=== PATIENT | female | born 1955 | race Caucasian/White ===

== ENCOUNTER 2020-02-22 12:05 | Emergency (ER) | payer MEDICAID, SELFPAY ==
[2020-02-22 12:36] VITALS: BP 144/98; PULSE 95; RESP 20; TEMP 36.7; O2SAT 94; BMI 24.9
--- NOTE | 2020-02-22 13:15 | HMH.EDUTC ---
[facility] [place] Impression: Exposure to COVID-19 virus Disposition: Home, Self-Care Condition on Discharge: Good Instructions: Preventing the Spread of Coronavirus Discharge Instructions Additional Instructions: Drink plenty of fluids. Take tylenol for pain or fever. Follow up with your regular doctor. GO TO THE ER FOR ANY WORSENING SYMPTOMS Referrals: tJ Faye [Primary Care Provider] - Time of Disposition: 13:16 Medical Decision Making - Medical Records Medical records reviewed: No: I reviewed the patient's medical records. - Javier Inquiry Pt receiving controlled substance: No Vital Signs: 02/22/20 12:36 02/22/20 14:02 Temperature 98.1 F 98.1 F Temperature Source Oral Oral Pulse Rate 95 H Pulse Rate [Radial] 95 H Respiratory Rate 20 20 Blood Pressure 144/98 H Blood Pressure [Right Arm] 144/98 H Blood Pressure Mean [Right Arm] 113 Blood Pressure Source Automatic Cuff Blood Pressure Source [Right Arm] Automatic Cuff Blood Pressure Position Sitting Blood Pressure Position [Right Arm] Sitting 02 Sat by Pulse Oximetry 94 L Oxygen Delivery Method Room Air Room Air Orders (Tests/Meds): ORDERS Category Date Time Status Covid-19 Nasal PCR Sendout Gilberto Routine Lab 02/22/20 13:02 [place] [facility] [place] - General Stated complaint: Covid exposure Time Seen by Provider: 02/22/20 13:15 - History of Present Illness Provider Complaint: She states that she was exposed to covid by a family member. She denies any symptoms. - Related Data Allergies Allergy/AdvReac Type Severity Reaction Status Date / Time Codeine Allergy Intermediate I-HIVES Uncoded 03/29/17 14:24 Aspirin Allergy Unknown NA-NAUSEA/V Uncoded 03/29/17 14:[address] [facility] History - Hepatitis A Screen Attestation statement:: This patient has been screened for Hepatitis A risk factors. I have reviewed the patient's past medical history: Yes ROS Obtained: Yes All systems reviewed & no additional complaints - Constitutional Constitutional: Reports system reviewed and no additional complaints, except as docu - Eyes Eyes: Reports system reviewed and no additional complaints, except as docu - ENT Ears, Nose, Mouth, and Throat: Reports system reviewed and no additional complaints, except as docu - Cardiovascular Cardiovascular: Reports system reviewed and no additional complaints, except as docu - Respiratory Respiratory: Yes system reviewed and no additional complaints, except as docu - Gastrointestinal Gastrointestingal: Reports: system reviewed and no additional complaints, except as docu Physical Exam - General General appearance: alert, in no apparent distress - Head Head exam: atraumatic, normocephalic, normal inspection - Eye Eye exam: Present: normal appearance, PERRL, EOMI - ENT ENT exam: Present: normal exam, normal oropharynx, mucous membranes moist, TM's normal bilaterally, normal external ear exam - Neck Neck exam: Present: normal inspection, full ROM, trachea midline. Absent: meningismus, lymphadenopathy - Chest Chest inspection: Present: normal inspection, symmetric chest wall rise. Absent: tenderness - Respiratory Respiratory exam: Present: normal lung sounds bilaterally. Absent: respiratory distress - Cardiovascular Cardiovascular exam: Present: regular rate, normal rhythm. Absent: JVD - Abdominal Exam Abdominal exam: Present: soft, normal bowel sounds. Absent: distention, tenderness, guarding - Extremities Exam Extremities exam: Present: normal inspection, full ROM, normal capillary refill. Absent: calf tenderness - Back Exam Back exam: Present: normal inspection. Absent: tenderness - Neurological Exam Neurological exam: Present: alert, oriented X3 - Psychiatric Psychiatric exam: Present: normal affect, normal mood - Skin Skin exam: Present: warm, dry, intact, normal color - Lymphatic Lymphatic Findings: no adenopathy
[2020-02-22 14:02] VITALS: BP 144/98; PULSE 95; RESP 20; TEMP 36.7; O2SAT 94
== END 2020-02-22 14:03 | disposition home or self-care (01) ==
PROVIDERS: Emergency Provider Nurse Practitioner Family; PCP Family Medicine
DX: Z20.828 Contact with and (suspected) exposure to other viral communicable diseases (principal)
CPT/HCPCS: 99201; U0003

== ENCOUNTER 2023-10-06 11:11 | Outpatient (CLI) | payer MEDICARE, MEDICAID, SELFPAY ==
[2023-10-06 11:18] VITALS: BMI 24.7
--- NOTE | 2023-10-06 11:22 | PC.NURSE ---
1122-tkhurram biggs collected labs via venipuncture stick in left ac with butterfly needle. pt ok to d/c home to call with results.
[2023-10-06 11:37] LABS: Basophils # 0.1 K/mm3 (0-0.2); Eosinophils # 0.2 K/mm3 (0.0-0.4); Eosinophils % 1.8 % (0.1-12.0); Hemoglobin 14.9 g/dL (12.2-16.2); Lymphocytes # 2.1 K/mm3 (0.7-4.5); Lymphocytes % 26.3 % (10-50); Mean Corpuscular HGB Conc 32.3 g/dL (31.8-35.4); Mean Corpuscular Volume 89.7 fl (81-99); Mean Platelet Volume 7.3 fl (7.4-10.4); Monocytes # 0.5 K/mm3 (0.1-1.0); Monocytes % 6.2 % (1.7-9.3); Neutrophils # 5.2 K/mm3 (1.8-7.8); Neutrophils % 64.5 % (37.0-80.0); Platelet Count 399 K/mm3 (142-424); Red Blood Count 5.12 M/mm3 (4.20-5.40); Red Cell Distribution Width 14.1 % (11.5-17.5); White Blood Count 8.1 K/mm3 (4.8-10.8)
[2023-10-06 11:41] LABS: Chloride 101 mmol/L (98-107); Sodium 139 mmol/L (136-145)
[2023-10-06 11:42] LABS: Potassium 4.6 mmoL/L (3.5-5.1)
[2023-10-06 11:44] LABS: Alanine Aminotransferase 18 U/L (12-78); Alkaline Phosphatase 124 U/L (38-126); Aspartate Amino Transferase 24 U/L (14-36); Bilirubin,Total 0.5 mg/dl (0.2-1.3); Blood Urea Nitrogen 9 mg/dl (7-17); Creatinine Clearance Estimated 56 mL/min (50-200); Estimated Glomerular Filt Rate 72 ml/min (>60); GFR (African American) 87 ML/MIN (>60)
[2023-10-06 11:45] LABS: Albumin Level 4.1 g/dl (3.5-5.0); Anion Gap 10.6 mEq/L (5-15); Calcium 9.4 mg/dl (8.4-10.2); Carbon Dioxide 32 mmol/L (22.0-30.0); Glucose 115 mg/dl (74-100); Total Protein,Serum 8.1 g/dl (6.3-8.2)
[2023-10-06 12:12] LABS: Lactate Dehydrogenase 230 U/L (313-618); Uric Acid 4.2 mg/dl (2.5-6.2)
== END 2023-10-06 11:23 | disposition home or self-care (01) ==
LOC: LAB 11:14 → INF 11:15
PROVIDERS: PCP Nurse Practitioner Family; Visit Provider Internal Medicine Medical Oncology
DX: R59.1 Generalized enlarged lymph nodes (principal)
CPT/HCPCS: 36415; 80053; 83615; 84550; 85025

== ENCOUNTER 2023-10-21 08:11 | Outpatient (CLI) | payer MEDICARE, MEDICAID, SELFPAY ==
--- NOTE | 2023-10-21 08:57 | US_ITS ---
FINAL REPORT CLINICAL HISTORY: LYMPHADENOPATHY -- rt neck -- 5 passes -- esther FINN FINDINGS: ULTRASOUND-GUIDED RIGHT NECK MASS BIOPSY. HISTORY: Multiple right neck masses. ATTENDING PHYSICIAN: Dr. Ramírez. PHYSICIAN PAPERHANGER: Ju Branch PA-C. PROCEDURE: After informed consent was obtained and a timeout procedure was performed, the patient was prepped and draped in usual sterile fashion over the right neck. Utilizing sterile technique with a 25-gauge needle, access to the lesion was obtained. 5 passes were made. The patient tolerated the procedure well and left the department in good condition. Ultrasound guidance was utilized for this procedure. IMPRESSION: Status post ultrasound-guided biopsy of a 3 cm right neck mass without immediate complication. Reviewed, Interpreted and Dictated by Valente Wolf III, MD Transcribed by Ju Branch PA-C Authenticated and [facility]
--- NOTE | 2023-10-21 09:30 | US_ITS ---
FINAL REPORT CLINICAL HISTORY: LYMPHADENOPTHY COMPARISON: None FINDINGS: ULTRASOUND SOFT TISSUES NECK: Ultrasound examination of the soft tissues of the neck was performed secondary to several palpable masses in the right side of the neck. There are several hypoechoic ovoid masses noted in the soft tissues of the neck, measuring up to 3 cm in size. These are worrisome for adenopathy. The salivary glands appear unremarkable without evidence of focal mass. IMPRESSION: Several hypoechoic ovoid masses in the soft tissues of the neck, up to 3 cm in size, worrisome for adenopathy. Recommend either PET/CT or biopsy for further evaluation. Reviewed, Interpreted and Dictated by Valente Wolf III, MD Transcribed by Loli Montgomery Authenticated and [facility]
== END 2023-10-21 23:59 | disposition home or self-care (01) ==
LOC: RAD 08:12
PROVIDERS: PCP Nurse Practitioner Family; Visit Provider Internal Medicine Medical Oncology
DX: R22.1 Localized swelling, mass and lump, neck (principal); R59.0 Localized enlarged lymph nodes; C96.9 Malignant neoplasm of lymphoid, hematopoietic and related tissue, unspecified; F17.210 Nicotine dependence, cigarettes, uncomplicated; Z79.899 Other long term (current) drug therapy
CPT/HCPCS: 10005; 76536; 76942; 88173; 88184; 88185; 88305; 88342; 88360

== ENCOUNTER 2024-01-05 14:04 | Outpatient (CLI) | payer MEDICARE, MEDICAID, SELFPAY ==
[2024-01-05 14:06] VITALS: BMI 25.0
[2024-01-05 14:16] LABS: Basophils # 0.1 K/mm3 (0-0.2); Basophils % 1.4 % (0.1-2.0); Eosinophils # 0.1 K/mm3 (0.0-0.4); Eosinophils % 1.5 % (0.1-12.0); Hematocrit 47.2 % (37.0-47.0); Hemoglobin 14.9 g/dL (12.2-16.2); Lymphocytes # 2.4 K/mm3 (0.7-4.5); Lymphocytes % 30.4 % (10-50); Mean Corpuscular HGB Conc 31.5 g/dL (31.8-35.4); Mean Corpuscular Hemoglobin 29.4 pg (27.0-31.2); Mean Corpuscular Volume 93.3 fl (81-99); Mean Platelet Volume 8.7 fl (7.4-10.4); Monocytes # 0.5 K/mm3 (0.1-1.0); Monocytes % 6.4 % (1.7-9.3); Neutrophils # 4.8 K/mm3 (1.8-7.8); Neutrophils % 60.3 % (37.0-80.0); Platelet Count 270 K/mm3 (142-424); Red Blood Count 5.06 M/mm3 (4.20-5.40); Red Cell Distribution Width 15.7 % (11.5-17.5); White Blood Count 7.9 K/mm3 (4.8-10.8)
[2024-01-05 14:26] LABS: Alanine Aminotransferase 19 U/L (12-78); Albumin Level 4.3 g/dl (3.5-5.0); Albumin/Globulin Ratio 1.2 (1.1-1.8); Alkaline Phosphatase 91 U/L (38-126); Anion Gap 5.9 mEq/L (5-15); Aspartate Amino Transferase 30 U/L (14-36); Bilirubin,Total 0.5 mg/dl (0.2-1.3); Blood Urea Nitrogen 12 mg/dl (7-17); Calcium 9.4 mg/dl (8.4-10.2); Carbon Dioxide 28 mmol/L (22.0-30.0); Chloride 109 mmol/L (98-107); Creatinine Clearance Estimated 57 mL/min (50-200); Estimated Glomerular Filt Rate 72 ml/min (>60); GFR (African American) 87 ML/MIN (>60); Globulin 3.6 g/dL (1.3-3.2); Glucose 96 mg/dl (74-100); Potassium 3.9 mmoL/L (3.5-5.1); Sodium 139 mmol/L (136-145); Total Protein,Serum 7.9 g/dl (6.3-8.2)
== END 2024-01-05 14:11 | disposition home or self-care (01) ==
LOC: INF 14:05
PROVIDERS: Internal Medicine Medical Oncology; PCP Nurse Practitioner Family; Visit Provider Nurse Practitioner Family
DX: C34.90 Malignant neoplasm of unspecified part of unspecified bronchus or lung (principal)
CPT/HCPCS: 36415; 80053; 85025

== ENCOUNTER 2024-01-18 08:55 | Outpatient (CLI) | payer MEDICARE, MEDICAID, SELFPAY ==
[2024-01-18] VITALS (11 sets, daily range): BP systolic 119–150; BP diastolic 69–89; PULSE 77–91; RESP 18; TEMP 36.7; O2SAT 93–95
[2024-01-18] MEDS: LORATADINE 10MG TABLET 10 MG PO (09:29)
[2024-01-18] MEDS: FAMOTIDINE 20MG TABLET 20 MG PO (09:29)
[2024-01-18] MEDS: DEXAMETHASONE 4MG TABLET 12 MG PO (09:30)
[2024-01-18] MEDS: ONDANSETRON 4MG ODT 16 MG SL (09:30)
[2024-01-18] MEDS: DEXTROSE 5% IV (10:04)
[2024-01-18] MEDS: WATER IV (10:04)
[2024-01-18] MEDS: PACLITAXEL IV (10:04)
[2024-01-18] MEDS: CARBOPLATIN IV (13:22)
[2024-01-18] MEDS: SODIUM CHLORIDE 0.9% IV (13:22)
[2024-01-18] MEDS: PEMBROLIZUMAB 200 MG in 0.9 % SODIUM CHLORIDE 50 ML 116 MG IV (14:00)
[2024-01-18] MEDS: SODIUM CHLORIDE 0.9% 50ML BAG 50 ML IV (17:28)
[2024-01-18] MEDS: SODIUM CHLORIDE 0.9% 10ML FLUSH SYRINGE 10 ML IV (17:28)
--- NOTE | 2024-01-24 15:20 | DIET.NUTRFU ---
RD consulted due to 1st chemo visit, she reports no change in appetite has been eating well. She did experience some nausea now resolved. She was complaining of leg pain, spoke to provider about adding in some Aleeve. Provided my contact information for any future concerns
== END 2024-01-18 14:50 | disposition home or self-care (01) ==
PROVIDERS: PCP Nurse Practitioner Family; Visit Provider Internal Medicine Medical Oncology
DX: C34.90 Malignant neoplasm of unspecified part of unspecified bronchus or lung (principal)
CPT/HCPCS: 96413; 96415; 96417; J7060; J8540; J9045; J9267; J9271; Q0162

== ENCOUNTER 2024-02-08 09:58 | Outpatient (CLI) | payer MEDICARE, MEDICAID, SELFPAY ==
[2024-02-08] VITALS (10 sets, daily range): BP systolic 117–160; BP diastolic 85–97; PULSE 79–88; RESP 18–19; TEMP 36.6; O2SAT 97–98; BMI 25.4
[2024-02-08 10:25] LABS: Basophils # 0.1 K/mm3 (0-0.2); Basophils % 1.4 % (0.1-2.0); Eosinophils # 0.1 K/mm3 (0.0-0.4); Eosinophils % 1.4 % (0.1-12.0); Hematocrit 41.2 % (37.0-47.0); Hemoglobin 13.8 g/dL (12.2-16.2); Lymphocytes # 2.1 K/mm3 (0.7-4.5); Lymphocytes % 37.2 % (10-50); Mean Corpuscular HGB Conc 33.6 g/dL (31.8-35.4); Mean Corpuscular Hemoglobin 29.9 pg (27.0-31.2); Mean Corpuscular Volume 89.1 fl (81-99); Mean Platelet Volume 7.7 fl (7.4-10.4); Monocytes # 0.4 K/mm3 (0.1-1.0); Monocytes % 6.5 % (1.7-9.3); Neutrophils % 53.4 % (37.0-80.0); Platelet Count 222 K/mm3 (142-424); Red Blood Count 4.63 M/mm3 (4.20-5.40); Red Cell Distribution Width 16.4 % (11.5-17.5); White Blood Count 5.5 K/mm3 (4.8-10.8)
[2024-02-08 10:37] LABS: Albumin Level 4.1 g/dl (3.5-5.0); Chloride 108 mmol/L (98-107); Potassium 4.3 mmoL/L (3.5-5.1); Sodium 141 mmol/L (136-145)
[2024-02-08 10:40] LABS: Alanine Aminotransferase 23 U/L (12-78); Albumin/Globulin Ratio 1.2 (1.1-1.8); Alkaline Phosphatase 96 U/L (38-126); Anion Gap 11.3 mEq/L (5-15); Aspartate Amino Transferase 29 U/L (14-36); Bilirubin,Total 0.5 mg/dl (0.2-1.3); Blood Urea Nitrogen 11 mg/dl (7-17); Calcium 8.8 mg/dl (8.4-10.2); Carbon Dioxide 26 mmol/L (22.0-30.0); Creatinine Clearance Estimated 57 mL/min (50-200); Estimated Glomerular Filt Rate 83 ml/min (>60); GFR (African American) 101 ML/MIN (>60); Globulin 3.4 g/dL (1.3-3.2); Glucose 87 mg/dl (74-100); Total Protein,Serum 7.5 g/dl (6.3-8.2)
[2024-02-08] MEDS: DEXAMETHASONE 4MG TABLET 12 MG (10:54)
[2024-02-08] MEDS: 0.9 % SODIUM CHLORIDE 100 ML IV (10:54)
[2024-02-08] MEDS: FAMOTIDINE 20MG TABLET 20 MG (10:55)
[2024-02-08] MEDS: ONDANSETRON 4MG ODT 16 MG (10:55)
[2024-02-08] MEDS: LORATADINE 10MG TABLET 10 MG PO (10:55)
[2024-02-08 10:57] LABS: T4 (Thyroxine) 8.7 ug/dl (5.53-11.0)
[2024-02-08 11:11] LABS: Thyroid Stimulating Hormone 3.17 uIU/mL (0.465-4.68)
[2024-02-08] MEDS: DEXTROSE 5% IV (11:29)
[2024-02-08] MEDS: PACLITAXEL IV (11:29)
[2024-02-08] MEDS: WATER IV (11:29)
[2024-02-08] MEDS: CARBOPLATIN IV (14:33)
[2024-02-08] MEDS: SODIUM CHLORIDE 0.9% IV (14:33)
[2024-02-08] MEDS: PEMBROLIZUMAB 200 MG in 0.9 % SODIUM CHLORIDE 50 ML 116 MG IV (15:11)
[2024-02-09 13:38] LABS: Adrenocorticotropic Hormone 6.6 pg/mL (7.2-63.3)
== END 2024-02-08 15:54 | disposition home or self-care (01) ==
LOC: INF 09:59
PROVIDERS: PCP Nurse Practitioner Family; Visit Provider Internal Medicine Medical Oncology
DX: R59.1 Generalized enlarged lymph nodes (principal); Z79.899 Other long term (current) drug therapy
CPT/HCPCS: 80053; 82024; 82533; 84436; 84443; 85025; 96413; 96415; 96417; J7060; J8540; J9045; J9267; J9271; Q0162

== ENCOUNTER 2024-02-27 12:29 | Emergency (ER) | payer MEDICARE, MEDICAID, SELFPAY ==
[2024-02-27 13:50] VITALS: BP 131/89; PULSE 91; RESP 18; TEMP 36.6; O2SAT 98; BMI 26.4
--- NOTE | 2024-02-27 14:03 | ED_ITS ---
Discharge Plan Disposition Patient Disposition: Eloped Prescriptions Prescriptions: No Action Spiriva Respimat 1.25 mcg/actuation mist 2 puff inhalation DAILY gabapentin 400 mg capsule 400 mg PO TID Patient Comments: TAKE ONE (1) CAPSULE THREE (3) TIMES A DAY BY ORAL ROUTE FOR 30 DAYS. Linzess 145 mcg capsule 145 mcg PO DAILY Patient Comments: TAKE ONE (1) CAPSULE EVERY DAY BY ORAL ROUTE. cyclobenzaprine 5 mg tablet 5 mg PO TID Patient Comments: TAKE ONE (1) TABLET THREE (3) TIMES A DAY BY ORAL ROUTE FOR 30 DAYS. fluticasone propionate 50 mcg/actuation spray,suspension 50 mcg intranasal DAILY Patient Comments: SPRAY ONE (1) SPRAY EVERY DAY BY INTRANASAL ROUTE. montelukast 10 mg tablet 10 mg PO DAILY Patient Comments: TAKE ONE (1) TABLET EVERY DAY BY ORAL ROUTE. pantoprazole 40 mg tablet,delayed release (DR/EC) 40 mg PO DAILY Patient Comments: TAKE ONE (1) TABLET EVERY DAY BY ORAL ROUTE. sertraline 100 mg tablet 100 mg PO DAILY Patient Comments: TAKE TWO (2) TABLETS EVERY DAY BY ORAL ROUTE. atorvastatin 40 mg tablet 40 mg PO DAILY Patient Comments: TAKE ONE (1) TABLET EVERY DAY BY ORAL ROUTE. furosemide 40 mg tablet 40 mg PO DAILY PRN (Reason: Fluid) Patient Comments: TAKE ONE (1) TABLET EVERY DAY BY ORAL ROUTE NEEDED. buspirone 15 mg tablet 15 mg PO TID Patient Comments: TAKE ONE (1) TABLET THREE (3) TIMES A DAY BY ORAL ROUTE FOR 30 DAYS. cholecalciferol (vitamin D3) 1,250 mcg (50,000 unit) capsule 1,250 mcg PO WEEKLY Patient Comments: TAKE ONE (1) CAPSULE EVERY WEEK BY ORAL ROUTE. ipratropium bromide 0.02 % solution 500 mcg inhalation NEEDED PRN (Reason: soa) Patient Comments: INHALE TWO AND A HALF (2 & 1/2) ML EVERY SIX (6) HOURS BY INHALATION ROUTE Referrals Follow up/Referrals: Otilio Barcenas APRN [Primary Care Provider] - See instructions Clinical Impressions Clinical Impression: Patient left without being seen Print Language Print Language: Azeri Discharge ED Provider[place] Samara Ambrocio [facility] [place] General Stated complaint: neck and L shoulder Pain Mode of Arrival: Ambulatory Source of Information: Patient Time Seen by Provider: 02/27/24 14:03 Description of Symptoms (Recalled from Triage Doc. by RN): NECK AND SHOULDER MUSCLE PAIN HEENT Symptoms (Recalled from RN notes): No Resp Symptoms (Recalled from RN notes): No Skin Symptoms (Recalled from RN notes): No MS Symptoms (Recalled from RN notes): Yes Functional Status (Recalled from RN notes): HURTS TO MOVE SHOULDER UP AND DOWN History of Present Illness Provider Complaint: Patient states that she has been having muscle spasm like pain in her left shoulder blade area for about a week States that she is prescribed muscle relaxers and has been taking them but havent helped much States pain is worse with certain movements Denies chest pain Denies pain into jaw area States at times it feels tight in shoulder area when she turns her head States not sure if she may have pulled something reaching for her coffee cup last week because that is when the pain started States that she is able to move her shoulder back and forth but hurts to raise it up and down denies known injury Related Data Home Medications ?Medication ?Instructions ?Recorded ?Confirmed atorvastatin 40 mg tablet 40 mg PO DAILY 10/06/23 02/27/24 buspirone 15 mg tablet 15 mg PO TID 10/06/23 02/27/24 cholecalciferol (vitamin D3) 1,250 1,250 mcg PO WEEKLY 10/06/23 02/27/24 mcg (50,000 unit) capsule cyclobenzaprine 5 mg tablet 5 mg PO TID 10/06/23 02/27/24 fluticasone propionate 50 50 mcg intranasal DAILY allergies 10/06/23 02/27/24 mcg/actuation nasal spray,suspension furosemide 40 mg tablet 40 mg PO DAILY PRN Fluid 10/06/23 02/27/24 gabapentin 400 mg capsule 400 mg PO TID 10/06/23 02/27/24 linaclotide 145 mcg capsule 145 mcg PO DAILY 10/06/23 02/27/24 (Linzess) montelukast 10 mg tablet 10 mg PO DAILY 10/06/23 02/27/24 pantoprazole 40 mg tablet,delayed 40 mg PO DAILY 10/06/23 02/27/24 release sertraline 100 mg tablet 100 mg PO DAILY 10/06/23 02/27/24 tiotropium bromide 1.25 2 puff inhalation DAILY 10/06/23 02/27/24 mcg/actuation mist for inhalation (Spiriva Respimat) ipratropium bromide 0.02 % 500 mcg inhalation NEEDED PRN 12/06/23 02/27/24 solution for inhalation soa Allergies Allergy/AdvReac Type Severity Reaction Status Date / Time codeine Allergy Intermediate Hives Verified 02/08/24 11:03 aspirin Allergy Mild Nausea Verified 02/08/24 11:03 Worker's Comp Is this a Worker's Comp case?: No [facility] Disclaimer: The information contained in this section may have been updated after the patient was seen, as this information can be updated by other users. Medical History Chronic pain Edema Heartburn Depression Anxiety High cholesterol Chronic constipation Surgical History History of removal of skin mole H/O unilateral oophorectomy H/O breast biopsy H/O tubal ligation Family History Mother Cancer Heart attack Father Cancer Heart attack Brother Diabetes Heart attack Family/Other Diabetes Heart attack Sister Heart attack Social History Smoking Status: Current every day smoker tobacco type: cigarettes packs per day: 1 alcohol intake: never substance use type: marijuana counseling given: Yes counseling provided: provider counseling current occupational status: other Travel in the last 8 weeks: None ROS Obtained: Yes All systems reviewed & no additional complaints except as documented and Yes Systems reviewed as appropriate & no additional complaints except as documented Constitutional Constitutional: Reports system reviewed and no additional complaints, except as documented and Reports as per HPI ENT Ears, Nose, Mouth, and Throat: Reports system reviewed and no additional complaints, except as documented and Reports as per HPI Cardiovascular Cardiovascular: Reports system reviewed and no additional complaints, except as documented, Reports as per HPI, Denies chest pain, Denies edema and Denies radiating jaw, neck or arm pain Respiratory Respiratory: Reports system reviewed and no additional complaints, except as documented and Reports as per HPI Gastrointestinal Gastrointestingal: Reports system reviewed and no additional complaints, except as documented and as per HPI Musculoskeletal Musculoskeletal: Reports system reviewed and no additional complaints, except as documented, Reports as per HPI, Reports myalgias and Reports other Comments: reports muscle spasm like pain in left shoulder/shoulder blade area that is worse when she tries to raise shoulder up and down Integumentary/Breasts Skin/Breast: Reports system reviewed and no additional complaints, except as documented and Reports as per HPI Physical Exam General General appearance: alert and in no apparent distress Eye Eye exam: Present normal appearance, PERRL and EOMI Respiratory Respiratory exam: Present normal lung sounds bilaterally; Absent respiratory distress or wheezes Cardiovascular Cardiovascular exam: Present regular rate, normal rhythm and normal heart sounds Back Exam Back exam: Present tenderness and muscle spasm Back 1 view image: 2 1. reports muscle pain worse with movement, feels tight and throbs at times x 1 week Denies radiation of pain Neurological Exam Neurological exam: Present alert, oriented X3 and normal gait Medical Decision Making Medical Records Screening: Per USPSTF and CDC recommendations, given the prevalence of disease in our region, it is our hospital?s policy to screen for HIV and viral Hepatitis for all patients aged 18 and over and those with ongoing risk factors. Javier Inquiry Pt receiving controlled substance: No Javier was queried for this patient: No Vital Signs: 02/27/24 13:50 Temperature 97.8 F Temperature Source Oral Pulse Rate [Left Radial] 91 H Respiratory Rate 18 Blood Pressure [Left Arm] 131/89 Blood Pressure Mean [Left Arm] 103 02 Sat by Pulse Oximetry 98 ECG Data Tracing #1: I reviewed this ECG and interpreted as documented below: ECG initial impression date: 02/27/24 ECG initial impression time: 14:39 ECG normal with no acute: arrhythmias, ischemia, conduction abnormalities, chamber hypertrophy Normal Sinus Rhythm: Yes Arrhythmias present: PVC's (occasional supraventricular premature complexes) Pacemaker function: normal pacer function ECG compared to prior tracings: there are no prior tracings available for comparison Medical Decision Narrative: EKG done due to complaint of pain in her left shoulder area Denies radiation of pain and pain is worse with movement Awaiting xray results While waiting on xray results patient left room and walked out of clinic without notifying staff, awaiting to see if she returns
--- NOTE | 2024-02-27 14:15 | XR_ITS ---
PROCEDURE INFORMATION: Exam: XR Left Shoulder Exam date and time: 02/27/2024 2:40 PM Age: 69 years old Clinical indication: Pain; Shoulder; Left; Additional info: Pain with movement TECHNIQUE: Imaging protocol: Radiologic exam of the left shoulder. Views: 2 or more views. Total images: 3 COMPARISON: No relevant prior studies available. FINDINGS: Bones/joints: No evidence of acute fracture or dislocation. Mild degenerative changes of the acromioclavicular joint. Soft tissues: Soft tissues are within normal limits. IMPRESSION: No evidence of acute fracture or dislocation.
--- NOTE | 2024-02-27 14:35 | ECG_ITS ---
APPROVED REPORT Exam: Resting ECG HR:81 bpm ECG Measurements Heart Rate 81 AXES SD 130 P 51 QRSd 86 QRS 56 QT 366 T 60 QTc 403 Conclusion SINUS RHYTHM WITH OCCASIONAL SUPRAVENTRICULAR PREMATURE COMPLEXES MODERATE ST DEPRESSION [0.05+ mV ST DEPRESSION] ABNORMAL ECG UNCONFIRMED REPORT Electronically signed by : CUAUHTEMOC BERRIOS, 02/28/2024 06:47:41
--- NOTE | 2024-02-27 15:27 | PC.NURSE ---
PATIENT LEFT WITHOUT ROOM WITHOUT NOTIFYING STAFF, RN CALLED AND PATIENT ELOPED D/T BEING HERE TOO LONG .
[2024-02-27 15:29] VITALS: BP 0/0; PULSE 0; RESP 0; TEMP -17.7; TEMP 0
== END 2024-02-27 15:29 | disposition left against medical advice (07) ==
PROVIDERS: Emergency Provider Nurse Practitioner; PCP Nurse Practitioner Family
DX: Z53.21 Procedure and treatment not carried out due to patient leaving prior to being seen by health care provider (principal)
CPT/HCPCS: 73030; 93005

== ENCOUNTER 2024-02-29 08:45 | Outpatient (CLI) | payer MEDICARE, MEDICAID, SELFPAY ==
[2024-02-29] VITALS (11 sets, daily range): BP systolic 123–139; BP diastolic 74–90; PULSE 73–86; RESP 18–19; TEMP 36.7; O2SAT 95–99; BMI 25.4
[2024-02-29 09:19] LABS: Alanine Aminotransferase 22 U/L (12-78); Albumin Level 4.2 g/dl (3.5-5.0); Albumin/Globulin Ratio 1.3 (1.1-1.8); Alkaline Phosphatase 94 U/L (38-126); Anion Gap 15.6 mEq/L (5-15); Aspartate Amino Transferase 22 U/L (14-36); Bilirubin,Total 0.5 mg/dl (0.2-1.3); Blood Urea Nitrogen 12 mg/dl (7-17); Calcium 9.4 mg/dl (8.4-10.2); Carbon Dioxide 23 mmol/L (22.0-30.0); Chloride 110 mmol/L (98-107); Creatinine Clearance Estimated 57 mL/min (50-200); Estimated Glomerular Filt Rate 83 ml/min (>60); GFR (African American) 101 ML/MIN (>60); Globulin 3.3 g/dL (1.3-3.2); Glucose 80 mg/dl (74-100); Potassium 3.6 mmoL/L (3.5-5.1); Sodium 145 mmol/L (136-145); Total Protein,Serum 7.5 g/dl (6.3-8.2)
[2024-02-29 09:24] LABS: Basophils % 0.2 % (0.1-2.0); Eosinophils % 0.1 % (0.1-12.0); Hematocrit 37.1 % (37.0-47.0); Hemoglobin 12.7 g/dL (12.2-16.2); Lymphocytes # 1.2 K/mm3 (0.7-4.5); Lymphocytes % 17.3 % (10-50); Mean Corpuscular HGB Conc 34.4 g/dL (31.8-35.4); Monocytes # 0.5 K/mm3 (0.1-1.0); Monocytes % 7.4 % (1.7-9.3); Neutrophils # 5.1 K/mm3 (1.8-7.8); Neutrophils % 74.9 % (37.0-80.0); Platelet Count 237 K/mm3 (142-424); Red Blood Count 4.12 M/mm3 (4.20-5.40); Red Cell Distribution Width 17.9 % (11.5-17.5); White Blood Count 6.8 K/mm3 (4.8-10.8)
[2024-02-29] MEDS: LORATADINE 10MG TABLET 10 MG PO (09:38)
[2024-02-29] MEDS: DEXAMETHASONE 4MG TABLET 12 MG (09:38)
[2024-02-29] MEDS: FAMOTIDINE 20MG TABLET 20 MG (09:39)
[2024-02-29] MEDS: ONDANSETRON 4MG ODT 16 MG (09:39)
[2024-02-29] MEDS: WATER IV (10:09)
[2024-02-29] MEDS: PACLITAXEL IV (10:09)
[2024-02-29] MEDS: DEXTROSE 5% IV (10:09)
[2024-02-29] MEDS: 0.9 % SODIUM CHLORIDE 100 ML IV (10:09)
[2024-02-29] MEDS: SODIUM CHLORIDE 0.9% IV (13:15)
[2024-02-29] MEDS: CARBOPLATIN IV (13:15)
[2024-02-29] MEDS: PEMBROLIZUMAB 200 MG in 0.9 % SODIUM CHLORIDE 50 ML 116 MG IV (13:55)
== END 2024-02-29 14:38 | disposition home or self-care (01) ==
LOC: INF 08:46
PROVIDERS: PCP Nurse Practitioner Family; Visit Provider Internal Medicine Medical Oncology
DX: R59.1 Generalized enlarged lymph nodes (principal)
CPT/HCPCS: 80053; 85025; 96413; 96415; 96417; J7060; J8540; J9045; J9267; J9271; Q0162

== ENCOUNTER 2024-03-05 08:16 | Day surgery (SDC) | payer MEDICARE, MEDICAID, SELFPAY ==
[2024-02-29 16:03] VITALS: BMI 26.4
[2024-03-05 08:53] VITALS: BP 127/83; PULSE 89; RESP 16; TEMP 36.2; O2SAT 95
[2024-03-05] MEDS: LACTATED RINGERS 1000ML 1,000 ML 25 ML IV (09:01)
[2024-03-05 09:24] VITALS: O2SAT 98
--- NOTE | 2024-03-05 09:30 | EXP.HP ---
History of Present Illness *Admission Date: 03/05/24 *Reason for visit:: Abnormal PET scan *History of present illness: Mrs. Montoya is a 69-year-old female who is here for diagnostic colonoscopy. The patient did have a PET scan on 12/03/2023 at [facility] and there were multiple hypermetabolic right cervical and mediastinal lymph nodes. There was also a hypermetabolic focus within the cecum anterior to the lateral margin of the ileocecal valve which was concerning for primary colon cancer. The examination is deemed medically necessary for diagnostic colonoscopy. The patient has been seen, interviewed and examined prior to the procedure by both myself and the anesthesia provider. [facility] Disclaimer: The information contained in this section may have been updated after the patient was seen, as this information can be updated by other users. Medical History (Updated 03/05/24 @ 09:32 by Gene Lord II, MD) COPD (chronic obstructive pulmonary disease) Sleep apnea Chronic pain Edema Heartburn Depression Anxiety High cholesterol Chronic constipation Surgical History History of removal of skin mole H/O unilateral oophorectomy H/O breast biopsy H/O tubal ligation Family History Mother Cancer Heart attack Father Cancer Heart attack Brother Diabetes Heart attack Family/Other Diabetes Heart attack Sister Heart attack Social History (Updated 03/05/24 @ 08:54 by Karina Scruggs RN) Smoking Status: Current every day smoker tobacco type: cigarettes packs per day: 1 alcohol intake: never substance use type: marijuana counseling given: Yes counseling provided: provider counseling current occupational status: retired Travel in the last 8 weeks: None caffeine: No Other Medical History Have you received the Pneumonia Vaccine: Yes Review of Systems Review of Systems Review of systems (narrative): Negative *Cardiovascular Comments: Negative *Gastrointestinal Comments: Negative *Genitourinary Comments: Negative *Musculoskeletal Comments: Negative *Neurologic Comments: Negative Meds Home Medications and Allergies Home Medications ?Medication ?Instructions ?Recorded ?Confirmed ?Type atorvastatin 40 mg tablet 40 mg PO DAILY 10/06/23 03/05/24 History buspirone 15 mg tablet 15 mg PO TID 10/06/23 03/05/24 History cholecalciferol (vitamin D3) 1,250 1,250 mcg PO WEEKLY 10/06/23 03/05/24 History mcg (50,000 unit) capsule cyclobenzaprine 5 mg tablet 5 mg PO TID 10/06/23 03/05/24 History fluticasone propionate 50 50 mcg intranasal DAILY allergies 10/06/23 03/05/24 History mcg/actuation nasal spray,suspension furosemide 40 mg tablet 40 mg PO DAILY PRN Fluid 10/06/23 03/05/24 History linaclotide 145 mcg capsule 145 mcg PO DAILY 10/06/23 03/05/24 History (Linzess) montelukast 10 mg tablet 10 mg PO DAILY 10/06/23 03/05/24 History pantoprazole 40 mg tablet,delayed 40 mg PO DAILY 10/06/23 03/05/24 History release sertraline 100 mg tablet 100 mg PO DAILY 10/06/23 03/05/24 History tiotropium bromide 1.25 2 puff inhalation DAILY 10/06/23 03/05/24 History mcg/actuation mist for inhalation (Spiriva Respimat) ipratropium bromide 0.02 % 500 mcg inhalation NEEDED PRN 12/06/23 03/05/24 History solution for inhalation soa gabapentin 600 mg tablet 600 mg PO TID 02/29/24 03/05/24 History peg 3350-electrolytes 236 240 ml PO Q10M colonscopy #4,000 mL 02/29/24 03/05/24 Rx gram-22.74 gram-6.74 gram-5.86 gram solution (Golytely) New Prescriptions to Start Prescriptions: Allergies Allergy/AdvReac Type Severity Reaction Status Date / Time codeine Allergy Intermediate Hives Verified 03/05/24 08:46 aspirin Allergy Mild Nausea Verified 03/05/24 08:46 Exam Data for Last 24 hours Vital signs and Labs for Last 24 Hours: Temp Pulse Resp BP Pulse Ox O2 Del Method O2 Flow Rate 97.1 F L 89 16 127/83 95 Nasal Cannula 5 03/05/24 08:53 03/05/24 08:53 03/05/24 08:53 03/05/24 08:53 03/05/24 08:53 03/05/24 09:24 03/05/24 09:24 *Routine HEENT Exam Head: Present normocephalic Eye: Present EOMI and PERRL ENT: Present mucous membranes moist *Routine Neck Exam Neck: Present supple *Routine Respiratory Exam Respiratory: Present CTA bilaterally *Routine Cardiovascular Exam Cardiovascular: Present RRR *Routine Abdominal Exam Abdominal: Present soft and normoactive bowel sounds; Absent tenderness *Routine Rectal Exam Rectal:: deferred *Routine Genitalia Exam Genitalia:: deferred *Routine Extremities Exam Extremities: Absent cyanosis, clubbing or edema *Routine Skin Exam Skin: Present warm; Absent rash *Routine Neurological Exam Neurological: Present alert and oriented X3 Assessment and Plan *Assessment and plan (1) Abnormal CT scan, colon: Status: Acute Category: Medical Code(s): R93.3 - Abnormal findings on diagnostic imaging of other parts of digestive tract (2) Cecum mass: Status: Acute Category: Medical Code(s): K63.89 - Other specified diseases of intestine Plan A/P: 1. Abnormal CAT scan/PET scan with cecal mass is the preprocedural diagnosis. The patient will be anesthetized/sedated using MAC sedation. The patient has been seen and examined. Cardiac and lung assessment prior to the examination is stable. Proceed with planned colonoscopy
--- NOTE | 2024-03-05 09:49 | HMH.PROCNOTE ---
[facility] Procedure Note Date: 03/05/24 Time: 09:49 Procedure Note:: Colonoscopy Procedure Report: Colonoscopy with cold snare polypectomy Endoscopist: Gene Lord II, MD Referring physician: Josh Pacheco MD/ISMAEL Guido Date of Procedure: March 05, 2024 Equipment: Olympus 190 variable stiffness pediatric colonoscope Sedation: MAC sedation Indication: Mrs. Montoya is a 69-year-old female who is here for diagnostic colonoscopy. 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 The patient did have a PET scan at [facility] and this did show a hypermetabolic focus within the cecum anterior to the lateral margin of the ileocecal valve which was concerning for primary colon cancer or malignant polyp. The patient reports no abdominal pain, rectal bleeding, change in her bowel habits or family history of colon cancer. Her last colonoscopy was in 2013 and she had polyps removed. Procedure: Prior to the procedure, a history and physical exam was performed, and patient's medications and allergies were reviewed. The risks, benefits and alternatives of the sedation and procedure were discussed with the patient. All questions were answered and informed consent was obtained. The patient was brought to the procedure room. Patient identification and proposed procedure were verified by the physician and the nurse. The patient was placed in a left lateral decubitus position and the scope was passed under direct vision. Throughout the procedure, the patient's blood pressure, pulse, and oxygen saturations were monitored continuously. The colonoscopy was accomplished without difficulty. The patient tolerated the procedure well. Findings: On digital rectal examination there was normal rectal tone. There were no external hemorrhoids. The colonoscope was introduced through the anal canal to the rectum and advanced to the cecum. The ileocecal valve and appendiceal orifice were identified. The scope was advanced a short distance into the ileum which appeared grossly normal. The scope was then withdrawn into the colon. The cecum, ileocecal valve and contralateral region of colon were inspected very carefully and there was no evidence of any polyps, masses or other mucosal abnormalities. The remaining ascending and transverse colon and mucosa were grossly normal. There was a single 5 mm polyp in the transverse colon removed via cold snare polypectomy. There were scattered diverticuli throughout the descending and sigmoid colon (LEFT colon). The rectum itself was normal. Upon retroflexion within the rectum there were 1-2 internal hemorrhoids. The preparation was good throughout with [place] Preparation Score of 8 out of 9. The cecal time was 12 minutes. Impression: 1. Transverse colon polyp (5 mm) 2. Left-sided diverticulosis 3. Grade 1-2 internal hemorrhoids Plan: The inspected area of cecum was normal with no mucosal abnormalities identified. There is no evidence of any primary colon cancer. I will discuss the findings with the patient and family.
[2024-03-05 09:50] VITALS: BP 125/75; PULSE 85; RESP 16; O2SAT 99
[2024-03-05 10:00] VITALS: BP 137/83; PULSE 80; RESP 18; O2SAT 99
[2024-03-05 10:10] VITALS: BP 148/83; PULSE 81; RESP 18; O2SAT 99
[2024-03-05 10:20] VITALS: BP 151/84; PULSE 78; RESP 18; O2SAT 99
--- NOTE | 2024-03-05 14:48 | P.PNANES_ITS ---
[facility] Disclaimer: The information contained in this section may have been updated after the patient was seen, as this information can be updated by other users. Medical History (Updated 03/05/24 @ 09:32 by Gene Lord II, MD) COPD (chronic obstructive pulmonary disease) Sleep apnea Chronic pain Edema Heartburn Depression Anxiety High cholesterol Chronic constipation Surgical History History of removal of skin mole H/O unilateral oophorectomy H/O breast biopsy H/O tubal ligation Family History Mother Cancer Heart attack Father Cancer Heart attack Brother Diabetes Heart attack Family/Other Diabetes Heart attack Sister Heart attack Social History (Updated 03/05/24 @ 08:54 by Karina Scruggs RN) Smoking Status: Current every day smoker tobacco type: cigarettes packs per day: 1 alcohol intake: never substance use type: marijuana counseling given: Yes counseling provided: provider counseling current occupational status: retired Travel in the last 8 weeks: None caffeine: No [facility] Anesthesia Checklist Patient Identification Patient Identification: Arm Band Structural Data Admitted From: Home Planned Operative Procedure/s: Colonoscopy Consent for Planned Operative Procedure(s) Verified: Yes Verified Documents: Surgical Consent and History and Physical NPO Status Verified Time NPO: 00:00 Additional verifications Anesthesia Reactions: No Airway Assessment Mallampati Score:: Class II C-Spine Mobility Assessed: Yes TMJ Mobility Assessed: Yes Dentition: Good Dentition Neurological Assessment Level of Consciousness: Awake, Alert and Appropriate Anesthesia Plan Anesthesia Risk discussed: Yes Anesthesia Plan: Verified ASA Class: III Anesthesia Type: MAC
== END 2024-03-05 10:50 | disposition home or self-care (01) ==
PROVIDERS: PCP Nurse Practitioner Family; Visit Provider Internal Medicine Gastroenterology
PROC: (CPT 45385; principal; 2024-03-05 10:00)
DX: R93.3 Abnormal findings on diagnostic imaging of other parts of digestive tract (principal); K63.89 Other specified diseases of intestine; K63.5 Polyp of colon; K57.30 Diverticulosis of large intestine without perforation or abscess without bleeding; K64.8 Other hemorrhoids
CPT/HCPCS: 45385; 88305; J7120

== ENCOUNTER 2024-03-21 09:15 | Outpatient (CLI) | payer MEDICARE, MEDICAID, SELFPAY ==
[2024-03-21] VITALS (11 sets, daily range): BP systolic 111–145; BP diastolic 71–92; PULSE 76–92; RESP 18–20; TEMP 36.6; O2SAT 94–96; BMI 25.0
[2024-03-21 09:47] LABS: Basophils # 0.1 K/mm3 (0-0.2); Basophils % 1.2 % (0.1-2.0); Eosinophils % 0.5 % (0.1-12.0); Hematocrit 39.8 % (37.0-47.0); Hemoglobin 13.4 g/dL (12.2-16.2); Lymphocytes % 42.1 % (10-50); Mean Corpuscular HGB Conc 33.8 g/dL (31.8-35.4); Mean Corpuscular Hemoglobin 32.1 pg (27.0-31.2); Mean Platelet Volume 7.7 fl (7.4-10.4); Monocytes # 0.6 K/mm3 (0.1-1.0); Monocytes % 7.9 % (1.7-9.3); Neutrophils # 3.4 K/mm3 (1.8-7.8); Neutrophils % 48.2 % (37.0-80.0); Platelet Count 182 K/mm3 (142-424); Red Blood Count 4.19 M/mm3 (4.20-5.40); Red Cell Distribution Width 19.7 % (11.5-17.5); White Blood Count 7.1 K/mm3 (4.8-10.8)
[2024-03-21 09:50] LABS: Albumin Level 4.5 g/dl (3.5-5.0); Chloride 109 mmol/L (98-107); Potassium 3.8 mmoL/L (3.5-5.1); Sodium 138 mmol/L (136-145)
[2024-03-21 09:53] LABS: Alanine Aminotransferase 26 U/L (12-78); Albumin/Globulin Ratio 1.4 (1.1-1.8); Alkaline Phosphatase 106 U/L (38-126); Anion Gap 7.8 mEq/L (5-15); Aspartate Amino Transferase 29 U/L (14-36); Bilirubin,Total 0.5 mg/dl (0.2-1.3); Blood Urea Nitrogen 13 mg/dl (7-17); Calcium 9.2 mg/dl (8.4-10.2); Carbon Dioxide 25 mmol/L (22.0-30.0); Creatinine Clearance Estimated 56 mL/min (50-200); Estimated Glomerular Filt Rate 83 ml/min (>60); GFR (African American) 101 ML/MIN (>60); Globulin 3.2 g/dL (1.3-3.2); Glucose 88 mg/dl (74-100); Total Protein,Serum 7.7 g/dl (6.3-8.2)
[2024-03-21 10:24] LABS: Thyroid Stimulating Hormone 4.72 uIU/mL (0.465-4.68)
[2024-03-21] MEDS: DEXAMETHASONE 4MG TABLET 12 MG PO (10:40)
[2024-03-21] MEDS: ONDANSETRON 4MG ODT 16 MG SL (10:40)
[2024-03-21] MEDS: LORATADINE 10MG TABLET 10 MG PO (10:40)
[2024-03-21] MEDS: FAMOTIDINE 20MG TABLET 20 MG PO (10:40)
[2024-03-21] MEDS: SODIUM CHLORIDE 0.9% 100ML BAG 100 ML IV (11:14)
[2024-03-21] MEDS: SODIUM CHLORIDE 0.9% 10ML FLUSH SYRINGE 10 ML IV (11:15)
[2024-03-21] MEDS: DEXTROSE 5% IV (11:16)
[2024-03-21] MEDS: WATER IV (11:16)
[2024-03-21] MEDS: PACLITAXEL IV (11:16)
[2024-03-21] MEDS: SODIUM CHLORIDE 0.9% IV (14:28)
[2024-03-21] MEDS: CARBOPLATIN IV (14:28)
[2024-03-21] MEDS: PEMBROLIZUMAB 200 MG in 0.9 % SODIUM CHLORIDE 50 ML 116 MG IV (15:07)
[2024-03-22 14:11] LABS: Adrenocorticotropic Hormone 9.7 pg/mL (7.2-63.3)
== END 2024-03-21 15:50 | disposition home or self-care (01) ==
LOC: INF 09:15
PROVIDERS: PCP Nurse Practitioner Family; Visit Provider Internal Medicine Medical Oncology
DX: R59.1 Generalized enlarged lymph nodes (principal); Z79.899 Other long term (current) drug therapy
CPT/HCPCS: 80053; 82024; 82533; 84443; 85025; 96413; 96415; 96417; J7060; J8540; J9045; J9267; J9271; Q0162

== ENCOUNTER 2024-04-10 08:22 | Outpatient (CLI) | payer MEDICARE, MEDICAID, SELFPAY ==
--- NOTE | 2024-04-10 08:23 | CT_ITS ---
FINAL REPORT TECHNIQUE: Thin section axial images were obtained through the abdomen after intravenous contrast. Reconstruction images were obtained from the axial data. Exam was performed using dose reduction techniques. CLINICAL HISTORY: lymphadenopathy COMPARISON: None FINDINGS: There is a 12 mm hypervascular lesion in the inferior right lobe of the liver. The liver is otherwise homogeneous. The gallbladder is present. The spleen and pancreas are unremarkable. Bilateral adrenal nodules are present, which do not have CT characteristics consistent with adenomas. The right adrenal nodule measures 23 mm in size. The left adrenal gland contained 2 separate nodules. The nodule in the medial limb of the adrenal gland measures 4 cm in size, while the lateral limb mass measures 2.5 cm in size. There is no hydronephrosis or solid renal mass. Abdominal GI tract is without acute abnormality. There is no abdominal lymphadenopathy or ascites. The pelvic solid organs are unremarkable. A large amount of retained stool is present in the colon. There is diverticulosis without evidence of acute diverticulitis. The pelvic portions of the GI tract, including the appendix, are otherwise without acute abnormality. There is no pelvic lymphadenopathy or ascites. No acute osseous abnormalities identified. IMPRESSION: Bilateral adrenal nodules are present, which do not represent adenomas. Consider adrenal mass protocol CT or MRI for further evaluation 12 mm hypervascular lesion in the inferior right lobe of the liver, which may represent a hemangioma although metastases are not excluded. Consider liver mass protocol CT or MRI for further evaluation. Reviewed, Interpreted and Dictated by Genny Heredia MD Transcribed by Loli Montgomery Authenticated and [facility]
--- NOTE | 2024-04-10 08:23 | CT_ITS ---
FINAL REPORT TECHNIQUE: Thin section axial CT images with coronal and sagittal reformats were performed after the administration of IV contrast. This study was performed with techniques to keep radiation doses as low as reasonably achievable (ALARA). Individualized dose reduction techniques using automated exposure control or adjustment of mA and/or kV according to the patient''s size were employed. CLINICAL HISTORY: lymphadenopathy COMPARISON: None FINDINGS: There are several mildly prominent bilateral submandibular region nodes, along with bilateral posterior triangle nodes. The nasopharynx, oropharynx, epiglottis, and larynx are unremarkable in appearance. Salivary glands are normal. There is peripheral calcification noted in a left thyroid nodule. There is anterolisthesis of C4 on C5, likely degenerative. Multilevel degenerative disc disease is noted. IMPRESSION: Several mildly prominent bilateral submandibular region nodes as well as bilateral posterior triangle nodes are noted. Peripherally calcified left thyroid nodule noted. Reviewed, Interpreted and Dictated by Genny Heredia MD Transcribed by Loli Montgomery Authenticated and [facility]
--- NOTE | 2024-04-10 08:23 | CT_ITS ---
FINAL REPORT TECHNIQUE: Thin section axial images were obtained from the thoracic inlet through the upper abdomen after intravenous contrast injection. Reconstruction images were obtained from the axial data. Exam was performed using dose reduction technique. CLINICAL HISTORY: lymphadenopathy COMPARISON: None FINDINGS: There is no hilar or axillary lymphadenopathy. There is a right paratracheal 24 mm in size lymph node. There is no pleural or pericardial effusion. Changes of emphysema are present in the lung mario bilaterally. There are 2 nodules, 5 mm or smaller in size, seen in the right upper lobe, best visualized in axial image #19. The lungs are otherwise clear. There is a left breast nodule measuring 18 mm in size. Limited evaluation of the upper abdomen is without acute abnormality. No acute osseous abnormality. IMPRESSION: There is a pathologic appearing right paratracheal 24 mm lymph node present. Malignancy is not excluded. Left breast nodule, 18 mm in size, recommend mammography. Several right upper lobe nodules, recommend follow-up after risk stratification per Fleischner criteria. Reviewed, Interpreted and Dictated by Genny Heredia MD Transcribed by Loli Montgomery Authenticated and [facility]
[2024-04-10] MEDS: SODIUM CHLORIDE 0.9% 10ML SYR (RAD ONLY) 10 ML IV (08:57)
[2024-04-10] MEDS: IOPAMIDOL-370 (76%);100ML BOTTLE 150 ML IV (08:57)
== END 2024-04-10 23:59 | disposition home or self-care (01) ==
LOC: RAD 08:23
PROVIDERS: PCP Nurse Practitioner Family; Visit Provider Internal Medicine Medical Oncology
DX: R59.1 Generalized enlarged lymph nodes (principal)
CPT/HCPCS: 70491; 71260; 74177; Q9967

== ENCOUNTER 2024-04-13 09:03 | Outpatient (CLI) | payer MEDICARE, MEDICAID, SELFPAY ==
[2024-04-13] VITALS (12 sets, daily range): BP systolic 103–149; BP diastolic 57–81; PULSE 74–85; RESP 18–19; O2SAT 97; BMI 25.4
[2024-04-13 09:32] LABS: Eosinophils % 0.2 % (0.1-12.0); Hemoglobin 11.5 g/dL (12.2-16.2); Lymphocytes # 1.8 K/mm3 (0.7-4.5); Mean Corpuscular HGB Conc 32.9 g/dL (31.8-35.4); Mean Corpuscular Hemoglobin 33.4 pg (27.0-31.2); Mean Corpuscular Volume 101.7 fl (81-99); Mean Platelet Volume 10.8 fl (7.4-10.4); Monocytes # 0.4 K/mm3 (0.1-1.0); Monocytes % 9.8 % (1.7-9.3); Neutrophils # 1.9 K/mm3 (1.8-7.8); Neutrophils % 44.8 % (37.0-80.0); Platelet Count 170 K/mm3 (142-424); Red Blood Count 3.44 M/mm3 (4.20-5.40); Red Cell Distribution Width 19.8 % (11.5-17.5); White Blood Count 4.2 K/mm3 (4.8-10.8)
[2024-04-13 09:55] LABS: Albumin Level 4.2 g/dl (3.5-5.0); Chloride 108 mmol/L (98-107); Potassium 4.5 mmoL/L (3.5-5.1); Sodium 139 mmol/L (136-145)
[2024-04-13 09:58] LABS: Alanine Aminotransferase 21 U/L (12-78); Albumin/Globulin Ratio 1.4 (1.1-1.8); Alkaline Phosphatase 77 U/L (38-126); Anion Gap 11.5 mEq/L (5-15); Aspartate Amino Transferase 40 U/L (14-36); Bilirubin,Total 0.6 mg/dl (0.2-1.3); Blood Urea Nitrogen 8 mg/dl (7-17); Calcium 9.1 mg/dl (8.4-10.2); Carbon Dioxide 24 mmol/L (22.0-30.0); Creatinine Clearance Estimated 57 mL/min (50-200); Estimated Glomerular Filt Rate 83 ml/min (>60); GFR (African American) 101 ML/MIN (>60); Globulin 3.1 g/dL (1.3-3.2); Glucose 91 mg/dl (74-100); Total Protein,Serum 7.3 g/dl (6.3-8.2)
[2024-04-13] MEDS: LORATADINE 10MG TABLET 10 MG PO (10:05)
[2024-04-13] MEDS: FAMOTIDINE 20MG TABLET 20 MG PO (10:05)
[2024-04-13] MEDS: DEXAMETHASONE 4MG TABLET 12 MG PO (10:05)
[2024-04-13] MEDS: ONDANSETRON 4MG ODT 16 MG SL (10:05)
[2024-04-13] MEDS: PACLITAXEL IV (10:41)
[2024-04-13] MEDS: WATER IV (10:41)
[2024-04-13] MEDS: DEXTROSE 5% IV (10:41)
[2024-04-13] MEDS: SODIUM CHLORIDE 0.9% IV (13:47)
[2024-04-13] MEDS: CARBOPLATIN IV (13:47)
[2024-04-13] MEDS: PEMBROLIZUMAB 200 MG in 0.9 % SODIUM CHLORIDE 50 ML 116 MG IV (14:30)
== END 2024-04-13 15:15 | disposition home or self-care (01) ==
LOC: INF 09:04
PROVIDERS: PCP Nurse Practitioner Family; Visit Provider Internal Medicine Medical Oncology
DX: R59.1 Generalized enlarged lymph nodes (principal)
CPT/HCPCS: 80053; 85025; 96413; 96415; 96417; J7060; J8540; J9045; J9267; J9271; Q0162

== ENCOUNTER 2024-05-03 09:11 | Outpatient (CLI) | payer MEDICARE, MEDICAID, SELFPAY ==
[2024-05-03 09:20] VITALS: BMI 25.2
[2024-05-03 09:45] LABS: Basophils % 0.5 % (0.1-2.0); Hematocrit 32.3 % (37.0-47.0); Lymphocytes # 1.7 K/mm3 (0.7-4.5); Lymphocytes % 44.7 % (10-50); Mean Corpuscular HGB Conc 34.1 g/dL (31.8-35.4); Mean Corpuscular Hemoglobin 35.3 pg (27.0-31.2); Mean Corpuscular Volume 103.5 fl (81-99); Mean Platelet Volume 11.3 fl (7.4-10.4); Monocytes # 0.4 K/mm3 (0.1-1.0); Monocytes % 11.7 % (1.7-9.3); Neutrophils # 1.6 K/mm3 (1.8-7.8); Neutrophils % 42.8 % (37.0-80.0); Platelet Count 69 K/mm3 (142-424); Red Blood Count 3.12 M/mm3 (4.20-5.40); Red Cell Distribution Width 17.8 % (11.5-17.5); White Blood Count 3.8 K/mm3 (4.8-10.8)
[2024-05-03 09:55] LABS: Alanine Aminotransferase 26 U/L (12-78); Albumin Level 4.4 g/dl (3.5-5.0); Albumin/Globulin Ratio 1.4 (1.1-1.8); Alkaline Phosphatase 76 U/L (38-126); Anion Gap 13.7 mEq/L (5-15); Aspartate Amino Transferase 49 U/L (14-36); Bilirubin,Total 0.7 mg/dl (0.2-1.3); Blood Urea Nitrogen 11 mg/dl (7-17); Calcium 9.1 mg/dl (8.4-10.2); Carbon Dioxide 24 mmol/L (22.0-30.0); Chloride 107 mmol/L (98-107); Creatinine Clearance Estimated 57 mL/min (50-200); Estimated Glomerular Filt Rate 99 ml/min (>60); GFR (African American) 120 ML/MIN (>60); Globulin 3.2 g/dL (1.3-3.2); Glucose 92 mg/dl (74-100); Potassium 4.7 mmoL/L (3.5-5.1); Sodium 140 mmol/L (136-145); Total Protein,Serum 7.6 g/dl (6.3-8.2)
== END 2024-05-03 10:20 | disposition home or self-care (01) ==
LOC: INF 09:12
PROVIDERS: PCP Nurse Practitioner Family; Visit Provider Internal Medicine Medical Oncology
DX: R59.1 Generalized enlarged lymph nodes (principal)
CPT/HCPCS: 36415; 80053; 85025

== ENCOUNTER 2024-05-10 09:32 | Outpatient (CLI) | payer MEDICARE, MEDICAID, SELFPAY ==
[2024-05-10] VITALS (9 sets, daily range): BP systolic 116–130; BP diastolic 68–90; PULSE 79–85; RESP 18; TEMP 37.2; O2SAT 95
[2024-05-10 10:08] LABS: Basophils % 0.7 % (0.1-2.0); Eosinophils % 0.2 % (0.1-12.0); Hematocrit 33.8 % (37.0-47.0); Hemoglobin 11.2 g/dL (12.2-16.2); Lymphocytes # 2.1 K/mm3 (0.7-4.5); Lymphocytes % 46.6 % (10-50); Mean Corpuscular HGB Conc 33.1 g/dL (31.8-35.4); Mean Corpuscular Hemoglobin 35.1 pg (27.0-31.2); Monocytes # 0.6 K/mm3 (0.1-1.0); Monocytes % 12.6 % (1.7-9.3); Neutrophils # 1.8 K/mm3 (1.8-7.8); Neutrophils % 39.9 % (37.0-80.0); Platelet Count 173 K/mm3 (142-424); Red Blood Count 3.19 M/mm3 (4.20-5.40); Red Cell Distribution Width 17.8 % (11.5-17.5); White Blood Count 4.5 K/mm3 (4.8-10.8)
[2024-05-10] MEDS: FAMOTIDINE 20MG TABLET 20 MG PO (11:36)
[2024-05-10] MEDS: LORATADINE 10MG TABLET 10 MG PO (11:36)
[2024-05-10] MEDS: ONDANSETRON 4MG ODT 16 MG SL (11:36)
[2024-05-10] MEDS: DEXAMETHASONE 4MG TABLET 12 MG PO (11:36)
[2024-05-10] MEDS: SODIUM CHLORIDE 0.9% 100ML BAG 100 ML IV (11:52)
[2024-05-10] MEDS: PACLITAXEL IV (11:59)
[2024-05-10] MEDS: DEXTROSE 5% IV (11:59)
[2024-05-10] MEDS: WATER IV (11:59)
[2024-05-10] MEDS: SODIUM CHLORIDE 0.9% IV (14:52)
[2024-05-10] MEDS: CARBOPLATIN IV (14:52)
[2024-05-10] MEDS: PEMBROLIZUMAB 200 MG in 0.9 % SODIUM CHLORIDE 50 ML 100 MG IV (15:33)
== END 2024-05-10 16:19 | disposition home or self-care (01) ==
LOC: INF 09:33
PROVIDERS: PCP Nurse Practitioner Family; Visit Provider Internal Medicine Medical Oncology
DX: R59.1 Generalized enlarged lymph nodes (principal)
CPT/HCPCS: 85025; 96413; 96415; 96417; J7060; J8540; J9045; J9267; J9271; Q0162

== ENCOUNTER 2024-06-06 10:22 | Outpatient (CLI) | payer MEDICARE, MEDICAID, SELFPAY ==
[2024-06-06 10:26] VITALS: BMI 25.0
[2024-06-06 10:55] LABS: Basophils % 0.4 % (0.1-2.0); Hematocrit 33.1 % (37.0-47.0); Lymphocytes # 1.6 K/mm3 (0.7-4.5); Lymphocytes % 28.3 % (10-50); Mean Corpuscular HGB Conc 33.2 g/dL (31.8-35.4); Mean Corpuscular Hemoglobin 36.3 pg (27.0-31.2); Mean Corpuscular Volume 109.2 fl (81-99); Mean Platelet Volume 10.2 fl (7.4-10.4); Monocytes # 0.5 K/mm3 (0.1-1.0); Monocytes % 9.3 % (1.7-9.3); Neutrophils # 3.4 K/mm3 (1.8-7.8); Neutrophils % 61.8 % (37.0-80.0); Platelet Count 98 K/mm3 (142-424); Red Blood Count 3.03 M/mm3 (4.20-5.40); Red Cell Distribution Width 15.6 % (11.5-17.5); White Blood Count 5.5 K/mm3 (4.8-10.8)
[2024-06-06 11:08] LABS: Alanine Aminotransferase 20 U/L (12-78); Albumin Level 4.5 g/dl (3.5-5.0); Albumin/Globulin Ratio 1.6 (1.1-1.8); Alkaline Phosphatase 95 U/L (38-126); Anion Gap 7.9 mEq/L (5-15); Aspartate Amino Transferase 25 U/L (14-36); Bilirubin,Total 0.4 mg/dl (0.2-1.3); Blood Urea Nitrogen 10 mg/dl (7-17); Calcium 9.3 mg/dl (8.4-10.2); Carbon Dioxide 26 mmol/L (22.0-30.0); Chloride 109 mmol/L (98-107); Creatinine Clearance Estimated 56 mL/min (50-200); Estimated Glomerular Filt Rate 83 ml/min (>60); GFR (African American) 101 ML/MIN (>60); Globulin 2.8 g/dL (1.3-3.2); Glucose 95 mg/dl (74-100); Potassium 3.9 mmoL/L (3.5-5.1); Sodium 139 mmol/L (136-145); Total Protein,Serum 7.3 g/dl (6.3-8.2)
[2024-06-06 11:39] LABS: Thyroid Stimulating Hormone 1.55 uIU/mL (0.465-4.68)
[2024-06-06] MEDS: SODIUM CHLORIDE 0.9% 50ML BAG 50 ML IV (12:36)
[2024-06-06] MEDS: PEMBROLIZUMAB 200 MG in 0.9 % SODIUM CHLORIDE 50 ML 116 MG IV (12:36)
[2024-06-06 12:40] VITALS: BP 119/78; PULSE 84; RESP 17; O2SAT 96
[2024-06-06 12:55] VITALS: BP 134/71; PULSE 74; RESP 17
[2024-06-06 13:10] VITALS: BP 163/55; PULSE 91; RESP 17
[2024-06-07 13:10] LABS: Adrenocorticotropic Hormone 8.4 pg/mL (7.2-63.3)
== END 2024-06-06 13:35 | disposition home or self-care (01) ==
LOC: INF 10:23
PROVIDERS: PCP Nurse Practitioner Family; Visit Provider Internal Medicine Medical Oncology
DX: C77.0 Secondary and unspecified malignant neoplasm of lymph nodes of head, face and neck (principal); R59.1 Generalized enlarged lymph nodes
CPT/HCPCS: 80053; 82024; 82533; 84443; 85025; 96413; J9271

== ENCOUNTER 2024-06-27 10:09 | Outpatient (CLI) | payer MEDICARE, MEDICAID, SELFPAY ==
[2024-06-27 10:27] VITALS: BMI 22.1
[2024-06-27 10:51] LABS: Albumin Level 4.8 g/dl (3.5-5.0); Chloride 102 mmol/L (98-107); Potassium 3.2 mmoL/L (3.5-5.1); Sodium 137 mmol/L (136-145)
[2024-06-27 10:54] LABS: Alanine Aminotransferase 23 U/L (12-78); Albumin/Globulin Ratio 1.4 (1.1-1.8); Alkaline Phosphatase 116 U/L (38-126); Anion Gap 11.2 mEq/L (5-15); Aspartate Amino Transferase 35 U/L (14-36); Bilirubin,Total 0.6 mg/dl (0.2-1.3); Blood Urea Nitrogen 8 mg/dl (7-17); Calcium 9.4 mg/dl (8.4-10.2); Carbon Dioxide 27 mmol/L (22.0-30.0); Creatinine Clearance Estimated 50 mL/min (50-200); Estimated Glomerular Filt Rate 83 ml/min (>60); GFR (African American) 101 ML/MIN (>60); Globulin 3.4 g/dL (1.3-3.2); Glucose 97 mg/dl (74-100); Total Protein,Serum 8.2 g/dl (6.3-8.2)
[2024-06-27 12:32] LABS: Hematocrit 40.9 % (37.0-47.0); Hemoglobin 13.8 g/dL (12.2-16.2); Mean Corpuscular HGB Conc 33.7 g/dL (31.8-35.4); Mean Corpuscular Hemoglobin 35.8 pg (27.0-31.2); Red Blood Count 3.86 M/mm3 (4.20-5.40); Red Cell Distribution Width 13.3 % (11.5-17.5); White Blood Count 6.3 K/mm3 (4.8-10.8)
[2024-06-27 12:33] LABS: Basophils # 0.1 K/mm3 (0-0.2); Basophils % 0.8 % (0.1-2.0); Eosinophils # 0.2 K/mm3 (0.0-0.4); Eosinophils % 2.4 % (0.1-12.0); Mean Platelet Volume 10.3 fl (7.4-10.4); Monocytes # 0.6 K/mm3 (0.1-1.0); Monocytes % 9.6 % (1.7-9.3); Neutrophils # 3.5 K/mm3 (1.8-7.8); Neutrophils % 55.9 % (37.0-80.0); Platelet Count 244 K/mm3 (142-424)
[2024-06-27] MEDS: PEMBROLIZUMAB 200 MG in 0.9 % SODIUM CHLORIDE 50 ML 116 MG IV (13:10)
[2024-06-27 13:15] VITALS: BP 127/86; PULSE 72; RESP 18; TEMP 36.7; O2SAT 99
[2024-06-27] MEDS: SODIUM CHLORIDE 0.9% 50ML BAG 50 ML IV (13:49)
[2024-06-27] MEDS: SODIUM CHLORIDE 0.9% 10ML FLUSH SYRINGE 10 ML IV (13:49)
[2024-06-27 13:54] VITALS: BP 121/75; PULSE 74; RESP 18
== END 2024-06-27 13:57 | disposition home or self-care (01) ==
LOC: INF 10:11
PROVIDERS: PCP Nurse Practitioner Family; Visit Provider Internal Medicine Medical Oncology
DX: C77.0 Secondary and unspecified malignant neoplasm of lymph nodes of head, face and neck (principal)
CPT/HCPCS: 80053; 85025; 96413; J9271

== ENCOUNTER 2024-07-09 09:42 | Outpatient (CLI) | payer MEDICARE, MEDICAID, SELFPAY ==
--- NOTE | 2024-07-09 10:00 | CT_ITS ---
FINAL REPORT TECHNIQUE: After the administration of intravenous contrast, axial images through the chest were performed by computed tomography.This study was performed with techniques to keep radiation doses as low as reasonably achievable, (ALARA). Individualized dose reduction techniques using automated exposure control or adjustment of mA and/or kV according to the patient''s size were employed. CLINICAL HISTORY: lymphadenopathy COMPARISON: 04/10/2024 FINDINGS: There is no axillary adenopathy. The heart size is normal. There is no pericardial or pleural effusion. There is a very faint, 3 mm nodule in the right upper lobe on image 25 of series 4. A 2 mm right upper lobe nodule on image 29 is also seen. Left lung is clear. Right paratracheal adenopathy measures up to 21 mm, unchanged. There are no other areas of intrathoracic adenopathy. Left breast mass measuring 18 mm is unchanged. IMPRESSION: Stable, nonspecific tiny right upper lobe nodules. Stable, moderate right paratracheal adenopathy. Stable right breast mass. Reviewed, Interpreted and Dictated by Brendon Britt MD Transcribed by Carolina Green Authenticated and . [facility]
--- NOTE | 2024-07-09 10:00 | CT_ITS ---
FINAL REPORT CLINICAL HISTORY: lymphadenopathy, SQUAMOUS CELL CANCER COMPARISON: 04/10/2024 FINDINGS: CT NECK ANGIO, WITHOUT AND WITH CONTRAST TECHNIQUE: Thin section axial CT with contrast with multiplanar 3D MIP reconstruction. This study was performed with techniques to keep radiation doses as low as reasonably achievable, (ALARA). Individualized dose reduction techniques using automated exposure control or adjustment of mA and/or kV according to the patient''s size were employed. NASCET criteria and technique was utilized during interpretation. FINDINGS: Aortic arch: Arch shows no significant narrowing. Great vessel origins are widely patent. Right carotid: No significant stenosis is seen of the cervical common or internal carotid artery. Left carotid: No significant stenosis is seen of the cervical common or internal carotid artery. Vertebrals: Vertebral arteries are codominant. No significant stenosis is present. There are no enlarged lymph nodes in the neck. There is a partially calcified left thyroid nodule again noted. IMPRESSION: No significant stenosis of the cervical carotid arteries Follow-up imaging for lymph nodes should be performed as a standard CT neck with contrast rather than a CTA. Reviewed, Interpreted and Dictated by Brendon Britt MD Transcribed by Carolina Green Authenticated and . [facility]
--- NOTE | 2024-07-09 10:00 | CT_ITS ---
FINAL REPORT TECHNIQUE: IV contrast enhanced exam This study was performed with techniques to keep radiation doses as low as reasonably achievable, (ALARA). Individualized dose reduction techniques using automated exposure control or adjustment of mA and/or kV according to the patient''s size were employed. CLINICAL HISTORY: lymphadenopathy COMPARISON: 04/10/2024 FINDINGS: Abdomen: There are bilateral adrenal nodules. Right adrenal lesion measures up to 16 mm and is unchanged. Left adrenal gland as a whole measures 32 x 12 mm, unchanged. There is an enhancing lesion in the posterior right liver measuring 11 mm, previously measured 12 mm. No new enhancing liver lesion is identified. There is a tiny cyst in the inferior right hepatic lobe. Remaining solid organs and gallbladder are unremarkable. There is no adenopathy. No bowel obstruction or fluid collection is seen. Pelvis: The appendix is normal. Uterus and ovaries are normal for patient's age. There is no free fluid. There is grade 1 spondylolisthesis of L5 on S1. IMPRESSION: Stable adrenal lesion, indeterminate for adenoma or metastasis. Stable enhancing liver lesion which could represent atypical hemangioma or less likely, metastasis. Reviewed, Interpreted and Dictated by Brendon Britt MD Transcribed by Carolina Green Authenticated and . [facility]
[2024-07-09] MEDS: 0.9 % SODIUM CHLORIDE 50 ML VIAL IV (10:11)
[2024-07-09] MEDS: IOPAMIDOL-370 (76%);100ML BOTTLE 80 ML IV (10:12)
[2024-07-09] MEDS: BARIUM SULFATE(READI-CAT2);450ML BOTTLE 450 ML PO (10:12)
[2024-07-09] MEDS: IOPAMIDOL-370 (76%);100ML BOTTLE 75 ML IV (10:12)
[2024-07-09] MEDS: SODIUM CHLORIDE 0.9% 10ML SYR (RAD ONLY) 10 ML IV (10:12)
== END 2024-07-09 23:59 | disposition home or self-care (01) ==
LOC: RAD 09:43
PROVIDERS: PCP Nurse Practitioner Family; Visit Provider Internal Medicine Medical Oncology
DX: R59.1 Generalized enlarged lymph nodes (principal)
CPT/HCPCS: 70498; 71260; 74177; Q9967

== ENCOUNTER 2024-07-18 09:51 | Outpatient (CLI) | payer MEDICARE, MEDICAID, SELFPAY ==
[2024-07-18 09:55] VITALS: BMI 25.0
[2024-07-18 10:12] LABS: Basophils # 0.1 K/mm3 (0-0.2); Basophils % 0.9 % (0.1-2.0); Eosinophils # 0.1 K/mm3 (0.0-0.4); Eosinophils % 2.4 % (0.1-12.0); Hematocrit 41.9 % (37.0-47.0); Hemoglobin 13.9 g/dL (12.2-16.2); Lymphocytes # 1.9 K/mm3 (0.7-4.5); Lymphocytes % 32.9 % (10-50); Mean Corpuscular HGB Conc 33.2 g/dL (31.8-35.4); Mean Corpuscular Volume 105.5 fl (81-99); Mean Platelet Volume 10.6 fl (7.4-10.4); Monocytes # 0.6 K/mm3 (0.1-1.0); Monocytes % 10.1 % (1.7-9.3); Neutrophils # 3.1 K/mm3 (1.8-7.8); Neutrophils % 53.5 % (37.0-80.0); Platelet Count 211 K/mm3 (142-424); Red Blood Count 3.97 M/mm3 (4.20-5.40); Red Cell Distribution Width 13.2 % (11.5-17.5); White Blood Count 5.8 K/mm3 (4.8-10.8)
[2024-07-18 10:49] LABS: Albumin Level 4.2 g/dl (3.5-5.0); Chloride 106 mmol/L (98-107); Potassium 4.2 mmoL/L (3.5-5.1); Sodium 140 mmol/L (136-145)
[2024-07-18 10:52] LABS: Alanine Aminotransferase 15 U/L (12-78); Albumin/Globulin Ratio 1.3 (1.1-1.8); Alkaline Phosphatase 100 U/L (38-126); Anion Gap 9.2 mEq/L (5-15); Aspartate Amino Transferase 27 U/L (14-36); Bilirubin,Total 0.4 mg/dl (0.2-1.3); Blood Urea Nitrogen 10 mg/dl (7-17); Calcium 9.6 mg/dl (8.4-10.2); Carbon Dioxide 29 mmol/L (22.0-30.0); Creatinine Clearance Estimated 56 mL/min (50-200); Estimated Glomerular Filt Rate 83 ml/min (>60); GFR (African American) 101 ML/MIN (>60); Globulin 3.3 g/dL (1.3-3.2); Glucose 99 mg/dl (74-100); Total Protein,Serum 7.5 g/dl (6.3-8.2)
[2024-07-18 11:23] LABS: Thyroid Stimulating Hormone 1.75 uIU/mL (0.465-4.68)
[2024-07-18] MEDS: PEMBROLIZUMAB 200 MG in 0.9 % SODIUM CHLORIDE 50 ML 100 MG IV (11:31)
[2024-07-18] MEDS: SODIUM CHLORIDE 0.9% 50ML BAG 50 ML IV (11:31)
[2024-07-18 11:36] VITALS: BP 117/75; PULSE 71; RESP 18; TEMP 36.7; O2SAT 96
[2024-07-18 12:18] VITALS: BP 136/65; PULSE 72; RESP 18; O2SAT 96
[2024-07-19 13:11] LABS: Adrenocorticotropic Hormone 2.8 pg/mL (7.2-63.3)
--- OUTSIDE RECORDS SUMMARY | 2024-07-19 22:00 | XMS_ITS | Data Portability ---
Author Organization [place] - [facility] Address [address] [place] [address] Care Team Providers Care Driver Messenger Name Role Phone MEIR CARCAMO Primary Care Provider [phone] Assessment No assessment recorded. Plan of Treatment Reminders Order Date Submit Date Provider Last Modified By Organization Details Last Modified Time Details Appointments None recorded. Lab drug screen, urine 2022 023 [email or web address] Not available 3 07:30:17 CMP, serum or plasma 2022 023 [facility] Lab Registration, [address] [facility] [place], [address], 3 15:29:31 vitamin D, 25-hydroxy, total, serum 2022 023 [email or web address] Lab Registration, [address] [place], [address], 3 06:53:35 drug screen, urine 2022 023 [email or web address] Not available 3 10:10:40 lipid panel, serum [email or web address] Lab Registration, [address] [place] [place], [address], 3 06:53:35 vitamin B12, serum [email or web address] Lab Registration, [address] [place] [place], [address], 3 06:53:35 mma (methylmalo arben acid), serum [address] Lab Registration, [address] [place] [place], [address], 3 06:53:35 CBC w/ auto diff 2022 023 [facility] Lab Registration, [address] [place], [address], 3 14:29:38 drug screen, urine [address] Lab Registration, [address] [place] [place], [address], 2 09:55:02 Referral None recorded. Procedures None recorded. Surgeries None recorded. Imaging US, thyroid [address] - Centralized Scheduling, [address] [place] [place], [address], 3 10:10:11 DEXA, axial skeleton + vertebral fracture assessment [address] - Centralized Scheduling, [address] [facility] [place], [address], 3 10:09:27 CT, chest, w/ contrast [address] - Centralized Scheduling, [address] [place] [place], [address], 3 07:41:11 LDCT, chest, for lung cancer screening [address] - Centralized Scheduling, [address] [facility] [place], [address], 2 09:55:10 Medication Orders cyclobenzap rine 5 mg tablet 2022 023 [facility] [address] [place], [address], 3 11:25:05 gabapentin 400 mg capsule 2022 023 [facility], [address] [place], [address], 3 11:25:55 Prolia 60 mg/mL subcutaneou s syringe 2022 023 [facility], [address] [place], [address], 3 11:27:21 albuterol sulfate 2.5 mg/3 mL (0.083 %) solution for nebulizatio n 2022 023 [facility], [address] [place], [address], 3 11:22:37 Combivent Respimat 20 mcg-100 mcg/actuati on solution for inhalation 2022 023 [facility], [address] [place], [address], 3 11:24:40 buspirone 15 mg tablet 2022 023 [facility], [address] [place], [address], 3 11:25:38 sertraline 100 mg tablet 2022 023 [facility], [address] [place], [address], 3 11:24:02 prednisone 20 mg tablet 2022 023 [place] [facility], [address] [place], [address], 3 11:33:24 doxycycline hyclate 100 mg capsule 2022 023 [facility], [address] [place], [address], 3 11:32:58 Linzess 145 mcg capsule 2022 023 [facility], [address] [place], [address], 3 09:59:11 alendronate 70 mg tablet 2022 023 [facility], [address] [place], [address], 3 10:12:40 ergocalcife rol (vitamin D2) 1,250 mcg (50,000 unit) capsule 2022 023 [facility], [address] [place], [address], 3 10:11:14 albuterol sulfate 2.5 mg/3 mL (0.083 %) solution for nebulizatio n 2022 023 [facility], [address] [place], [address], 3 10:01:44 Bevespi Aerosphere 9 mcg-4.8 mcg HFA aerosol inhaler 2022 023 [email or web address] [facility], [address] [place], [address], 3 11:04:36 ipratropium bromide 0.02 % solution for inhalation 2022 023 [facility], [address] [place], [address], 3 11:13:43 montelukast 10 mg tablet 2022 023 [place] [facility], [address] [place], [address], 3 10:12:57 cyclobenzap rine 5 mg tablet 2022 023 [facility], [address] [place], [address], 3 10:00:35 gabapentin 400 mg capsule 2022 023 [place] [facility], [address] [place], [address], 3 09:59:08 atorvastati n 40 mg tablet 2022 023 [place] [facility], [address] [place], [address], 3 10:12:10 fluticasone propionate 50 mcg/actuati on nasal spray,suspe nsion 2022 023 [place] [facility], [address] [place], [address], 3 10:03:20 furosemide 40 mg tablet 2022 023 [facility], [address] [place], [address], 3 10:10:52 pantoprazol e 40 mg tablet,amanda yed release 2022 023 [facility], [address] [place], [address], 3 10:54:31 cyanocobala min (vit B-12) 2,500 mcg sublingual tablet 2022 023 [email or web address] [facility] [address] [place], [address], 3 10:49:07 Linzess 145 mcg capsule 2021 022 [facility], [address] [place], [address], 2 16:35:31 ketorolac 30 mg/mL (1 mL) injection solution 2021 022 [facility], [address] [place], [address], 3 09:32:46 cyclobenzap rine 5 mg tablet 2021 022 [facility], [address] [place], [address], 2 11:05:13 gabapentin 400 mg capsule 2021 022 [facility], [address] [place], [address], 2 11:04:48 ergocalcife rol (vitamin D2) 1,250 mcg (50,000 unit) capsule 2021 022 [facility], [address] [place], [address], 3 13:09:30 alendronate 70 mg tablet 2021 022 [facility], [address] [place], [address], 2 11:15:20 Bevespi Aerosphere 9 mcg-4.8 mcg HFA aerosol inhaler 102021 [facility], [address] [place], [address], 2 11:03:02 ipratropium bromide 0.02 % solution for inhalation [facility] [address] [place], [address], 2 11:23:40 albuterol sulfate 2.5 mg/3 mL (0.083 %) solution for nebulizatio n 2021 [facility], [address] [place], [address], 2 11:10:27 montelukast 10 mg tablet 2021 [facility], [address] [place], [address], 11:14:38 atorvastati n 40 mg tablet 2021 [facility], [address] [place], [address], 2 11:21:53 vitamin E (dl, acetate) 450 mg (1,000 unit) capsule 2021 [facility] [address] [place], [address], 3 09:33:00 fluticasone propionate 50 mcg/actuati on nasal spray,suspe nsion 2021 [facility], [address] [place], [address], 11:21:37 furosemide 40 mg tablet 2021 [facility], [address] [place], [address], 2 11:05:22 cyanocobala min (vit B-12) 1,000 mcg/mL injection solution 2021 [email or web address] [facility] [address] [place], [address], 3 09:32:28 cyanocobala min (vit B-12) 2,500 mcg sublingual tablet 2021 [place], [address] [place], [address], 2 16:10:38 Patient TargetsNo targets recorded. Patient InstructionsNo instructions recorded. Reason for Referral None Reported. Results Created Date Observation Date Name Description Value Unit Range Abnormal Flag Note LastModifiedBy Organization Detail LastModifiedTime 04/23/1904/23/2022 CBC WITH AUTO DIFF WBC 6.6 10 4.5-11 .5 Not Available [facility] (Lab) [address] [place], [address], 04/23/2022 14:29:38 04/23/19 23 04/23/2022 CBC WITH AUTO DIFF RBC 5.10 10 4.00-5 .40 Not Available [facility] (Lab) [address] [place] [place], [address], 04/23/2022 14:29:38 04/23/19 23 04/23/2022 CBC WITH AUTO DIFF hemoglobin 15.2 g/dL 12.0-1 5.0 high Not Available [facility] (Lab) [address] [place] [place], [address], 04/23/2022 14:29:38 04/23/19 23 04/23/2022 CBC WITH AUTO DIFF hematocrit 45.6 % 35.0-4 9.0 Not Available [facility] (Lab) [address] [place] [place], [address], 04/23/2022 14:29:38 04/23/19 23 04/23/2022 CBC WITH AUTO DIFF MCV 89.4 fL 80-100 Not Available [facility] (Lab) [address] [place] [place], [address], 04/23/2022 14:29:38 04/23/19 23 04/23/2022 CBC WITH AUTO DIFF MCH 29.8 pg 26-32 Not Available [facility] (Lab) [address] [place], [address], 04/23/2022 14:29:38 04/23/19 23 04/23/2022 CBC WITH AUTO DIFF MCHC 33.3 g/dL 32-36 Not Available [facility] (Lab) [address] [place], [address], 04/23/2022 14:29:38 04/23/19 23 04/23/2022 CBC WITH AUTO DIFF RDW 13.5 % 11.5-1 4.5 Not Available [facility] (Lab) [address] [place] [place], [address], 04/23/2022 14:29:38 04/23/19 23 04/23/2022 CBC WITH AUTO DIFF platelet count 306 10 150-45 0 Not Available [facility] (Lab) [address] [place] [place], [address], 04/23/2022 14:29:38 04/23/19 23 04/23/2022 CBC WITH AUTO DIFF mean platelet volume 11.5 fL 6.8-10 .2 high Not Available [facility] (Lab) [address] [place] [place], [address], 04/23/2022 14:29:38 04/23/19 23 04/23/2022 CBC WITH AUTO DIFF manual differential NOT INDICA PAUL Not Available [facility] (Lab) [address] [place] [place], [address], 04/23/2022 14:29:38 04/23/19 23 04/23/2022 CBC WITH AUTO DIFF ne% 53.0 % 50-70 Not Available [facility] (Lab) [address] [place], [address], 04/23/2022 14:29:38 04/23/19 23 04/23/2022 CBC WITH AUTO DIFF lymphs 32.8 % 18-42 Not Available [facility] (Lab) [address] [place], [address], 04/23/2022 14:29:38 04/23/19 23 04/23/2022 CBC WITH AUTO DIFF MO% 11.5 % 2-11 high Not Available [facility] (Lab) [address] [place], [address], 04/23/2022 14:29:38 04/23/19 23 04/23/2022 CBC WITH AUTO DIFF eo% 1.8 % 1-3 Not Available [facility] (Lab) [address] [place], [address], 04/23/2022 14:29:38 04/23/19 23 04/23/2022 CBC WITH AUTO DIFF ba% 0.9 % 0.0-2. 0 Not Available [facility] (Lab) [address] [place] [place], [address], 04/23/2022 14:29:38 04/23/19 23 04/23/2022 CBC WITH AUTO DIFF neutrophils (absolute) 3.5 K/uL 2.0-6. 9 Not Available [facility] (Lab) [address] [place] [place], [address], 04/23/2022 14:29:38 04/23/19 23 04/23/2022 CBC WITH AUTO DIFF lymphocytes (absolute) 2.2 K/uL 0.6-3. 4 Not Available [facility] (Lab) [address] [facility] [place], [address], 04/23/2022 14:29:38 04/23/19 23 04/23/2022 CBC WITH AUTO DIFF monocytes (absolute) 0.8 K/uL 0.0-0. 9 Not Available [facility] (Lab) [address] [place] [place], [address], 04/23/2022 14:29:38 04/23/19 23 04/23/2022 CBC WITH AUTO DIFF eosinophils (absolute) 0.1 K/uL 0.0-0. 7 Not Available [facility] (Lab) [address] [place] [address] [place], [address], 04/23/2022 14:29:38 04/23/19 23 04/23/2022 CBC WITH AUTO DIFF basophils (absolute) 0.1 K/uL 0.0-0. 2 Not Available [facility] (Lab) [address] [place] [address] [place], [address], 04/23/2022 14:29:38 04/23/19 23 04/23/2022 COMPR EHENS LUZ METAB OLIC PANEL sodium 147 mmol/ L 136-14 5 high Not Available [facility] (Lab) [address] [place] [address] [place], [address], 04/23/2022 15:29:31 04/23/19 23 04/23/2022 COMPR EHENS LUZ METAB OLIC PANEL potassium 4.0 mmol/ L 3.5-5. 1 Not Available [facility] (Lab) [address] [place] [address] [place], [address], 04/23/2022 15:29:31 04/23/19 23 04/23/2022 COMPR EHENS LUZ METAB OLIC PANEL chloride 104 mmol/ L 98.0-1 07.0 Not Available [facility] (Lab) [address] [place] [address] [place], [address], 04/23/2022 15:29:31 04/23/19 23 04/23/2022 COMPR EHENS LUZ METAB OLIC PANEL total CO2 30 mmol/ L 21-32 Not Available [facility] (Lab) [address] [facility] [place], [address], 04/23/2022 15:29:31 04/23/19 23 04/23/2022 COMPR EHENS LUZ METAB OLIC PANEL anion gap 17.0 mmol/ L 5.0-15 .0 high Not Available [facility] (Lab) [address] [place] [place], [address], 04/23/2022 15:29:31 04/23/19 23 04/23/2022 COMPR EHENS LUZ METAB OLIC PANEL glucose 112 mg/dL 70-120 Not Available [facility] (Lab) [address] [facility] [place], [address], 04/23/2022 15:29:31 04/23/19 23 04/23/2022 COMPR EHENS LUZ METAB OLIC PANEL BUN 12 mg/dL 7-18 Not Available [facility] (Lab) [address] [facility] [place], [address], 04/23/2022 15:29:31 04/23/19 23 04/23/2022 COMPR EHENS LUZ METAB OLIC PANEL creatinine 0.9 mg/dL 0.6-1. 0 Not Available [facility] (Lab) [address] [place] [place], [address], 04/23/2022 15:29:31 04/23/19 23 04/23/2022 COMPR EHENS LUZ METAB OLIC PANEL BUN/creatini ne ratio 13.3 ratio 9-21 Not Available [facility] (Lab) [address] [facility] [place], [address], 04/23/2022 15:29:31 04/23/19 23 04/23/2022 COMPR EHENS LUZ METAB OLIC PANEL estimated glom filtration rate >60 mL/mi n 60.0- Not Available [facility] (Lab) [address] [place] [place], [address], 04/23/2022 15:29:31 04/23/19 23 04/23/2022 COMPR EHENS LUZ METAB OLIC PANEL calcium 9.4 mg/dL 8.6-9. 8 Not Available [facility] (Lab) [address] [place], [address], 04/23/2022 15:29:31 04/23/19 23 04/23/2022 COMPR EHENS LUZ METAB OLIC PANEL bilirubin, total 0.4 mg/dL 0.2-1. 0 USE OF THIS ASSAY IS NOT RECOM GIRISH D FOR PATIE NTS UNDER GOING TREAT MENT WITH ELTRO MBOPA G DUE TO THE POTEN TIAL FOR FALSE LY ELEVA PAUL RESUL TS. Not Available [facility] (Lab) [address] [place], [address], 04/23/2022 15:29:31 04/23/19 23 04/23/2022 COMPR EHENS LUZ METAB OLIC PANEL AST (SGOT) 16 IU/L 15-37 Not Available [facility] (Lab) [address] [facility] [place], [address], 04/23/2022 15:29:31 04/23/19 23 04/23/2022 COMPR EHENS LUZ METAB OLIC PANEL ALT (SGPT) 15 IU/L 12-78 Not Available [facility] (Lab) [address] [facility] [place], [address], 04/23/2022 15:29:31 04/23/19 23 04/23/2022 COMPR EHENS LUZ METAB OLIC PANEL alk phos 108 IU/L 54-369 Not Available [facility] (Lab) [address] [place] [place], [address], 04/23/2022 15:29:31 04/23/19 23 04/23/2022 COMPR EHENS LUZ METAB OLIC PANEL total protein 8.0 g/dL 6.4-8. 2 Not Available [facility] (Lab) [address] [place] [address] [place], [address], 04/23/2022 15:29:31 04/23/19 23 04/23/2022 COMPR EHENS LUZ METAB OLIC PANEL albumin 4.3 g/dL 3.4-5. 0 Not Available [facility] (Lab) [address] [place] [address] [place], [address], 04/23/2022 15:29:31 04/23/19 23 04/23/2022 COMPR EHENS LUZ METAB OLIC PANEL globulin 3.7 g/dL 1.3-3. 5 high Not Available [facility] (Lab) [address] [place] [address] [place], [address], 04/23/2022 15:29:31 04/23/19 23 04/23/2022 COMPR EHENS LUZ METAB OLIC PANEL alb/glob ratio 1.2 ratio 1.0-3. 9 Not Available [facility] (Lab) [address] [place] [address] [place], [address], 04/23/2022 15:29:31 04/23/19 23 04/23/2022 COMPR EHENS LUZ METAB OLIC PANEL osmolality, calculated 293 mOsm/ kg 272-29 5 Not Available [facility] (Lab) [address] [place] [address] [place], [address], 04/23/2022 15:29:31 04/23/19 23 04/23/2022 VITAM IN B12 vitamin B12 1225 pg/mL 193-98 6 high Not Available [facility] (Lab) [address] [place] [address] [place], [address], 04/23/2022 15:29:33 04/23/19 23 04/23/2022 LIPID PANEL triglyceride s 122 mg/dL 1-150 Not Available [facility] (Lab) [address] [place] [address] [place], [address], 04/23/2022 15:41:51 04/23/19 23 04/23/2022 LIPID PANEL cholesterol 192 mg/dL 0-200 Not Available [facility] (Lab) [address] [place], [address], 04/23/2022 15:41:51 04/23/19 23 04/23/2022 LIPID PANEL HDL chol 61 mg/dL 35-60 high Not Available [facility] (Lab) [address] [place] [place], [address], 04/23/2022 15:41:51 04/23/19 23 04/23/2022 LIPID PANEL chol/HDL ratio 3 -4.44 Not Available [facility] (Lab) [address] [facility] [place], [address], 04/23/2022 15:41:51 04/23/19 23 04/23/2022 LIPID PANEL LDL (calculated) 107 mg/dL -130 Not Available [facility] (Lab) [address] [place], [address], 04/23/2022 15:41:51 04/23/19 23 04/24/2022 VITAM IN D, 25-HY DROXY vitamin D, 25-hydroxy 47.4 NG/mL 30.0-1 00.0 Vitam in D defic iency has been defin ed by the Insti tute of Medic ine and an Endoc rine Socie ty pract ice guide line as a level of serum 25-OH vitam in D less than 20 ng/mL (1,2) . The Endoc rine Socie ty went on to furth er defin e vitam in D insuf ficie ncy as a level betwe en 21 and 29 ng/mL (2). 1. IOM (Inst itute of Medic ine). 2010. Dieta ry refer ence romina es for calci um and D. Argenis maciel [place]: The Natio nal [facility] Press . 2. Alyse sibley MF, Lizett ey [place], Aniceto off-F errar i PATEL, et al. Evalu ation , treat ment, and preve ntion of vitam in D defic iency : an Endoc rine Socie ty clini cr pract ice guide line. JCEM. 2010; 96(7) :1911 -30. Perfo rmed at: - [facility] [address] [facility], [place], [place] [address] Lab Direc tor: Willian grubbs PhD, Phone : [phone] Not Available [facility] (Lab) [address] [facility] , [place], [address], 04/24/2022 07:12:15 04/23/19 23 04/29/2022 METHY LMALO ARBEN ACID methylmaloni c acid 169 nmol/ L 0-378 Test( s) 15379 7-Met hylma lonic Acid, Serum was devel oped and its perfo rmanc e erik cteri stics deter mined by [facility]. It has not been clear ed or appro mina by the Food and Drug Admin istra tion. Perfo rmed at: [facility] Zeb maciel [address] [facility] [place] [address] Lab Direc tor: Kay manuel MD, Phone : [phone] Not Available [facility] (Lab) [address] [place] [address] , [place], [address], 04/29/2022 17:10:59 01/29/20 22 01/28/2022 LDCT, chest , for lung cance r scree [facility] [address] [place] [address] Phone: Fax: Name: NORI DAVENPORT Exam Date: 2021 : 1954 Age 66 years Gender : F Access ion: [id number] Physic sophie: MEIR [facility]RAWAL [facility]pat ient Exam: CT LOW DOSE LUNG SCREEN CLINIC AL INFORM ATION: Asympt omatic patien t patien t with a histor y of tobacc o use and a writte n order from a clinic sophie obtain ed during a lung cancer screen ing counse shea and care carmina on-mike ing visit. 30-pac k-year histor y tobacc o use.. Curren t smoker TECHNI QUE: Low-do se protoc ol CT ( LDCT ) images of the chest are obtain ed withou t intrav enous contra st, from the lung apices throug h the lung bases, for lung cancer screen ing. Automa paul exposu re contro l was employ ed for dose reduct ion. Patien t Height : 54 inches Patien t Weight : 154 pounds CTDI Vol.: 2.12 mGy DLP: 70.43 mGy*cm COMPAR GARDENIA: 1 LDCT; 4 CT chest FINDIN GS: Low neck unrema rkable . Stable nodula r opacit ies in the bilate ral breast s compat ible with benign proces ses. Interv al enlarg ement of precar inal lymph node measur ing 1.4 x 2.1 cm and a pretra cheal lymph node measur ing 1.1 cm. Heart size within normal limits . No perica rdial effusi on. Lung imagin g degrad ed by motion . Mild to modera te emphys georgina as before . Mild chroni c atelec tasis in the medial segmen t right middle lobe and the lingul a. Calcif ied granul omata are again noted. There are stable 4 mm or smalle r noncal cified nodule s and small irregu lar pleura l-base d opacit ies in the right lung field as before . No new left lung field nodule s. There are a few stable 4 mm or smalle r noncal cified nodule s in the left lung field. No new left lung field nodule s. No infilt rate or effusi on Genera lized fullne ss of the adrena l gland sugges ting hyperp lasia as before . Otherw ise, no gross pathol ogy of the upper abdome n. IMPRES AGAPITO: Study detail limite d by non-co ntrast low dose techni que. 1. Mild to modera te emphys georgina with stable 4 mm or smalle r noncal cified pulmon ananya nodula rity in the bilate ral lungs as before . 2. Interv al enlarg ement pretra cheal and precar inal lymph nodes which are nonspe cific. May be reacti ve but neopla stic and/or lympho prolif erativ e diseas e not exclud ed. *Recom mend follow -up follow -up LDCT in 3 months to reasse ss the adenop athy. LRAD4A - SUSPIC IOUS LR3MO - 3 MONTH LDCT OR PET/CT NOTE: Recomm endati ons for follow up/man agemen t of incide ntal pulmon ananya nodule s will be based on the [facility] hner Societ y criter ia. Any incide ntally noted liver lesion s equal to or less than 5 mm, cystic lesion s in the kidney s less than 1 cm, and/or adrena l lesion s equal to or less than 1 cm, genera lly are consid ered highly likely to be benign and no additi onal Legall y authen ticate d by Juan russell MD 2021-04 16:46: 37 evalua tion is recomm ended, unless specif ically mentio nick in the impres agapito. Dictat ed By: JUAN HUMMEL Transc ribed By: Juan Hummel Transc ribed On: 2021 4:46 PM Electr onical ly signed by: JUAN HUMMEL 2021 Thank you for referr NORI Hernandez to [facility]. Legall y authen ticate d by Juan russell MD 2021-04 16:46: 37 CC'ed Logic: Orderi ng Provid er: CHARITY WORLEY CC Provid er: CHARITY WORLEY Attend ing Provid er: CHARITY WORLEY Referr ing Provid er: CHARITY WORLEY Admitt ing Provid er: CHARITY cassidy [facility] (Imaging) [address] [place], [address], 02/01/2022 10:34:31 06/11/19 23 06/10/2022 US, thyro id [facility] [address] [place] [address] Phone: Fax: Name: NORI DAVENPORT Exam Date: 06/11/19 : 1954 Age 67 years Gender : F Access ion: [id number] Physic sophie: MEIR AGRAWAL Facili ty: [facility] HSV: Outpat ient Exam: US THYROI D THYROI D ULTRAS OUND, 06/11/19 23: CLINIC AL HISTOR Y: 1.4 cm periph erally calcif ied left thyroi d nodule noted on prior chest CTs COMPAR GARDNEIA: CT chest, 2021, 021, and 014. METHOD OLOGY: Up to 4 nodule s with the highes t scores are report ed using the thyroi d imagin g report ing and data system (Ti-RA DS). This system promot es a common lexico n for thyroi d nodule descri ption, focusi ng on releva nt imagin g charac terist ics to lower risk strati ficati on of indivi dual nodule s and makes recomm endati ons for biopsy or sonogr aphic follow -up based on the estima paul risk profil e. Deviat ion for manage ment recomm endati ons may be approp riate based on indivi dual patien t variab les. For compre hensiv e detail s refer to https: //www. acr.or g/clin ical-r esourc es/rep orting -and-d kelle-sy stems/ ti-rad s. FINDIN GS: Isthmu s measur es: 0.3 cm Right lobe measur es: 3.4 1.5 x 1.2 cm Left lobe measur es: 3.4 x 1.7 x 1.5 cm Thyroi d parenc hyma is genera lly: Homoge neous and normal in echoge nicity Nodule #1: Locati on: Medial aspect of the mid to inferi or pole of the right thyroi d lobe Size: 1 x 0.8 x 0.8 cm Compos ition: Solid or almost comple tely solid. 2 points . Echoge nicity : Isoech oic. One point Shape: Not taller than wide. 0 points Margin : Smooth . 0 points . Echoge arben foci: None. 0 points . Total points : 3 points .Ti-RA DS catego ry 3. FNA of 2.5 cm or greate r in longes t dimens ion. Follow in 1, 3, and 5 years if 1.5-2. 4 cm in longes t dimens ion Nodule #2: Locati on: Superi or pole of the left thyroi d lobe Size: 1.5 x 1.1 x 1.1 cm, not signif icantl y change d from 2013 Compos ition: Solid. 2 points . Echoge nicity : Hypoec hoic and isoech oic. 2 points Shape: Not taller than wide. 0 points Margin : Smooth . 0 points . Echoge arben foci: Rim calcif icatio n. 2 points . Total points : 6 points . Ti-RAD S catego ry 4. FNA if 1.5 cm or greate r in longes t dimens ion. Follow in 1, 2, 3, and 5 years if 1 cm or greate r in longes t dimens ion IMPRES AGAPITO: 1. 1 cm TiRADS 3 nodule in the mid to inferi or pole of the right thyroi d lobe. No follow -up is necess ananya 2. 1.5 cm TiRADS 4 nodule in the superi or pole of the left thyroi d lobe. As this is not signif icantl y change d from 2013, no follow -up is necess ananya Legall y authen ticate d by Sofiya delgado MD 06-10 14:43: 23 Dictat ed By: SOFIYA BARTH Transc ribed By: SOFIYA BARTH Transc ribed On: 06/11/19 2:43 PM Electr onical ly signed by: SOFIYA BARTH 06/11/19 Thank you for referr NORI Hernandez to [facility]. Legall y authen ticate d by Sofiya delgado MD 06-10 14:43: 23 CC'ed Logic: Orderi ng Provid er: CHARITY WORLEY CC Provid er: CHARITY WORLEY Attend ing Provid er: CHARITY WORLEY Referr ing Provid er: CHARITY WORLEY Admitt ing Provid er: CHARITY WORLEY nlindy [facility] (Imaging) [address] [facility] [place], [address], 06/14/2022 14:15:07 06/15/19 23 06/10/2022 DEXA, axial skele ton + verte bral fract ure asses sment No observ ation record ed. [email or web address] [facility] - Centralized Scheduling [address] [place] [place], [address], 06/14/2022 09:06:17 Result Notes None recorded. Problems Name Problem SNOMED Code Status Onset Date Resolution Date Notes Provider Name and Address Organization Details Recorded Time Chronic obstructiv e pulmonary disease 08354704 Active 2021 Meir Carcamo [place] [address] [employer] [facility],[place] [address] [place] [address], [address], [place] 2 10:48:33 Osteoporos is 44253817 Active 2021 [place] [address] [employer] [facility],[place] [facility], [place], [address], [place] & [place] 2 10:49:00 Lumbar radiculopa thy 296262879 Active 2021 Meir Carcamo [place] [address] [employer] [facility],[place] [address] [place] [address], [address], [place] & [place] 2 10:49:28 Hyperlipid emia 22391468 Active 2021 [place] [address] [employer] [facility],[place] [address] [place], [address], [place] 2 10:54:24 Venous stasis 48588240 Active 2021 intermitte nt Meir Carcamo , [address], [place], [address], [place] & [place] 2 10:54:58 Seasonal allergic rhinitis 351851473 Active [address], [place], [address], [place] & [place] 2 10:55:15 Cobalamin deficiency 348590338 Active 2021 Meir Carcamo [address], [place], [address], [place] 2 10:55:33 Abnormal findings on diagnostic imaging of lung 649090860 Active 2021 Meir Carcamo [address], [place], [address], [place] 2 16:49:45 Chronic constipati on 340530426 Active 2021 Meir Carcamo [address], [place], [address], [place] 2 16:49:46 Gastroesop hageal reflux disease without esophagiti s 032402509 Active 2022 Meir Carcamo [address], [place], [address], [place] 13:40:14 Problem Notes None recorded. Procedures Surgical History Date Name Laterality Status Provider Name and Address Organization Details Recorded Time Tubal Ligation completed Christallili Leonardt [place] 01/21/2022 10:28:19 Ovarian Cystectomy completed Christal Leet [place] 01/21/2022 10:28:36 Breast Biopsy completed Christal Leet [place] 01/21/2022 10:28:59 Imaging Results Imaging Date Name Status LastModified by Organiz ation Details LastModified Time 01/28/2022 LDCT, chest, for lung cancer screening completed [facility] (Imaging) [address] [facility] [place], [address], 02/01/2022 10:34:31 06/10/2022 US, thyroid completed [facility] (Imaging) [address] [place] [address] [place], [address], 06/14/2022 14:15:07 06/10/2022 DEXA, axial skeleton + vertebral fracture assessment completed [email or web address] [facility] - Centralized Scheduling [address] [place] [address] [place], [address], 06/14/2022 09:06:17 Procedure Notes None recorded. Medical Equipment None Reported. Allergies Allergen ID Allergen Name Allergen Category Reaction Reaction Severity Criticality Documentation Date Start Date Code Code System Note Provider Name and Address Organization Details Recorded Time 69833 aspirin medicatio n nausea mild Not available 01/21/2022 1191 RxNorm HERMANN Harkins [facility] & [place] 2 10:23:17 [address]43 codeine medicatio n hives mild Not available 01/21/2022 2670 RxNorm Christal Leigh april [facility] & [place] 2 10:23:33 Medications Name Sig Start Date Stop Date Status Note LastModified by Organization Details LastModified Time furosemide 40 mg tablet TAKE ONE (1) TABLET EVERY DAY BY ORAL ROUTE NEEDED. active Not Available Not Available No t Available atorvastati n 40 mg tablet TAKE ONE (1) TABLET EVERY DAY BY ORAL ROUTE. active Not Available Not Available No t Available doxycycline hyclate 100 mg capsule TAKE 1 CAPSULE BY MOUTH TWICE DAILY active Not Available Not Available No t Available cyanocobala min (vit B-12) 2,[address] 1 tablet every day by sublingua l route. 07/19 completed Not Available Not Available Not Available albuterol sulfate 2.5 mg/3 mL (0.083 %) solution for nebulizatio n INHALE THE CONTENTS OF 1 NEB PER NEBULIZER EVERY 4 HOURS active Not Available Not Available No t Available prednisone 20 mg tablet TAKE 2 TABLETS BY MOUTH DAILY DIRECTED. active Not Available Not Available No t Available alendronate 70 mg tablet TAKE 1 TABLET BY MOUTH ONCE WEEKLY. TAKE ON AN EMPTY STOMACH WITH 8-12 OUNCES OF WATER-NO FOOD FOR 30 MINUTES. REMAIN UPRIGHT FOR 30 MINUTES. 2022 active Not Available Not Available Not Avai lable gabapentin 400 mg capsule TAKE 1 CAPSULE BY MOUTH 3 TIMES DAILY active Not Available Not Available No t Available sertraline 100 mg tablet TAKE TWO (2) TABLETS EVERY DAY BY ORAL ROUTE. active Not Available Not Available No t Available ketorolac 30 mg/mL (1 mL) injection solution Inject 1 mL every day by intramusc ular route. 04/23 completed Not Available Not Available Not Available pantoprazol e 40 mg tablet,amanda yed release TAKE ONE (1) TABLET EVERY DAY BY ORAL ROUTE. active Not Available Not Available No t Available cyanocobala min (vit B-12) 1,000 mcg/mL injection solution Inject 1 mL every month by subcutane ous route. 04/23 completed Not Available Not Available Not Available gabapentin 300 mg capsule TAKE 1 CAPSULE BY MOUTH THREE TIMES DAILY 01/21 completed Not Available Not Available Not Available montelukast 10 mg tablet TAKE ONE (1) TABLET EVERY DAY BY ORAL ROUTE. active Not Available Not Available No t Available ergocalcife rol (vitamin D2) 1,250 mcg (50,000 unit) capsule TAKE 1 CAPSULE BY MOUTH ONCE WEEKLY 2022 active Not Available Not Available Not Avai lable fluticasone propionate 50 mcg/actuati on nasal spray,suspe nsion INSTILL 1 SPRAY IN EACH NOSTRIL ONCE DAILY. active Not Available Not Available No t Available metformin ER 500 mg tablet,exte nded release 24 hr TAKE 1 TABLET BY MOUTH DAILY WITH EVENING MEAL. 01/21 completed Not Available Not Available Not Available ipratropium bromide 0.02 % solution for inhalation INHALE THE CONTENTS OF 1 NEB PER NEBULIZER EVERY 6 HOURS NEEDED. active Not Available Not Available No t Available buspirone 15 mg tablet TAKE ONE (1) TABLET THREE (3) TIMES A DAY BY ORAL ROUTE FOR 30 DAYS. active Not Available Not Available No t Available hydroxyzine pamoate 25 mg capsule TAKE 1 CAPSULE BY MOUTH THREE TIMES A DAY, NEEDED 07/22 completed Not Available Not Available Not Available cyclobenzap rine 5 mg tablet TAKE ONE (1) TABLET THREE (3) TIMES A DAY BY ORAL ROUTE FOR 30 DAYS. active Not Available Not Available No t Available Prolia 60 mg/mL subcutaneou s syringe Inject 1 mL by subcutane ous route. 2022 active Not Available Not Available Not Avai lable vitamin E (dl, acetate) 450 mg (1,000 unit) capsule TAKE 1 CAPSULE BY MOUTH ONCE DAILY. 04/23 completed Not Available Not Available Not Available Combivent Respimat 20 mcg-100 mcg/actuati on solution for inhalation INHALE ONE (1) PUFF FOUR (4) TIMES A DAY BY INHALATIO N ROUTE. active Not Available Not Available No t Available Linzess 145 mcg capsule TAKE ONE (1) CAPSULE EVERY DAY BY ORAL ROUTE. active Not Available Not Available No t Available Bevespi Aerosphere 9 mcg-4.8 mcg HFA aerosol inhaler INHALE 2 PUFFS TWICE DAILY 2022 active Not Available Not Available Not Avai lable Vitals Date Recorded Body height Body temperature Oxygen saturation Oxygen saturation in Arterial blood by Pulse oximetry Heart rate Systolic blood pressure Diastolic blood pressure Provider Name and Address Organization Details Last Updated DateTime 3 162.56 cm 97.5 [degF] 93 % 93 % 95 /min 132 mm[Hg] 78 mm[Hg] Sirisha Ford [facility] & [place] 3 09:30:39 Date Recorded Body height Provider Name an d Address Organization Details Last Updated DateTime 07/22/2022 162.56 cm [facility] & [place] 07/22/2022 10:48:53 Date Recorded Body temperature Oxygen saturation Oxygen saturation in Arterial blood by Pulse oximetry Heart rate Systolic blood pressure Diastolic blood pressure Provider Name and Address Organization Details Last Updated DateTime 3 97.3 [degF] 91 % 91 % 83 /min 126 mm[Hg] 84 mm[Hg] Sirisha Ford [facility] & [place] 3 10:51:02 Date Recorded Body height Body temperature Oxygen saturation Oxygen saturation in Arterial blood by Pulse oximetry Heart rate Systolic blood pressure Diastolic blood pressure Provider Name and Address Organization Details Last Updated DateTime 2 162.56 cm 97.5 [degF] 95 % 95 % 86 /min 120 mm[Hg] 70 mm[Hg] Christal Leigh [facility] & [place] 2 10:21:18 Date Recorded Body mass index (BMI) Body weight Provider Name and Address Organization Details Last Updated DateTime 01/21/2022 26.4 kg/m2 70274.22 g Rita Pena [facility] & [place] 01/21/2022 11:19:48 Date Recorded Body height Body mass index (BMI) Body weight Body temperature Oxygen saturation Oxygen saturation in Arterial blood by Pulse oximetry Heart rate Respiratory rate Systolic blood pressure Diastolic blood pressure Provider Name and Address Organization Details Last Updated DateTime 2 162.56 cm 26.4 kg/m2 15842.2 2 g 96.1 [degF] 93 % 93 % 87 /min 16 /min 110 mm[Hg] 70 mm[Hg] Norah Douglas [facility] & [place] 2 10:42:26 Social History Question Answer Notes LastModified by Organizat ion Details LastModified Time Tobacco Smoking Status Current Every Day Smoker [facility] & [place] 01/21/2022 10:27:50 What Is Your Level Of Alcohol Consumption? None Information not available 01/21/2022 What Is Your Level Of Caffeine Consumption? Occasional Information not available 07/22/2022 How Much Tobacco Do You Smoke? 1 PPD Information not available 01/21/2022 Do You Use Any Illicit Or Recreational Drugs? No Information not available 01/21/2022 Sex: Unknown Functional Status None recorded. Mental Status None recorded. Family History Relationship Description Onset Age of this Age Resolved Age Notes LastModified by Organization Details LastModified Time Father Parkinson's disease [email or web address] Not available 2022 10:43:55 Father Heart disease Not available 2021 10:27:02 Mother Heart disease Not available 2021 10:27:02 Mother Essential hypertension [email or web address] Not available 10:43:55 Mother Dementia Not available 07/22/2022 10:43:55 Medical History Condition Response Arthritis Y Ear or Hearing Problems Y Back Problems Y COPD Y Acne Y Osteoporosis/Osteopenia Y High Cholesterol Y Spine Problems Y Gynecological HistoryNo gynecological history recorded. Obstetrics History GPAL:G 0 P 0 0 0 0 Immunizations Vaccine Type Date Status Note Provider Nam e and Address Organization Details Recorded Time Pneumococcal conjugate PCV 13 0 completed [facility] Available [facility]22 10:44:08 Td(adult) unspecified formulation 3 completed July Douglas null, [place] [facility] & [place] 02/04/2022 10:38:12 Influenza, split virus, quadrivalent, preservative 5 completed July Douglas null, [place] - [place] [facility] & [place] 02/04/2022 10:38:12 Influenza, MDCK, quadrivalent, PF 7 completed July [place] [facility] & [place] 02/04/2022 10:38:12 Influenza, split virus, quadrivalent, PF 1 completed July [place] [facility] & [place] 02/04/2022 10:38:12 Influenza, split virus, trivalent, PF 4 completed July Douglas null, [place] [facility] & [place] 02/04/2022 10:38:12 Influenza, split virus, trivalent, preservative 3 completed July Douglas null, [place] [facility] & [place] 02/04/2022 10:38:12 Influenza, split virus, quadrivalent, PF 8 completed July [place] null[place] [facility] & [place] 02/04/2022 10:38:12 Influenza, split virus, quadrivalent, PF 2 completed July Douglas null, [place] - [place] [facility] & [place] 02/04/2022 10:38:33 Past Encounters Encounter ID Performer Location Encounter Start Date Encounter Closed Date Diagnosis/Indication Diagnosis SNOMED-CT Code Diagnosis ICD10 Code Diagnosis Note [id number] Meir Carcamo DO [facility] [address] [place] [address] 01/21/2022 10:06:00 01/21/2022 11:16:59 Chronic obstructive pulmonary disease 59735325 J44.9 mildly exacerbate d symptoms but no acute symptoms pneumonia or major exacerbati on requiring further treatment today. Recommende d restarting patient's triple therapy and this is sent in as below. Also continuing her Singulair and nebulizer therapy. She does have a history of an abnormal low-dose lung CT screening and we are going to update this ordered today as below for re-evaluat ion Osteoporosis 10648315 M8 1.0 reassured patient that there is always a risk of fracture anytime someone has a fall and that osteoporos is well it does increase that risk does not make it a guarantee. Subsequent ly she does not have any neurologic al or acute bony abnormalit ies on exam today and I did reassure her up. Recommende d continuing ergo calciferol and alendronat e. Reviewed patient's labs which were updated within the past year and were normal at that time Lumbar radiculopathy 128 689087 M54.16 mildly exacerbate d, neurologic ally intact and no orthopedic concerns as discussed above.KASP ER reviewed and appropriat e. PDMP is not yet available. No new neurologic al or orthopedic concerns at this time. Medication s are refilled today as below. Plan to f/u in 1 month for re-evaluat ion. Hyperlipidemia 72343012 E78.5 Stable, refilled today Venous stasis 29485510 I 87.8 stable, intermitte nt, refilled p.r.n. furosemide today Seasonal a llergic rhinitis 204566675 J30.2 Cobalamin deficiency 190 716640 E53.8 B12 and methylmalo arben acid were normal at the last check in October, IM replacemen t today and we will update these in the next 3-4 months Therapeuti c drug monitoring assay 23410134 Z51.81 Abnormal f indings on diagnostic imaging of lung 842905058 R91.8 Administra tion of influenza vaccine 86753643 Z23 [id number] Meir Carcamo DO [facility] [address] [place] [address] 02/04/2022 10:27:10 02/04/2022 11:15:18 Tobacco dependence syndrome 07163118 F17.200 patient aware that her respirator y symptoms and lung changes are likely secondary to her continued tobacco use but does not feel that she is ready to quit at this time Abnormal f indings on diagnostic imaging of lung 962341603 R91.8 mildly increased lung lymph node sizes on her recent low-dose chest CT. Reviewed these with patient as well as the recommenda tion for 3 month follow-up and she has an appointmen t at about that time. otherwise her other lung nodules are stable which is reassuring Muscle pain 45163066 M79 .10 1 time treatment with IM NSAIDs today, patient does not have a severe allergy to ibuprofen/ aspirin but gets an upset stomach when she takes this regularly so I do not think that she will have difficulty with this IM injection. We did discuss that she may be having an early viral prodrome which has not yet cause significan t respirator y symptoms or other URI findings and encouraged her to follow-up if her symptoms persist or worsen despite treatment and supportive care Chronic constipation 236 097396 K59.09 patient has previously been managed on Linzess and has had recurrent symptoms without this medication . She has previously failed conservati ve therapy including MiraLax and Benefiber. This is refilled today as below and we will follow up at the time of her next visit in about 2 months [id number] Meir Carcamo DO [place] [address] [facility] [place] [address] 04/23/2022 09:17:02 04/23/2022 10:09:17 Chronic obstructive pulmonary disease 23092232 J44.9 stable, recommende d continuing patient's current regimen at this time and triple therapy as well as nebulizers and Singulair refilled today as below Osteoporosis 98401473 M8 1.0 recommende d updating patient's DEXA scan as she has now been on bisphospho nates as well as vitamin-D replacemen t. We are also going to update her calcium level and her vitamin-D levels today with her other blood work Hyperlipidemia 26474750 E78.5 Stable, refilled today Cobalamin deficiency 190 347033 E53.8 B12 deficiency , patient is currently managing on daily oral replacemen t and we are updating her labs today to ensure that this is adequate Lumbar radiculopathy 128 201934 M54.16 Stable on current regimen; DAVE reviewed and appropriat e. PDMP is not yet available. No new neurologic al or orthopedic concerns at this time. Medication s are refilled today as below. Plan to f/u in 3 month for re-evaluat ion. Seasonal a llergic rhinitis 244196830 J30.2 stable, refilled today Venous stasis 20047191 I 87.8 stable, intermitte nt, refilled p.r.n. furosemide today Chronic constipation 236 407721 K59.09 plan to continue Linzess and MiraLax for management , refilled today Gastroesop hageal reflux disease without esophagitis 848678866 K21.9 stable, refilled today Abnormal f indings on diagnostic imaging of lung 229709150 R91.8 mildly increased lung lymph node sizes on her recent low-dose chest CT. Recommenda tion for 3 month follow-up and this is ordered today Imaging of thyroid gland abnormal 403433979 R93.89 patient did have incidental findings of a thyroid nodule which was recommende d to be further evaluated by ultrasound and this is ordered today as wellrecomm ended that patient gradually get her imaging performed over the next few months and that we follow-up in about 3 months together to review everything at that time, if there are concerning abnormalit ies which required earlier evaluation contact patient by phone for an earlier follow-up Therapeuti c drug monitoring assay 39614824 Z51.81 updating patient's UDS today [id number] Meir Carcamo DO [address] [address] 07/22/2022 10:41:56 07/22/2022 11:31:26 Chronic obstructive pulmonary disease 49151175 J44.9 currenty exacerbate d as abovewe reviewed chronic bronchitis component of COPD as a possibilit y of her dxcurrentl y on combivent and as needed albuterol nebs and these are refilled today as belowalso managing on tripple therapy with breztri which pt does not need refill on today Osteoporosis 64850278 M8 1.0 reviewed pt's updated dexa with persistent ly low T score of -2.8recomm ended transition ing her to prolia; pt is reticent to manage on injections but we discussed that this is only 2x annually and pt will pick it up from the pharmacy and then come to office to receive the injection and she is agreeable to this management Hyperlipidemia 99243264 E78.5 reviewed labs from Apr 2022 which were well controlled Lumbar radiculopathy 128 930062 M54.16 Stable on current regimen; DAVE reviewed and appropriat e. PDMP is not yet available. No new neurologic al or orthopedic concerns at this time. Medication s are refilled today as below. Plan to f/u in 3 month for re-evaluat ion.we discussed her lower leg symptoms as not being consistent with any particular dermatome as she has no other symptoms I do not suspect a herniated disc causing her symptoms; we did review the small nerve asnn with the fibular head which may be contributi ng to her symptoms but primarily I encouraged continued activity as well as stretches and massage which pt has been doing well withwe reviewed her labs from Apr and she did not have either sig renal disease or electrolyt e changes and is not on medication s which should contribute to theserecom mended continued monitoring at this time Generalize d anxiety disorder 62578249 F41.1 stable; refilled today Therapeuti c drug monitoring assay 47169229 Z51.81 UDS from 04-23-22 is reviewed and appropriat e; updating patient's UDS today Acute bronchitis 8579844 2 J20.9 given pt's symptoms of increased shortness of breath and change in sputm color recommende d treatment with steroid burst and doxycyclin e and these are sent in today as below Health Concerns Section Related Observation LastModified by Organization Detai ls LastModified Time None Recorded Concern Status LastModified by Organization Details LastModified Time None Recorded Advance Directives Directive None Recorded Payers Encounter Date Sequence Insurance Name Policy Number Policy Sharma Covered Member ID Sharma Member ID Guarantor Name 01/21/2022 1 [place]AC[place] H[place] [id number] Nori J Lindsay [id number] Nori J Lindsay 01/21/2022 2 [place] [facility] CHOICES - FFS/TRADITIONA L Nori J Lindsay [id number] Nori J Lindsay 02/04/2022 1 [place] [id number] Nori J Lindsay [id number] Nori J Hall 02/04/2022 2 [place] [facility] HEALTH CHOICES - FFS/TRADITIONA L Nori J Lindsay [id number] Nori J Hall 04/23/2022 1 [place] HM[place] [id number] Nori J Lindsay [id number] Nori J Hall 04/23/2022 2 [place] [facility] [place] - FFS/TRADITIONA L Nori J Hall [id number] Nori J Lindsay 07/22/2022 1 [place] [id number] Nori J Hall [id number] Nori J Lindsay 07/22/2022 2 MEDICAID-[facility] HEALTH CHOICES - FFS/TRADITIONA L Nori J Hall [id number] Nori J Hall Notes Date Note Type Note Provider Name and Address Organization Details Recorded Time 2 text/html 66 yo with pmhx of COPD presents for f/u.Lumbar radiculopathy- pt had 2 recent falls; 3-4 last steps. was sore for a few days afterwards but gradually improved. Then tripped going down a steep hill, both feet went out from under her. This fall also aggravated her back pain but this time has been more persistent.Has been using a heating pad which has been improving- reports her pain radiating down the right leg is worse- wakes her from sleep early in the AM- gabapentin is still helping her symptoms- no new LE heaviness/ weaknessCOPD- pharmacy hasn't refilled bevespi; not sure if she was out of refills or insurance ran out Meir Carcamo, [address], [place], [address], [facility] & [place] 01/21/2022 16:04:33 2 text/html 66 yo with pmhx of COPD presents for f/u on LDLCT screening.Reports she's vomited 3-4 times in the past few days. Started randomlywent to midway before onsetdoes report significant malaise and body aches globallyotherwise no acute symptoms such as fevers/ chillscough and SOB at baseline; no sputum productiondoes report generally soreness; otherwise is keep po intake down constipation: Patient reports that she has tried and failed both MiraLax and Benefiber without improvement. She normally has a bowel movement every 4 days. She does report increased nausea recently as above. she has previously been managed on Linzess in the past and would like to restart this medication today if possible Meir Carcamo, [address], [place], [id number], [facility] 02/04/2022 16:50:14 3 text/html 67 yo with pmhx of COPD, osteoporosis, b12 deficiency presents for f/u.Having some trouble getting refills through her pharmacy. Otherwise her breathing does well on her current regimen. No recent exacerbated symptoms such as worse than baseline shortness of breath, wheezing or sputum production.lung changes; no unexpected weight lossno recent falls or fractures; tolerating alendronate w/o side effectsLumbar radiculopathy:stable on gabapentinno drowsiness or sedation with medication usemedication is helping her symptoms Meir Carcamo, [address], [place], [address], [facility] & [place] 04/23/2022 16:38:51 3 text/html 67 yo with pmhx of COPD, osteoporosis, b12 deficiency presents for f/u. COPDReports thick sputum production, brown color whenever she uses her nebulizers.Does have some increased shortness of breath which she reports is basically all the time at this point.Has cut back on smoking but hasn't quit yet.No fevers/ chills Osteoporosisno recent falls or fracturestolerating alendronate w/o side effects-had her dexa updated in the past few months Lumbar radiculopathy:primarily affect the right posterior hip and legstable on gabapentinno drowsiness or sedation with medication usemedication is helping her symptoms reports anterior calf burning bilaterally which has been bothering her significantly for the past few daysoverall reports this is new; no new injury or changes in activity prior to onset of symptomsstates she has to get up at nights and walk around to try and help it but this only helps minimallyfeels kind of like a valerio horse but so far only has improvement with massage Meir Carcamo, DO [address] [facility],[address], [place], [address], [place] [facility] [place] 07/23/2022 16:41:38 OBGyn Episode No OBEpisode recorded.
== END 2024-07-18 12:18 | disposition home or self-care (01) ==
LOC: INF 09:52
PROVIDERS: PCP Nurse Practitioner Family; Visit Provider Internal Medicine Medical Oncology
DX: C77.0 Secondary and unspecified malignant neoplasm of lymph nodes of head, face and neck (principal)
CPT/HCPCS: 80053; 82024; 82533; 84443; 85025; 96413; J9271

== ENCOUNTER 2024-07-24 08:16 | Outpatient (CLI) | payer MEDICARE, MEDICAID, SELFPAY ==
--- OUTSIDE RECORDS SUMMARY | 2024-07-24 08:18 | XMS_ITS | Data Portability ---
Author Organization [place] [facility] Address [address] [place] [address] Care Team Providers Care Spa Receptionist Name Role Phone MEIR CARCAMO Primary Care Provider Assessment No assessment recorded. Plan of Treatment Reminders Order Date Submit Date Provider Last Modified By Organization Details Last Modified Time Details Appointments None recorded. Lab drug screen, urine 2022 023 [email or web address] Not available 3 07:30:17 CMP, serum or plasma 2022 023 [facility] Lab Registration, [address] [place], [address], 3 15:29:31 vitamin D, 25-hydroxy, total, serum 2022 023 [email or web address] Lab Registration, [address] [place], [address], 3 06:53:35 drug screen, urine 2022 023 [email or web address] Not available 3 10:10:40 lipid panel, serum [email or web address] Lab Registration, [address] [place], [address], 3 06:53:35 vitamin B12, serum [email or web address] Lab Registration, [address] [place], [address], 3 06:53:35 mma (methylmalo arben acid), serum [address] Lab Registration, [address] [place], [address], 3 06:53:35 CBC w/ auto diff 2022 023 [facility] Lab Registration, [address] [place], [address], 3 14:29:38 drug screen, urine [address] Lab Registration, [address] [place], [address], 2 09:55:02 Referral None recorded. Procedures None recorded. Surgeries None recorded. Imaging US, thyroid [address] - Centralized Scheduling, [address] [place], [address], 3 10:10:11 DEXA, axial skeleton + vertebral fracture assessment [address] - Centralized Scheduling, [address] [place], [address], 3 10:09:27 CT, chest, w/ contrast [address] - Centralized Scheduling, [address] [place], [address], 3 07:41:11 LDCT, chest, for lung cancer screening [address] - Centralized Scheduling, [address] [place], [address], 2 09:55:10 Medication Orders cyclobenzap rine 5 mg tablet 2022 023 [facility], [address] [place], [address], 3 11:25:05 gabapentin 400 mg capsule 2022 023 [facility], [address] [place], [address], 3 11:25:55 Prolia 60 mg/mL subcutaneou s syringe 2022 023 [facility], [address] [place], [address], 3 11:27:21 albuterol sulfate 2.5 mg/3 mL (0.083 %) solution for nebulizatio n 2022 023 [facility], [address] [place], [address], 3 11:22:37 Combivent Respimat 20 mcg-100 mcg/actuati on solution for inhalation 2022 023 [facility], [address] [place], [address], 3 11:24:40 buspirone 15 mg tablet 2022 023 [facility], [address] [place], [address], 3 11:25:38 sertraline 100 mg tablet 2022 023 [facility], [address] [place], [address], 3 11:24:02 prednisone 20 mg tablet 2022 023 [facility], [address] [place], [address], 3 11:33:24 doxycycline hyclate 100 mg capsule 2022 023 [facility], [address] [place], [address], 3 11:32:58 Linzess 145 mcg capsule 2022 023 [facility], [address] [place], [address], 3 09:59:11 alendronate 70 mg tablet 2022 023 [facility], [address] [place], [address], 3 10:12:40 ergocalcife rol (vitamin D2) 1,250 mcg (50,000 unit) capsule 2022 023 [facility], [address] [place], [address], 3 10:11:14 albuterol sulfate 2.5 mg/3 mL (0.083 %) solution for nebulizatio n 2022 023 [facility], [address] [place], [address], 3 10:01:44 Bevespi Aerosphere 9 mcg-4.8 mcg HFA aerosol inhaler 2022 023 [email or web address], [address] [place], [address], 3 11:04:36 ipratropium bromide 0.02 % solution for inhalation 2022 023 [facility], [address] [place], [address], 3 11:13:43 montelukast 10 mg tablet 2022 023 [facility], [address] [place], [address], 3 10:12:57 cyclobenzap rine 5 mg tablet 2022 023 [facility], [address] [place], [address], 3 10:00:35 gabapentin 400 mg capsule 2022 023 [facility], [address] [place], [address], 3 09:59:08 atorvastati n 40 mg tablet 2022 023 [facility], [address] [place], [address], 3 10:12:10 fluticasone propionate 50 mcg/actuati on nasal spray,suspe nsion 2022 023 [facility], [address] [place], [address], 3 10:03:20 furosemide 40 mg tablet 2022 023 [facility], [address] [place], [address], 3 10:10:52 pantoprazol e 40 mg tablet,amanda yed release 2022 023 [facility], [address] [place], [address], 3 10:54:31 cyanocobala min (vit B-12) 2,500 mcg sublingual tablet 2022 023 [email or web address] [facility] [address] [place], [address], 3 10:49:07 Linzess 145 mcg capsule 2021 022 [facility], [address] [place], [address], 2 16:35:31 ketorolac 30 mg/mL (1 mL) injection solution 2021 022 [facility], [address] [place], [address], 3 09:32:46 cyclobenzap rine 5 mg tablet 2021 022 [facility], [address] [place], [address], 2 11:05:13 gabapentin 400 mg capsule 2021 022 [facility], [address] [place], [address], 2 11:04:48 ergocalcife rol (vitamin D2) 1,250 mcg (50,000 unit) capsule 2021 022 [facility], [address] [place], [address], 3 13:09:30 alendronate 70 mg tablet 2021 022 [facility], [address] [place], [address], 2 11:15:20 Bevespi Aerosphere 9 mcg-4.8 mcg HFA aerosol inhaler 102021 [facility], [address] [place], [address], 2 11:03:02 ipratropium bromide 0.02 % solution for inhalation [facility] [address] [place], [address], 2 11:23:40 albuterol sulfate 2.5 mg/3 mL (0.083 %) solution for nebulizatio n 2021 [facility], [address] [place], [address], 2 11:10:27 montelukast 10 mg tablet 2021 [facility], [address] [place], [address], 11:14:38 atorvastati n 40 mg tablet 2021 [facility], [address] [place], [address], 2 11:21:53 vitamin E (dl, acetate) 450 mg (1,000 unit) capsule [facility] [address] [place], [address], 3 09:33:00 fluticasone propionate 50 mcg/actuati on nasal spray,suspe nsion 2021 [facility], [address] [place], [address], 11:21:37 furosemide 40 mg tablet 2021 [facility], [address] [place], [address], 2 11:05:22 cyanocobala min (vit B-12) 1,000 mcg/mL injection solution 2021 [email or web address] [facility], [address] [place], [address], 3 09:32:28 cyanocobala min (vit B-12) 2,500 mcg sublingual tablet 2021 [facility], [address] [place], [address], 2 16:10:38 Patient TargetsNo targets recorded. Patient InstructionsNo instructions recorded. Reason for Referral None Reported. Results Created Date Observation Date Name Description Value Unit Range Abnormal Flag Note LastModifiedBy Organization Detail LastModifiedTime 04/23/1904/23/2022 CBC WITH AUTO DIFF WBC 6.6 10 4.5-11 .5 Not Available [facility] (Lab) [address] [place], [address], 04/23/2022 14:29:38 04/23/19 23 04/23/2022 CBC WITH AUTO DIFF RBC 5.10 10 4.00-5 .40 Not Available [facility] (Lab) [address] [place], [address], 04/23/2022 14:29:38 04/23/19 23 04/23/2022 CBC WITH AUTO DIFF hemoglobin 15.2 g/dL 12.0-1 5.0 high Not Available [facility] (Lab) [address] [place], [address], 04/23/2022 14:29:38 04/23/19 23 04/23/2022 CBC WITH AUTO DIFF hematocrit 45.6 % 35.0-4 9.0 Not Available [facility] (Lab) [address] [place], [address], 04/23/2022 14:29:38 04/23/19 23 04/23/2022 CBC WITH AUTO DIFF MCV 89.4 fL 80-100 Not Available [facility] (Lab) [address] [place], [address], 04/23/2022 14:29:38 04/23/19 23 04/23/2022 CBC WITH AUTO DIFF MCH 29.8 pg 26-32 Not Available [facility] (Lab) [address] [place], [address], 04/23/2022 14:29:38 04/23/19 23 04/23/2022 CBC WITH AUTO DIFF MCHC 33.3 g/dL 32-36 Not Available [facility] (Lab) [address] [place], [address], 04/23/2022 14:29:38 04/23/19 23 04/23/2022 CBC WITH AUTO DIFF RDW 13.5 % 11.5-1 4.5 Not Available [facility] (Lab) [address] [place], [address], 04/23/2022 14:29:38 04/23/19 23 04/23/2022 CBC WITH AUTO DIFF platelet count 306 10 150-45 0 Not Available [facility] (Lab) [address] [place], [address], 04/23/2022 14:29:38 04/23/19 23 04/23/2022 CBC WITH AUTO DIFF mean platelet volume 11.5 fL 6.8-10 .2 high Not Available [facility] (Lab) [address] [place], [address], 04/23/2022 14:29:38 04/23/19 23 04/23/2022 CBC WITH AUTO DIFF manual differential NOT INDICA PAUL Not Available [facility] (Lab) [address] [place], [address], 04/23/2022 14:29:38 04/23/19 23 04/23/2022 CBC WITH AUTO DIFF ne% 53.0 % 50-70 Not Available [facility] (Lab) [address] [place], [address], 04/23/2022 14:29:38 04/23/19 23 04/23/2022 CBC WITH AUTO DIFF lymphs 32.8 % 18-42 Not Available [facility] (Lab) [address] [place], [address], 04/23/2022 14:29:38 04/23/19 23 04/23/2022 CBC WITH AUTO DIFF MO% 11.5 % 2-11 high Not Available [facility] (Lab) [address] [place], [address], 04/23/2022 14:29:38 04/23/19 23 04/23/2022 CBC WITH AUTO DIFF eo% 1.8 % 1-3 Not Available [facility] (Lab) [address] [place], [address], 04/23/2022 14:29:38 04/23/19 23 04/23/2022 CBC WITH AUTO DIFF ba% 0.9 % 0.0-2. 0 Not Available [facility] (Lab) [address] [place], [address], 04/23/2022 14:29:38 04/23/19 23 04/23/2022 CBC WITH AUTO DIFF neutrophils (absolute) 3.5 K/uL 2.0-6. 9 Not Available [facility] (Lab) [address] [place], [address], 04/23/2022 14:29:38 04/23/19 23 04/23/2022 CBC WITH AUTO DIFF lymphocytes (absolute) 2.2 K/uL 0.6-3. 4 Not Available [facility] (Lab) [address] [place], [address], 04/23/2022 14:29:38 04/23/19 23 04/23/2022 CBC WITH AUTO DIFF monocytes (absolute) 0.8 K/uL 0.0-0. 9 Not Available [facility] (Lab) [address] [place], [address], 04/23/2022 14:29:38 04/23/19 23 04/23/2022 CBC WITH AUTO DIFF eosinophils (absolute) 0.1 K/uL 0.0-0. 7 Not Available [facility] (Lab) [address] [place] [address] [place], [address], 04/23/2022 14:29:38 04/23/19 23 04/23/2022 CBC WITH AUTO DIFF basophils (absolute) 0.1 K/uL 0.0-0. 2 Not Available [facility] (Lab) [address] [place] [address] [place], [address], 04/23/2022 14:29:38 04/23/19 23 04/23/2022 COMPR EHENS LUZ METAB OLIC PANEL sodium 147 mmol/ L 136-14 5 high Not Available [facility] (Lab) [address] [place] [address] [place], [address], 04/23/2022 15:29:31 04/23/19 23 04/23/2022 COMPR EHENS LUZ METAB OLIC PANEL potassium 4.0 mmol/ L 3.5-5. 1 Not Available [facility] (Lab) [address] [place] [address] [place], [address], 04/23/2022 15:29:31 04/23/19 23 04/23/2022 COMPR EHENS LUZ METAB OLIC PANEL chloride 104 mmol/ L 98.0-1 07.0 Not Available [facility] (Lab) [address] [place] [address] [place], [address], 04/23/2022 15:29:31 04/23/19 23 04/23/2022 COMPR EHENS LUZ METAB OLIC PANEL total CO2 30 mmol/ L 21-32 Not Available [facility] (Lab) [address] [place], [address], 04/23/2022 15:29:31 04/23/19 23 04/23/2022 COMPR EHENS LUZ METAB OLIC PANEL anion gap 17.0 mmol/ L 5.0-15 .0 high Not Available [facility] (Lab) [address] [place], [address], 04/23/2022 15:29:31 04/23/19 23 04/23/2022 COMPR EHENS LUZ METAB OLIC PANEL glucose 112 mg/dL 70-120 Not Available [facility] (Lab) [address] [place], [address], 04/23/2022 15:29:31 04/23/19 23 04/23/2022 COMPR EHENS LUZ METAB OLIC PANEL BUN 12 mg/dL 7-18 Not Available [facility] (Lab) [address] [place], [address], 04/23/2022 15:29:31 04/23/19 23 04/23/2022 COMPR EHENS LUZ METAB OLIC PANEL creatinine 0.9 mg/dL 0.6-1. 0 Not Available [facility] (Lab) [address] [place], [address], 04/23/2022 15:29:31 04/23/19 23 04/23/2022 COMPR EHENS LUZ METAB OLIC PANEL BUN/creatini ne ratio 13.3 ratio 9-21 Not Available [facility] (Lab) [address] [place], [address], 04/23/2022 15:29:31 04/23/19 23 04/23/2022 COMPR EHENS LUZ METAB OLIC PANEL estimated glom filtration rate >60 mL/mi n 60.0- Not Available [facility] (Lab) [address] [place], [address], 04/23/2022 15:29:31 04/23/19 23 04/23/2022 COMPR EHENS LUZ METAB OLIC PANEL calcium 9.4 mg/dL 8.6-9. 8 Not Available [facility] (Lab) [address] [place], [address], 04/23/2022 15:29:31 04/23/19 23 04/23/2022 COMPR EHENS LUZ METAB OLIC PANEL bilirubin, total 0.4 mg/dL 0.2-1. 0 USE OF THIS ASSAY IS NOT RECOM GIRISH D FOR PATIE NTS UNDER GOING TREAT MENT WITH ELTRO MBOPA G DUE TO THE POTEN TIAL FOR FALSE LY ELEVA PAUL RESUL TS. Not Available [facility] (Lab) [address] [place], [address], 04/23/2022 15:29:31 04/23/19 23 04/23/2022 COMPR EHENS LUZ METAB OLIC PANEL AST (SGOT) 16 IU/L 15-37 Not Available [facility] (Lab) [address] [place], [address], 04/23/2022 15:29:31 04/23/19 23 04/23/2022 COMPR EHENS LUZ METAB OLIC PANEL ALT (SGPT) 15 IU/L 12-78 Not Available [facility] (Lab) [address] [place], [address], 04/23/2022 15:29:31 04/23/19 23 04/23/2022 COMPR EHENS LUZ METAB OLIC PANEL alk phos 108 IU/L 54-369 Not Available [facility] (Lab) [address] [place], [address], 04/23/2022 15:29:31 04/23/19 23 04/23/2022 COMPR EHENS LUZ METAB OLIC PANEL total protein 8.0 g/dL 6.4-8. 2 Not Available [facility] (Lab) [address] [place] [address] [place], [address], 04/23/2022 15:29:31 04/23/19 23 04/23/2022 COMPR EHENS LUZ METAB OLIC PANEL albumin 4.3 g/dL 3.4-5. 0 Not Available [facility] (Lab) [address] [place] [address] [place], [address], 04/23/2022 15:29:31 04/23/19 23 04/23/2022 COMPR EHENS LUZ METAB OLIC PANEL globulin 3.7 g/dL 1.3-3. 5 high Not Available [facility] (Lab) [address] [place] [address] [place], [address], 04/23/2022 15:29:31 04/23/19 23 04/23/2022 COMPR EHENS LUZ METAB OLIC PANEL alb/glob ratio 1.2 ratio 1.0-3. 9 Not Available [facility] (Lab) [address] [place] [address] [place], [address], 04/23/2022 15:29:31 04/23/19 23 04/23/2022 COMPR EHENS LUZ METAB OLIC PANEL osmolality, calculated 293 mOsm/ kg 272-29 5 Not Available [facility] (Lab) [address] [place] [address] [place], [address], 04/23/2022 15:29:31 04/23/19 23 04/23/2022 VITAM IN B12 vitamin B12 1225 pg/mL 193-98 6 high Not Available [facility] (Lab) [address] [place] [address] [place], [address], 04/23/2022 15:29:33 04/23/19 23 04/23/2022 LIPID PANEL triglyceride s 122 mg/dL 1-150 Not Available [facility] (Lab) [address] [place] [address] [place], [address], 04/23/2022 15:41:51 04/23/19 23 04/23/2022 LIPID PANEL cholesterol 192 mg/dL 0-200 Not Available [facility] (Lab) [address] [place], [address], 04/23/2022 15:41:51 04/23/19 23 04/23/2022 LIPID PANEL HDL chol 61 mg/dL 35-60 high Not Available [facility] (Lab) [address] [place], [address], 04/23/2022 15:41:51 04/23/19 23 04/23/2022 LIPID PANEL chol/HDL ratio 3 -4.44 Not Available [facility] (Lab) [address] [place], [address], 04/23/2022 15:41:51 04/23/19 23 04/23/2022 LIPID PANEL LDL (calculated) 107 mg/dL -130 Not Available [facility] (Lab) [address] [place], [address], 04/23/2022 15:41:51 04/23/19 23 04/24/2022 VITAM IN [...] Argenis maciel [place]: [employer] . 2. Alyse sibley MF, Lizett ey [place], Aniceto off-F errar i PATEL, et al. Evalu ation , treat ment, and preve ntion of vitam in D defic iency : an Endoc rine Socie ty clini cr pract ice guide line. JCEM. 2010; 96(7) :1911 -30. Perfo rmed at: - [facility] [address] [facility], [place], [place] [id number] Lab Direc tor: Willian grubbs PhD, Phone : [phone] Not Available [facility] (Lab) [address] , [place], [address], 04/24/2022 07:12:15 04/23/19 23 04/29/2022 METHY LMALO ARBEN ACID methylmaloni c acid 169 nmol/ L 0-378 Test( s) 77066 7-Met hylma lonic Acid, Serum was devel oped and its perfo rmanc e erik cteri stics deter mined by [facility]p. It has not been clear ed or appro mina by the Food and Drug Admin istra tion. Perfo rmed at: [facility] Zeb maciel [address] [facility] [place] [address] Lab Direc tor: Kay manuel MD, Phone : [phone] Not Available [facility] (Lab) [address] [place] [address] , [place], [address], 04/29/2022 17:10:59 01/29/20 22 01/28/2022 LDCT, chest , for lung cance r scree manpreet [facility] al [address] [place] [place] [address] Phone: Fax: Name: NORI DAVENPORT Exam Date: 2021 : 1954 Age 66 years Gender : F Access ion: [id number] Physic sophie: MEIR [facility]AL [facility]pat ient Exam: CT [...] nodule s will be based on the [facility] hner Societ y criter ia. Any incide [...] Thank you for referr NORI Hernandez to [facility]. Legall y authen ticate d by Juan russell MD 2021-04 16:46: 37 CC'ed Logic: Orderi ng Provid er: CHARITY WORLEY CC Provid er: CHARITY WORLEY Attend ing Provid er: CHARITY WORLEY Referr ing Provid er: CHARITY WORLEY Admitt ing Provid er: CHARITY cassidy [facility] (Imaging) [address] [place], [address], 02/01/2022 10:34:31 06/11/19 23 06/10/2022 US, thyro id [facility] [address] [place] [place] [address] Phone: Fax: Name: NORI DAVENPORT Exam Date: 06/11/19 : 1954 Age 67 years Gender : F Access ion: [id number] Physic sophie: MEIR AGRAWAL Facili ty: [facility] HSV: Outpat ient Exam: US THYROI D THYROI D ULTRAS OUND, 06/11/19 23: CLINIC AL HISTOR Y: 1.4 cm periph erally calcif ied left thyroi d nodule noted on prior chest CTs COMPAR GARDENIA: CT chest, 2021, 021, and 014. METHOD [...] Thank you for referr NORI Hernandez to [facility]. Legall y authen ticate d by Sofiya delgado MD 06-10 14:43: 23 CC'ed Logic: Orderi ng Provid er: CHARITY WORLEY CC Provid er: CHARITY WORLEY Attend ing Provid er: CHARITY WORLEY Referr ing Provid er: CHARITY WORLEY Admitt ing Provid er: CHARITY WORLEY nlindy [facility] (Imaging) [address], [address], 06/14/2022 14:15:07 06/15/19 23 06/10/2022 DEXA, axial skele ton + verte bral fract ure asses sment No observ ation record ed. [email or web address] [facility] - Centralized Scheduling [address] [place], [address], 06/14/2022 09:06:17 Result Notes None recorded. Problems Name Problem SNOMED Code Status Onset Date Resolution Date Notes Provider Name and Address Organization Details Recorded Time Chronic obstructiv e pulmonary disease 12664503 Active 2021 Meir Carcamo [place] [address] [facility],[place] te [address] [place] [address], [address], [place] - [place] - [place] 2 10:48:33 Osteoporos is 69522590 Active 2021 [place] [address] [facility],[place]issa te [facility], [place], [address], [place] 2 10:49:00 Lumbar radiculopa thy 285733664 Active 2021 Meir Carcamo [place] [address] [facility],[place]issa te [address] [place] [address], [phone], [place] 2 10:49:28 Hyperlipid emia 80245218 Active 2021 [place] [address] [employer],[address] [place], [address], [place] 2 10:54:24 Venous stasis 67050197 Active 2021 intermitte nt Meir Carcamo , [address], [place], [address], [place] 2 10:54:58 Seasonal allergic rhinitis 861071826 Active 2021 Meir Carcamo [address], [place], [address], [place] 2 10:55:15 Cobalamin deficiency 409310628 Active 2021 Meir Carcamo [address], [place], [address], [place] 2 10:55:33 Abnormal findings on diagnostic imaging of lung 215586676 Active 2021 Meir Carcamo [address], [place], [address], [place] 2 16:49:45 Chronic constipati on 178135542 Active 2021 Meir Carcamo [address], [place], [address], [place] 2 16:49:46 Gastroesop hageal reflux disease without esophagiti s 961943071 Active 2022 Meir Carcamo [address], [place], [address], [place] 3 13:40:14 Problem Notes None recorded. Procedures Surgical History Date Name Laterality Status Provider Name and Address Organization Details Recorded Time Tubal Ligation completed Christallili Leonardt [place] - [place] 01/21/2022 10:28:19 Ovarian Cystectomy completed Christal Leet [place] 01/21/2022 10:28:36 Breast Biopsy completed Christal Leet [place] 01/21/2022 10:28:59 Imaging Results Imaging Date Name Status LastModified by Organiz ation Details LastModified Time 01/28/2022 LDCT, chest, for lung cancer screening completed [facility] (Imaging) [address] [place], [address], 02/01/2022 10:34:31 06/10/2022 US, thyroid completed [facility] (Imaging) [address] [place] [address] [place], [address], 06/14/2022 14:15:07 06/10/2022 DEXA, axial skeleton + vertebral fracture assessment completed [email or web address] [facility] - Centralized Scheduling [address] [place] [address] [place], [address], 06/14/2022 09:06:17 Procedure Notes None recorded. Medical Equipment None Reported. Allergies Allergen ID Allergen Name Allergen Category Reaction Reaction Severity Criticality Documentation Date Start Date Code Code System Note Provider Name and Address Organization Details Recorded Time 26946 aspirin medicatio n nausea mild Not available 01/21/2022 1191 RxNorm HERMANN Harkins [facility] & [place] 2 10:23:17 27903 codeine medicatio n hives mild Not available 01/21/2022 2670 RxNorm Christal Leigh april [facility] & [place] 2 10:23:33 Medications Name Sig Start Date [...] /min 132 mm[Hg] 78 mm[Hg] Sirisha Ford [facility] & [place] 3 09:30:39 Date Recorded Body height Provider Name an d Address Organization Details Last Updated DateTime 07/22/2022 162.56 cm [facility] & [place] 07/22/2022 10:48:53 Date Recorded Body temperature Oxygen saturation Oxygen saturation in Arterial blood by Pulse oximetry Heart rate Systolic blood pressure Diastolic blood pressure Provider Name and Address Organization Details Last Updated DateTime 3 97.3 [degF] 91 % 91 % 83 /min 126 mm[Hg] 84 mm[Hg] Sirisha Ford [facility] & [place] 3 10:51:02 Date Recorded Body height Body temperature Oxygen saturation Oxygen saturation in Arterial blood by Pulse oximetry Heart rate Systolic blood pressure Diastolic blood pressure Provider Name and Address Organization Details Last Updated DateTime 2 162.56 cm 97.5 [degF] 95 % 95 % 86 /min 120 mm[Hg] 70 mm[Hg] Christal Leigh [facility] & [place] 2 10:21:18 Date Recorded Body mass index (BMI) Body weight Provider Name and Address Organization Details Last Updated DateTime 01/21/2022 26.4 kg/m2 72759.22 g Rita Pena [facility] & [place] 01/21/2022 11:19:48 Date Recorded Body height Body mass index (BMI) Body weight Body temperature Oxygen saturation Oxygen saturation in Arterial blood by Pulse oximetry Heart rate Respiratory rate Systolic blood pressure Diastolic blood pressure Provider Name and Address Organization Details Last Updated DateTime 2 162.56 cm 26.4 kg/m2 10872.2 2 g 96.1 [degF] 93 % 93 % 87 /min 16 /min 110 mm[Hg] 70 mm[Hg] Norah Douglas [facility] & [place] 2 10:42:26 Social History Question Answer Notes LastModified by Organizat ion Details LastModified Time Tobacco Smoking Status Current Every Day Smoker [facility] [place] 01/21/2022 10:27:50 What Is Your Level Of [...] available 07/22/2022 10:43:55 Medical History Condition Response Osteoporosis/Osteopenia Y Arthritis Y Ear or Hearing Problems Y High Cholesterol Y Spine Problems Y Back Problems Y COPD Y Acne Y Gynecological HistoryNo gynecological history recorded. Obstetrics History GPAL:G 0 P 0 0 0 0 Immunizations Vaccine Type Date Status Note Provider Nam e and Address Organization Details Recorded Time Pneumococcal conjugate PCV 13 0 completed Not Available [facility] 07/22/2022 10:44:08 Td(adult) unspecified formulation 3 completed July Douglas null, [place] - [place] [facility] & [place] 02/04/2022 10:38:12 Influenza, split virus, quadrivalent, preservative 5 completed July Douglas null, [place] - [facility] & [place] 02/04/2022 10:38:12 Influenza, MDCK, quadrivalent, PF 7 completed July Douglas null, [place] - [facility] & [place] 02/04/2022 10:38:12 Influenza, split virus, quadrivalent, PF 1 completed July Douglas null, [place] - [facility] & [place] 02/04/2022 10:38:12 Influenza, split virus, trivalent, PF 4 completed July Douglas null, [place] - [facility] & [place] 02/04/2022 10:38:12 Influenza, split virus, trivalent, preservative 3 completed July Douglas null, [place] - [facility] & [place] 02/04/2022 10:38:12 Influenza, split virus, quadrivalent, PF 8 completed July Douglas null, [place] - [facility] & [place] 02/04/2022 10:38:12 Influenza, split virus, quadrivalent, PF 2 completed July Douglas null, [place] - [facility] & [place] 02/04/2022 10:38:33 Past Encounters Encounter ID Performer Location Encounter Start Date Encounter Closed Date Diagnosis/Indication Diagnosis SNOMED-CT Code Diagnosis ICD10 Code Diagnosis Note [id number] Meir Carcamo DO [facility] [address] [place] [address] 01/21/2022 10:06:00 01/21/2022 11:16:59 Chronic obstructive pulmonary disease 84420354 J44.9 mildly exacerbate d symptoms but no [...] today as below for re-evaluat ion Osteoporosis 84663484 M8 1.0 reassured patient that there is [...] normal at that time Lumbar radiculopathy 128 529804 M54.16 mildly exacerbate d, neurologic ally intact and no orthopedic concerns as discussed above.[facility] reviewed and appropriat e. PDMP is not yet available. No new neurologic al or orthopedic concerns at this time. Medication s are refilled today as below. Plan to f/u in 1 month for re-evaluat ion. Hyperlipidemia 31106484 E78.5 Stable, refilled today Venous stasis 24510474 I 87.8 stable, intermitte nt, refilled p.r.n. furosemide today Seasonal a llergic rhinitis 020514490 J30.2 Cobalamin deficiency 190 823162 E53.8 B12 and methylmalo arben acid were normal at the last check in October, IM replacemen t today and we will update these in the next 3-4 months Therapeuti c drug monitoring assay 37129098 Z51.81 Abnormal f indings on diagnostic imaging of lung 892335528 R91.8 Administra tion of influenza vaccine 04736249 Z23 [id number] Meir Carcamo DO [facility] [address] [place] [address] 02/04/2022 10:27:10 02/04/2022 11:15:18 Tobacco dependence syndrome 33568799 F17.200 patient aware that her respirator y symptoms and lung changes are likely secondary to her continued tobacco use but does not feel that she is ready to quit at this time Abnormal f indings on diagnostic imaging of lung 348413107 R91.8 mildly increased lung lymph node sizes on her recent low-dose chest CT. Reviewed these with patient as well as the recommenda tion for 3 month follow-up and she has an appointmen t at about that time. otherwise her other lung nodules are stable which is reassuring Muscle pain 11121204 M79 .10 1 time treatment with IM [...] treatment and supportive care Chronic constipation 236 168953 K59.09 patient has previously been managed on Linzess and has had recurrent symptoms without this medication . She has previously failed conservati ve therapy including MiraLax and Benefiber. This is refilled today as below and we will follow up at the time of her next visit in about 2 months [id number] Meir Carcamo DO [place] [address] [facility] [place] [address] 04/23/2022 09:17:02 04/23/2022 10:09:17 Chronic obstructive pulmonary disease 07493444 J44.9 stable, recommende d continuing patient's current regimen at this time and triple therapy as well as nebulizers and Singulair refilled today as below Osteoporosis 33529042 M8 1.0 recommende d updating patient's DEXA scan as she has now been on bisphospho nates as well as vitamin-D replacemen t. We are also going to update her calcium level and her vitamin-D levels today with her other blood work Hyperlipidemia 71575907 E78.5 Stable, refilled today Cobalamin deficiency 190 943335 E53.8 B12 deficiency , patient is currently managing on daily oral replacemen t and we are updating her labs today to ensure that this is adequate Lumbar radiculopathy 128 266946 M54.16 Stable on current regimen; DAVE reviewed and appropriat e. PDMP is not yet available. No new neurologic al or orthopedic concerns at this time. Medication s are refilled today as below. Plan to f/u in 3 month for re-evaluat ion. Seasonal a llergic rhinitis 649815659 J30.2 stable, refilled today Venous stasis 23930854 I 87.8 stable, intermitte nt, refilled p.r.n. furosemide today Chronic constipation 236 152696 K59.09 plan to continue Linzess and MiraLax for management , refilled today Gastroesop hageal reflux disease without esophagitis 085570045 K21.9 stable, refilled today Abnormal f indings on diagnostic imaging of lung 720484466 R91.8 mildly increased lung lymph node sizes on her recent low-dose chest CT. Recommenda tion for 3 month follow-up and this is ordered today Imaging of thyroid gland abnormal 643287281 R93.89 patient did have incidental findings of [...] earlier follow-up Therapeuti c drug monitoring assay 01697134 Z51.81 updating patient's UDS today [id number] Meir Carcamo DO [address] [address] 07/22/2022 10:41:56 07/22/2022 11:31:26 Chronic obstructive pulmonary disease 10082628 J44.9 currenty exacerbate d as abovewe reviewed chronic bronchitis component of COPD as a possibilit y of her dxcurrentl y on combivent and as needed albuterol nebs and these are refilled today as belowalso managing on tripple therapy with breztri which pt does not need refill on today Osteoporosis 13929699 M8 1.0 reviewed pt's updated dexa with persistent ly low T score of -2.8recomm ended transition ing her to prolia; pt is reticent to manage on injections but we discussed that this is only 2x annually and pt will pick it up from the pharmacy and then come to office to receive the injection and she is agreeable to this management Hyperlipidemia 17718591 E78.5 reviewed labs from Apr 2022 which were well controlled Lumbar radiculopathy 128 497306 M54.16 Stable on current regimen; DAVE reviewed [...] at this time Generalize d anxiety disorder 56794749 F41.1 stable; refilled today Therapeuti c drug monitoring assay 57081684 Z51.81 UDS from 04-23-22 is reviewed and appropriat e; updating patient's UDS today Acute bronchitis 7779837 2 J20.9 given pt's symptoms of increased [...] (MEDICARE REPLACEMENT HMO) [id number] Nori J Lindsay [id number] Nori J Lindsay 01/21/2022 2 [place] [facility] HEALTH CHOICES - FFS/TRADITIONA L Nori J Lindsay [id number] Nori J Lindsay 02/04/2022 1 [place]MED[place]AC[place] H[place] [id number] Nori J Lindsay [id number] Nori J Ring[place] 02/04/2022 2 [place] [facility] HE[facility] CHOICES - FFS/TRADITIONA L Nori J Lindsay [id number] Nori J Ringgold 04/23/2022 1 [place] HM[place] [id number] Nori J Lindsay [id number] Nori J Ringgold 04/23/2022 2 [place] [facility] HE[facility] CHOICES - FFS/TRADITIONA L Nori J Ringgold [id number] Nori J Lindsay 07/22/2022 1 [place] H[place] [id number] Nori J Ringgold [id number] Nori J Lindsay 07/22/2022 2 MEDICAID-[facility] HEALTH CHOICES - FFS/TRADITIONA L Nori J Ringgold [id number] Nori J Ringgold Notes Date Note Type Note Provider Name [...] or insurance ran out Meir Carcamo, [address], [place], [address], [facility] & [place] 01/21/2022 16:04:33 2 text/html 66 yo with pmhx of COPD presents for f/u on LDLCT screening.Reports she's vomited 3-4 times in the past few days. [place] before onset[place] report significant malaise and body [...] medication today if possible Meir Carcamo, [address], [place], [address], [facility] 02/04/2022 16:50:14 3 text/html 67 yo [...] is helping her symptoms Meir Carcamo, [address], [place], [address], [facility] - [place] [facility] & [place] 04/23/2022 16:38:51 3 text/html 67 yo with [...] improvement with massage Meir Carcamo, DO [address] [facility],[address], [place], [address], [place] - [place]NT - [place] & [place] 07/23/2022 16:41:38 OBGyn Episode No OBEpisode recorded.
[2024-07-25 14:27] LABS: Adrenocorticotropic Hormone 7.6 pg/mL (7.2-63.3)
== END 2024-07-24 23:59 | disposition home or self-care (01) ==
LOC: LAB 08:17
PROVIDERS: PCP Nurse Practitioner Family; Visit Provider Internal Medicine Medical Oncology
DX: R59.1 Generalized enlarged lymph nodes (principal)
CPT/HCPCS: 36415; 82024; 82533

== ENCOUNTER 2024-08-08 09:56 | Outpatient (CLI) | payer MEDICARE, MEDICAID, SELFPAY ==
[2024-08-08 09:59] VITALS: BMI 24.3
--- OUTSIDE RECORDS SUMMARY | 2024-08-08 10:00 | XMS_ITS | Data Portability ---
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 Plan of Treatment Reminders Order Date Submit Date Provider Last Modified By Organization Details Last Modified Time Details Appointments None recorded. Lab drug screen, urine 2022 023 [email or web address] Not available 3 07:30:17 CMP, serum or plasma 2022 023 [facility] Lab Registration, [address] [facility], [address], 3 15:29:31 vitamin D, 25-hydroxy, total, serum 2022 023 [email or web address] Lab Registration, [address] [place], [address], 3 06:53:35 drug screen, urine 2022 023 [email or web address] Not available 3 10:10:40 lipid panel, serum [email or web address] Lab Registration, [address] [place], [address], 3 06:53:35 vitamin B12, serum [email or web address] Lab Registration, [address] [place], [address], 3 06:53:35 mma (methylmalo arben acid), serum [address] Lab Registration, [address] [place], [address], 3 06:53:35 CBC w/ auto diff 2022 023 [facility] Lab Registration, [address] [place], [address], 3 14:29:38 drug screen, urine [address] Lab Registration, [address] [place], [address], 2 09:55:02 Referral None recorded. Procedures None recorded. Surgeries None recorded. Imaging US, thyroid [address] - Centralized Scheduling, [address] [place], [address], 3 10:10:11 DEXA, axial skeleton + vertebral fracture assessment [address] - Centralized Scheduling, [address] [place], [address], 3 10:09:27 CT, chest, w/ contrast [address] - Centralized Scheduling, [address] [place], [address], 3 07:41:11 LDCT, chest, for lung cancer screening [address] - Centralized Scheduling, [address] [place], [address], 2 09:55:10 Medication Orders cyclobenzap rine 5 mg tablet 2022 023 [facility] [address] [place], [address], 3 11:25:05 gabapentin 400 mg capsule 2022 023 [facility], [address] [place], [address], 3 11:25:55 Prolia 60 mg/mL subcutaneou s syringe 2022 023 [facility], [address] [place], [address], 3 11:27:21 albuterol sulfate 2.5 mg/3 mL (0.083 %) solution for nebulizatio n 2022 023 [facility], [address] [place], [address], 3 11:22:37 Combivent Respimat 20 mcg-100 mcg/actuati on solution for inhalation 2022 023 [facility], [address] [place], [address], 3 11:24:40 buspirone 15 mg tablet 2022 023 [facility], [address] [place], [address], 3 11:25:38 sertraline 100 mg tablet 2022 023 [facility], [address] [place], [address], 3 11:24:02 prednisone 20 mg tablet 2022 023 [facility], [address] [place], [address], 3 11:33:24 doxycycline hyclate 100 mg capsule 2022 023 [facility], [address] [place], [address], 3 11:32:58 Linzess 145 mcg capsule 2022 023 [facility], [address] [place], [address], 3 09:59:11 alendronate 70 mg tablet 2022 023 [facility], [address] [place], [address], 3 10:12:40 ergocalcife rol (vitamin D2) 1,250 mcg (50,000 unit) capsule 2022 023 [facility], [address] [place], [address], 3 10:11:14 albuterol sulfate 2.5 mg/3 mL (0.083 %) solution for nebulizatio n 2022 023 [facility], [address] [place], [address], 3 10:01:44 Bevespi Aerosphere 9 mcg-4.8 mcg HFA aerosol inhaler 2022 023 [email or web address] [facility], [address] [place], [address], 3 11:04:36 ipratropium bromide 0.02 % solution for inhalation 2022 023 [facility], [address] [place], [address], 3 11:13:43 montelukast 10 mg tablet 2022 023 [facility], [address] [place], [address], 3 10:12:57 cyclobenzap rine 5 mg tablet 2022 023 [facility], [address] [place], [address], 3 10:00:35 gabapentin 400 mg capsule 2022 023 [facility], [address] [place], [address], 3 09:59:08 atorvastati n 40 mg tablet 2022 023 [facility], [address] [place], [address], 3 10:12:10 fluticasone propionate 50 mcg/actuati on nasal spray,suspe nsion 2022 023 [facility], [address] [place], [address], 3 10:03:20 furosemide 40 mg tablet 2022 023 [facility], [address] [place], [address], 3 10:10:52 pantoprazol e 40 mg tablet,amanda yed release 2022 023 [facility], [address] [place], [address], 3 10:54:31 cyanocobala min (vit B-12) 2,500 mcg sublingual tablet 2022 023 [email or web address] [address] [place], [address], 3 10:49:07 Linzess 145 mcg capsule 2021 022 [facility], [address] [place], [address], 2 16:35:31 ketorolac 30 mg/mL (1 mL) injection solution 2021 022 [facility] [address] [place], [address], 3 09:32:46 cyclobenzap rine 5 mg tablet 2021 022 [facility], [address] [place], [address], 2 11:05:13 gabapentin 400 mg capsule 2021 022 [facility], [address] [place], [address], 2 11:04:48 ergocalcife rol (vitamin D2) 1,250 mcg (50,000 unit) capsule 2021 022 [facility], [address] [place], [address], 3 13:09:30 alendronate 70 mg tablet 2021 022 [facility], [address] [place], [address], 2 11:15:20 Bevespi Aerosphere 9 mcg-4.8 mcg HFA aerosol inhaler 102021 [facility], [address] [place], [address], 2 11:03:02 ipratropium bromide 0.02 % solution for inhalation [facility] [address] [place], [address], 2 11:23:40 albuterol sulfate 2.5 mg/3 mL (0.083 %) solution for nebulizatio n 2021 [facility], [address] [place], [address], 2 11:10:27 montelukast 10 mg tablet 2021 [facility], [address] [place], [address], 11:14:38 atorvastati n 40 mg tablet 2021 [facility], [address] [place], [address], 2 11:21:53 vitamin E (dl, acetate) 450 mg (1,000 unit) capsule 2021 [facility] [address] [place], [address], 3 09:33:00 fluticasone propionate 50 mcg/actuati on nasal spray,suspe nsion 2021 [facility], [address] [place], [address], 11:21:37 furosemide 40 mg tablet 2021 [facility], [address] [place], [address], 2 11:05:22 cyanocobala min (vit B-12) 1,000 mcg/mL injection solution 2021 [email or web address] [facility], [address] [place], [address], 3 09:32:28 cyanocobala min (vit B-12) 2,500 mcg sublingual tablet 2021 [facility], [address] [place], [address], 2 16:10:38 Patient TargetsNo targets recorded. Patient InstructionsNo instructions recorded. Reason for Referral None Reported. Results Created Date Observation Date Name Description Value Unit Range Abnormal Flag Note LastModifiedBy Organization Detail LastModifiedTime 04/23/1904/23/2022 CBC WITH AUTO DIFF WBC 6.6 10 4.5-11 .5 Not Available [facility] (Lab) [address] [place], [address], 04/23/2022 14:29:38 04/23/19 23 04/23/2022 CBC WITH AUTO DIFF RBC 5.10 10 4.00-5 .40 Not Available [facility] (Lab) [address] [place], [address], 04/23/2022 14:29:38 04/23/19 23 04/23/2022 CBC WITH AUTO DIFF hemoglobin 15.2 g/dL 12.0-1 5.0 high Not Available [facility] (Lab) [address] [place], [address], 04/23/2022 14:29:38 04/23/19 23 04/23/2022 CBC WITH AUTO DIFF hematocrit 45.6 % 35.0-4 9.0 Not Available [facility] (Lab) [address] [place], [address], 04/23/2022 14:29:38 04/23/19 23 04/23/2022 CBC WITH AUTO DIFF MCV 89.4 fL 80-100 Not Available [facility] (Lab) [address] [place], [address], 04/23/2022 14:29:38 04/23/19 23 04/23/2022 CBC WITH AUTO DIFF MCH 29.8 pg 26-32 Not Available [facility] (Lab) [address] [place], [address], 04/23/2022 14:29:38 04/23/19 23 04/23/2022 CBC WITH AUTO DIFF MCHC 33.3 g/dL 32-36 Not Available [facility] (Lab) [address] [place], [address], 04/23/2022 14:29:38 04/23/19 23 04/23/2022 CBC WITH AUTO DIFF RDW 13.5 % 11.5-1 4.5 Not Available [facility] (Lab) [address] [place], [address], 04/23/2022 14:29:38 04/23/19 23 04/23/2022 CBC WITH AUTO DIFF platelet count 306 10 150-45 0 Not Available [facility] (Lab) [address] [place], [address], 04/23/2022 14:29:38 04/23/19 23 04/23/2022 CBC WITH AUTO DIFF mean platelet volume 11.5 fL 6.8-10 .2 high Not Available [facility] (Lab) [address] [place], [address], 04/23/2022 14:29:38 04/23/19 23 04/23/2022 CBC WITH AUTO DIFF manual differential NOT INDICA PAUL Not Available [facility] (Lab) [address] [place], [address], 04/23/2022 14:29:38 04/23/19 23 04/23/2022 CBC WITH AUTO DIFF ne% 53.0 % 50-70 Not Available [facility] (Lab) [address] [place], [address], 04/23/2022 14:29:38 04/23/19 23 04/23/2022 CBC WITH AUTO DIFF lymphs 32.8 % 18-42 Not Available [facility] (Lab) [address] [place], [address], 04/23/2022 14:29:38 04/23/19 23 04/23/2022 CBC WITH AUTO DIFF MO% 11.5 % 2-11 high Not Available [facility] (Lab) [address] [place], [address], 04/23/2022 14:29:38 04/23/19 23 04/23/2022 CBC WITH AUTO DIFF eo% 1.8 % 1-3 Not Available [facility] (Lab) [address] [place], [address], 04/23/2022 14:29:38 04/23/19 23 04/23/2022 CBC WITH AUTO DIFF ba% 0.9 % 0.0-2. 0 Not Available [facility] (Lab) [address] [place], [address], 04/23/2022 14:29:38 04/23/19 23 04/23/2022 CBC WITH AUTO DIFF neutrophils (absolute) 3.5 K/uL 2.0-6. 9 Not Available [facility] (Lab) [address] [place], [address], 04/23/2022 14:29:38 04/23/19 23 04/23/2022 CBC WITH AUTO DIFF lymphocytes (absolute) 2.2 K/uL 0.6-3. 4 Not Available [facility] (Lab) [address] [place], [address], 04/23/2022 14:29:38 04/23/19 23 04/23/2022 CBC WITH AUTO DIFF monocytes (absolute) 0.8 K/uL 0.0-0. 9 Not Available [facility] (Lab) [address] [place], [address], 04/23/2022 14:29:38 04/23/19 23 04/23/2022 CBC WITH AUTO DIFF eosinophils (absolute) 0.1 K/uL 0.0-0. 7 Not Available [facility] (Lab) [address] [place] [address] [place], [address], 04/23/2022 14:29:38 04/23/19 23 04/23/2022 CBC WITH AUTO DIFF basophils (absolute) 0.1 K/uL 0.0-0. 2 Not Available [facility] (Lab) [address] [place] [address] [place], [address], 04/23/2022 14:29:38 04/23/19 23 04/23/2022 COMPR EHENS LUZ METAB OLIC PANEL sodium 147 mmol/ L 136-14 5 high Not Available [facility] (Lab) [address] [place] [address] [place], [address], 04/23/2022 15:29:31 04/23/19 23 04/23/2022 COMPR EHENS LUZ METAB OLIC PANEL potassium 4.0 mmol/ L 3.5-5. 1 Not Available [facility] (Lab) [address] [place] [address] [place], [address], 04/23/2022 15:29:31 04/23/19 23 04/23/2022 COMPR EHENS LUZ METAB OLIC PANEL chloride 104 mmol/ L 98.0-1 07.0 Not Available [facility] (Lab) [address] [place] [address] [place], [address], 04/23/2022 15:29:31 04/23/19 23 04/23/2022 COMPR EHENS LUZ METAB OLIC PANEL total CO2 30 mmol/ L 21-32 Not Available [facility] (Lab) [address] [place], [address], 04/23/2022 15:29:31 04/23/19 23 04/23/2022 COMPR EHENS LUZ METAB OLIC PANEL anion gap 17.0 mmol/ L 5.0-15 .0 high Not Available [facility] (Lab) [address] [place], [address], 04/23/2022 15:29:31 04/23/19 23 04/23/2022 COMPR EHENS LUZ METAB OLIC PANEL glucose 112 mg/dL 70-120 Not Available [facility] (Lab) [address] [place], [address], 04/23/2022 15:29:31 04/23/19 23 04/23/2022 COMPR EHENS LUZ METAB OLIC PANEL BUN 12 mg/dL 7-18 Not Available [facility] (Lab) [address] [place], [address], 04/23/2022 15:29:31 04/23/19 23 04/23/2022 COMPR EHENS LUZ METAB OLIC PANEL creatinine 0.9 mg/dL 0.6-1. 0 Not Available [facility] (Lab) [address] [place], [address], 04/23/2022 15:29:31 04/23/19 23 04/23/2022 COMPR EHENS LUZ METAB OLIC PANEL BUN/creatini ne ratio 13.3 ratio 9-21 Not Available [facility] (Lab) [address] [place], [address], 04/23/2022 15:29:31 04/23/19 23 04/23/2022 COMPR EHENS LUZ METAB OLIC PANEL estimated glom filtration rate >60 mL/mi n 60.0- Not Available [facility] (Lab) [address] [place], [address], 04/23/2022 15:29:31 04/23/19 23 04/23/2022 COMPR EHENS LUZ METAB OLIC PANEL calcium 9.4 mg/dL 8.6-9. 8 Not Available [facility] (Lab) [address] [place], [address], 04/23/2022 15:29:31 04/23/19 23 04/23/2022 COMPR EHENS LUZ METAB OLIC PANEL bilirubin, total 0.4 mg/dL 0.2-1. 0 USE OF THIS ASSAY IS NOT RECOM GIRISH D FOR PATIE NTS UNDER GOING TREAT MENT WITH ELTRO MBOPA G DUE TO THE POTEN TIAL FOR FALSE LY ELEVA PAUL RESUL TS. Not Available [facility] (Lab) [address] [place], [address], 04/23/2022 15:29:31 04/23/19 23 04/23/2022 COMPR EHENS LUZ METAB OLIC PANEL AST (SGOT) 16 IU/L 15-37 Not Available [facility] (Lab) [address] [place], [address], 04/23/2022 15:29:31 04/23/19 23 04/23/2022 COMPR EHENS LUZ METAB OLIC PANEL ALT (SGPT) 15 IU/L 12-78 Not Available [facility] (Lab) [address] [place], [address], 04/23/2022 15:29:31 04/23/19 23 04/23/2022 COMPR EHENS LUZ METAB OLIC PANEL alk phos 108 IU/L 54-369 Not Available [facility] (Lab) [address] [place], [address], 04/23/2022 15:29:31 04/23/19 23 04/23/2022 COMPR EHENS LUZ METAB OLIC PANEL total protein 8.0 g/dL 6.4-8. 2 Not Available [facility] (Lab) [address] [place] [address] [place], [address], 04/23/2022 15:29:31 04/23/19 23 04/23/2022 COMPR EHENS LUZ METAB OLIC PANEL albumin 4.3 g/dL 3.4-5. 0 Not Available [facility] (Lab) [address] [place] [address] [place], [address], 04/23/2022 15:29:31 04/23/19 23 04/23/2022 COMPR EHENS LUZ METAB OLIC PANEL globulin 3.7 g/dL 1.3-3. 5 high Not Available [facility] (Lab) [address] [place] [address] [place], [address], 04/23/2022 15:29:31 04/23/19 23 04/23/2022 COMPR EHENS LUZ METAB OLIC PANEL alb/glob ratio 1.2 ratio 1.0-3. 9 Not Available [facility] (Lab) [address] [place] [address] [place], [address], 04/23/2022 15:29:31 04/23/19 23 04/23/2022 COMPR EHENS LUZ METAB OLIC PANEL osmolality, calculated 293 mOsm/ kg 272-29 5 Not Available [facility] (Lab) [address] [place] [address] [place], [address], 04/23/2022 15:29:31 04/23/19 23 04/23/2022 VITAM IN B12 vitamin B12 1225 pg/mL 193-98 6 high Not Available [facility] (Lab) [address] [place] [address] [place], [address], 04/23/2022 15:29:33 04/23/19 23 04/23/2022 LIPID PANEL triglyceride s 122 mg/dL 1-150 Not Available [facility] (Lab) [address] [place] [address] [place], [address], 04/23/2022 15:41:51 04/23/19 23 04/23/2022 LIPID PANEL cholesterol 192 mg/dL 0-200 Not Available [facility] (Lab) [address] [place], [address], 04/23/2022 15:41:51 04/23/19 23 04/23/2022 LIPID PANEL HDL chol 61 mg/dL 35-60 high Not Available [facility] (Lab) [address] [place], [address], 04/23/2022 15:41:51 04/23/19 23 04/23/2022 LIPID PANEL chol/HDL ratio 3 -4.44 Not Available [facility] (Lab) [address] [place], [address], 04/23/2022 15:41:51 04/23/19 23 04/23/2022 LIPID PANEL LDL (calculated) 107 mg/dL -130 Not Available [facility] (Lab) [address] [place], [address], 04/23/2022 15:41:51 04/23/19 23 04/24/2022 VITAM IN [...] Argenis maciel [place]: [facility] . 2. Alyse sibley MF, Lizett ey [place], Aniceto off-F errar i PATEL, et al. Evalu ation , treat ment, and preve ntion of vitam in D defic iency : an Endoc rine Socie ty clini cr pract ice guide line. JCEM. 2010; 96(7) :1911 -30. Perfo rmed at: - [facility] [address] [facility], [place], [place] [address] Lab Direc tor: Willian grubbs PhD, Phone : [phone] Not Available [facility] (Lab) [address] , [place], [address], 04/24/2022 07:12:15 04/23/19 23 04/29/2022 METHY LMALO ARBEN ACID methylmaloni c acid 169 nmol/ L 0-378 Test( s) 25709 7-Met hylma lonic Acid, Serum was devel oped and its perfo rmanc e erik cteri stics deter mined by [facility]. It has not been clear ed or appro mina by the Food and Drug Admin istra tion. Perfo rmed at: [facility] Zeb maciel [address] [facility] [place] [address] Lab Direc tor: Kay manuel MD, Phone : [phone] Not Available [facility] (Lab) [address] [place] [address] , [place], [address], 04/29/2022 17:10:59 01/29/20 22 01/28/2022 LDCT, chest , for lung cance r scree manpreet [facility] [address] [place] [address] Phone: Fax: Name: NORI DAVENPORT Exam Date: 2021 : 1954 Age 66 years Gender : F Access ion: [id number] Physic sophie: MEIR AGRAWAL [facility] HSV: Outpat ient Exam: CT LOW [...] nodule s will be based on the [facility] hner Societ y criter ia. Any incide [...] Thank you for referr NORI Hernandez to [facility]. Legall y authen ticate d by Juan russell MD 2021-04 16:46: 37 CC'ed Logic: Orderi ng Provid er: CHARITY WORLEY CC Provid er: CHARITY WORLEY Attend ing Provid er: CHARITY WORLEY Referr ing Provid er: CHARITY WORLEY Admitt ing Provid er: CHARITY cassidy [facility] (Imaging) [address] [place], [address], 02/01/2022 10:34:31 06/11/19 23 06/10/2022 US, thyro id [facility] [address] [place] [address] Phone: Fax: Name: NORI DAVENPORT Exam Date: 06/11/19 : 1954 Age 67 years Gender : F Access ion: [id number] Physic sophie: MEIR AGRAWAL Facili ty: [facility] HSV: Outpat ient Exam: US [...] Thank you for referr NORI Hernandez to [facility]. Legall y authen ticate d by Sofiya delgado MD 06-10 14:43: 23 CC'ed Logic: Orderi ng Provid er: CHARITY WORLEY CC Provid er: CHARITY WORLEY Attend ing Provid er: CHARITY WORLEY Referr ing Provid er: CHARITY WORLEY Admitt ing Provid er: CHARITY WORLEY nlindy [facility] (Imaging) [address] [facility] [place], [address], 06/14/2022 14:15:07 06/15/19 23 06/10/2022 DEXA, axial skele ton + verte bral fract ure asses sment No observ ation record ed. [facility] - Centralized Scheduling [address] [place], [address], 06/14/2022 09:06:17 Result Notes None recorded. Problems Name Problem SNOMED Code Status Onset Date Resolution Date Notes Provider Name and Address Organization Details Recorded Time Chronic obstructiv e pulmonary disease 81942416 Active 2021 Meir Carcamo [place] [address] [facility],[place] [address] [place] [address], [address], [place] - [facility] - [place] & [place] 2 10:48:33 Osteoporos is 54085746 Active 2021 [place] [address] [facility],[place] [facility], [place], [address], [place] [facility] [place] & [place] 2 10:49:00 Lumbar radiculopa thy 160040521 Active 2021 Meir Carcamo [place] [address] [facility],[place] te [address] [place] [address], [address], [place] [facility] [place] & [place] 2 10:49:28 Hyperlipid emia 52894410 Active 2021 [place] [address] [facility],[address] [place], [address], [place] [facility] & [place] 2 10:54:24 Venous stasis 85799700 Active 2021 intermitte nt Meir Carcamo , [address], [place], [address], [place] [facility] & [place] 2 10:54:58 Seasonal allergic rhinitis 413456084 Active 2021 Meir Carcamo [address], [place], [address], [place] & [place] 2 10:55:15 Cobalamin deficiency 682738298 Active 2021 Meir Carcamo [address], [place], [address], [place] & [place] 2 10:55:33 Abnormal findings on diagnostic imaging of lung 375983283 Active 2021 Meir Carcamo [address], [place], [address], [place] & [place] 2 16:49:45 Chronic constipati on 109960628 Active 2021 Meir Carcamo [address], [place], [address], [place] & [place] 2 16:49:46 Gastroesop hageal reflux disease without esophagiti s 164217130 Active 2022 Meir Carcamo [address], [place], [address], [place] & [place] 3 13:40:14 Problem Notes None recorded. Procedures Surgical History Date Name Laterality Status Provider Name and Address Organization Details Recorded Time Tubal Ligation completed Christallili Leonardt [place] - [place] & [place] 01/21/2022 10:28:19 Ovarian Cystectomy completed Christal Leet [place] & [place] 01/21/2022 10:28:36 Breast Biopsy completed Christal Leet [place] & [place] 01/21/2022 10:28:59 Imaging Results Imaging Date Name Status LastModified by Organiz ation Details LastModified Time 01/28/2022 LDCT, chest, for lung cancer screening completed [facility] (Imaging) [address] [place], [address], 02/01/2022 10:34:31 06/10/2022 US, thyroid completed [facility] (Imaging) [address] [place] [address] [place], [address], 06/14/2022 14:15:07 06/10/2022 DEXA, axial skeleton + vertebral fracture assessment completed [id number] [facility] - Centralized Scheduling [address] [place] [address] [place], [address], 06/14/2022 09:06:17 Procedure Notes None recorded. Medical Equipment None Reported. Allergies Allergen ID Allergen Name Allergen Category Reaction Reaction Severity Criticality Documentation Date Start Date Code Code System Note Provider Name and Address Organization Details Recorded Time 76311 aspirin medicatio n nausea mild Not available 01/21/2022 1191 RxNorm HERMANN Harkins [facility] & [place] 2 10:23:17 08729 codeine medicatio n hives mild Not available 01/21/2022 2670 RxNorm Christal Leigh april [facility] & [place] 2 10:23:33 Medications Name Sig Start Date [...] /min 132 mm[Hg] 78 mm[Hg] Sirisha Ford [facility] & [place] 3 09:30:39 Date Recorded Body height Provider Name an d Address Organization Details Last Updated DateTime 07/22/2022 162.56 cm [facility] & [place] 07/22/2022 10:48:53 Date Recorded Body temperature Oxygen saturation Oxygen saturation in Arterial blood by Pulse oximetry Heart rate Systolic blood pressure Diastolic blood pressure Provider Name and Address Organization Details Last Updated DateTime 3 97.3 [degF] 91 % 91 % 83 /min 126 mm[Hg] 84 mm[Hg] Sirisha Ford [facility] & [place] 3 10:51:02 Date Recorded Body height Body temperature Oxygen saturation Oxygen saturation in Arterial blood by Pulse oximetry Heart rate Systolic blood pressure Diastolic blood pressure Provider Name and Address Organization Details Last Updated DateTime 2 162.56 cm 97.5 [degF] 95 % 95 % 86 /min 120 mm[Hg] 70 mm[Hg] Christal Leigh [facility] [place] 2 10:21:18 Date Recorded Body mass index (BMI) Body weight Provider Name and Address Organization Details Last Updated DateTime 01/21/2022 26.4 kg/m2 88564.22 g Rita Pena [facility] [place] 01/21/2022 11:19:48 Date Recorded Body height Body mass index (BMI) Body weight Body temperature Oxygen saturation Oxygen saturation in Arterial blood by Pulse oximetry Heart rate Respiratory rate Systolic blood pressure Diastolic blood pressure Provider Name and Address Organization Details Last Updated DateTime 2 162.56 cm 26.4 kg/m2 29989.2 2 g 96.1 [degF] 93 % 93 % 87 /min 16 /min 110 mm[Hg] 70 mm[Hg] Norah Douglas [facility] [place] 2 10:42:26 Social History Question Answer Notes LastModified by Organizat ion Details LastModified Time Tobacco Smoking Status Current Every Day Smoker [facility] [place] 01/21/2022 10:27:50 What Is Your Level Of [...] conjugate PCV 13 0 completed Not [facility] 07/22/2022 10:44:08 Td(adult) unspecified formulation 3 completed July Douglas null, [place] - [place] [facility] & [place] 02/04/2022 10:38:12 Influenza, split virus, quadrivalent, preservative 5 completed July Douglas null, [place] - [facility] [place] 02/04/2022 10:38:12 Influenza, MDCK, quadrivalent, PF 7 completed July Douglas null, [place] - [facility] [place] 02/04/2022 10:38:12 Influenza, split virus, quadrivalent, PF 1 completed July Douglas null, [place] - [facility] [place] 02/04/2022 10:38:12 Influenza, split virus, trivalent, PF 4 completed July Douglas null, [place] - [facility] [place] 02/04/2022 10:38:12 Influenza, split virus, trivalent, preservative 3 completed July Douglas null, [place] - [facility] [place] 02/04/2022 10:38:12 Influenza, split virus, quadrivalent, PF 8 completed July Douglas null, [place] - [facility] [place] 02/04/2022 10:38:12 Influenza, split virus, quadrivalent, PF 2 completed July Douglas null, [place] - [facility] [place] 02/04/2022 10:38:33 Past Encounters Encounter ID Performer Location Encounter Start Date Encounter Closed Date Diagnosis/Indication Diagnosis SNOMED-CT Code Diagnosis ICD10 Code Diagnosis Note [id number] Meir Carcamo DO [facility] [address] [place] [address] 01/21/2022 10:06:00 01/21/2022 11:16:59 Chronic obstructive pulmonary disease 10680032 J44.9 mildly exacerbate d symptoms but no [...] today as below for re-evaluat ion Osteoporosis 98044467 M8 1.0 reassured patient that there is [...] normal at that time Lumbar radiculopathy 128 121556 M54.16 mildly exacerbate d, neurologic ally intact and no orthopedic concerns as discussed above.[facility] reviewed and appropriat e. PDMP is not yet available. No new neurologic al or orthopedic concerns at this time. Medication s are refilled today as below. Plan to f/u in 1 month for re-evaluat ion. Hyperlipidemia 10870306 E78.5 Stable, refilled today Venous stasis 24937967 I 87.8 stable, intermitte nt, refilled p.r.n. furosemide today Seasonal a llergic rhinitis 357696417 J30.2 Cobalamin deficiency 190 588996 E53.8 B12 and methylmalo arben acid were normal at the last check in October, IM replacemen t today and we will update these in the next 3-4 months Therapeuti c drug monitoring assay 47239900 Z51.81 Abnormal f indings on diagnostic imaging of lung 267812897 R91.8 Administra tion of influenza vaccine 25780791 Z23 [id number] Meir Carcamo DO [facility] [address] [place] [address] 02/04/2022 10:27:10 02/04/2022 11:15:18 Tobacco dependence syndrome 79750877 F17.200 patient aware that her respirator y symptoms and lung changes are likely secondary to her continued tobacco use but does not feel that she is ready to quit at this time Abnormal f indings on diagnostic imaging of lung 808047216 R91.8 mildly increased lung lymph node sizes on her recent low-dose chest CT. Reviewed these with patient as well as the recommenda tion for 3 month follow-up and she has an appointmen t at about that time. otherwise her other lung nodules are stable which is reassuring Muscle pain 27136589 M79 .10 1 time treatment with IM [...] treatment and supportive care Chronic constipation 236 294048 K59.09 patient has previously been managed on Linzess and has had recurrent symptoms without this medication . She has previously failed conservati ve therapy including MiraLax and Benefiber. This is refilled today as below and we will follow up at the time of her next visit in about 2 months [id number] Meir Carcamo DO [place] [address] [address] [place] [address] 04/23/2022 09:17:02 04/23/2022 10:09:17 Chronic obstructive pulmonary disease 03013016 J44.9 stable, recommende d continuing patient's current regimen at this time and triple therapy as well as nebulizers and Singulair refilled today as below Osteoporosis 56493790 M8 1.0 recommende d updating patient's DEXA scan as she has now been on bisphospho nates as well as vitamin-D replacemen t. We are also going to update her calcium level and her vitamin-D levels today with her other blood work Hyperlipidemia 46165508 E78.5 Stable, refilled today Cobalamin deficiency 190 999664 E53.8 B12 deficiency , patient is currently managing on daily oral replacemen t and we are updating her labs today to ensure that this is adequate Lumbar radiculopathy 128 211628 M54.16 Stable on current regimen; DAVE reviewed and appropriat e. PDMP is not yet available. No new neurologic al or orthopedic concerns at this time. Medication s are refilled today as below. Plan to f/u in 3 month for re-evaluat ion. Seasonal a llergic rhinitis 624495897 J30.2 stable, refilled today Venous stasis 77140966 I 87.8 stable, intermitte nt, refilled p.r.n. furosemide today Chronic constipation 236 537506 K59.09 plan to continue Linzess and MiraLax for management , refilled today Gastroesop hageal reflux disease without esophagitis 170276465 K21.9 stable, refilled today Abnormal f indings on diagnostic imaging of lung 585522045 R91.8 mildly increased lung lymph node sizes on her recent low-dose chest CT. Recommenda tion for 3 month follow-up and this is ordered today Imaging of thyroid gland abnormal 609497897 R93.89 patient did have incidental findings of [...] earlier follow-up Therapeuti c drug monitoring assay 24814162 Z51.81 updating patient's UDS today [id number] Meir Carcamo DO [address] [address] 07/22/2022 10:41:56 07/22/2022 11:31:26 Chronic obstructive pulmonary disease 83251112 J44.9 currenty exacerbate d as abovewe reviewed chronic bronchitis component of COPD as a possibilit y of her dxcurrentl y on combivent and as needed albuterol nebs and these are refilled today as belowalso managing on tripple therapy with breztri which pt does not need refill on today Osteoporosis 63696002 M8 1.0 reviewed pt's updated dexa with persistent ly low T score of -2.8recomm ended transition ing her to prolia; pt is reticent to manage on injections but we discussed that this is only 2x annually and pt will pick it up from the pharmacy and then come to office to receive the injection and she is agreeable to this management Hyperlipidemia 77286644 E78.5 reviewed labs from Apr 2022 which were well controlled Lumbar radiculopathy 128 751703 M54.16 Stable on current regimen; DAVE reviewed [...] at this time Generalize d anxiety disorder 96362210 F41.1 stable; refilled today Therapeuti c drug monitoring assay 96757935 Z51.81 UDS from 04-23-22 is reviewed and appropriat e; updating patient's UDS today Acute bronchitis 8031827 2 J20.9 given pt's symptoms of increased [...] (MEDICARE REPLACEMENT HMO) [id number] Nori J Lindsay [id number] Nori J Lindsay 01/21/2022 2 [place] [facility] HEALTH CHOICES - FFS/TRADITIONA L Nori J Lindsay [id number] Nori J Lindsay 02/04/2022 1 [place]MED[place]AC[place] H[place] [id number] Nori J Lindsay [id number] Nori J [place] 02/04/2022 2 [place] [facility] HEALTH CHOICES - FFS/TRADITIONA L Nori J Lindsay [id number] Nori J [place] 04/23/2022 1 [place] HM[place] [id number] Nori J Lindsay [id number] Nori J [place] 04/23/2022 2 [place] [facility] HEALTH CHOICES - FFS/TRADITIONA L Nori J [place] [id number] Nori J Lindsay 07/22/2022 1 [place] [id number] Nori J [place] [id number] Nori J [place] 07/22/2022 2 MEDICAID-[facility] HEALTH CHOICES - FFS/TRADITIONA L Nori J [place] [id number] Nori J [place] Notes Date Note Type Note Provider Name [...] or insurance ran out Meir Carcamo, [address], [place], [address], [facility] [place] 01/21/2022 16:04:33 2 text/html 66 yo with pmhx of COPD presents for f/u on LDLCT screening.Reports she's vomited 3-4 times in the past few days. Started randomlywent to frierson before onsetdoes report significant malaise and body [...] medication today if possible Meir Carcamo, [address], [place], [address], [facility] 02/04/2022 16:50:14 3 text/html 67 [...] is helping her symptoms Meir Carcamo, [address], [place], [address], [facility] - [place] [facility] & [place] 04/23/2022 16:38:51 3 text/html 67 yo with [...] improvement with massage Meir Carcamo, DO [address] [facility],[address], [place], [address], [place] - [facility] - [place] & [place] 07/23/2022 16:41:38 OBGyn Episode No OBEpisode recorded.
[2024-08-08 10:25] LABS: Basophils % 0.8 % (0.1-2.0); Eosinophils # 0.1 Kmm3 (0.0-0.4); Hematocrit 44.1 % (37.0-47.0); Hemoglobin 14.6 g/dL (12.2-16.2); Lymphocytes # 1.8 K/mm3 (0.7-4.5); Lymphocytes % 33.6 % (10-50); Mean Corpuscular HGB Conc 33.1 g/dL (31.8-35.4); Mean Corpuscular Hemoglobin 33.7 pg (27.0-31.2); Mean Corpuscular Volume 101.8 fl (81-99); Mean Platelet Volume 9.6 fl (7.4-10.4); Monocytes # 0.6 K/mm3 (0.1-1.0); Monocytes % 10.6 % (1.7-9.3); Neutrophils # 2.8 K/mm3 (1.8-7.8); Nucleated Red Blood Cells # 0 10^3/uL; Nucleated Red Blood Cells % 0 %; Platelet Count 206 K/mm3 (142-424); Red Blood Count 4.33 M/mm3 (4.20-5.40); Red Cell Distribution Width 12.6 % (11.5-17.5); White Blood Count 5.2 K/mm3 (4.8-10.8)
[2024-08-08 10:30] LABS: Albumin Level 4.5 g/dl (3.5-5.0); Chloride 105 mmol/L (98-107); Sodium 138 mmol/L (136-145)
[2024-08-08 10:31] LABS: Potassium 3.7 mmoL/L (3.5-5.1)
[2024-08-08 10:33] LABS: Alanine Aminotransferase 16 U/L (12-78); Albumin/Globulin Ratio 1.5 (1.1-1.8); Alkaline Phosphatase 108 U/L (38-126); Anion Gap 9.7 mEq/L (5-15); Aspartate Amino Transferase 22 U/L (14-36); Bilirubin,Total 0.4 mg/dl (0.2-1.3); Blood Urea Nitrogen 7 mg/dl (7-17); Carbon Dioxide 27 mmol/L (22.0-30.0); Creatinine Clearance Estimated 55 mL/min (50-200); Estimated Glomerular Filt Rate 71 ml/min (>60); GFR (African American) 86 ML/MIN (>60); Globulin 3.1 g/dL (1.3-3.2); Total Protein,Serum 7.6 g/dl (6.3-8.2)
[2024-08-08 10:34] LABS: Calcium 9.9 mg/dl (8.4-10.2); Glucose 110 mg/dl (74-100)
[2024-08-08 11:05] LABS: Thyroid Stimulating Hormone 1.67 uIU/mL (0.465-4.68)
[2024-08-08 11:34] VITALS: BP 124/84; PULSE 89; RESP 18; TEMP 36.4; O2SAT 95
[2024-08-08] MEDS: PEMBROLIZUMAB 400 MG in 0.9 % SODIUM CHLORIDE 50 ML 132 MG IV (11:34)
[2024-08-08] MEDS: SODIUM CHLORIDE 0.9% 50ML BAG 50 ML IV (11:35)
[2024-08-08] MEDS: SODIUM CHLORIDE 0.9% 10ML FLUSH SYRINGE 10 ML IV (11:35)
[2024-08-08 12:04] VITALS: BP 121/82; PULSE 81; RESP 18; O2SAT 96
[2024-08-08 12:20] VITALS: BP 107/86; PULSE 79; RESP 18; O2SAT 96
[2024-08-09 13:11] LABS: Adrenocorticotropic Hormone 6.3 pg/mL (7.2-63.3)
== END 2024-08-08 12:20 | disposition home or self-care (01) ==
LOC: INF 09:58
PROVIDERS: PCP Nurse Practitioner Family; Visit Provider Internal Medicine Medical Oncology
DX: Z51.11 Encounter for antineoplastic chemotherapy (principal); C34.90 Malignant neoplasm of unspecified part of unspecified bronchus or lung; R59.1 Generalized enlarged lymph nodes
CPT/HCPCS: 80053; 82024; 82533; 84443; 85025; 96413; J9271

== ENCOUNTER 2024-09-19 10:14 | Outpatient (CLI) | payer MEDICARE, MEDICAID, SELFPAY ==
[2024-09-19 10:16] VITALS: BMI 23.5
--- OUTSIDE RECORDS SUMMARY | 2024-09-19 10:17 | XMS_ITS | Continuity of Care Document ---
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 Plan of Treatment Reminders Order Date Submit Date Provider Last Modified By Organization Details Last Modified Time Details Appointments None recorded. Lab CMP, serum or plasma 2024 025 [facility], [address], [place] [address], [place], [address], 5 04:06:36 CBC w/ auto diff 2024 025 [facility], [address], [place] [address], [place], [address], 5 04:06:35 urinalysis, dipstick 2024 025 [facility], [address] [place] [address], [address], 5 14:12:44 culture, urine 2024 025 [facility], [address], [address], [place], [address], 5 04:06:37 amylase + lipase, serum 2024 025 [facility], [address], [place] [address], [place], [address], 04:06:36 Referral None recorded. Procedures None recorded. Surgeries None recorded. Imaging None recorded. Medication Orders amoxicillin 500 mg tablet 2024 025 [facility], [address] [place] [address], [place], [address], 05:01:05 Patient TargetsNo targets recorded. Patient InstructionsNo instructions recorded. Reason for Referral None Reported. Results Created Date Observation Date Name Description Value Unit Range Abnormal Flag Note LastModifiedBy Organization Detail LastModifiedTime 08/31/1908/30/2024 urina lysis , dipst ick Leukocytes Negati ve Not Available [address], [address], 08/30/2024 11:05:09 08/31/19 25 08/30/2024 urina lysis , dipst ick Nitrite negati ve Not Available [address], [address], 08/30/2024 11:05:09 08/31/19 25 08/30/2024 urina lysis , dipst ick Urobilinogen .2 Not Available Jonas [address], [address], 08/30/2024 11:05:09 08/31/19 25 08/30/2024 urina lysis , dipst ick Protein Negati ve Not Available [address], [address], 08/30/2024 11:05:09 08/31/19 25 08/30/2024 urina lysis , dipst ick pH 6.0 Not Available [address], [address], 08/30/2024 11:05:09 08/31/19 25 08/30/2024 urina lysis , dipst ick Blood Negati ve Not Available [address], [address], 08/30/2024 11:05:09 08/31/19 25 08/30/2024 urina lysis , dipst ick Specific Sipsey 1.005 Not Available [address], [address], 08/30/2024 11:05:09 08/31/19 25 08/30/2024 urina lysis , dipst ick Ketone Negati ve Not Available [address], [address], 08/30/2024 11:05:09 08/31/19 25 08/30/2024 urina lysis , dipst ick Bilirubin Negati ve Not Available [address], [address], 08/30/2024 11:05:09 08/31/19 25 08/30/2024 urina lysis , dipst ick Glucose Negati ve Not Available [address], [address], 08/30/2024 11:05:09 08/31/19 25 08/30/2024 urina lysis , dipst ick Appearance Clear Not Available [address], [address], 08/30/2024 11:05:09 08/31/19 25 08/30/2024 urina lysis , dipst ick Color Yellow Not Available [address], [address], 08/30/2024 11:05:09 Result Notes None recorded. Problems Name Problem SNOMED Code Status Onset Date Resolution Date Notes Provider Name and Address Organization Details Recorded Time Chronic obstructiv e pulmonary disease 08781016 Active Hina Winston null, [place] - [facility] 3 10:33:33 Gastroesop hageal reflux disease 370358794 Active Hina Winston null, [place] - [facility] 3 10:33:45 Chronic depression 513821555 Active Hina Winston null, [place] - [facility] 3 10:43:05 Neuropathy 607360798 Active 2022 Marinaraheemhugo Lópezomi, OPERATIONS SECTION MANAGER [address], [place], [address] , [place] - [facility] 3 11:06:01 Constipati on 77676378 Active 2022 Marinaraheemhugo Lópezomi, OPERATIONS SECTION MANAGER [address], [place], [address] , [place] - [facility] 3 11:06:42 Hyperlipid emia 54248749 Active 2022 Marinaroney omi, OPERATIONS SECTION MANAGER [address], [place], [address] , [place] - [facility] 3 11:00:02 Dependence on supplement al oxygen 765646684677 Active 2022 Marinaraheemhugo Lópezomi, OPERATIONS SECTION MANAGER [address], [place], [place], [address] [place] [address] , [place] - [facility] 3 11:04:33 Anxiety 71716665 Active 2023 Nhi Jim null, [place] - [facility] 4 09:56:06 Metastatic squamous cell carcinoma 199101189 Active 2023 lymph nodes in neck Nhi Abhays null, [place] - [facility] 4 09:55:49 Problem Notes None recorded. Procedures Surgical History Date Name Laterality Status Provider Name and Address Organization Details Recorded Time 03/02 Advance Care Planning completed Nhi Stears [place] - [facility] 4 10:20:58 03/02 Functional Status Assessed completed Brend a Stears [place] - [facility] 4 10:20:58 12/16 Advance Care Planning completed Nhi Stears [place] - [facility] 3 09:12:13 12/16 Functional Status Assessed completed Brend a Stears [place] - [facility] 3 09:12:13 07/01 Date of Last Mammogram completed Nhi Fernandez [facility] 3 14:57:29 02/28 Date of Last Pap Smear completed Hina Winston [facility] 3 10:40:28 05/15 esophagogastroduodenoscopy completed Venkata Winston [facility] 3 10:40:00 03/28 oophorectomy completed Hina Winston [facility] 3 10:39:39 02/01 colonoscopy completed Hina Winston [facility] 3 10:39:10 Breast Biopsy completed Hina Winston [facility] 3 10:41:16 biopsy of mass in the neck completed Nhi Fernandez [facility] 4 10:05:31 Imaging Results None recorded. Procedure Notes None recorded. Medical Equipment None Reported. Allergies Allergen ID Allergen Name Allergen Category Reaction Reaction Severity Criticality Documentation Date Start Date Code Code System Note Provider Name and Address Organization Details Recorded Time 426002 codeine medicatio n rash Not available [facility] 10/26/2022 2670 RxNorm Hina chen, [facility] 3 10:29:17 171285 aspirin medicatio n nausea Not available [facility] 10/26/2022 1191 RxNorm Hina chen, [facility] 3 10:29:32 57805 aspirin medicatio n Not available Not available Not available 01/16/20162014 1191 RxNorm React ion: nausa , vomit ing, diarr hea; Umang Mae null, [facility] 3 13:25:02 16082 Robaxin medicatio n Not available Not available Not available 01/16/20162014 46033 5 RxNorm React ion: nause a, vomit ing, diarr hea; Umang Mae null, [facility] 3 13:25:02 23106 codeine sulfate medicatio n hives Not available Not available 01/16/20162014 37621 RxNorm React ion: rash/ hives ; Umang Mae null, [place] - [facility] 13:25:02 Medications Name Sig Start Date Stop Date Status Note LastModified by Organization Details LastModified Time amoxicill in 500 mg capsule TAKE 1 CAPSULE BY MOUTH TWICE DAILY FOR 10 DAYS active Not Available Not Available No t Available furosemid e 40 mg tablet TAKE ONE (1) TABLET EVERY DAY BY ORAL ROUTE NEEDED. active Not Available Not Available No t Available atorvasta tin 40 mg tablet TAKE ONE (1) TABLET BY MOUTH EVERY DAY active Not Available Not Available No t Available potassium chloride ER 10 mEq capsule,e xtended release take 1 capsule (10 meq) by oral route once daily 12/16 completed potassrodolfou m chloride 10 mEq oral capsule, extended release; Recorded Status: Recorded on: 03/03/20 15 11:49AM; User: andrusa Not Available Not Available Not Available gabapenti n 600 mg tablet TAKE ONE (1) TABLET BY MOUTH THREE (3) TIMES DAILY active Not Available Not Available No t Available doxycycli ne hyclate 100 mg capsule TAKE 1 CAPSULE BY MOUTH TWICE DAILY 12/16 completed Not Available Not Available Not Available ipratropi um 0.5 mg-albute rol 3 mg (2.5 mg base)/3 mL nebulizat ion soln inhale 3 millilit ers by nebuliza tion route 4 times per day 12/16 completed ipratrop ium-albu terol 0.5 mg-3 mg(2.5 mg base)/3 mL inhalati on solution for nebuliza tion;Rec orded Status: Recorded on: 03/03/20 15 11:49AM; User: andrusa Not Available Not Available Not Available albuterol sulfate 2.5 mg/3 mL (0.083 %) solution for nebulizat ion Inhale 3 mL 3 times a day by nebuliza tion route. 2023 active Not Available Not Available Not Avai lable azithromy angel 250 mg tablet TAKE 2 TABLETS TODAY, THEN TAKE 1 TABLET EVERY DAY FOR 4 DAYS 11/14 completed Not Available Not Available Not Available Effexor XR 37.5 mg capsule,e xtended release take 1 capsule (37.5 mg) by oral route once daily with food 12/16 completed Effexor XR 37.5 mg oral capsule, extended release 24hr;Rec orded Status: Recorded on: 03/03/20 15 11:49AM; User: andrusa Not Available Not Available Not Available Aplisol 5 tub. unit/0.1 mL intraderm al injection solution Inject 0.1 mL by intrader mal route. 02/15 completed Not Available Not Available Not Available prednison e 20 mg tablet TAKE ONE (1) TABLET TWICE A DAY BY ORAL ROUTE FOR FIVE (5) DAYS. 02/24 completed Not Available Not Available Not Available alendrona te 70 mg tablet TAKE 1 TABLET BY MOUTH ONCE WEEKLY. TAKE ON AN EMPTY STOMACH WITH 8-12 OUNCES OF WATER-NO FOOD FOR 30 MINUTES. REMAIN UPRIGHT FOR 30 MINUTES. 12/16 completed Not Available Not Available Not Available gabapenti n 400 mg capsule TAKE ONE (1) CAPSULE THREE (3) TIMES A DAY BY ORAL ROUTE FOR 30 DAYS. 03/02 completed Not Available Not Available Not Available sertralin e 100 mg tablet TAKE TWO (2) TABLETS BY MOUTH EVERY DAY active Not Available Not Available No t Available Ultram 50 mg tablet take 1 to 2 tabs by oral route every 6 hours as needed for severe pain not to exceed 8 tablets per 24hrs 12/16 completed Ultram 50 mg oral tablet;R ecorded Status: Recorded on: 04/09/20 15 1:20PM;U ser: [email or web address] ;Indicat ion: Pain - (60.0149 00) Not Available Not Available Not Available prochlorp erazine maleate 10 mg tablet TAKE 1 TABLET (10MG) BY MOUTH EVERY SIX (6) HOURS NEEDED FOR FOR NAUSEA AND VOMITING active Not Available Not Available No t Available Plavix 75 mg tablet take 1 tablet (75 mg) by oral route once daily 03/21 completed Plavix 75 mg oral tablet;R ecorded Status: Recorded on: 03/04/20 15 4:30PM;D iscontin ued Status: Disconti nued on: 03/21/20 15 11:00AM; User: andrusa Not Available Not Available Not Available amoxicill in 500 mg tablet Take 1 tablet twice a day by oral route for 10 days. 09/16 completed Not Available Not Available Not Available ondansetr on 8 mg disintegr ating tablet PLACE ONE (1) TABLET ON TOP OF TONUGE, WHERE IT WILL DISSOLVE , TWICE DAILY FOR 2 DAYS AFTER CHEMO active Not Available Not Available No t Available ceftriaxo ne 1 gram solution for injection Take 1 g by injectio n route. 11/14 completed Not Available Not Available Not Available pantopraz ole 40 mg tablet,de layed release TAKE 1 TABLET BY MOUTH EVERY DAY active Not Available Not Available No t Available simvastat in 20 mg tablet take 1 tablet (20 mg) by oral route once daily in the evening 12/16 completed simvasta tin 20 mg oral tablet;R ecorded Status: Recorded on: 03/03/20 15 11:49AM; User: andrusa Not Available Not Available Not Available dexametha sone 4 mg tablet TAKE ONE (1) TABLET (4 MG) ORALLY DAILY 08/30 completed Not Available Not Available Not Available gabapenti n 300 mg capsule two capsule qd 12/16 completed gabapent in 300 mg oral capsule; Recorded Status: Recorded on: 03/03/20 15 11:49AM; User: andrusa Not Available Not Available Not Available Bentyl 10 mg capsule take 1 capsule (10 mg) by oral route 3 times per day for 30 days 09/19 completed Bentyl 10 mg oral capsule; Prescrib e Status: Prescrib ed on: 08/21/19 16 12:02PM; User: librado Nguyen on: 09/20/19 16;Indic ation: Irritabl e Bowel Syndrome - (5641 );Mell Castillo fied: 08/21/19 12:02PM Not Available Not Available Not Available monteluka st 10 mg tablet TAKE 1 TABLET BY MOUTH EVERY DAY active Not Available Not Available No t Available ergocalci ferol (vitamin D2) 1,250 mcg (50,000 unit) capsule take 1 capsule (50,000 unit) by oral route once weekly 12/16 completed ergocalc iferol (vitamin D2) 50,000 unit oral capsule; Recorded Status: Recorded on: 03/03/20 11:49AM; User: andrusa Not Available Not Available Not Available methylpre dnisolone 4 mg tablets in a dose pack TAKE DIRECTED FOR 6 DAYS 06/08 completed Not Available Not Available Not Available fluticaso ne propionat e 50 mcg/actua tion nasal spray,h[employer] pension SPRAY ONE (1) SPRAY EVERY DAY BY INTRANAS AL ROUTE. active Not Available Not Available No t Available ipratropi um bromide 0.02 % solution for inhalatio n Inhale 2.5 mL every 6 hours by inhalati on route for 30 days. 2024 active Not Available Not Available Not Avai lable Ventolin HFA 90 mcg/actua tion aerosol inhaler INHALE TWO (2) PUFFS EVERY FOUR (4) HOURS BY INHALATI ON ROUTE DIRECTED active Not Available Not Available No t Available buspirone 15 mg tablet TAKE ONE (1) TABLET BY MOUTH THREE (3) TIMES DAILY active Not Available Not Available No t Available hydroxyzi ne pamoate 25 mg capsule TAKE 1 CAPSULE BY MOUTH THREE TIMES A DAY, NEEDED 10/26 completed Not Available Not Available Not Available cyclobenz aprine 5 mg tablet TAKE ONE (1) TABLET BY MOUTH THREE (3) TIMES DAILY active Not Available Not Available No t Available Spiriva with HandiHale r 18 mcg and inhalatio n capsules INHALE ONE (1) CAPSULE EVERY DAY BY INHALATI ON ROUTE FOR 30 DAYS. 02/15 completed Not Available Not Available Not Available Cymbalta 60 mg capsule,d elayed release take 1 capsule (60 mg) by oral route once daily 12/16 completed Cymbalta 60 mg oral capsule, delayed release( DR/EC);R ecorded Status: Recorded on: 03/03/20 15 11:49AM; User: andrusa Not Available Not Available Not Available EpiPen 0.3 mg/0.3 mL injection , auto-inje ctor inject 0.3 millilit er (0.3 mg) by intramus cular route once as needed for anaphyla xis 2014 active EpiPen 0.3 mg/0.3 mL injectio n auto-inj be;Re corded Status: Recorded on: 03/03/20 15 11:49AM; User: andrusa Not Available Not Available Not Available Vitamin D3 205mcg (10,000 IU) 5 tablets per day 11/14 completed Not Available Not Available Not Available budesonid e-formote rol HFA 160 mcg-4.5 mcg/actua tion aerosol inhaler INHALE TWO (2) PUFFS TWICE A DAY BY INHALATI ON ROUTE FOR 30 DAYS. 02/15 completed Not Available Not Available Not Available cholecalc iferol (vitamin D3) 1,250 mcg (50,000 unit) capsule TAKE 1 CAPSULE BY MOUTH ONCE WEEKLY. active Not Available Not Available No t Available GaviLyte- G 236 gram-22.7 4 gram-6.74 gram-5.86 gram oral solution active Not Available Not Available Not Available Dulera 200 mcg-5 mcg/actua tion HFA aerosol inhaler 1 puff daily 02/24 completed Dulera 200-5 mcg/actu ation inhalati on HFA aerosol inhaler; Recorded Status: Recorded on: 03/03/20 15 11:49AM; User: andrusa Not Available Not Available Not Available vitamin E (dl, acetate) 450 mg (1,000 unit) capsule Take 1 capsule every day by oral route. 2022 active Not Available Not Available Not Avai lable Combivent Respimat 20 mcg-100 mcg/actua tion solution for inhalatio n INHALE ONE (1) PUFF FOUR (4) TIMES A DAY BY INHALATI ON ROUTE. 11/14 completed Not Available Not Available Not Available Linzess 145 mcg capsule TAKE ONE (1) CAPSULE BY MOUTH EVERY DAY active Not Available Not Available No t Available oxygen 3l at bedtime active Not Available Not Available No t Available Trelegy Ellipta 100 mcg-62.5 mcg-25 mcg powder for inhalatio n INHALE ONE (1) PUFF EVERY DAY BY INHALATI ON ROUTE FOR 30 DAYS. 08/30 completed Not Available Not Available Not Available Trelegy Ellipta 200 mcg-62.5 mcg-25 mcg powder for inhalatio n INHALE ONE (1) PUFF EVERY DAY FOR 30 DAYS active Not Available Not Available No t Available Vitals Date Recorded Body height Body mass index (BMI) Body weight Heart rate Oxygen saturation Oxygen saturation in Arterial blood by Pulse oximetry Respiratory rate Systolic blood pressure Diastolic blood pressure Provider Name and Address Organization Details Last Updated DateTime 5 162.56 cm 23.2 kg/m2 60721.9 7 g 98 /min 95 % 95 % 22 /min 126 mm[Hg] 78 mm[Hg] Hina Winston [place] - [facility] 5 10:49:11 Social History Question Answer Notes LastModified by Organizat ion Details LastModified Time Tobacco Smoking Status Current Every Day Smoker Hina Winston null, [place] - [facility] 10/26/2022 10:37:56 Do You Have An Advance Directive? No Information not available 10/26/2022 Are You Blind Or Do You Have Difficulty Seeing? No Wears Glasses, Few Years Since Last Eye Visit Distance And Near Information not available 03/02/2024 What Is Your Level Of Caffeine Consumption? Moderate Information not available 10/26/2022 In The 14 Days Before Symptom Onset, Have You Had Close Contact With A Laboratory-confi rmed COVID-19 While That Case Was Ill? No Information not available 10/26/2022 In The 14 Days Before Symptom Onset, Have You Had Close Contact With A Person Who Is Under Investigation For COVID-19 While That Person Was Ill? No Information not available 10/26/2022 Have You Been To An Area Known To Be High Risk For COVID-19? No Information not available 10/26/2022 Are You Deaf Or Do You Have Serious Difficulty Hearing? No Information not available 10/26/2022 What Type Of Diet Are You Following? REGULAR Information not available 10/26/2022 Have You Processed Blood Or Body Fluids From An Ebola Virus Disease Patient Without Appropriate PPE? No Information not available 10/26/2022 Do You Reside In Or Have You Traveled To An Area Where Ebola Virus Transmission Is Active? No Information not available 10/26/2022 What Is The Highest Grade Or Level Of School You Have Completed Or The Highest Degree You Have Received? [id number] Information not available 12/16/2022 Have There Been Any Changes To Your Family Or Social Situation? No Information not available 10/26/2022 What Is The Fluoride Status Of Your Home? Fluoridated Information not available 10/26/2022 Have You Recently Or Are You Planning To Travel To An Area With Zika Virus? No Information not available 10/26/2022 Do You Have A Medical Power Of Director Drug? No Information not available 10/26/2022 What Was The Date Of Your Most Recent Tobacco Screening? 08/30/2024 Information not available 08/30/2024 How Many Children Do You Have? 2 Information not available 12/16/2022 What Is Your Current Pack Years? 30ormorepackye ars Information not available 11/25/2022 What Is Your Relationship Status? Information not available 10/26/2022 Do You Have Smoke And Carbon Monoxide Detectors In Your Home? Yes Information not available 10/26/2022 At What Age Did You Start Smoking Tobacco? 16 Information not available 10/26/2022 Are You Passively Exposed To Smoke? Yes Information not available 10/26/2022 How Much Tobacco Do You Smoke? 2 PPW Information not available 08/30/2024 Has Tobacco Cessation Counseling Been Provided? Yes Information not available 10/26/2022 On What Date Was Tobacco Cessation Counseling Provided? 08/31/2024 Information not available 08/30/2024 How Many Years Have You Smoked Tobacco? 53 Information not available 08/30/2024 Do You Have Difficulty Walking Or Climbing Stairs? No Information not available 10/26/2022 Sex: Female Functional Status Question Answer Note LastModified by Organizat ion Details LastModified Time Do you use any illicit or recreational drugs? No Information not available 10/26/2022 Do you or have you ever used any other forms of tobacco or nicotine? No Information not available 11/25/2022 What is your level of alcohol consumption? None Information not available 10/26/2022 Are you currently employed? No Information not available 10/26/2022 Do you have transportation difficulties? No Information not available 10/26/2022 Are you able to walk? YESWOREST Information not available 10/26/2022 Do you have difficulty doing errands alone? No Information not available 10/26/2022 Are you able to care for yourself? Yes Information not available 10/26/2022 Do you have difficulty dressing or bathing? No Information not available 10/26/2022 What is your exercise level? None Information not available 11/25/2022 Mental Status Question Answer Note LastModified by Organizat ion Details LastModified Time Do you feel stressed (tense, restless, nervous, or anxious, or unable to sleep at night)? [id number] Information not available 11/25/2022 Do you have difficulty concentrating, remembering or making decisions? No Information no t available 10/26/2022 Family History Relationship Description Onset Age of this Age Resolved Age Notes LastModified by Organization Details LastModified Time Brother Diabetes mellitus [email or web address] Not available 2022 10:36:52 Father Heart disease cbuckler Not available 2022 10:37:08 Medical History Condition Response Colonoscopy Y Acid Reflux (GERD) Y Gynecological History Statement/Question Response If Post Menopausal, Age at Menopause 36 Date of Last Mammogram 07/01/2020 Date of Last Colonoscopy Most Recent Bone Density Menses Monthly N Date of Last Pap Smear 02/28/2017 Current Control Method None LMP Unknown Obstetrics History GPAL:G 2 P 2 0 0 2 Type Value Multiple Births 0 Full Term 2 Induced 0 Spontaneous 0 Premature 0 Living 2 Ectopics 0 Total 2 Immunizations Vaccine Type Date Status Note Provider Name and Address Organization Details Recorded Time Influenza, high-dose, quadrivalent, PF 023 completed Hina Winston null, [place] - [facility] 02/24/2023 09:33:30 Tdap 024 cancelled patient objection Nhi Fernandez null, [place] [facility] 05/13/2023 11:42:50 Pneumococcal conjugate PCV20, polysaccharide [id number] conjugate, adjuvant, PF 024 completed Nhi Fernandez [place], [place] [facility] 05/13/2023 11:42:59 Influenza, high-dose, trivalent, PF completed Otilio Barcenas, OPERATIONS SECTION MANAGER [address], [place], [address], [place] [facility] 02/16/2024 10:53:57 zoster recombinant 024 cancelled patient objection Marinaroney Barcenas, OPERATIONS SECTION MANAGER [address], [place], [address], [place] [facility] 03/02/2024 11:00:54 Tdap cancelled patient objection Marinaroney Barcenas, OPERATIONS SECTION MANAGER [address], [place], [address], [place] [facility] 03/02/2024 11:00:54 Influenza, split virus, quadrivalent, preservative 015 completed Hian Winston null[place] [facility] 10/26/2022 10:28:57 Influenza, MDCK, quadrivalent, PF 017 completed Hina [place] [facility] 10/26/2022 10:28:57 Td(adult) unspecified formulation 013 completed Hina [place] [facility] 10/26/2022 10:28:57 Influenza, split virus, trivalent, preservative 013 completed Hina Tish [place] [facility] 10/26/2022 10:28:57 Influenza, split virus, trivalent, PF 014 completed Hina Tish [place] [facility] 10/26/2022 10:28:57 Influenza, split virus, quadrivalent, PF 022 completed Hina Tish [place] [facility] 10/26/2022 10:28:57 Influenza, split virus, quadrivalent, PF 018 completed Hina Tish [place] [facility] 10/26/2022 10:28:57 Influenza, split virus, quadrivalent, PF 021 completed Hina Tish [place] [facility] 10/26/2022 10:28:57 Past Encounters Encounter ID Performer Location Encounter Start Date Encounter Closed Date Diagnosis/Indication Diagnosis SNOMED-CT Code Diagnosis ICD10 Code Diagnosis Note [id number] Otilio Barcenas APRN [facility] [address] [place] [address] 08/30/2024 10:35:41 08/30/2024 11:23:31 Anxiety 36739510 F41.9 Hyperlipidemia 67766359 E78.5 Metastatic squamous cell carcinoma 262444327 C80.1 Constipation 36429098 K5 9.00 Right flank pain 5422105 09 R10.9 labsif worsen or no improvemen t return or go to ed Acute righ t otitis media 021671684 H66.91 if worsen or no improvemen t return Health Concerns Section Related Observation LastModified by Organization Detai ls LastModified Time None Recorded Concern Status LastModified by Organization Details LastModified Time None Recorded Payers Encounter Date Sequence Insurance Name Policy Number Policy Sharma Covered Member ID Sharma Member ID Guarantor Name 08/30/2024 2 MEDICAID-[facility] CHOICES - FFS/TRADITIO NAL Nori Montoya [id number] Nori Montoya 08/30/2024 1 [employer] (MEDICARE REPLACEMENT/ ADVANTAGE - PPO) [id number] Nori Montoya [id number] Nori Montoya Notes Date Note Type Note Provider Name and Address Organization Details Recorded Time 08/30/2024 text/html 69 yr old female presents for a check up on chronic conditions. Has also been having right ear pain.pt states right abdominal pain that is intermittent. has ct less than a month ago and it was normal per pt Otilio Barcenas APRN [address], [place], [address], [place] - [facility] 08/30/2024 11:32:10 OBGyn Episode No OBEpisode recorded.
--- OUTSIDE RECORDS SUMMARY | 2024-09-19 10:17 | XMS_ITS | Clinical Summary ---
Author Organization Healthcare Address [address] [place] [address] Care Team Providers Care Cooper Helper Name Role Phone Jt Faye MD Primary Care Provider Family History Medical History Relation Name Comments Heart attack Father Other cancer Father Conversions - Other Mother Back [place] Heart attack Mother Other cancer Mother Relation Name Status Comments Father Mother Social History Tobacco Use Types Packs/Day Years Used Date Smoking Tobacco: Former Alcohol Use Standard Drinks/Week Comments No 0 (1 standard drink = 0.6 oz pur e alcohol) Comments Unknown Sex and Gender Information Value Date Recorded Sex Assigned at Not on file Legal Sex Female 7:27 PM EDT Gender Identity Not on file Sexual Orientation Not on file Last Filed Vital Signs Vital Sign Reading Time Taken Comments Blood Pressure - - Pulse - - Temperature - - Respiratory Rate - - Oxygen Saturation - - Inhaled Oxygen Concentration - - Weight 72.6 kg (160 lb 0.2 oz) 02/15/2014 9:11 A M EST Height 162.6 cm (5' 4 ) 02/15/2014 9:11 AM EST Body Mass Index 27.47 02/15/2014 9:11 AM EST Plan of Treatment Not on file Care Teams Cooper Helper Relationship Specialty Start Date End Date Jt Faye MD [address] [place], [place] [id number] PCP - General 08/22/20
--- OUTSIDE RECORDS SUMMARY | 2024-09-19 10:17 | XMS_ITS | Data Portability ---
Author Organization [place] - [facility] Address [address] [place] [address] Care Team Providers Care Set Up And Lay Out Inspector Name Role Phone MEIR CARCAMO Primary Care Provider Assessment No assessment recorded. Plan of Treatment Reminders Order Date Submit Date Provider Last Modified By Organization Details Last Modified Time Details Appointments None recorded. Lab drug screen, urine 2022 023 [email or web address] Not available 3 07:30:17 CMP, serum or plasma 2022 023 [facility] Lab Registration, [address] [place], [address], 3 15:29:31 vitamin D, 25-hydroxy, total, serum 2022 023 [email or web address] Lab Registration, [address] [place], [address], 3 06:53:35 drug screen, urine 2022 023 [email or web address] Not available 3 10:10:40 lipid panel, serum [email or web address] Lab Registration, [address] [place], [address], 3 06:53:35 vitamin B12, serum [email or web address] Lab Registration, [address] [place], [address], 3 06:53:35 mma (methylmalo arben acid), serum [address] Lab Registration, [address] [place], [address], 3 06:53:35 CBC w/ auto diff 2022 023 [facility] Lab Registration, [address] [place], [address], 3 14:29:38 drug screen, urine [address] Lab Registration, [address] [place], [address], 2 09:55:02 Referral None recorded. Procedures None recorded. Surgeries None recorded. Imaging US, thyroid [address] - Centralized Scheduling, [address] [place], [address], 3 10:10:11 DEXA, axial skeleton + vertebral fracture assessment [address] - Centralized Scheduling, [address] [place], [address], 3 10:09:27 CT, chest, w/ contrast [address] - Centralized Scheduling, [address] [place], [address], 3 07:41:11 LDCT, chest, for lung cancer screening [address] - Centralized Scheduling, [address] [place], [address], 2 09:55:10 Medication Orders cyclobenzap rine 5 mg tablet 2022 023 [place] [address] [place], [address], 3 11:25:05 gabapentin 400 mg capsule 2022 023 [facility], [address] [place], [address], 3 11:25:55 Prolia 60 mg/mL subcutaneou s syringe 2022 023 [facility], [address] [place], [address], 3 11:27:21 albuterol sulfate 2.5 mg/3 mL (0.083 %) solution for nebulizatio n 2022 023 [facility], [address] [place], [address], 3 11:22:37 Combivent Respimat 20 mcg-100 mcg/actuati on solution for inhalation 2022 023 [facility], [address] [place], [address], 3 11:24:40 buspirone 15 mg tablet 2022 023 [facility], [address] [place], [address], 3 11:25:38 sertraline 100 mg tablet 2022 023 [facility], [address] [place], [address], 3 11:24:02 prednisone 20 mg tablet 2022 023 [place] [facility], [address] [place], [address], 3 11:33:24 doxycycline hyclate 100 mg capsule 2022 023 [facility], [address] [place], [address], 3 11:32:58 Linzess 145 mcg capsule 2022 023 [facility], [address] [place], [address], 3 09:59:11 alendronate 70 mg tablet 2022 023 [facility], [address] [place], [address], 3 10:12:40 ergocalcife rol (vitamin D2) 1,250 mcg (50,000 unit) capsule 2022 023 [facility], [address] [place], [address], 3 10:11:14 albuterol sulfate 2.5 mg/3 mL (0.083 %) solution for nebulizatio n 2022 023 [facility], [address] [place], [address], 3 10:01:44 Bevespi Aerosphere 9 mcg-4.8 mcg HFA aerosol inhaler 2022 023 [email or web address], [address] [place], [address], 3 11:04:36 ipratropium bromide 0.02 % solution for inhalation 2022 023 [facility], [address] [place], [address], 3 11:13:43 montelukast 10 mg tablet 2022 023 [place] [facility], [address] [place], [address], 3 10:12:57 cyclobenzap rine 5 mg tablet 2022 023 [facility], [address] [place], [address], 3 10:00:35 gabapentin 400 mg capsule 2022 023 [place] [facility], [address] [place], [address], 3 09:59:08 atorvastati n 40 mg tablet 2022 023 [place] [facility], [address] [place], [address], 3 10:12:10 fluticasone propionate 50 mcg/actuati on nasal spray,suspe nsion 2022 023 [place] [facility], [address] [place], [address], 3 10:03:20 furosemide 40 mg tablet 2022 023 [facility], [address] [place], [address], 3 10:10:52 pantoprazol e 40 mg tablet,amanda yed release 2022 023 [facility], [address] [place], [address], 3 10:54:31 cyanocobala min (vit B-12) 2,500 mcg sublingual tablet 2022 023 [email or web address] [address] [place], [address], 3 10:49:07 Linzess 145 mcg capsule 2021 022 [place], [address] [place], [address], 2 16:35:31 ketorolac 30 mg/mL (1 mL) injection solution 2021 022 [facility], [address] [place], [address], 3 09:32:46 cyclobenzap rine 5 mg tablet 2021 022 [facility], [address] [place], [address], 2 11:05:13 gabapentin 400 mg capsule 2021 022 [facility], [address] [place], [address], 2 11:04:48 ergocalcife rol (vitamin D2) 1,250 mcg (50,000 unit) capsule 2021 022 [place], [address] [place], [address], 3 13:09:30 alendronate 70 mg tablet 2021 022 [place], [address] [place], [address], 2 11:15:20 Bevespi Aerosphere 9 mcg-4.8 mcg HFA aerosol inhaler 102021 [facility], [address] [place], [address], 2 11:03:02 ipratropium bromide 0.02 % solution for inhalation [facility] [address] [place], [address], 2 11:23:40 albuterol sulfate 2.5 mg/3 mL (0.083 %) solution for nebulizatio n 2021 [facility], [address] [place], [address], 2 11:10:27 montelukast 10 mg tablet 2021 [facility], [address] [place], [address], 11:14:38 atorvastati n 40 mg tablet 2021 [facility], [address] [place], [address], 2 11:21:53 vitamin E (dl, acetate) 450 mg (1,000 unit) capsule [facility] [address] [place], [address], 3 09:33:00 fluticasone propionate 50 mcg/actuati on nasal spray,suspe nsion 2021 [facility], [address] [place], [address], 11:21:37 furosemide 40 mg tablet 2021 [facility] [address] [place], [address], 2 11:05:22 cyanocobala min (vit B-12) 1,000 mcg/mL injection solution 2021 [email or web address] [address] [place], [address], 3 09:32:28 cyanocobala min (vit B-12) 2,500 mcg sublingual tablet 2021 [place] [facility], [address] [place], [address], 2 16:10:38 Patient TargetsNo targets recorded. Patient InstructionsNo instructions recorded. Reason for Referral None Reported. Results Created Date Observation Date Name Description Value Unit Range Abnormal Flag Note LastModifiedBy Organization Detail LastModifiedTime 04/23/1904/23/2022 CBC WITH AUTO DIFF WBC 6.6 10 4.5-11 .5 Not Available [facility] (Lab) [address] [place], [address], 04/23/2022 14:29:38 04/23/19 23 04/23/2022 CBC WITH AUTO DIFF RBC 5.10 10 4.00-5 .40 Not Available [facility] (Lab) [address] [place], [address], 04/23/2022 14:29:38 04/23/19 23 04/23/2022 CBC WITH AUTO DIFF hemoglobin 15.2 g/dL 12.0-1 5.0 high Not Available [facility] (Lab) [address] [place], [address], 04/23/2022 14:29:38 04/23/19 23 04/23/2022 CBC WITH AUTO DIFF hematocrit 45.6 % 35.0-4 9.0 Not Available [facility] (Lab) [address] [place], [address], 04/23/2022 14:29:38 04/23/19 23 04/23/2022 CBC WITH AUTO DIFF MCV 89.4 fL 80-100 Not Available [facility] (Lab) [address] [place], [address], 04/23/2022 14:29:38 04/23/19 23 04/23/2022 CBC WITH AUTO DIFF MCH 29.8 pg 26-32 Not Available [facility] (Lab) [address] [place], [address], 04/23/2022 14:29:38 04/23/19 23 04/23/2022 CBC WITH AUTO DIFF MCHC 33.3 g/dL 32-36 Not Available [facility] (Lab) [address] [place], [address], 04/23/2022 14:29:38 04/23/19 23 04/23/2022 CBC WITH AUTO DIFF RDW 13.5 % 11.5-1 4.5 Not Available [facility] (Lab) [address] [place], [address], 04/23/2022 14:29:38 04/23/19 23 04/23/2022 CBC WITH AUTO DIFF platelet count 306 10 150-45 0 Not Available [facility] (Lab) [address] [place], [address], 04/23/2022 14:29:38 04/23/19 23 04/23/2022 CBC WITH AUTO DIFF mean platelet volume 11.5 fL 6.8-10 .2 high Not Available [facility] (Lab) [address] [place], [address], 04/23/2022 14:29:38 04/23/19 23 04/23/2022 CBC WITH AUTO DIFF manual differential NOT INDICA PAUL Not Available [facility] (Lab) [address] [place], [address], 04/23/2022 14:29:38 04/23/19 23 04/23/2022 CBC WITH AUTO DIFF ne% 53.0 % 50-70 Not Available [facility] (Lab) [address] [place], [address], 04/23/2022 14:29:38 04/23/19 23 04/23/2022 CBC WITH AUTO DIFF lymphs 32.8 % 18-42 Not Available [facility] (Lab) [address] [place], [address], 04/23/2022 14:29:38 04/23/19 23 04/23/2022 CBC WITH AUTO DIFF MO% 11.5 % 2-11 high Not Available [facility] (Lab) [address] [place], [address], 04/23/2022 14:29:38 04/23/19 23 04/23/2022 CBC WITH AUTO DIFF eo% 1.8 % 1-3 Not Available [facility] (Lab) [address] [place], [address], 04/23/2022 14:29:38 04/23/19 23 04/23/2022 CBC WITH AUTO DIFF ba% 0.9 % 0.0-2. 0 Not Available [facility] (Lab) [address] [place], [address], 04/23/2022 14:29:38 04/23/19 23 04/23/2022 CBC WITH AUTO DIFF neutrophils (absolute) 3.5 K/uL 2.0-6. 9 Not Available [facility] (Lab) [address] [place], [address], 04/23/2022 14:29:38 04/23/19 23 04/23/2022 CBC WITH AUTO DIFF lymphocytes (absolute) 2.2 K/uL 0.6-3. 4 Not Available [facility] (Lab) [address] [place], [address], 04/23/2022 14:29:38 04/23/19 23 04/23/2022 CBC WITH AUTO DIFF monocytes (absolute) 0.8 K/uL 0.0-0. 9 Not Available [facility] (Lab) [address] [place], [address], 04/23/2022 14:29:38 04/23/19 23 04/23/2022 CBC WITH AUTO DIFF eosinophils (absolute) 0.1 K/uL 0.0-0. 7 Not Available [facility] (Lab) [address] [place] [address] [place], [address], 04/23/2022 14:29:38 04/23/19 23 04/23/2022 CBC WITH AUTO DIFF basophils (absolute) 0.1 K/uL 0.0-0. 2 Not Available [facility] (Lab) [address] [place] [address] [place], [address], 04/23/2022 14:29:38 04/23/19 23 04/23/2022 COMPR EHENS LUZ METAB OLIC PANEL sodium 147 mmol/ L 136-14 5 high Not Available [facility] (Lab) [address] [place] [address] [place], [address], 04/23/2022 15:29:31 04/23/19 23 04/23/2022 COMPR EHENS LUZ METAB OLIC PANEL potassium 4.0 mmol/ L 3.5-5. 1 Not Available [facility] (Lab) [address] [place] [address] [place], [address], 04/23/2022 15:29:31 04/23/19 23 04/23/2022 COMPR EHENS LUZ METAB OLIC PANEL chloride 104 mmol/ L 98.0-1 07.0 Not Available [facility] (Lab) [address] [place] [address] [place], [address], 04/23/2022 15:29:31 04/23/19 23 04/23/2022 COMPR EHENS LUZ METAB OLIC PANEL total CO2 30 mmol/ L 21-32 Not Available [facility] (Lab) [address] [place], [address], 04/23/2022 15:29:31 04/23/19 23 04/23/2022 COMPR EHENS LUZ METAB OLIC PANEL anion gap 17.0 mmol/ L 5.0-15 .0 high Not Available [facility] (Lab) [address] [place], [address], 04/23/2022 15:29:31 04/23/19 23 04/23/2022 COMPR EHENS LUZ METAB OLIC PANEL glucose 112 mg/dL 70-120 Not Available [facility] (Lab) [address] [place], [address], 04/23/2022 15:29:31 04/23/19 23 04/23/2022 COMPR EHENS LUZ METAB OLIC PANEL BUN 12 mg/dL 7-18 Not Available [facility] (Lab) [address] [place], [address], 04/23/2022 15:29:31 04/23/19 23 04/23/2022 COMPR EHENS LUZ METAB OLIC PANEL creatinine 0.9 mg/dL 0.6-1. 0 Not Available [facility] (Lab) [address] [place], [address], 04/23/2022 15:29:31 04/23/19 23 04/23/2022 COMPR EHENS LUZ METAB OLIC PANEL BUN/creatini ne ratio 13.3 ratio 9-21 Not Available [facility] (Lab) [address] [place], [address], 04/23/2022 15:29:31 04/23/19 23 04/23/2022 COMPR EHENS LUZ METAB OLIC PANEL estimated glom filtration rate >60 mL/mi n 60.0- Not Available [facility] (Lab) [address] [place], [address], 04/23/2022 15:29:31 04/23/19 23 04/23/2022 COMPR EHENS LUZ METAB OLIC PANEL calcium 9.4 mg/dL 8.6-9. 8 Not Available [facility] (Lab) [address] [place], [address], 04/23/2022 15:29:31 04/23/19 23 04/23/2022 COMPR EHENS LUZ METAB OLIC PANEL bilirubin, total 0.4 mg/dL 0.2-1. 0 USE OF THIS ASSAY IS NOT RECOM GIRISH D FOR PATIE NTS UNDER GOING TREAT MENT WITH ELTRO MBOPA G DUE TO THE POTEN TIAL FOR FALSE LY ELEVA PAUL RESUL TS. Not Available [facility] (Lab) [address] [place], [address], 04/23/2022 15:29:31 04/23/19 23 04/23/2022 COMPR EHENS LUZ METAB OLIC PANEL AST (SGOT) 16 IU/L 15-37 Not Available [facility] (Lab) [address] [place], [address], 04/23/2022 15:29:31 04/23/19 23 04/23/2022 COMPR EHENS LUZ METAB OLIC PANEL ALT (SGPT) 15 IU/L 12-78 Not Available [facility] (Lab) [address] [place], [address], 04/23/2022 15:29:31 04/23/19 23 04/23/2022 COMPR EHENS LUZ METAB OLIC PANEL alk phos 108 IU/L 54-369 Not Available [facility] (Lab) [address] [place], [address], 04/23/2022 15:29:31 04/23/19 23 04/23/2022 COMPR EHENS LUZ METAB OLIC PANEL total protein 8.0 g/dL 6.4-8. 2 Not Available [facility] (Lab) [address] [place] [address] [place], [address], 04/23/2022 15:29:31 04/23/19 23 04/23/2022 COMPR EHENS LUZ METAB OLIC PANEL albumin 4.3 g/dL 3.4-5. 0 Not Available [facility] (Lab) [address] [place] [address] [place], [address], 04/23/2022 15:29:31 04/23/19 23 04/23/2022 COMPR EHENS LUZ METAB OLIC PANEL globulin 3.7 g/dL 1.3-3. 5 high Not Available [facility] (Lab) [address] [place] [address] [place], [address], 04/23/2022 15:29:31 04/23/19 23 04/23/2022 COMPR EHENS LUZ METAB OLIC PANEL alb/glob ratio 1.2 ratio 1.0-3. 9 Not Available [facility] (Lab) [address] [place] [address] [place], [address], 04/23/2022 15:29:31 04/23/19 23 04/23/2022 COMPR EHENS LUZ METAB OLIC PANEL osmolality, calculated 293 mOsm/ kg 272-29 5 Not Available [facility] (Lab) [address] [place] [address] [place], [address], 04/23/2022 15:29:31 04/23/19 23 04/23/2022 VITAM IN B12 vitamin B12 1225 pg/mL 193-98 6 high Not Available [facility] (Lab) [address] [place] [address] [place], [address], 04/23/2022 15:29:33 04/23/19 23 04/23/2022 LIPID PANEL triglyceride s 122 mg/dL 1-150 Not Available [facility] (Lab) [address] [place] [address] [place], [address], 04/23/2022 15:41:51 04/23/19 23 04/23/2022 LIPID PANEL cholesterol 192 mg/dL 0-200 Not Available [facility] (Lab) [address] [place], [address], 04/23/2022 15:41:51 04/23/19 23 04/23/2022 LIPID PANEL HDL chol 61 mg/dL 35-60 high Not Available [facility] (Lab) [address] [place], [address], 04/23/2022 15:41:51 04/23/19 23 04/23/2022 LIPID PANEL chol/HDL ratio 3 -4.44 Not Available [facility] (Lab) [address] [place], [address], 04/23/2022 15:41:51 04/23/19 23 04/23/2022 LIPID PANEL LDL (calculated) 107 mg/dL -130 Not Available [facility] (Lab) [address] [place], [address], 04/23/2022 15:41:51 04/23/19 23 04/24/2022 VITAM IN [...] Argenis maciel [place]: [facility] . 2. Alyse sibley MF, Lizett ey [place], Aniceto off-F errar i PATEL, et al. Evalu ation , treat ment, and preve ntion of vitam in D defic iency : an Endoc rine Socie ty clini cr pract ice guide line. JCEM. 2010; 96(7) :1911 -30. Perfo rmed at: - [facility] [address] [facility], [place], [place] [address] Lab Direc tor: Willian grubbs PhD, Phone : [phone] Not Available [facility] (Lab) [address] , [place], [address], 04/24/2022 07:12:15 04/23/19 23 04/29/2022 METHY LMALO ARBEN ACID methylmaloni c acid 169 nmol/ L 0-378 Test( s) 31034 7-Met hylma lonic Acid, Serum was devel oped and its perfo rmanc e erik cteri stics deter mined by [facility]. It has not been clear ed or appro mina by the Food and Drug Admin istra tion. Perfo rmed at: [facility] Zeb maciel [address] [facility] [place] [address]38 Lab Direc tor: Kay manuel MD, Phone : [phone] Not Available [facility] (Lab) [address] [place] [address] , [place], [address], 04/29/2022 17:10:59 01/29/20 22 01/28/2022 LDCT, chest , for lung cance r scree [facility] al [address] [place] [address] Phone: Fax: Name: NORI DAVENPORT Exam Date: 2021 : 1954 Age 66 years Gender : F Access ion: [id number] Physic sophie: MEIR [facility]AL [facility]pat ient Exam: CT [...] nodule s will be based on the [facility] hner Societ y criter ia. Any incide [...] Thank you for referr NORI Hernandez to [facility]. Legall y authen ticate d by Juan russell MD 2021-04 16:46: 37 CC'ed Logic: Orderi ng Provid er: CHARITY WORLEY CC Provid er: CHARITY WORLEY Attend ing Provid er: CHARITY WORLEY Referr ing Provid er: CHARITY WORLEY Admitt ing Provid er: CHARITY cassidy [facility] (Imaging) [address] [place], [address], 02/01/2022 10:34:31 06/11/19 23 06/10/2022 US, thyro id [facility] [address] [place] [address] Phone: Fax: Name: NORI DAVENPORT Exam Date: 06/11/19 : 1954 Age 67 years Gender : F Access ion: [id number] Physic sophie: MEIR AGRAWAL Facili ty: [facility] Hosp al HSV: Outpat ient [...] Thank you for referr NORI Hernandez to [facility]. Legall y authen ticate d by Sofiya delgado MD 06-10 14:43: 23 CC'ed Logic: Orderi ng Provid er: CHARITY WORLEY CC Provid er: CHARITY WORLEY Attend ing Provid er: CHARITY WORLEY Referr ing Provid er: CHARITY WORLEY Admitt ing Provid er: CHARITY WORLEY nlindy [facility] (Imaging) [address] [place], [address], 06/14/2022 14:15:07 06/15/19 23 06/10/2022 DEXA, axial skele ton + verte bral fract ure asses sment No observ ation record ed. [email or web address] [facility] - Centralized Scheduling [address] [place], [address], 06/14/2022 09:06:17 Result Notes None recorded. Problems Name Problem SNOMED Code Status Onset Date Resolution Date Notes Provider Name and Address Organization Details Recorded Time Chronic obstructiv e pulmonary disease 91295802 Active 2021 Meir Carcamo [place] [address] [employer] [facility],[place] te [address] [place] [address], [address], [place] - [facility] - [place] & [place] 2 10:48:33 Osteoporos is 02617172 Active 2021 [place] [address] [employer] [facility],[place]issa te [facility], [place], [address], [place] [facility] [place] & [place] 2 10:49:00 Lumbar radiculopa thy 192609569 Active 2021 Meir Carcamo [place] [address] [employer] [facility],[place] te [address] [place] [address], [address], [place] [facility] - [place] & [place] 2 10:49:28 Hyperlipid emia 19149810 Active 2021 [place] [address] [employer] [facility],[address] [place], [address], [place] [facility] [place] & [place] 2 10:54:24 Venous stasis 76781224 Active 2021 intermitte nt Meir Carcamo , [address], [place], [address], [place] [facility] - [place] & [place] 2 10:54:58 Seasonal allergic rhinitis 732661967 Active 2021 Meir Carcamo [address], [place], [address], [place] [facility] 2 10:55:15 Cobalamin deficiency 346202639 Active 2021 Meir Carcamo [address], [place], [address], [place] [facility] [place] & [place] 2 10:55:33 Abnormal findings on diagnostic imaging of lung 472197343 Active 2021 Meir Carcamo [address], [place], [address], [place] [facility] [place] & [place] 2 16:49:45 Chronic constipati on 117500613 Active 2021 Meir Carcamo [address], [place], [address], [place] [facility] & [place] 2 16:49:46 Gastroesop hageal reflux disease without esophagiti s 832399817 Active 2022 Meir Carcamo [address], [place], [address], [place] [facility] - [place] & [place] 3 13:40:14 Problem Notes None recorded. Procedures Surgical History Date Name Laterality Status Provider Name and Address Organization Details Recorded Time Tubal Ligation completed Christallili Leonardt [place] - [facility] - [place] & [place] 01/21/2022 10:28:19 Ovarian Cystectomy completed Christal Leet [place] - [place] & [place] 01/21/2022 10:28:36 Breast Biopsy completed Christal Leet [place] & [place] 01/21/2022 10:28:59 Imaging Results None recorded. Procedure Notes None recorded. Medical Equipment None Reported. Allergies Allergen ID Allergen Name Allergen Category Reaction Reaction Severity Criticality Documentation Date Start Date Code Code System Note Provider Name and Address Organization Details Recorded Time 62315 aspirin medicatio n nausea mild Not available 01/21/2022 1191 RxNorm HERMANN Harkins MERYL [facility] & [place] 2 10:23:17 01869 codeine medicatio n hives mild Not available 01/21/2022 2670 RxNorm Christallili chen, [facility] & [place] 2 10:23:33 Medications Name Sig Start Date [...] /min 132 mm[Hg] 78 mm[Hg] Sirisha Ford [facility] & [place] 3 09:30:39 Date Recorded Body height Provider Name an d Address Organization Details Last Updated DateTime 07/22/2022 162.56 cm Norah Misael MCCRARY [facility] & [place] 07/22/2022 10:48:53 Date Recorded Body temperature Oxygen saturation Oxygen saturation in Arterial blood by Pulse oximetry Heart rate Systolic blood pressure Diastolic blood pressure Provider Name and Address Organization Details Last Updated DateTime 3 97.3 [degF] 91 % 91 % 83 /min 126 mm[Hg] 84 mm[Hg] Sirisha MCCRARY [facility] & [place] 3 10:51:02 Date Recorded Body mass index (BMI) Body weight Provider Name and Address Organization Details Last Updated DateTime 01/21/2022 26.4 kg/m2 [address].22 g Rita Pena [facility] & [place] 01/21/2022 11:19:48 Date Recorded Body height Body temperature Oxygen saturation Oxygen saturation in Arterial blood by Pulse oximetry Heart rate Systolic blood pressure Diastolic blood pressure Provider Name and Address Organization Details Last Updated DateTime 2 162.56 cm 97.5 [degF] 95 % 95 % 86 /min 120 mm[Hg] 70 mm[Hg] Christal Leigh [facility] & [place] 2 10:21:18 Date Recorded Body height Body mass index (BMI) Body weight Body temperature Oxygen saturation Oxygen saturation in Arterial blood by Pulse oximetry Heart rate Respiratory rate Systolic blood pressure Diastolic blood pressure Provider Name and Address Organization Details Last Updated DateTime 2 162.56 cm 26.4 kg/m2 10894.2 2 g 96.1 [degF] 93 % 93 % 87 /min 16 /min 110 mm[Hg] 70 mm[Hg] July [facility] & [place] 2 10:42:26 Social History Question Answer Notes LastModified by [employer] Details LastModified Time Tobacco Smoking Status Current Every Day [facility] [place] 01/21/2022 10:27:50 What Is Your Level Of Caffeine Consumption? Occasional Information not available 07/22/2022 How Much Tobacco Do You Smoke? 1 PPD Information not available 01/21/2022 Sex: Unknown Functional Status Question Answer Note LastModified by [employer] Details LastModified Time Do you use any illicit or recreational drugs? No Information not available 01/21/2022 What is your level of alcohol consumption? None Information not available 01/21/2022 Mental Status None recorded. Family History Relationship [...] conjugate PCV 13 0 completed Not Available [employer] 07/22/2022 10:44:08 Td(adult) unspecified formulation 3 completed July Misael null, [place] - [facility] & [place] 02/04/2022 10:38:12 Influenza, split virus, quadrivalent, preservative 5 completed July Misael null, [place] - [facility] [place] & [place] 02/04/2022 10:38:12 Influenza, MDCK, quadrivalent, PF 7 completed July Misael null, [place] - [facility] [place] & [place] 02/04/2022 10:38:12 Influenza, split virus, quadrivalent, PF 1 completed July Misael null, [place] - [facility] & [place] 02/04/2022 10:38:12 Influenza, split virus, trivalent, PF 4 completed July Misael null, [place] - [facility] & [place] 02/04/2022 10:38:12 Influenza, split virus, trivalent, preservative 3 completed July Misael null, [place] - [facility] & [place] 02/04/2022 10:38:12 Influenza, split virus, quadrivalent, PF 8 completed July Misael chen, [place] - [facility] & [place] 02/04/2022 10:38:12 Influenza, split virus, quadrivalent, PF 2 completed July Misael chen, [place] - [facility] & [place] 02/04/2022 10:38:33 Past Encounters Encounter ID Performer Location Encounter Start Date Encounter Closed Date Diagnosis/Indication Diagnosis SNOMED-CT Code Diagnosis ICD10 Code Diagnosis Note [id number] Meir Carcamo DO [facility] [address] [address] 01/21/2022 10:06:00 01/21/2022 11:16:59 Chronic obstructive pulmonary disease 02299920 J44.9 mildly exacerbate d symptoms but no [...] today as below for re-evaluat ion Osteoporosis 44263550 M8 1.0 reassured patient that there is [...] normal at that time Lumbar radiculopathy 128 119606 M54.16 mildly exacerbate d, neurologic ally intact and no orthopedic concerns as discussed above.[facility] reviewed and appropriat e. PDMP is not yet available. No new neurologic al or orthopedic concerns at this time. Medication s are refilled today as below. Plan to f/u in 1 month for re-evaluat ion. Hyperlipidemia 94349021 E78.5 Stable, refilled today Venous stasis 34963742 I 87.8 stable, intermitte nt, refilled p.r.n. furosemide today Seasonal a llergic rhinitis 309385229 J30.2 Cobalamin deficiency 190 490754 E53.8 B12 and methylmalo arben acid were normal at the last check in October, IM replacemen t today and we will update these in the next 3-4 months Therapeuti c drug monitoring assay 01724189 Z51.81 Abnormal f indings on diagnostic imaging of lung 641283318 R91.8 Administra tion of influenza vaccine 69741938 Z23 [id number] Meir Carcamo DO [facility] [address] [address] 02/04/2022 10:27:10 02/04/2022 11:15:18 Tobacco dependence syndrome 79467093 F17.200 patient aware that her respirator y symptoms and lung changes are likely secondary to her continued tobacco use but does not feel that she is ready to quit at this time Abnormal f indings on diagnostic imaging of lung 594556507 R91.8 mildly increased lung lymph node sizes on her recent low-dose chest CT. Reviewed these with patient as well as the recommenda tion for 3 month follow-up and she has an appointmen t at about that time. otherwise her other lung nodules are stable which is reassuring Muscle pain 08180244 M79 .10 1 time treatment with IM [...] treatment and supportive care Chronic constipation 236 328362 K59.09 patient has previously been managed on Linzess and has had recurrent symptoms without this medication . She has previously failed conservati ve therapy including MiraLax and Benefiber. This is refilled today as below and we will follow up at the time of her next visit in about 2 months [id number] Meir Carcamo DO [facility] [address] [address] 04/23/2022 09:17:02 04/23/2022 10:09:17 Chronic obstructive pulmonary disease 34578688 J44.9 stable, recommende d continuing patient's current regimen at this time and triple therapy as well as nebulizers and Singulair refilled today as below Osteoporosis 39955091 M8 1.0 recommende d updating patient's DEXA scan as she has now been on bisphospho nates as well as vitamin-D replacemen t. We are also going to update her calcium level and her vitamin-D levels today with her other blood work Hyperlipidemia 34457247 E78.5 Stable, refilled today Cobalamin deficiency 190 431218 E53.8 B12 deficiency , patient is currently managing on daily oral replacemen t and we are updating her labs today to ensure that this is adequate Lumbar radiculopathy 128 279015 M54.16 Stable on current regimen; DAVE reviewed and appropriat e. PDMP is not yet available. No new neurologic al or orthopedic concerns at this time. Medication s are refilled today as below. Plan to f/u in 3 month for re-evaluat ion. Seasonal a llergic rhinitis 353581964 J30.2 stable, refilled today Venous stasis 18777906 I 87.8 stable, intermitte nt, refilled p.r.n. furosemide today Chronic constipation 236 398890 K59.09 plan to continue Linzess and MiraLax for management , refilled today Gastroesop hageal reflux disease without esophagitis 580331412 K21.9 stable, refilled today Abnormal f indings on diagnostic imaging of lung 716134923 R91.8 mildly increased lung lymph node sizes on her recent low-dose chest CT. Recommenda tion for 3 month follow-up and this is ordered today Imaging of thyroid gland abnormal 727603325 R93.89 patient did have incidental findings of [...] earlier follow-up Therapeuti c drug monitoring assay 01752181 Z51.81 updating patient's UDS today [id number] Meri Carcamo DO [facility] [address] [place] [address] 07/22/2022 10:41:56 07/22/2022 11:31:26 Chronic obstructive pulmonary disease 91508414 J44.9 currenty exacerbate d as abovewe reviewed chronic bronchitis component of COPD as a possibilit y of her dxcurrentl y on combivent and as needed albuterol nebs and these are refilled today as belowalso managing on tripple therapy with breztri which pt does not need refill on today Osteoporosis 87295710 M8 1.0 reviewed pt's updated dexa with persistent ly low T score of -2.8recomm ended transition ing her to prolia; pt is reticent to manage on injections but we discussed that this is only 2x annually and pt will pick it up from the pharmacy and then come to office to receive the injection and she is agreeable to this management Hyperlipidemia 20349098 E78.5 reviewed labs from Apr 2022 which were well controlled Lumbar radiculopathy 128 820327 M54.16 Stable on current regimen; DAVE reviewed [...] at this time Generalize d anxiety disorder 30618882 F41.1 stable; refilled today Therapeuti c drug monitoring assay 91719877 Z51.81 UDS from 04-23-22 is reviewed and appropriat e; updating patient's UDS today Acute bronchitis 4113100 2 J20.9 given pt's symptoms of increased shortness of breath and change in sputm color recommende d treatment with steroid burst and doxycyclin e and these are sent in today as below Health Concerns Section Related Observation LastModified by Organization Detai ls LastModified Time None Recorded Concern Status LastModified by Organization Details LastModified Time None Recorded Advance Directives Directive None Recorded Payers Insurance Date Sequence Insurance Name Policy Number Policy Sharma Covered Member ID Sharma Member ID Guarantor Name 10/15/2021 1 [facility] [id number] Nori Davenport [id number] Nori Davenport 07/22/2022 2 MEDICAID-[facility] CHOICES - FFS/TRADITIONA L Nori Davenport [id number] Nori Davenport 08/21/2021 2 [employer] [place] (MEDICA[place] HMO[place] Nori Davenport [id number] Nori Davenport 08/18/2021 2 [place] Nori Davenport [id number] Nori Davenport 10/18/2022 1 [place]AC[place] [id number] Nori Davenport [id number] Nori Davenport Notes Date Note Type Note Provider Name [...] refills or insurance ran out Meir Carcamo, DO [address], [place], [address], [facility] & [place] 01/21/2022 16:04:33 2 text/html 66 yo with pmhx of COPD presents for f/u on LDLCT screening.Reports she's vomited 3-4 times in the past few days. [facility]ed [facility]went [facility] before onsetdoes report significant malaise and body [...] medication today if possible Meir Carcamo, [address], [place], [address], [facility] & [place] 02/04/2022 16:50:14 3 text/html 67 yo with [...] medication usemedication is helping her symptoms Meir DO [facility] [address], [place], [address], [place] - [facility] & [place] 04/23/2022 16:38:51 3 text/html 67 yo with [...] so far only has improvement with massage Storden DO [facility] [address], [place], [address], [place] - [facility] & [place] 07/23/2022 16:41:38 OBGyn Episode No OBEpisode recorded.
--- OUTSIDE RECORDS SUMMARY | 2024-09-19 10:17 | XMS_ITS | Data Portability ---
Author Organization [facility], [place] Address [address] [place] [address] Care Team Providers Care Train Reservation Clerk Name Role Phone SOPHIA FOY Primary Care Provider VENKATA PACHECO Medical Oncologist [phone] Assessment Encounter Date Assessment Date Assessment LastModified by Organization Details LastModified Time 08/18/2023 08/18/2023 Imaging Studies Reviewed *LDCT Chest (05/24/2023): stable 2.1 cm nodule in the left breast; interval progression of. Tracheal and precarinal lymphadenopathy. The largest precarinal lymph node measures 3.2 x 2.3 cm, was 1.4 x 2.1 cm; heart size within normal limits; moderate emphysema multiple 4 mm and smaller noncalcified nodules in the lungs as before. There is atelectasis. Assessment 1. COPD *PFT (07/21/2023): mild restriction, +midflow obstruction, no change after LIA 2.Abnormal Chest Imaging *MAK (07/25/2023): 33 3. Dyspnea 4. Nocturnal Oxygen Use 5. History of hyperlipidemia, GERD, neuropathy, chronic depression *managed by PCP 6. Current smoker: 1 ppd x 40 years Plan Recommend evaluation with Interventional Pulmonary for EBUS. Patient declines referral at this time. Reviewed CT results again with patient and discussed need for EBUS. Will order HR Chest CT. If results are comparable to previous patient is agreeable to referral. 1.Continue Symbicort 150 mcg 2 puffs daily; Rinse mouth after each use 2. RX Spiriva Handihaler 2 puffs daily 3. Continue Ventolin 90 mcg 2 puffs every 4 hours *Stop Combivent 4 MAK level reviewed during todays visit (08/18/2023) 5. Smoking Cessation 6. Order HR Chest CT 7.RTO in [address], sooner if needed Portions of this note may be dictated using voice recognition software and or use of a medical doctor nuclear medicine. Variances in spelling and vocabulary are possible and unintentional. Not all errors are caught/corrected. Please notify the author if any discrepancies are noted or if the meaning of any statement is not clear. This is a summary discussion with the patient and in no way is intended to be a verbatum summation of everything discussed. We apologize for any inconvenience. Not available 08/18/2023 12:30:07 10/11/2023 10/11/2023 Imaging Studies Reviewed *LDCT Chest (05/24/2023): stable 2.1 cm nodule in the left breast; interval progression of. Tracheal and precarinal lymphadenopathy. The largest precarinal lymph node measures 3.2 x 2.3 cm, was 1.4 x 2.1 cm; heart size within normal limits; moderate emphysema multiple 4 mm and smaller noncalcified nodules in the lungs as before. There is atelectasis. *Chest CT w/contrast (09/28/2023): interval progression of mediastinal lymphadenopathy with interval development of necrosis in the largest pretracheal lymph node; interval development of diffuse bronchiolitis of the left lung with scattered areas of what appears to be chronic atelectasis although active pneumonia is not excluded; pleural-based opacity right upper lobe probably infectious/inflamm atory; stable pulmonary nodularity as before; hyper enhancing focused on right hepatic lobe and partially visualized hyper enhancing opacity inferiorly within the right hepatic lobe Assessment 1. COPD *PFT (07/21/2023): mild restriction, +midflow obstruction, no change after LIA 2.Abnormal Chest Imaging *MAK (07/25/2023): 33 3. Dyspnea 4. Nocturnal Oxygen Use 5. History of hyperlipidemia, GERD, neuropathy, chronic depression *managed by PCP 6. Current smoker: 1 ppd x 40 years Plan Recommend evaluation with Interventional Pulmonary for EBUS. Patient AGAIN declines referral at this time. Wants to wait until her lymph node biopsy. Reviewed CT results again with patient and discussed need for EBUS. Declines Nodify testing or additional labs. 1 RX Trelegy 100 mcg 1 puff daily; Rinse mouth after each use. I personally demonstrated use of the Ellipta device during todays visit *Failed Symbicort and Spiriva 2. Continue Ventolin 90 mcg 2 puffs every 4 hours 3. F/U with Dr. Pacheco (Oncology) as scheduled 4. Smoking Cessation 5. RTO in 2 to 3 months, sooner if needed Portions of this note may be dictated using voice recognition software and or use of a medical doctor nuclear medicine. Variances in spelling and vocabulary are possible and unintentional. Not all errors are caught/corrected. Please notify the author if any discrepancies are noted or if the meaning of any statement is not clear. This is a summary discussion with the patient and in no way is intended to be a verbatum summation of everything discussed. We apologize for any inconvenience. Not available 10/11/2023 11:42:22 12/13/2023 12/13/2023 Imaging Studies Reviewed *LDCT Chest (05/24/2023): stable 2.1 cm nodule in the left breast; interval progression of. Tracheal and precarinal lymphadenopathy. The largest precarinal lymph node measures 3.2 x 2.3 cm, was 1.4 x 2.1 cm; heart size within normal limits; moderate emphysema multiple 4 mm and smaller noncalcified nodules in the lungs as before. There is atelectasis. *Chest CT w/contrast (09/28/2023): interval progression of mediastinal lymphadenopathy with interval development of necrosis in the largest pretracheal lymph node; interval development of diffuse bronchiolitis of the left lung with scattered areas of what appears to be chronic atelectasis although active pneumonia is not excluded; pleural-based opacity right upper lobe probably infectious/inflamm atory; stable pulmonary nodularity as before; hyper enhancing focused on right hepatic lobe and partially visualized hyper enhancing opacity inferiorly within the right hepatic lobe Assessment 1. COPD *PFT (07/21/2023): mild restriction, +midflow obstruction, no change after LIA 2.Abnormal Chest Imaging *MAK (07/25/2023): 33 3. Dyspnea 4. Nocturnal Oxygen Use 5. History of hyperlipidemia, GERD, neuropathy, chronic depression *managed by PCP 6. Current smoker: 1 ppd x 40 years Plan *Patient currently under care of Dr. Pacheco at [facility] for recent lymph node and PET/CT findings. 1 Continue Trelegy 100 mcg 1 puff daily; Rinse mouth after each use *Failed Symbicort and Spiriva 2. Continue Ventolin 90 mcg 2 puffs every 4 hours 3. F/U with Dr. Pacheco (Oncology) as scheduled 4. Smoking Cessation 5. Enroll in [facility] 6. Request PET/CT from [facility] 7. RTO in 4 months Portions of this note may be dictated using voice recognition software and or use of a medical doctor nuclear medicine. Variances in spelling and vocabulary are possible and unintentional. Not all errors are caught/corrected. Please notify the author if any discrepancies are noted or if the meaning of any statement is not clear. This is a summary discussion with the patient and in no way is intended to be a verbatum summation of everything discussed. We apologize for any inconvenience. Not available 12/13/2023 11:39:15 04/12/2024 04/12/2024 Imaging Studies Reviewed *LDCT Chest (05/24/2023): stable 2.1 cm nodule in the left breast; interval progression of. Tracheal and precarinal lymphadenopathy. The largest precarinal lymph node measures 3.2 x 2.3 cm, was 1.4 x 2.1 cm; heart size within normal limits; moderate emphysema multiple 4 mm and smaller noncalcified nodules in the lungs as before. There is atelectasis. *Chest CT w/contrast (09/28/2023): interval progression of mediastinal lymphadenopathy with interval development of necrosis in the largest pretracheal lymph node; interval development of diffuse bronchiolitis of the left lung with scattered areas of what appears to be chronic atelectasis although active pneumonia is not excluded; pleural-based opacity right upper lobe probably infectious/inflamm atory; stable pulmonary nodularity as before; hyper enhancing focused on right hepatic lobe and partially visualized hyper enhancing opacity inferiorly within the right hepatic lobe Assessment 1. COPD *PFT (07/21/2023): mild restriction, +midflow obstruction, no change after LIA *PFT (04/12/2024): moderate obstruction, +midflow obstruction, no restriction, moderately reduced DLCO/VA, + gas trapping, no change after LIA 2.Abnormal Chest Imaging *MAK (07/25/2023): 33 3. Dyspnea 4. Nocturnal Oxygen Use 5. History of hyperlipidemia, GERD, neuropathy, chronic depression *managed by PCP 6. Current smoker: 1 ppd x 40 years, now 1 1 ppd Plan *Patient currently under care of Dr. Pacheco (Oncology) at [facility]; PET/CT completed on Tuesday. She has results follow up in the AM 1 Stop Trelegy 100 mcg; RX Trelegy 200 mcg 1 puff daily; Rinse mouth after each use *Failed Symbicort and Spiriva 2. Continue Ventolin 90 mcg 2 puffs every 4 hours 3. F/U with Dr. Pacheco (Oncology) as scheduled 4. Smoking Cessation 5. Enrolled in [facility] 6. Request PET/CT from [facility] 7. RTO in 4 months, sooner if needed Portions of this note may be dictated using voice recognition software and or use of a medical doctor nuclear medicine. Variances in spelling and vocabulary are possible and unintentional. Not all errors are caught/corrected. Please notify the author if any discrepancies are noted or if the meaning of any statement is not clear. This is a summary discussion with the patient and in no way is intended to be a verbatum summation of everything discussed. We apologize for any inconvenience. [email or web address] Not available 04/12/2024 11:33:41 08/13/2024 08/13/2024 Imaging Studies Reviewed *LDCT Chest (05/24/2023): stable 2.1 cm nodule in the left breast; interval progression of. Tracheal and precarinal lymphadenopathy. The largest precarinal lymph node measures 3.2 x 2.3 cm, was 1.4 x 2.1 cm; heart size within normal limits; moderate emphysema multiple 4 mm and smaller noncalcified nodules in the lungs as before. There is atelectasis. *Chest CT w/contrast (09/28/2023): interval progression of mediastinal lymphadenopathy with interval development of necrosis in the largest pretracheal lymph node; interval development of diffuse bronchiolitis of the left lung with scattered areas of what appears to be chronic atelectasis although active pneumonia is not excluded; pleural-based opacity right upper lobe probably infectious/inflamm atory; stable pulmonary nodularity as before; hyper enhancing focused on right hepatic lobe and partially visualized hyper enhancing opacity inferiorly within the right hepatic lobe Assessment 1. COPD *PFT (07/21/2023): mild restriction, +midflow obstruction, no change after LIA *PFT (04/12/2024): moderate obstruction, +midflow obstruction, no restriction, moderately reduced DLCO/VA, + gas trapping, no change after LIA *PFT (08/13/2024): moderate obstruction, +midflow obstruction, mild restriction, +LIA 2. 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 *MAK (07/25/2023): 33 3. Dyspnea 4. Nocturnal Oxygen Use 5. History of hyperlipidemia, GERD, neuropathy, chronic depression *managed by PCP 6. Current smoker: 2 ppd x 40 years, now 1 1/2 ppd Plan *Patient currently under care of Dr. Pacheco (Oncology) at [facility] 1 Continue Trelegy 200 mcg 1 puff daily; Rinse mouth after each use (RX Renewed) *Failed Symbicort, Spiriva and Trelegy 100 mcg 2. Continue Ventolin 90 mcg 2 puffs every 4 hours (RX Renewed) 3. F/U with Dr. Pacheco (Oncology) as scheduled 4. Smoking Cessation 5. Enrolled in [facility] 6. Request PET/CT from [facility]-2nd request sent 7. PFT at next OV 8.RTO in 4 months, sooner if needed The patient underwent pulmonary function testing today to evaluate complaints of dyspnea. Results were discussed with the patient. Portions of this note may be dictated using voice recognition software and or use of a medical doctor nuclear medicine. Variances in spelling and vocabulary are possible and unintentional. Not all errors are caught/corrected. Please notify the author if any discrepancies are noted or if the meaning of any statement is not clear. This is a summary discussion with the patient and in no way is intended to be a verbatum summation of everything discussed. We apologize for any inconvenience. Not available 08/13/2024 20:23:37 Plan of Treatment Reminders Order Date Submit Date Provider Last Modified By Organization Details Last Modified Time Details Appointments FOLLOW_UP 2024 10:00A Candida Tristan NP Not available Not available Not available Lab None recorded. Referral None recorded. Procedures None recorded. Surgeries None recorded. Imaging CT, chest, w/o contrast - auth [id number] exp 11/15/23PAT IENT WOULD LIKE TO COMPLETE AT [facility]; FAX RESULTS TO 2023 024 [facility] ([facility]), [address] [place] [address] Dr, [place], [address], 09/20/2023 08:34:04 Medication Orders Trelegy Ellipta 200 mcg-62.5 mcg-25 mcg powder for inhalatio n 2024 025 ATHENAFAX [facility] - [address], [address], 08/13/2024 14:44:53 albuterol sulfate HFA 90 mcg/actua tion aerosol inhaler [address], [address], 08/13/2024 15:00:37 Trelegy Ellipta 200 mcg-62.5 mcg-25 mcg powder for inhalatio n 2024 025 [facility] - [address], [address], 04/12/2024 11:27:26 Trelegy Ellipta 100 mcg-62.5 mcg-25 mcg powder for inhalatio n [email or web address], [address], 08/13/2024 14:22:40 Spiriva with HandiHale r 18 mcg and inhalatio n capsules [address], [address], 12/13/2023 11:17:48 Patient TargetsNo targets recorded. Patient Instructions Encounter Date Encounter Id Patient Instructions Last Modified By Organization Details Last Modified Time 08/18/2023 [id number] smoking cessatio n counseling, greater than 3 minutes up to 10 minutes* [email or web address] Not available 08/22/2023 10:40:56 Smoking cessatio n was discussed with the patient for less than 10 minutes. The detrimental effects to the patient's health of continued smoking was explained. Methods to quit smoking were also discussed to include nicotine replacement therapy and pharmacologic treatment. Not available 08/18/2023 12:31:29 10/11/2023 [id number] smoking cessatio n counseling, greater than 3 minutes up to 10 minutes* [email or web address] Not available 10/11/2023 10:11:49 12/13/2023 [id number] medical record request* - Please forward recent PET/CT scan [email or web address] Not available 12/20/2023 10:12:08 Smoking cessatio n was discussed with the patient for less than 10 minutes. The detrimental effects to the patient's health of continued smoking was explained. Methods to quit smoking were also discussed to include nicotine replacement therapy and pharmacologic treatment. CONSENT FOR ENROLLMENT IN CHRONIC CARE MANAGEMENT & REMOTE PATIENT MONITORING: The patient agrees to be enrolled in the Chronic Care Management (CCM) and Remote Patient Monitoring (RPM) programs. The patient has been counselled regarding availability of services and cost sharing responsibilities. The patient has been informed that CCM services can only be provided by one provider and that RPM services can be furnished by multiple providers during a 30-day period. The patient has informed of their right to revoke CCM/RPM services at any time and that services will terminate at the end of the current month. The patient has been counselled that they may be billed for a portion of CCM services even though CCM services will not involve a [id number] meeting with the provider. Not available 12/13/2023 11:39:33 04/12/2024 [id number] medical record request* - Please forward recent PET/CT ordered by Dr. Pacheco [email or web address] Not available 04/19/2024 11:06:11 Smoking cessatio n was discussed with the patient for less than 10 minutes. The detrimental effects to the patient's health of continued smoking was explained. Methods to quit smoking were also discussed to include nicotine replacement therapy and pharmacologic treatment. Not available 04/12/2024 11:34:19 08/13/2024 [id number] medical record request* - please forward most recent PET/CT or Chest CT Not available 08/20/2024 10:27:42 Smoking cessatio n was discussed with the patient for less than 10 minutes. The detrimental effects to the patient's health of continued smoking was explained. Methods to quit smoking were also discussed to include nicotine replacement therapy and pharmacologic treatment. Not available 08/13/2024 20:23:49 Reason for Referral None Reported. Results Created Date Observation Date Name Description Value Unit Range Abnormal Flag Note LastModifiedBy Organization Detail LastModifiedTime 09/20/19 24 05/24/2023 LDCT, chest , for lung cance r scree manpreet No observ ation record ed. BARCODE Not Available 2023 16:36:15 09/26/19 24 08/24/2023 US, neck, soft tissu e No observ ation record ed. [email or web address] [facility] (Imaging) [address] [place], [address], 09/26/2023 15:54:54 09/30/19 24 09/28/2023 CT, chest , w/o contr ast No observ ation record ed. [email or web address] [facility] (Imaging) [address] [place], [address], 09/30/2023 10:07:40 12/13/19 24 10/21/2023 US, neck No observ ation record ed. Not Available 2023 16:40:57 04/12/19 25 04/10/2024 CT, chest , w/ contr ast No observ ation record ed. [email or web address] Not Available 2024 14:08:33 04/12/19 25 04/10/2024 CT, chest , w/ contr ast No observ ation record ed. [email or web address] Not Available 2024 14:09:11 04/12/19 25 04/10/2024 CT, chest , w/ contr ast No observ ation record ed. [email or web address] Not Available 2024 14:09:50 04/23/19 25 04/12/2024 compl ete PFT* No observ ation record ed. [email or web address] Not Available 2024 16:20:43 08/15/19 25 07/09/2024 CT, chest , w/ contr ast No observ ation record ed. [email or web address] [facility] (Med Record) [address], [place], [address], 08/14/2024 10:22:14 08/15/19 25 07/09/2024 CT, angio gram, head + neck, w/wo contr ast No observ ation record ed. [email or web address] [facility] (Med Record) [address], [place], [address], 08/14/2024 10:22:50 08/18/19 25 08/16/2024 compl ete PFT w/ post [facility] hodil ator shanice metry * No observ ation record ed. Not Available 08/17 09:53:30 Result Notes None recorded. Problems Name Problem SNOMED Code Status Onset Date Resolution Date Notes Provider Name and Address Organization Details Recorded Time Chronic obstructive pulmonary disease 34992862 Active 2023 Janet Tristan NP [address], [place], [address], [place] - [facility] 4 12:57:16 Multiple nodules of lung 434922282 Active 2023 carol chen, [place] - [facility] 5 09:26:52 Dyspnea 164870019 Active 2023 Janet Tristan NP [address], [place], [address], [place] - [facility] 4 15:30:53 Dependence on nocturnal oxygen therapy 6526197232667 8 Active 2023 Janet Tristan NP [address], [place], [address], [place] - [facility] 4 15:31:02 Heavy tobacco smoker 7257281565339 03 Active 2023 Janet Tristan NP [address], [place], [address], [place] - [facility] 4 15:32:05 Lymphadenop athy 19889730 Active 2023 Janet Tristan NP [address], [place], [address], [place] - [facility] 4 12:30:15 Squamous cell carcinoma of skin 527126254 Active 2024 Janet Tristan NP [address], [place], [address], [place] - [facility] 5 20:24:12 Dyspnea on exertion 34595301 Active 2024 Janet Tristan NP [address], [place], [address], [place] - [facility] 5 20:25:55 Problem Notes None recorded. Procedures Surgical History Date Name Laterality Status Provider Name and Address Organization Details Recorded Time procedure on ovary completed cezar [place]nderson [place] - [facility] 10/11/2023 09:59:08 MRI guided biopsy of left breast completed cezar henderson [place] - [facility] 10/11/2023 09:59:25 Imaging Results None recorded. Procedure Notes None recorded. Medical Equipment None Reported. Allergies Allergen ID Allergen Name Allergen Category Reaction Reaction Severity Criticality Documentation Date Start Date Code Code System Note Provider Name and Address Organization Details Recorded Time 37068 codeine medicatio n hives mild low 07/21/2023 2670 RxNorm tomas tuel null, [place] - [facility] 4 12:34:52 78276 aspirin medicatio n nausea mild low 07/21/2023 1191 RxNorm tomas tuel null, [place] - [facility] 4 12:35:24 Medications Name Sig Start Date Stop Date Status Note LastModified by Organization Details LastModified Time amoxicillin 500 mg capsule TAKE 1 CAPSULE BY MOUTH TWICE DAILY FOR 10 DAYS active Not Available Not Available No t Available furosemide 40 mg tablet TAKE ONE (1) TABLET EVERY DAY BY ORAL ROUTE NEEDED. active Not Available Not Available No t Available atorvastati n 40 mg tablet TAKE ONE (1) TABLET BY MOUTH EVERY DAY active Not Available Not Available No t Available gabapentin 600 mg tablet TAKE ONE (1) TABLET BY MOUTH THREE (3) TIMES DAILY active Not Available Not Available No t Available doxycycline hyclate 100 mg capsule TAKE 1 CAPSULE BY MOUTH TWICE DAILY 07/14 completed Not Available Not Available Not Available albuterol sulfate 2.5 mg/3 mL (0.083 %) solution for nebulizatio n INHALE THREE (3) ML THREE (3) TIMES A DAY BY NEBULIZAT ION ROUTE. active Not Available Not Available No t Available azithromyci n 250 mg tablet TAKE 2 TABLETS TODAY, THEN TAKE 1 TABLET EVERY DAY FOR 4 DAYS 10/10 completed Not Available Not Available Not Available prednisone 20 mg tablet TAKE ONE (1) TABLET TWICE A DAY BY ORAL ROUTE FOR FIVE (5) DAYS. 07/14 completed Not Available Not Available Not Available gabapentin 400 mg capsule TAKE ONE (1) CAPSULE THREE (3) TIMES A DAY BY ORAL ROUTE FOR 30 DAYS. active Not Available Not Available No t Available sertraline 100 mg tablet TAKE TWO (2) TABLETS BY MOUTH EVERY DAY active Not Available Not Available No t Available prochlorper azine maleate 10 mg tablet TAKE 1 TABLET (10MG) BY MOUTH EVERY SIX (6) HOURS NEEDED FOR FOR NAUSEA AND VOMITING active Not Available Not Available No t Available ondansetron [address] ing tablet PLACE ONE (1) TABLET ON TOP OF TONUGE, WHERE IT WILL DISSOLVE, TWICE DAILY FOR 2 DAYS AFTER CHEMO active Not Available Not Available No t Available pantoprazol e 40 mg tablet,amanda yed release TAKE 1 TABLET BY MOUTH EVERY DAY active Not Available Not Available No t Available dexamethaso ne 4 mg tablet TAKE ONE (1) TABLET (4 MG) ORALLY DAILY active Not Available Not Available No t Available montelukast 10 mg tablet TAKE 1 TABLET BY MOUTH EVERY DAY active Not Available Not Available No t Available methylpredn isolone 4 mg tablets in a dose pack TAKE DIRECTED ON PACKAGE active Not Available Not Available No t Available fluticasone propionate 50 mcg/actuati on nasal spray,suspe nsion SPRAY ONE (1) SPRAY EVERY DAY BY INTRANASA L ROUTE. active Not Available Not Available No t Available ipratropium bromide 0.02 % solution for inhalation INHALE TWO AND A HALF (2 & 1/2) ML EVERY SIX (6) HOURS BY INHALATIO N ROUTE active Not Available Not Available No t Available Ventolin HFA 90 mcg/actuati on aerosol inhaler INHALE TWO (2) PUFFS EVERY FOUR (4) HOURS BY INHALATIO N ROUTE DIRECTED active Not Available Not Available No t Available buspirone 15 mg tablet TAKE ONE (1) TABLET BY MOUTH THREE (3) TIMES DAILY active Not Available Not Available No t Available cyclobenzap rine 5 mg tablet TAKE ONE (1) TABLET BY MOUTH THREE (3) TIMES DAILY active Not Available Not Available No t Available Spiriva with HandiHaler 18 mcg and inhalation capsules INHALE ONE (1) CAPSULE EVERY DAY BY INHALATIO N ROUTE FOR 30 DAYS. 12/12 completed Not Available Not Available Not Available Vitamin D3 active Not Available Not Av ailable Not Available budesonide- formoterol HFA 160 mcg-4.5 mcg/actuati on aerosol inhaler INHALE TWO (2) PUFFS TWICE A DAY BY INHALATIO N ROUTE FOR 30 DAYS. 12/12 completed Not Available Not Available Not Available cholecalcif yessenia (vitamin D3) 1,250 mcg (50,000 unit) capsule TAKE 1 CAPSULE BY MOUTH ONCE WEEKLY. active Not Available Not Available No t Available GaviLyte-G 236 gram-22.74 gram-6.74 gram-5.86 gram oral solution AFTER MIXING PREP DIRECTED, DRINK HALF OF THE GALLON BY DRINKING 8 OUNCES, OR ONE (1) CUP, EVERY 15 MINS UNTIL HALF IS REMAINING . REFRIGERA TE THE REMAINING AND CONTINUE CLEAR LIQUIDS TILL MIDNIGHT. FIVE (5) TO SIX (6) HOURS BEFORE EXAM, TAKE THE SECOND DOSAGE, 8OZ EVERY 15 MINS TILL GONE. active Not Available Not Available No t Available vitamin E (dl, acetate) 450 mg (1,000 unit) capsule Take 1 capsule every day by oral route. active Not Available Not Available No t Available Combivent Respimat 20 mcg-100 mcg/actuati on solution for inhalation INHALE ONE (1) PUFF FOUR (4) TIMES A DAY BY INHALATIO N ROUTE. 12/12 completed Not Available Not Available Not Available Linzess 145 mcg capsule TAKE ONE (1) CAPSULE BY MOUTH EVERY DAY active Not Available Not Available No t Available Trelegy Ellipta 100 mcg-62.5 mcg-25 mcg powder for inhalation INHALE ONE (1) PUFF EVERY DAY BY INHALATIO N ROUTE FOR 30 DAYS. 08/13 completed Not Available Not Available Not Available Trelegy Ellipta 200 mcg-62.5 mcg-25 mcg powder for inhalation INHALE ONE (1) PUFF EVERY DAY FOR 30 DAYS active Not Available Not Available No t Available Vitals Date Recorded Body height Body mass index (BMI) Body weight Oxygen saturation Oxygen saturation in Arterial blood by Pulse oximetry Heart rate Respiratory rate Body temperature Systolic blood pressure Diastolic blood pressure Provider Name and Address Organization Details Last Updated DateTime 5 160.02 cm 25.7 kg/m2 28291.8 9 g 99 % 99 % 90 /min 18 /min 99.5 [degF] 124 mm[Hg] 80 mm[Hg] tomas haq [facility] 5 10:42:55 Date Recorded Body height Body mass index (BMI) Body weight Oxygen saturation Oxygen saturation in Arterial blood by Pulse oximetry Heart rate Respiratory rate Body temperature Systolic blood pressure Diastolic blood pressure Provider Name and Address Organization Details Last Updated DateTime 5 160.02 cm 24.3 kg/m2 98315.5 9 g 94 % 94 % 84 /min 18 /min 99.1 [degF] 140 mm[Hg] 88 mm[Hg] neno morin [facility] 5 14:19:42 Date Recorded Body height Body mass index (BMI) Body weight Oxygen saturation Oxygen saturation in Arterial blood by Pulse oximetry Heart rate Respiratory rate Body temperature Systolic blood pressure Diastolic blood pressure Provider Name and Address Organization Details Last Updated DateTime 4 160.02 cm 27.6 kg/m2 62354.4 1 g 93 % 93 % 80 /min 18 /min 98.9 [degF] 122 mm[Hg] 68 mm[Hg] tomas haq [facility] 4 10:15:27 Date Recorded Body height Body mass index (BMI) Body weight Oxygen saturation Oxygen saturation in Arterial blood by Pulse oximetry Heart rate Respiratory rate Body temperature Systolic blood pressure Diastolic blood pressure Provider Name and Address Organization Details Last Updated DateTime 4 160.02 cm 25.7 kg/m2 82754.8 9 g 90 % 90 % 84 /min 20 /min 97.7 [degF] 122 mm[Hg] 82 mm[Hg] cezar henderson [facility] 4 09:56:03 Date Recorded Body height Body mass index (BMI) Body weight Oxygen saturation Oxygen saturation in Arterial blood by Pulse oximetry Heart rate Respiratory rate Body temperature Systolic blood pressure Diastolic blood pressure Provider Name and Address Organization Details Last Updated DateTime 4 160.02 cm 25.7 kg/m2 56477.8 9 g 92 % 92 % 86 /min 18 /min 97.5 [degF] 122 mm[Hg] 88 mm[Hg] cezar henderson [facility] 4 09:52:25 Social History Question Answer Notes LastModified by Organizat ion Details LastModified Time Tobacco Smoking Status Current Every Day Smoker tomas chen [facility] 07/21/2023 12:37:28 Do You Have An Advance Directive? No Information not available 07/21/2023 Is Your Home Air Conditioned? Yes Information not available 07/21/2023 Where Do You Live? SingleLevelHouse [email or web address] Information not available 10/11/2023 Do You Have A Medical Power Of [place] [employer]ope Maker? No Information not available 07/21/2023 What Was The Date Of Your Most Recent Tobacco Screening? 04/12/2024 Information not available 04/12/2024 What Is Your Current Pack Years? [email or web address] Information not available 07/21/2023 Do You Have Any Pets? No Information not available 07/21/2023 What Is Your Relationship Status? [email or web address] Information not available 10/11/2023 At What Age Did You Start Smoking Tobacco? 20 Information not available 07/21/2023 Are There Any Smokers In Your House? Yes Information not available 07/21/2023 How Much Tobacco Do You Smoke? 1 PPD 1 1/2 Packs A Day [email or web address] Information not available 10/11/2023 Has Tobacco Cessation Counseling Been Provided? Yes Information not available 07/21/2023 On What Date Was Tobacco Cessation Counseling Provided? 04/12/2024 Information not available 04/12/2024 How Many Years Have You Smoked Tobacco? 40 Information not available 07/21/2023 Have You Recently Traveled Abroad? No Information not available 07/21/2023 Are You Currently In School? No Information not available 07/21/2023 Sex: Unknown Functional Status Question Answer Note LastModified by Organization D etails LastModified Time Do you or have you ever used any other forms of tobacco or nicotine? No Information not available 07/21/2023 Are you currently employed? No Information not available 07/21/2023 Mental Status None recorded. Family History Relationship Description Onset Age of this Age Resolved Age Notes LastModified by Organization Details LastModified Time Father Heart disease [email or web address] Not available 10/10 09:57:16 Mother Heart disease [email or web address] Not available 10/10 09:57:16 Brother Diabetes mellitus [email or web address] Not available 10/10 09:57:21 Medical History No medical history recorded. Gynecological HistoryNo gynecological history recorded. Obstetrics History GPAL:G 0 P 0 0 0 0 Past Encounters Encounter ID Performer Location Encounter Start Date Encounter Closed Date Diagnosis/Indication Diagnosis SNOMED-CT Code Diagnosis ICD10 Code Diagnosis Note [id number] Janet Tristan NP [facility] [address] [place] [address] [address] W[address] [place] [phone] 07/21/2023 11:58:57 07/21/2023 13:13:58 Chronic obstructive pulmonary disease 74303416 J44.9 Multiple n odules of lung 692502953 R91.8 Dependence on nocturnal oxygen therapy 9751433967 9108 Z99.81 Dyspnea 492744283 R06.00 Heavy tobacco smoker 782 2551036 91689 Z72.0 [id number] Janet Tristan NP [address] [phone] 08/18/2023 10:09:33 08/18/2023 12:39:34 Chronic obstructive pulmonary disease 83210242 J44.9 Multiple n odules of lung 303717384 R91.8 Dependence on nocturnal oxygen therapy 2179265891 9108 Z99.81 Dyspnea 266979162 R06.00 Heavy tobacco smoker 871 3003627 61930 Z72.0 Lymphadenopathy 06144137 R59.0 [id number] Janet Tristan NP [address] [place] [address] [place] [id number] 10/11/2023 09:43:47 10/11/2023 10:48:51 Chronic obstructive pulmonary disease 27703600 J44.9 Multiple n odules of lung 641637018 R91.8 Dependence on nocturnal oxygen therapy 2344161375 9108 Z99.81 Dyspnea 416221010 R06.00 Heavy tobacco smoker 424 0302935 21217 Z72.0 Lymphadenopathy 53723527 R59.0 [id number] Juancho Fallon [address] [address] 12/13/2023 09:45:33 12/13/2023 10:50:20 Chronic obstructive pulmonary disease 44380743 J44.9 Multiple n odules of lung 378664206 R91.8 Dependence on nocturnal oxygen therapy 9802255571 9108 Z99.81 Dyspnea 848900820 R06.00 Heavy tobacco smoker 393 6419414 71982 Z72.0 Lymphadenopathy 91833927 R59.0 [id number] Juancho Fallon [address] WALKER [address] [place] [id number] 04/12/2024 10:09:09 04/12/2024 11:53:18 Chronic obstructive pulmonary disease 68009521 J44.9 Multiple n odules of lung 546279827 R91.8 Dependence on nocturnal oxygen therapy 9736279455 9108 Z99.81 Dyspnea 134229988 R06.00 Heavy tobacco smoker 278 7898684 67965 Z72.0 Lymphadenopathy 09738742 R59.0 [id number] Juancho Fallon [facility] [address] [place] [address] [address] [place] [address] 08/13/2024 14:02:15 08/13/2024 14:42:40 Chronic obstructive pulmonary disease 59325158 J44.9 Multiple n odules of lung 698882552 R91.8 Dependence on nocturnal oxygen therapy 0586583446 9108 Z99.81 Dyspnea 872104608 R06.00 Heavy tobacco smoker 988 7093094 48377 Z72.0 Lymphadenopathy 85765377 R59.0 Squamous c ell carcinoma of skin 333926698 C44.92 Health Concerns Section Related Observation LastModified by Organization Detai ls LastModified Time None Recorded Concern Status LastModified by Organization Details LastModified Time None Recorded Advance Directives Directive N: Payers Insurance Date Sequence Insurance Name Policy Number Policy Sharma Covered Member ID Sharma Member ID Guarantor Name 09/18/2024 2 [place] [employer] [place] FFS/TRADITIONA L Nori Montoya [id number] Nori Montoya 08/13/2024 1 [place] MED[place] ADVANTAGE (MEDICARE REPLACEMENT HMO) [id number] Nori Montoya [id number] Nori Montoya 08/13/2024 3 [place]MED[place] Nori Montoya [id number] Nori Montoya 09/18/2024 1 [employer] (MEDICARE REPLACEMENT/AD VANTAGE - PPO) [id number] Nori Montoya [id number] Nori Montoya Notes Date Note Type Note Provider Name and Address Organization Details Recorded Time 08/18/2023 text/html This is a 68-year-old female who presents to the office today for the ongoing management of COPd, abnormal chest imaging and lab review. Patient denies any significant medical events since her last visit. Patient continues to use Symbicort 2 puffs twice daily but continues to complain of shortness of breath that increases with exertion. 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 Patient has been using her Ventolin inhaler 2-3 times per day. She feels her shortness of breath is also related to anxiety as her brother is in the hospital and she is helping care for his home while he is in the hospital. She continues to smoke 1 pack per day. Denies any fever, chills, n/v/d, abdominal pain or lower extremity extremity edema. Janet Tristan NP [address], [place], [address], [facility] 08/18/2023 12:32:23 10/11/2023 text/html This is a 68 year-old female who presents to the office today to review the results of a recent Chest CT completed on 09/28/2023 and the ongoing management of COPD. Results and proposed treatment plan was discussed with the patient. Since last visit, patient states she found an enlarged lymph node and has had an appointment with Dr. Pacheco (Oncology) at [facility] for an enlarged lymph node to the right side of her neck. She is awaiting a date for biopsy. She states she was also told she has enlarged lymph nodes in her chest. Patient continues to use Symbicort and Spiriva as directed but continues to complain of shortness of breath with exertion and occasional cough. Denies wheezing or nocturnal respiratory symptoms. Patient uses her Ventolin inhaler every 4 to 6 hours and Duo nebs four times daily. Patient has increased smoking to 1 1/2 ppd due to stress. Denies any fever, chills, n/v/d, abdominal pain or lower extremity extremity edema. Janet Tristan NP [address], [place], [address], [facility] 10/11/2023 11:42:55 12/13/2023 text/html This 68 year-old female returns to the office for the ongoing management of COPD and medication follow up. Since last visit patient had a biopsy of right neck mass, PET/CT and is awaiting a date for a colonoscopy. Patient states she is unsure of results. She is being followed by Dr. Pacheco (Oncology) at [facility]. Patient continues Trelegy 100 mcg 1 puff daily and notes positive benefits of use as evidenced by improved shortness of breath. She denies any wheezing or nocturnal respiratory symptoms and notes her cough is non productive and at her baseline. Patient continues to smoke 1 PPD with no current desire to quit. Denies any fever, chills, n/v/d, abdominal pain or lower extremity extremity edema. Janet Tristan NP [address], [place], [address], [email or web address] 12/13/2023 11:42:51 04/12/2024 text/html This 69 year-old female returns to the office for the ongoing management of COPD. Since last visit, patient has started chemotherapy and has 2 treatments left. She is unsure of her cancer type but reports it was in her neck, lymph nodes and possibly mediastinum. No records are available for chart review. The patient continues to use Trelegy 100 mcg daily and notes improved shortness of breath but would like to increase her dose for longer lasting effects. She denies any cough, wheezing or nocturnal respiratory symptoms. She reports smoking 1 1/2 ppd smoking since her cancer diagnosis. Denies any fever, chills, n/v/d, abdominal pain or lower extremity extremity edema. Janet Tristan NP [address], [place], [address], [email or web address] 04/12/2024 11:35:03 08/13/2024 text/html This 69 year-old female returns to the office for the ongoing management of COPD. Patient continues to follow with Dr. 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 The patient complains of a cough in the morning with clear phlegm. She denies any wheezing or nocturnal respiratory symptoms. She notes improved shortness of breath since beginning Trelegy 200 mcg 1 puff daily. She uses her albuterol inhaler 1 to 2 times per day. Patient has resumed smoking 2 ppd due to family stress. No current desire to quit. Denies any fever, chills, n/v/d, abdominal pain or lower extremity extremity edema. Janet Tristan NP [address], [place], [address], [facility] 08/13/2024 20:26:16 OBGyn Episode No OBEpisode recorded.
--- OUTSIDE RECORDS SUMMARY | 2024-09-19 10:18 | XMS_ITS | Data Portability ---
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 [email or web address] Not available 03/02/2024 10:20:57 Plan of Treatment Reminders Order Date Submit Date Provider Last Modified By Organization Details Last Modified Time Details Appointments None recorded. Lab CMP, serum or plasma 2024 025 DANA [facility], [address], [place] [address], [place], [address], 5 04:06:36 CBC w/ auto diff 2024 025 DANA [facility], [address], [place] [address], [place], [address], 5 04:06:35 urinalysis, dipstick 2024 025 [facility], [address] [facility], [place], [address], 5 14:12:44 culture, urine 2024 025 OLE [facility], [address], [place] [address], [place], [address], 5 04:06:37 amylase + lipase, serum 2024 DANA [facility], [address] [facility], [facility], [place], [address], 5 04:06:36 Referral None recorded. Procedures None recorded. Surgeries None recorded. Imaging None recorded. Medication Orders amoxicillin 500 mg tablet [address], [address], 5 05:01:05 buspirone 15 mg tablet [address], [address], 5 13:24:46 sertraline 100 mg tablet [address], [address], 5 13:24:45 cyclobenzap rine 5 mg tablet [address], [address], 5 13:24:42 furosemide 40 mg tablet [address], [address], 5 13:24:41 pantoprazol e 40 mg tablet,amanda yed release [address], [address], 5 13:24:44 atorvastati n 40 mg tablet [address] [place], [address], 5 13:24:44 fluticasone propionate 50 mcg/actuati on nasal spray,suspe nsion 2024 025 [facility], [address] [place] [address], [place], [address], 5 13:24:45 ipratropium bromide 0.02 % solution for inhalation [address], [address], 5 13:24:46 montelukast 10 mg tablet [address], [address], 5 13:24:43 Linzess 145 mcg capsule 2024 025 [facility], [address] [place] [address], [address], 5 13:24:43 cholecalcif yessenia (vitamin D3) 1,250 mcg (50,000 unit) capsule [address], [address], 5 13:24:41 gabapentin 600 mg tablet [address], [address], 5 13:24:47 gabapentin 600 mg tablet [address], [address], 4 11:03:38 buspirone 15 mg tablet [address], [address], 4 10:54:01 sertraline 100 mg tablet [address], [address], 4 10:54:01 cyclobenzap rine 5 mg tablet [address], [address], 4 10:54:00 Lasix 40 mg tablet [address], [address], 4 10:54:03 Lasix 40 mg tablet [address], [address], 4 10:54:03 pantoprazol e 40 mg tablet,amanda yed release [address], [address], 4 10:54:02 atorvastati n 40 mg tablet [address], [address], 4 10:53:59 fluticasone propionate 50 mcg/actuati on nasal spray,suspe nsion 2023 [place] [address], [place], [address], 4 10:53:58 ipratropium bromide 0.02 % solution for inhalation 2023 [facility] - [address], [address], 4 10:53:59 montelukast 10 mg tablet [address], [address], 4 10:54:02 Linzess 145 mcg capsule [address], [address], 4 10:53:58 cholecalcif yessenia (vitamin D3) 1,250 mcg (50,000 unit) capsule [address], [address], 4 10:54:00 gabapentin 600 mg tablet [address], [address], 4 10:54:04 buspirone 15 mg tablet [address], [address], 4 08:06:55 sertraline 100 mg tablet [address], [address], 4 08:06:55 cyclobenzap rine 5 mg tablet 2023 024 [facility], [address] [place] [address], [address], 4 08:06:55 Lasix 40 mg tablet [address], [address], 4 08:06:55 pantoprazol e 40 mg tablet,amanda yed release [address], [address], 4 08:06:55 ipratropium bromide 0.02 % solution for inhalation [address], [address], 4 08:06:55 atorvastati n 40 mg tablet [address], [address], 4 08:06:55 fluticasone propionate 50 mcg/actuati on nasal spray,suspe nsion 2023 024 [facility], [address] [place] [address], [address], 4 08:06:55 montelukast 10 mg tablet [address], [address], 4 08:06:55 Linzess 145 mcg capsule 2023 024 [facility], [address] [place] [address], [place], [address], 4 13:42:50 cholecalcif yessenia (vitamin D3) 1,250 mcg (50,000 unit) capsule 2023 024 [facility] - [address], [place], [address], 4 08:06:55 [facility]entin 400 mg capsule [facility] [address], [place], [address], 10:39:16 Patient TargetsNo targets recorded. Patient Instructions Encounter Date Encounter Id Patient Instructions Last Modified By Organization Details Last Modified Time 03/02/2024 [id number] advance directives: care instructions efryman Not available 03/02/2024 13:41:08 learning about depression efryman Not available 03/02/2024 13:41:08 body mass index: care instructions efryman Not available 03/02/2024 11:00:54 learning about healthy weight efryman Not available 03/02/2024 11:00:54 preventing falls : care instructions efryman Not available 03/02/2024 13:41:08 medicare preventive services guide efryman Not available 03/02/2024 13:41:08 Reason for Referral None Reported. Results Created Date Observation Date Name Description Value Unit Range Abnormal Flag Note LastModifiedBy Organization Detail LastModifiedTime 08/31/1908/31/2024 CBC WITH DIFFE RENTI AL/PL ATELE T WBC 5.8 x10e3 /uL 3.4-10 .8 normal Not Available [facility] ([facility]) [address] [facility], [place], [address], 09/01/2024 04:06:35 08/31/19 25 08/31/2024 CBC WITH DIFFE RENTI AL/PL ATELE T RBC 4.86 x10e6 /uL 3.77-5 .28 normal Not Available [facility] ([facility]) [address] [place], [address], 09/01/2024 04:06:35 08/31/19 25 08/31/2024 CBC WITH DIFFE RENTI AL/PL ATELE T hemoglobin 16.1 g/dL 11.1-1 5.9 above high normal Not Available [facility] ([facility]) [address] [place], [address], 09/01/2024 04:06:35 08/31/1908/31/2024 CBC WITH DIFFE RENTI AL/PL ATELE T hematocrit 48.2 % 34.0-4 6.6 above high normal Not Available [facility] ([facility]) [address] [place], [address], 09/01/2024 04:06:35 08/31/19 25 08/31/2024 CBC WITH DIFFE RENTI AL/PL ATELE T MCV 99 fL 79-97 above high normal Not Available [facility] ([facility]) [address] [place], [address], 09/01/2024 04:06:35 08/31/19 25 08/31/2024 CBC WITH DIFFE RENTI AL/PL ATELE T MCH 33.1 pg 26.6-3 3.0 above high normal Not Available [facility] ([facility]) [address] [place], [address], 09/01/2024 04:06:35 08/31/19 25 08/31/2024 CBC WITH DIFFE RENTI AL/PL ATELE T MCHC 33.4 g/dL 31.5-3 5.7 normal Not Available [facility] ([facility]) [address] [place], [address], 09/01/2024 04:06:35 08/31/19 25 08/31/2024 CBC WITH DIFFE RENTI AL/PL ATELE T RDW 12.5 % 11.7-1 5.4 Not Available [facility] ([facility]) [address] [facility], [place], [address], 09/01/2024 04:06:35 08/31/19 25 08/31/2024 CBC WITH DIFFE RENTI AL/PL ATELE T platelets 229 x10e3 /uL 150-45 0 normal Not Available [facility] ([facility]) [address] [facility], [place], [address], 09/01/2024 04:06:35 08/31/19 25 08/31/2024 CBC WITH DIFFE RENTI AL/PL ATELE T neutrophils 55 % not estab. normal Not Available [facility] ([facility]) [address] [facility], [place], [address], 09/01/2024 04:06:35 08/31/19 25 08/31/2024 CBC WITH DIFFE RENTI AL/PL ATELE T lymphs 31 % not estab. normal Not Available [facility] ([facility]) [address] [facility], [place], [address], 09/01/2024 04:06:35 08/31/19 25 08/31/2024 CBC WITH DIFFE RENTI AL/PL ATELE T monocytes 11 % not estab. normal Not Available [facility] ([facility]) [address] [facility], [place], [address], 09/01/2024 04:06:35 08/31/19 25 08/31/2024 CBC WITH DIFFE RENTI AL/PL ATELE T eos 2 % not estab. normal Not Available [facility] ([facility]) [address] [facility], [place], [address], 09/01/2024 04:06:35 08/31/19 25 08/31/2024 CBC WITH DIFFE RENTI AL/PL ATELE T basos 1 % not estab. 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 0 normal Not Available [facility] ([facility]) [address] [facility], [place], [address], 09/01/2024 04:06:35 08/31/19 25 08/31/2024 CBC WITH DIFFE RENTI AL/PL ATELE T lymphs (absolute) 1.8 x10e3 /uL 0.7-3. 1 normal Not Available [facility] ([facility]) [address] [place], [address], 09/01/2024 04:06:35 08/31/19 25 08/31/2024 CBC WITH DIFFE RENTI AL/PL ATELE T monocytes(ab solute) 0.7 x10e3 /uL 0.1-0. 9 normal Not Available [facility] ([facility]) [address] [place], [address], 09/01/2024 04:06:35 08/31/19 25 08/31/2024 CBC WITH DIFFE RENTI AL/PL ATELE T eos (absolute) 0.1 x10e3 /uL 0.0-0. 4 normal Not Available [facility] ([facility]) [address] [place], [address], 09/01/2024 04:06:35 08/31/19 25 08/31/2024 CBC WITH DIFFE RENTI AL/PL ATELE T baso (absolute) 0.1 x10e3 /uL 0.0-0. 2 normal Not Available [facility] ([facility]) [address] [facility], [place], [address], 09/01/2024 04:06:35 08/31/19 25 08/31/2024 CBC WITH DIFFE RENTI AL/PL ATELE T immature granulocytes 0 % not estab. Not Available [facility] ([facility]) [address] [facility], [place], [address], 09/01/2024 04:06:35 08/31/19 25 08/31/2024 CBC WITH DIFFE RENTI AL/PL ATELE T immature grans (abs) 0.0 x10e3 /uL 0.0-0. 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 METAB OLIC PANEL (14) glucose 102 mg/dL 70-99 above high normal Not Available [facility] ([facility]) [address] [place], [address], 09/01/2024 04:06:36 08/31/19 25 08/31/2024 COMP. METAB OLIC PANEL (14) BUN 11 mg/dL 8-27 normal Not Available [facility] ([facility]) [address] [place], [address], 09/01/2024 04:06:36 08/31/19 25 08/31/2024 COMP. METAB OLIC PANEL (14) creatinine 0.85 mg/dL 0.57-1 .00 normal Not Available [facility] ([facility]) [address] [place], [address], 09/01/2024 04:06:36 08/31/19 25 08/31/2024 COMP. METAB OLIC PANEL (14) eGFR 75 mL/mi n/1.7 3 >59 normal Not Available [facility] ([facility]) [address] [place], [address], 09/01/2024 04:06:36 08/31/19 25 08/31/2024 COMP. METAB OLIC PANEL (14) BUN/creatini ne ratio 13 12-28 normal Not Available [facility] ([facility]) [address] [place], [address], 09/01/2024 04:06:36 08/31/19 25 08/31/2024 COMP. METAB OLIC PANEL (14) sodium 138 mmol/ L 134-14 4 normal Not Available [facility] ([facility]) [address] [place], [address], 09/01/2024 04:06:36 08/31/19 25 08/31/2024 COMP. METAB OLIC PANEL (14) potassium 3.5 mmol/ L 3.5-5. 2 normal Not Available [facility] ([facility]) [address] [place], [address], 09/01/2024 04:06:36 08/31/19 25 08/31/2024 COMP. METAB OLIC PANEL (14) chloride 98 mmol/ L 96-106 normal Not Available [facility] ([facility]) [address] [place], [address], 09/01/2024 04:06:36 08/31/19 25 08/31/2024 COMP. METAB OLIC PANEL (14) carbon dioxide, total 24 mmol/ L 20-29 normal Not Available [facility] ([facility]) [address] [place], [address], 09/01/2024 04:06:36 08/31/19 25 08/31/2024 COMP. METAB OLIC PANEL (14) calcium 9.6 mg/dL 8.7-10 .3 normal Not Available [facility] ([facility]) [address] [place], [address], 09/01/2024 04:06:36 08/31/19 25 08/31/2024 COMP. METAB OLIC PANEL (14) protein, total 7.2 g/dL 6.0-8. 5 normal Not Available [facility] ([facility]) [address] [place], [address], 09/01/2024 04:06:36 08/31/19 25 08/31/2024 COMP. METAB OLIC PANEL (14) albumin 4.5 g/dL 3.9-4. 9 normal Not Available [facility] ([facility]) [address] [place], [address], 09/01/2024 04:06:36 08/31/19 25 08/31/2024 COMP. METAB OLIC PANEL (14) globulin, total 2.7 g/dL 1.5-4. 5 Not Available [facility] ([facility]) [address] [place], [address], 09/01/2024 04:06:36 08/31/19 25 08/31/2024 COMP. METAB OLIC PANEL (14) bilirubin, total 0.4 mg/dL 0.0-1. 2 normal Not Available [facility] ([facility]) [address] [place], [address], 09/01/2024 04:06:36 08/31/19 25 08/31/2024 COMP. METAB OLIC PANEL (14) alkaline phosphatase 126 IU/L 44-121 above high normal Not Available [facility] ([facility]) [address] [place], [address], 09/01/2024 04:06:36 08/31/19 25 08/31/2024 COMP. METAB OLIC PANEL (14) AST (SGOT) 16 IU/L 0-40 normal Not Available [facility] ([facility]) [address] [place], [address], 09/01/2024 04:06:36 08/31/19 25 08/31/2024 COMP. METAB OLIC PANEL (14) ALT (SGPT) 10 IU/L 0-32 normal Not Available [facility] ([facility]) [address] [place], [address], 09/01/2024 04:06:36 08/31/19 25 08/31/2024 GUSTAVO+L IPASE amylase 78 U/L 31-110 normal Not Available [facility] ([facility]) [address] [place], [address], 09/01/2024 04:06:36 08/31/19 25 08/31/2024 GUSTAVO+L IPASE lipase 12 U/L 14-72 below low normal Not Available [facility] ([facility]) [address] [place], [address], 09/01/2024 04:06:36 08/31/19 25 09/01/2024 URINE CULTU REFLACO urine culture, routine Final report Not Available [facility] ([facility]) [address] [place], [address], 09/01/2024 04:06:37 08/31/19 25 09/01/2024 URINE CULTU REFLACO NE result 1 No growth Not Available [facility] ([facility]) [address] [facility], [place], [address], 09/01/2024 04:06:37 08/31/19 25 08/30/2024 urina lysis , dipst ick Leukocytes Negati ve Not Available [address], [address], 08/30/2024 11:05:09 08/31/19 25 08/30/2024 urina lysis , dipst ick Nitrite negati ve Not Available [address], [address], 08/30/2024 11:05:09 08/31/19 25 08/30/2024 urina lysis , dipst ick Urobilinogen .2 Not Available Jonas [address], [address], 08/30/2024 11:05:09 08/31/19 25 08/30/2024 urina lysis , dipst ick Protein Negati ve Not Available [address], [address], 08/30/2024 11:05:09 08/31/19 25 08/30/2024 urina lysis , dipst ick pH 6.0 Not Available [address], [address], 08/30/2024 11:05:09 08/31/19 25 08/30/2024 urina lysis , dipst ick Blood Negati ve Not Available [address], [address], 08/30/2024 11:05:09 08/31/19 25 08/30/2024 urina lysis , dipst ick Specific [place] 1.005 Not Available [address] [place], [address], 08/30/2024 11:05:09 08/31/19 25 08/30/2024 urina lysis , dipst ick Ketone Negati ve Not Available [address], [address], 08/30/2024 11:05:09 08/31/19 25 08/30/2024 urina lysis , dipst ick Bilirubin Negati ve Not Available [address], [address], 08/30/2024 11:05:09 08/31/19 25 08/30/2024 urina lysis , dipst ick Glucose Negati ve Not Available [address], [address], 08/30/2024 11:05:09 08/31/19 25 08/30/2024 urina lysis , dipst ick Appearance Clear Not Available [address], [address], 08/30/2024 11:05:09 08/31/19 25 08/30/2024 urina lysis , dipst ick Color Yellow Not Available [address], [address], 08/30/2024 11:05:09 10/21/19 24 10/21/2023 US, neck, soft tissu e No observ ation record ed. [facility] [address], [place], [address], 10/23/2023 10:36:06 10/21/19 24 10/21/2023 ultra sound , rah nce needl e biops y (PROC ) No observ ation record ed. [facility] [address], [place], [address], 10/23/2023 10:34:51 02/27/20 24 02/27/2024 XR, shoul myah, 2 or more view No observ ation record ed. [place] [id number], [place], [address], 03/01/2024 09:09:28 02/28/20 24 02/27/2024 elect maryarianna shaistagr am No observ [facility]ion [facility] ed[facility] [address], [place], [address], 03/02/2024 10:38:30 04/10/20 24 04/10/2024 CT, neck, soft tissu e, w/ contr ast No observ ation record ed. [place] [id number], [place], [address], 04/12/2024 08:41:59 04/10/20 24 04/10/2024 CT, abdom en + pelvi s, w/ contr ast No observ ation record ed. [place] [id number], [place], [address], 04/12/2024 08:41:18 04/10/20 24 04/10/2024 CT, chest , w/ contr ast No observ ation record ed. [place] [id number], [place], [address], 04/12/2024 08:41:18 05/10/19 25 04/10/2024 CT, neck, soft tissu e, w/ contr ast No observ ation record ed. [facility] [address], [place], [address], 05/11/2024 10:29:12 05/10/19 25 04/10/2024 CT, abdom en + pelvi s, w/ contr ast No observ ation record ed. [facility] [address], [place], [address], 05/11/2024 10:29:12 05/10/19 25 04/10/2024 CT, chest , w/ contr ast No observ ation record ed. [facility] [address], [place], [address], 05/11/2024 10:29:12 05/16/19 25 04/10/2024 CT, abdom en + pelvi s, w/ contr ast No observ ation record ed. [facility] [address], [place], [place], [address], 05/17/2024 08:43:32 07/10/19 25 07/09/2024 CT, angio gram, neck, w/ contr ast No observ ation record ed. [facility] [address], [place], [place], [address], 07/09/2024 13:38:11 07/10/19 25 07/09/2024 CT, abdom en + pelvi s, w/ contr ast No observ ation record ed. [place] [id number], [place], [place], [address], 07/09/2024 13:38:11 07/10/19 25 07/09/2024 CT, chest , w/ contr ast No observ ation record ed. [facility] [address], [place], [address], 07/09/2024 13:37:58 Result Notes None recorded. Problems Name Problem SNOMED Code Status Onset Date Resolution Date Notes Provider Name and Address Organization Details Recorded Time Chronic obstructiv e pulmonary disease 84852175 Active HARRY Boyce - [facility] 3 10:33:33 Gastroesop hageal reflux disease 736673520 Active HARRY Boyce - [facility] 3 10:33:45 Chronic depression 018073837 Active Hina Winston null, [place] - [facility] 3 10:43:05 Neuropathy 409617134 Active 2022 Sophia Foy, [employer] [address], [place], [address] , [place] - [facility] 3 11:06:01 Constipati on 12369820 Active 2022 Sophia Foy, [employer] [address], [place], [address] , [place] - [facility] 3 11:06:42 Hyperlipid emia 76636142 Active 2022 Sophia Foy, [employer] [address], [place], [place], [address] [place] [address] , [place] - [facility] 3 11:00:02 Dependence on supplement al oxygen 235029134650 Active 2022 Sophia Foy, [employer] [address], [place], [address] , [place] - [facility] 3 11:04:33 Anxiety 72999319 Active 2023 Nhi Stears null, [place] - [facility] 4 09:56:06 Metastatic squamous cell carcinoma 260799490 Active 2023 lymph nodes in neck Nhi Stears null, [place] - [facility] 4 09:55:49 Problem [...] completed Brend a Stears [place] - [facility] 3 09:12:13 07/01 Date of Last Mammogram completed Nhi Stears [place] - [facility] 3 14:57:29 02/28 Date of Last Pap Smear completed Hina Winston [facility] 3 10:40:28 05/15 esophagogastroduodenoscopy completed Venkata Winston [facility] 3 10:40:00 03/28 oophorectomy completed Hina Winston [facility] 3 10:39:39 02/01 colonoscopy completed Hina Winston [facility] 3 10:39:10 Breast Biopsy completed Hina Winston [facility] 3 10:41:16 biopsy of mass in the neck completed Nhi Fernandez [facility] 4 10:05:31 Imaging Results None recorded. Procedure Notes None recorded. Medical Equipment None Reported. Allergies Allergen ID Allergen Name Allergen Category Reaction Reaction Severity Criticality Documentation Date Start Date Code Code System Note Provider Name and Address Organization Details Recorded Time 148937 codeine medicatio n rash Not available [facility] 10/26/2022 2670 RxNorm Hina chen, [facility] 3 10:29:17 266898 aspirin medicatio n nausea Not available [facility] 10/26/2022 1191 RxNorm Hina chen [facility] 3 10:29:32 17353 aspirin medicatio n Not available Not available Not available 01/16/20162014 1191 RxNorm React ion: nausa , vomit ing, diarr hea; Umang chen, [facility] 3 13:25:02 03185 Robaxin medicatio n Not available Not available Not available 01/16/20162014 43309 5 RxNorm React ion: nause a, vomit ing, diarr hea; [facility] 13:25[facility]02 51712 codeine sulfate medicatio n hives Not available Not available 01/16/20162014 22326 RxNorm React ion: rash/ hives ; Umang Perazarajeev april, [facility] 3 13:25:02 Medications Name Sig Start Date Stop [...] by oral route once daily 12/16 completed potassiu m chloride 10 mEq oral capsule, extended [...] 1:20PM;U ser: olzeskis ;Indicat ion: Pain - (16.7809 00) Not Available Not Available Not Available [...] 16;Indic ation: Irritabl e Bowel Syndrome - (09.5641 00);Phar Jonathan fied: 08/21/19 16 12:02PM Not Available Not Available Not Available [...] t Available Vitals Date Recorded Body height Respiratory rate Body mass index (BMI) Body weight Heart rate Oxygen saturation Oxygen saturation in Arterial blood by Pulse oximetry Body temperature Systolic blood pressure Diastolic blood pressure Provider Name and Address Organization Details Last Updated DateTime 5 162.56 cm 18 /min 25.6 kg/m2 08257.2 6 g 92 /min 95 % 95 % 97.8 [degF] 118 mm[Hg] 74 mm[Hg] Nhi Blanks [place] - [facility] 5 10:34:40 Date Recorded Body height Body mass index (BMI) Body weight Heart rate Oxygen saturation Oxygen saturation in Arterial blood by Pulse oximetry Respiratory rate Systolic blood pressure Diastolic blood pressure Provider Name and Address Organization Details Last Updated DateTime 5 162.56 cm 23.2 kg/m2 86367.9 7 g 98 /min 95 % 95 % 22 /min 126 mm[Hg] 78 mm[Hg] Hina Winston [place] - [facility] 5 10:49:11 Date Recorded Body height Body mass index (BMI) Body weight Respiratory rate Heart rate Oxygen saturation Oxygen saturation in Arterial blood by Pulse oximetry Systolic blood pressure Diastolic blood pressure Provider Name and Address Organization Details Last Updated DateTime 4 162.56 cm 24.7 kg/m2 60161.3 g 18 /min 80 /min 94 % 94 % 122 mm[Hg] 76 mm[Hg] Nhi Abhays [place] - [facility] 4 10:01:40 Date Recorded Body height Body mass index (BMI) Body weight Respiratory rate Oxygen saturation Oxygen saturation in Arterial blood by Pulse oximetry Heart rate Body temperature Systolic blood pressure Diastolic blood pressure Provider Name and Address Organization Details Last Updated DateTime 4 162.56 cm 25.6 kg/m2 24517.2 6 g 18 /min 95 % 95 % 84 /min 98.1 [degF] 128 mm[Hg] 76 mm[Hg] Nhi Blanks [place] - [facility] 4 10:02:28 Date Recorded Body height Body mass index (BMI) Body weight Body temperature Heart rate Oxygen saturation Oxygen saturation in Arterial blood by Pulse oximetry Respiratory rate Systolic blood pressure Diastolic blood pressure Provider Name and Address Organization Details Last Updated DateTime 4 162.56 cm 25.2 kg/m2 63077.0 8 g 97.9 [degF] 112 /min 94 % 94 % 18 /min 124 mm[Hg] 76 mm[Hg] Nhi Fernandez [place] - [facility] 10:31:40 Social History Question Answer Notes LastModified by Organizat ion Details LastModified Time Tobacco Smoking Status Current Every Day Smoker Hina chen, [place] - [facility] 10/26/2022 10:37:56 Do You Have An Advance Directive? No Information not available 10/26/2022 Are You Blind Or Do You Have Difficulty Seeing? No Wears Glasses, Few Years Since Last Eye Dr. Dobbins Distance And Near Information not available 03/02/2024 [...] Or The Highest Degree You Have Received? [id number] Information not available 12/16/2022 Have There Been Any Changes To Your Family Or Social Situation? No Information not available 10/26/2022 What Is The Fluoride Status Of Your Home? Fluoridated Information not available 10/26/2022 Have You Recently Or Are You Planning To Travel To An Area With Zika Virus? No Information not available 10/26/2022 Do You Have A Medical Power Of Rotoformer Backtender? No Information not available 10/26/2022 What Was [...] anxious, or unable to sleep at night)? [id number] Information not available 11/25/2022 Do you have difficulty concentrating, remembering or making decisions? No Information no t available 10/26/2022 Family History Relationship Description Onset Age of this Age Resolved Age Notes LastModified by Organization Details LastModified Time Brother Diabetes mellitus cbuckler Not available 2022 10:36:52 Father Heart disease cbuckler Not available 2022 10:37:08 Medical History Condition Response Acid Reflux (GERD) Y Colonoscopy Y Gynecological History Statement/Question Response If Post [...] high-dose, quadrivalent, PF [address] [facility], [place] - [facility] 02/24/2023 09:33:30 Tdap 024 cancelled patient objection Nhi chen, [place] - [facility] 05/13/2023 11:42:50 Pneumococcal conjugate PCV20, polysaccharide VPE866 conjugate, adjuvant, PF 024 completed Nhi Fernandez null, [place] - [facility] 05/13/2023 11:42:59 Influenza, high-dose, trivalent, PF 024 completed Sophia Foy APRN [address], [place], [address], [place] [facility] 02/16/2024 10:53:57 zoster recombinant 024 cancelled patient objection Sophia Foy APRN [address], [place], [address], [place] [facility] 03/02/2024 11:00:54 Tdap 024 cancelled patient objection Sophia Foy APRN [address], [place], [address], [place] [facility] 03/02/2024 11:00:54 Influenza, split virus, quadrivalent, preservative 015 completed Hina Tish null, [place] - [facility] 10/26/2022 10:28:57 Influenza, MDCK, quadrivalent, PF 017 completed Hina Tish [place], [place] - [facility] 10/26/2022 10:28:57 Td(adult) unspecified formulation 013 completed Hina Tish [place], [place] [facility] 10/26/2022 10:28:57 Influenza, split virus, trivalent, preservative 013 completed Hina Tish [place] [facility] 10/26/2022 10:28:57 Influenza, split virus, trivalent, PF 014 completed Hina Tish [place] [facility] 10/26/2022 10:28:57 Influenza, split virus, quadrivalent, PF 022 completed Hina Tish [place] [facility] 10/26/2022 10:28:57 Influenza, split virus, quadrivalent, PF 018 completed Hina Tish [place], [place] [facility] 10/26/2022 10:28:57 Influenza, split virus, quadrivalent, PF 021 completed Hina Tish null, [place] - [facility] 10/26/2022 10:28:57 Past Encounters Encounter ID Performer Location Encounter Start Date Encounter Closed Date Diagnosis/Indication Diagnosis SNOMED-CT Code Diagnosis ICD10 Code Diagnosis Note [id number] Sophia Foy APRN [address] [address] 10/26/2022 09:36:18 10/26/2022 11:07:14 Body mass index 25-29 - overweight 744344169 Z68.26 Overweight 808129486 E66 .3 Chronic depression 48248 0009 F32.A Chronic ob structive pulmonary disease 39927190 J44.9 Gastroesop hageal reflux disease 922875884 K21.9 Neuropathy 418062681 G62 .9 Hyperlipidemia 94652135 E78.5 Pain of hip region 72443 002 M25.559 Constipation 80293414 K5 9.00 Seasonal allergy 7243798 04 J30.2 Adult heal th examination 623531063 Z00.00 Screening for malignant neoplasm of breast 895904186 Z12.31 Exercises education, guidance, and counseling 755297644 Z71.82 Screening for malignant neoplasm of colon 157207338 Z12.11 pt refuses at this time but will think about it Cigarette smoker 9758035 7 F17.625 [id number] Sophia Foy [address] [address] 11/25/2022 09:45:17 11/25/2022 11:49:32 Neuropathy 852863697 G62.9 [facility] reviewed and appropriat emedicatio n compliance discussedL ast uds: 3Control substance agreement on file Long-term drug therapy 814858327 Z79.899 Chronic depression 68874 0009 F32.A Chronic ob structive pulmonary disease 35907530 J44.9 Gastroesop hageal reflux disease 620605401 K21.9 Hyperlipidemia 14062361 E78.5 Dependence on supplemental oxygen 6524935748 07 Z99.81 [id number] Sophia Foy [address] [address] 12/16/2022 08:57:52 12/16/2022 09:48:28 Adult health examination 873680523 Z00.00 Depression screening 171 625250 Z13.31 Examinatio n of blood pressure 329804101 Z01.30 Diet education 85415770 Z71.3 Counseling 158157671 Z71 .82 Exercise counseling . Patient encouraged to exercise 30 minutes 5 days a week. At [facility] ed risk for falls 558992614 Z91.81 STEADI FAST screening score of ____3_. Advance care planning 71 4781754 Z71.89 Finding of body mass index 982029918 E66.3 26.8 Spasm of back muscles 20 0034173 M62.173 [id number] [facility] F[facility] [address] 02/24/2023 08:48:08 02/24/2023 09:36:33 Hyperlipidemia 75775731 E78.5 Neuropathy 397136788 G62 .9 Pt compliant with plan of careKasper reviewed and appropriat emedicatio n compliance discussedL ast uds:Control substance agreement on file Chronic depression 91829 0009 F32.A Chronic ob structive pulmonary disease 57795352 J44.9 Pain of hip region 34842 002 M25.559 Seasonal a llergic rhinitis 499390471 J30.2 Constipation 88533816 K5 9.00 Seasonal allergy 6072960 04 J30.2 Gastroesop hageal reflux disease 654080191 K21.9 Vitamin D deficiency 347 69880 E55.9 Influenza vaccine needed 1134021405 106 Z23 Long-term drug therapy 801770350 Z79.899 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 8028848 E56.0 [id number] Soph[address] Foy[address] [address] 05/13/2023 09:39:07 05/13/2023 10:56:59 Neuropathy 582016306 G62.9 Pt compliant with plan of careKasper reviewed and appropriat emedicatio n compliance discussedL ast uds:Control substance agreement on file Hyperlipidemia 32063082 E78.5 Chronic ob structive pulmonary disease 47689633 J44.9 Chronic depression 27550 0009 F32.A Gastroesop hageal reflux disease 722700716 K21.9 Hepatitis C screening 41 0288909 Z11.59 Vaccine de clined by patient 7924940403 02 Z28.21 Screening for malignant neoplasm of respiratory tract 417108558 Z12.2 Nicotine d ependence with current use 854052870 F17.210 Current tobacco user Former hea vy tobacco smoker 3561353264 16047 Z87.891 Former tobacco user Pain of hip region 62968 002 M25.559 Seasonal a llergic rhinitis 677325491 J30.2 Constipation 82771298 K5 9.00 Seasonal allergy 2808358 04 J30.2 Active or passive immunization 129407390 Z23 Vaccination needed 95963 33350 33186 Z23 Administra tion of pneumococcal vaccine 81141480 Z23 Nicotine dependence 5629 4008 Z87.729 [id number] Sophia Foy[address] [address] 07/25/2023 09:11:44 07/25/2023 09:42:51 Abnormal findings on diagnostic imaging of lung 804308725 R91.8 [id number] Sophia Foy[address] [address] 08/16/2023 09:17:28 08/16/2023 10:16:19 Body mass index 25-29 - overweight 146703750 Z68.25 25.7 Overweight 527837097 E66 .3 Chronic ob structive pulmonary disease 32871236 J44.9 Gastroesop hageal reflux disease 414892915 K21.9 Hyperlipidemia 54805920 E78.5 Neuropathy 539694029 G62 .9 Pt compliant with [facility] reviewed and appropriat emedicatio n compliance discussedL ast uds:08/16/23 Control substance agreement on file Dependence on supplemental oxygen 0466261550 07 Z99.81 Anxiety 45658624 F41.9 will check labs after resulted will adjust med Prediabetes 059455767 R7 3.03 Long-term current use of drug therapy 867055965 Z79.899 Pain of hip region 59230 002 M25.559 Seasonal a llergic rhinitis 494626529 J30.2 Constipation 98227288 K5 9.00 Seasonal allergy 8950078 04 J30.2 Chronic depression 37930 0009 F32.A Lymphadenopathy 41874337 R59.1 [id number] Sophia Lópezomi [address] [address] 09/09/2023 11:36:26 09/09/2023 12:03:22 Ultrasound scan abnormal 972032350 R93.89 Lymphadenopathy 94255438 R59.1 follow up with pulmonolog y [id number] Sophia Foy [address] [address] 09/20/2023 09:42:17 09/20/2023 12:03:55 Pharyngitis 244933305 J02.9 Patient strep negative. Acute maxi llary sinusitis 54044761 J01.00 Sent z-yesika to be delivered tomorrow and gave a Rocephin shot in office. Discussed if she gets any worse to come back. [id number] Sophia Foy [address] [address] 10/04/2023 09:43:11 10/04/2023 10:20:28 Tuberculosis screening 839555779 Z11.1 [id number] Sophia Foy [address] [address] 11/15/2023 09:33:34 11/15/2023 10:55:37 Hyperlipidemia 44281833 E78.5 Chronic depression 72570 0009 F32.A Vitamin D deficiency 347 34699 E55.9 Pain of hip region 94691 002 M25.559 Neuropathy 797852024 G62 .9 Pt compliant with plan of Janine reviewed and appropriat emedicatio n compliance discussedL ast uds:08/16/23 Control substance agreement on file Constipation 47232746 K5 9.00 Seasonal allergy 9493720 04 J30.2 Gastroesop hageal reflux disease 166391183 K21.9 Seasonal a llergic rhinitis 512541637 J30.2 Chronic ob structive pulmonary disease 86308750 J44.9 Anxiety 19210181 F41.9 will check labs after resulted will adjust med [id number] Sophia Lópezomi [address] [address] 02/16/2024 09:53:24 02/16/2024 10:55:33 Hyperlipidemia 02165934 E78.5 Chronic depression 85526 0009 F32.A Vitamin D deficiency 347 20861 E55.9 Pain of hip region 63798 002 M25.559 Seasonal a llergic rhinitis 515223362 J30.2 Neuropathy 508345338 G62 .9 Pt compliant with plan of careKasper reviewed and appropriat emedicatio n compliance discussedL ast uds:08/16/23 Control substance agreement on filetrial of increase in gabapentin Chronic ob structive pulmonary disease 76377046 J44.9 Constipation 26131730 K5 9.00 Seasonal allergy 9927100 04 J30.2 Gastroesop hageal reflux disease 931156056 K21.9 Anxiety 00167056 F41.9 will check labs after resulted will adjust med Influenza vaccine needed 5251660069 106 Z23 Malignant lymphoma 02976 0007 C85.90 Metastatic squamous cell carcinoma to lymph node 4114603956 100 C80.1 follow up with oncologist [id number] Sophia Foy APRN [address] [address] 03/02/2024 10:10:39 03/02/2024 11:05:55 Adult health examination 564363724 Z00.00 Depression screening 171 072747 Z13.31 A depression screening was completed via a standardiz ed screening tool. 5 minutes were spent discussing depression screening results and risk factors. Examinatio n of blood pressure 402108948 Z01.30 Diet education 75556354 Z71.3 Counseling 358909095 Z71 .82 Exercise counseling . Patient encouraged to exercise 30 minutes 5 days a week. At [facility] ed risk for falls 445209992 Z91.81 STEADI FAST screening score of ___6__. Advance care planning 71 5883435 Z71.89 Body mass index 25-29 - overweight 251445916 Z68.25 25.2 Overweight 424650512 E66 .3 Vaccine de clined by patient 8933816061 02 Z28.21 Metastatic squamous cell carcinoma 770617420 C80.1 receiving treatment has 3 more treatments - goes every 3 weeks Neuropathy 073177983 G62 .9 Pt compliant with plan of careKasper reviewed and appropriat emedicatio n compliance discussedL ast uds:08/16/23 Control substance agreement on filesent 1 month extra due to weather and treatments [id number] Sophia Foy APRN [address] [address] 06/08/2024 10:23:57 06/08/2024 11:18:27 Hyperlipidemia 15439935 E78.5 Chronic depression 21040 0009 F32.A Vitamin D deficiency 347 34534 E55.9 Pain of hip region 38707 002 M25.559 Seasonal a llergic rhinitis 004561491 J30.2 Neuropathy 205220296 G62 .9 Pt compliant with plan of [facility] reviewed and appropriat emedicatio n compliance discussedL ast uds:08/16/23 - cancer ptControl substance agreement on file Chronic ob structive pulmonary disease 61362909 J44.9 Constipation 69071058 K5 9.00 Seasonal allergy 8360427 04 J30.2 Gastroesop hageal reflux disease 945870129 K21.9 Anxiety 84692738 F41.9 Metastatic squamous cell carcinoma 743036182 C80.1 receiving treatment has 3 more treatments - goes every 3 weeks [id number] Sophia Foy APRN [address] [address] 08/30/2024 10:35:41 08/30/2024 11:23:31 Anxiety 84946079 F41.9 Hyperlipidemia 79744889 E78.5 Metastatic squamous cell carcinoma 356494903 C80.1 Constipation 10882848 K5 9.00 Right flank pain 0372974 09 R10.9 labsif worsen or no improvemen t return or go to ed Acute righ t otitis media 559547246 H66.91 if worsen or no improvemen t return Health Concerns Section Related Observation LastModified by Organization Detai ls LastModified Time None Recorded Concern Status LastModified by Organization Details LastModified Time None Recorded Advance Directives Directive N: Payers Insurance Date Sequence Insurance Name Policy Number Policy Sharma Covered Member ID Sharma Member ID Guarantor Name 08/27/2024 [place] Nori Montoya [id number] Nori Montoya 11/26/2022 2 [place] Nori Montoya [id number] Nori Montoya 09/10/2024 2 [facility] CHO[facility] - FFS/TRADITIONA L Nori Montoya [id number] Nori Montoya 06/08/2024 1 [place] (MEDICARE REPLACEMENT HMO) [id number] Nori Montoya [id number] Nori Montoya 06/13/2024 1 [place]MED[place]ACEMENT HMO[place] [id number] Nori Montoya [id number] Nori Montoya 09/10/2024 1 [employer] (MEDICARE REPLACEMENT/AD VANTAGE - PPO) [id number] Nori Montoya [id number] Nori Montoya Notes Date Note Type Note Provider Name and Address Organization Details Recorded Time 11/15/2023 text/html 68 year old maura messer who presents to the office today for a follow up onpre diabetes and other chronic illnessesher neck biopsy came back as metastatic squamous cell carcinoma- she states she had an mri at [place], she has a PET scan ordered but does not want to have it done in [place] if at all, pt states she get car sick and she can not ride that long. pt states she is waiting for dr cates's office to reset up pet scan.pt states gabapentin helps with neuropathy. pt states she does not want labs today Sophia Foy APRN [address], [place], [address], [place] [facility] 11/17/2023 13:48:27 02/16/2024 text/html 69 year old maura messer who presents to the office today for a follow up on neuropathy, hip pain, hyperlipidemia, depression, anxietyhas concerns of leg pain, burning and throbbing of adamaris legs and feetwants flu shot Sophia Foy APRN [address], [place], [address], [place] [facility] 02/16/2024 10:56:03 03/02/2024 text/html Medicare Annual Wellness VisitReported bypatient.Diet and Nutrition:high caloric intake;high carbohydrate meals Fracture Risk:no recent explained fracture; no sudden unexplained fractures;history of fractures(right hip at age 19) Physical Activity:does not exercise on a regular basis(uses foot pedal at times) Depression Risk:never feels sad, empty, or tearful; no significant changes in weight; no sleep disturbances or insomnia; no agitation; no feelings of worthlessness or guilt; no thoughts of suicide; no history of mood disorders;loss of interest in activities;loss of energy;history of depression Orientation:no disorientation to time (10:30); no disorientation to date (03-02-24); no disorientation to place (dr. horta) Concentration and Memory:no decreased concentrating ability;memory lapses or loss;forgetting words Speech/Motor difficulties:no speech difficulties; no difficulty expressing formulated concepts; no difficulty with fine manipulative tasks; no difficulty writing/copying; no slowed reaction time; does not knock things over when trying to pick them up Hearing:no loss of hearing Vision:worse both distance and near(wears glasses) Activities of Daily Living:able to bathe with limited or no assistance; able to contol urination and bowels; able to dress with limited or no assistance; able to feed self with limited or no assistance; able to get out of chair or bed with limited or no assistance; able to groom with limited or no assistance; able to toilet with limited or no assistance Instrumental Activities of Daily Living:able to do house work with limited or no assistance; able to grocery shop with limited or no assistance; able to manage medications with limited or no assistance; able to manage money with limited or no assistance; able to prepare meals with limited or no assistance; able to use the phone with limited or no assistance Falls Risk Assessment:no frequent falls while walking; no fall in the past year; no fall since last visit; no dizziness/vertigo Home Safety:no unsafe jocelin hazzards; no unsafe stairs; no unsafe gas appliances; working smoke/CO detectors; use of seatbelts; no vision or hearing loss while driving; has hand bars in the bathroom/shower; good lighting in the home Current level of painPain Present 69 year old female who presents to the office today for a medicare annual wellness Sophia Foy APRN [address], [place], [address], [place] [facility] 03/02/2024 11:13:39 06/08/2024 text/html 69 year old maura messer who presents to the office today for a follow up onneuropathy, gerd, hyperlipidemia, anxiety,needs refills on all medspt states neuropathy well controlled on medspt states she has 3 more chemo treatments Sophia LópezKAROL braga [address], [place], [address], [place] [facility] 06/08/2024 13:25:50 08/30/2024 text/html 69 yr old female presents for a check up on chronic conditions. Has also been having right ear pain.pt states right abdominal pain that is intermittent. has ct less than a month ago and it was normal per pt Marinaroney Foy APRN [address], [place], [address], [place] [facility] 08/30/2024 11:32:10 OBGyn Episode No OBEpisode recorded.
[2024-09-19 10:32] LABS: Basophils # 0.1 K/mm3 (0-0.2); Basophils % 1.1 % (0.1-2.0); Eosinophils # 0.1 Kmm3 (0.0-0.4); Eosinophils % 2.3 % (0.1-12.0); Hematocrit 42.4 % (37.0-47.0); Hemoglobin 14.1 g/dL (12.2-16.2); Immature Granulocytes # 0.01 10^3uL; Immature Granulocytes % 0.2 %; Lymphocytes # 2.1 K/mm3 (0.7-4.5); Lymphocytes % 37.3 % (10-50); Mean Corpuscular HGB Conc 33.3 g/dL (31.8-35.4); Mean Corpuscular Hemoglobin 32.4 pg (27.0-31.2); Mean Corpuscular Volume 97.5 fl (81-99); Mean Platelet Volume 9.8 fl (7.4-10.4); Monocytes # 0.5 K/mm3 (0.1-1.0); Monocytes % 8.1 % (1.7-9.3); Neutrophils # 2.8 K/mm3 (1.8-7.8); Nucleated Red Blood Cells # 0 10^3/uL; Nucleated Red Blood Cells % 0 %; Platelet Count 205 K/mm3 (142-424); Red Blood Count 4.35 M/mm3 (4.20-5.40); Red Cell Distribution Width 13.2 % (11.5-17.5); Red Cell Distribution Width-SD 47.5 fL; White Blood Count 5.6 K/mm3 (4.8-10.8)
[2024-09-19 10:44] LABS: Alanine Aminotransferase 15 U/L (12-78); Albumin Level 4.4 g/dl (3.5-5.0); Albumin/Globulin Ratio 1.3 (1.1-1.8); Alkaline Phosphatase 97 U/L (38-126); Anion Gap 7.8 mEq/L (5-15); Aspartate Amino Transferase 23 U/L (14-36); Bilirubin,Total 0.6 mg/dl (0.2-1.3); Blood Urea Nitrogen 12 mg/dl (7-17); Calcium 9.3 mg/dl (8.4-10.2); Carbon Dioxide 28 mmol/L (22.0-30.0); Chloride 107 mmol/L (98-107); Creatinine Clearance Estimated 53 mL/min (50-200); Estimated Glomerular Filt Rate 71 ml/min (>60); GFR (African American) 86 ML/MIN (>60); Globulin 3.3 g/dL (1.3-3.2); Glucose 86 mg/dl (74-100); Potassium 3.8 mmoL/L (3.5-5.1); Sodium 139 mmol/L (136-145); Total Protein,Serum 7.7 g/dl (6.3-8.2)
[2024-09-19 11:15] LABS: Thyroid Stimulating Hormone 1.89 uIU/mL (0.465-4.68)
--- OUTSIDE RECORDS SUMMARY | 2024-09-19 11:17 | XMS_ITS | CCD ---
Author Organization Unknown Care Team Providers Care Careers Counsellor Name Role Phone Unavailable Primary Care Provider Unavailabl e Unavailable Chronic Care Management Unavaila ble Summary Purpose DataExchange Insurance Providers Payer name Policy type / Coverage type Covered green party ID Effective Begin Date Effective End Date [facility] [id number] Unknown Unknown Family History Family History data not found Medication Administered No Medication Administered data Reason For Visit No Reason For Visit data Medical Equipment No Medical Equipment data Advance Directives No Advance Directive data
[2024-09-19] MEDS: SODIUM CHLORIDE 0.9% 50ML BAG 50 ML IV (11:42)
[2024-09-19] MEDS: SODIUM CHLORIDE 0.9% 10ML FLUSH SYRINGE 10 ML IV (11:43)
[2024-09-19 11:56] VITALS: BP 133/61; PULSE 71; RESP 20; TEMP 36.6; O2SAT 98
[2024-09-19] MEDS: PEMBROLIZUMAB 400 MG in 0.9 % SODIUM CHLORIDE 50 ML 132 MG IV (11:56)
[2024-09-19 12:38] VITALS: BP 130/62; PULSE 72; RESP 20; O2SAT 98
[2024-09-20 12:15] LABS: Adrenocorticotropic Hormone 6.4 pg/mL (7.2-63.3)
== END 2024-09-19 12:38 | disposition home or self-care (01) ==
LOC: INF 10:15
PROVIDERS: PCP Nurse Practitioner Family; Visit Provider Internal Medicine Medical Oncology
DX: Z51.11 Encounter for antineoplastic chemotherapy (principal); C34.90 Malignant neoplasm of unspecified part of unspecified bronchus or lung; C77.0 Secondary and unspecified malignant neoplasm of lymph nodes of head, face and neck; R59.1 Generalized enlarged lymph nodes
CPT/HCPCS: 80053; 82024; 82533; 84443; 85025; 96413; J9271

== ENCOUNTER 2024-10-30 08:39 | Outpatient (CLI) | payer MEDICARE, MEDICAID, SELFPAY ==
--- OUTSIDE RECORDS SUMMARY | 2024-10-30 08:47 | XMS_ITS | Clinical Summary ---
Author Organization Healthcare Address [address] [place] [address] Care Team Providers Care Patient Support Representative Name Role Phone Jt Faye MD Primary Care Provider [phone] Family History Medical History Relation Name Comments [...] of Treatment Not on file Care Teams Patient Support Representative Relationship Specialty Start Date End Date Jt Faye MD [address] [place], [place] [id number] PCP - General 08/22/20
--- OUTSIDE RECORDS SUMMARY | 2024-10-30 08:47 | XMS_ITS | Data Portability ---
Author Organization [facility], [place] Address [address] [place] [address] Care Team Providers Care Lead Neurodiagnostic Technologist Name Role Phone SOPHIA FOY Primary Care Provider VENKATA PACHECO Medical Oncologist Assessment Encounter Date Assessment Date Assessment LastModified [...] software and or use of a medical collections specialist. Variances in spelling and vocabulary are possible [...] software and or use of a medical collections specialist. Variances in spelling and vocabulary are possible [...] currently under care of Dr. Pacheco at [facility] for recent lymph node and PET/CT findings. 1 Continue Trelegy 100 mcg 1 puff daily; Rinse mouth after each use *Failed Symbicort and Spiriva 2. Continue Ventolin 90 mcg 2 puffs every 4 hours 3. F/U with Dr. Pacheco (Oncology) as scheduled 4. Smoking Cessation 5. Enroll in [facility] 6. Request PET/CT from [facility] 7. RTO in 4 months Portions of this note may be dictated using voice recognition software and or use of a medical collections specialist. Variances in spelling and vocabulary are possible [...] 1 ppd x 40 years, now 1 / ppd Plan *Patient currently under care of Dr. Pacheco (Oncology) at [facility]; PET/CT completed on Tuesday. She has results follow up in the AM 1 Stop Trelegy 100 mcg; RX Trelegy 200 mcg 1 puff daily; Rinse mouth after each use *Failed Symbicort and Spiriva 2. Continue Ventolin 90 mcg 2 puffs every 4 hours 3. F/U with Dr. Pacheco (Oncology) as scheduled 4. Smoking Cessation 5. Enrolled in [facility] 6. Request PET/CT from [facility] 7. RTO in 4 months, sooner if needed Portions of this note may be dictated using voice recognition software and or use of a medical collections specialist. Variances in spelling and vocabulary are possible [...] under care of Dr. Pacheco (Oncology) at [facility] 1 Continue Trelegy 200 mcg 1 puff daily; Rinse mouth after each use (RX Renewed) *Failed Symbicort, Spiriva and Trelegy 100 mcg 2. Continue Ventolin 90 mcg 2 puffs every 4 hours (RX Renewed) 3. F/U with Dr. Pacheco (Oncology) as scheduled 4. Smoking Cessation 5. Enrolled in [facility] 6. Request PET/CT from [facility]-2nd request sent 7. PFT at next OV 8.RTO in 4 months, sooner if needed The patient underwent pulmonary function testing today to evaluate complaints of dyspnea. Results were discussed with the patient. Portions of this note may be dictated using voice recognition software and or use of a medical collections specialist. Variances in spelling and vocabulary are possible [...] Imaging CT, chest, w/o contrast - auth [id number] exp 11/15/23 PATIENT WOULD LIKE TO COMPLETE AT [facility]; FAX RESULTS TO [phone] 2023 024 [facility] ([facility]), [address], [place], [address], 09/20/2023 08:34:04 Medication Orders Trelegy Ellipta 200 mcg-62.5 mcg-25 mcg powder for inhalatio n 2024 025 ATHENAFAX [facility] - [address], [address], 08/13/2024 14:44:53 albuterol sulfate HFA 90 mcg/actua tion aerosol inhaler [address], [address], 08/13/2024 15:00:37 Trelegy Ellipta 200 mcg-62.5 mcg-25 mcg powder for inhalatio n 2024 025 [facility] - [address], [address], 04/12/2024 11:27:26 Trelegy Ellipta 100 mcg-62.5 mcg-25 mcg powder for inhalatio n 2023 [email or web address], [address], 08/13/2024 14:22:40 Spiriva with [employer] r 18 mcg and inhalatio n capsules [address], [address], 12/13/2023 11:17:48 Patient TargetsNo targets recorded. Patient Instructions Encounter Date Encounter Id Patient Instructions Last Modified By Organization Details Last Modified Time 08/18/2023 [id number] smoking cessatio n counseling, greater than 3 minutes up to 10 minutes* [email or web address] Not available 08/22/2023 10:40:56 Smoking cessatio n was discussed with the patient for less than 10 minutes. The detrimental effects to the patient's health of continued smoking was explained. Methods to quit smoking were also discussed to include nicotine replacement therapy and pharmacologic treatment. Not available 08/18/2023 12:31:29 10/11/2023 [id number] smoking cessatio n counseling, greater than 3 minutes up to 10 minutes* [email or web address] Not available 10/11/2023 10:11:49 12/13/2023 [id number] medical record request* - Please forward recent PET/CT scan [email or web address] Not available 12/20/2023 10:12:08 Smoking cessatio n [...] though CCM services will not involve a iycf-up-[id number] meeting with the provider. Not available 12/13/2023 11:39:33 04/12/2024 [id number] medical record request* - Please forward recent PET/CT ordered by Dr. Pacheco [email or web address] Not available 04/19/2024 11:06:11 Smoking cessatio n was discussed with the patient for less than 10 minutes. The detrimental effects to the patient's health of continued smoking was explained. Methods to quit smoking were also discussed to include nicotine replacement therapy and pharmacologic treatment. Not available 04/12/2024 11:34:19 08/13/2024 [id number] medical record request* - please forward most recent PET/CT or Chest CT [email or web address] Not available 08/20/2024 10:27:42 Smoking cessatio n [...] tissu e No observ ation record ed. [email or web address] [facility] (Imaging) [address] [place], [address], 09/26/2023 15:54:54 09/30/19 24 09/28/2023 CT, chest , w/o contr ast No observ ation record ed. [email or web address] [facility] (Imaging) [address] [place], [address], 09/30/2023 10:07:40 12/13/19 24 10/21/2023 US, neck No observ ation record ed. [email or web address] Not Available 2023 16:40:57 04/12/19 25 04/10/2024 CT, chest , w/ contr ast No observ ation record ed. [email or web address] Not Available 2024 14:08:33 04/12/19 25 04/10/2024 CT, chest , w/ contr ast No observ ation record ed. [email or web address] Not Available 2024 14:09:11 04/12/19 25 04/10/2024 CT, chest , w/ contr ast No observ ation record ed. [email or web address] Not Available 2024 14:09:50 04/23/19 25 04/12/2024 compl ete PFT* No observ ation record ed. [email or web address] Not Available 2024 16:20:43 08/15/19 25 07/09/2024 CT, chest , w/ contr ast No observ ation record ed. [email or web address] [facility] (Med Record) [address], [place], [address], 08/14/2024 10:22:14 08/15/19 25 07/09/2024 CT, angio gram, head + neck, w/wo contr ast No observ ation record ed. [email or web address] [facility] (Med Record) [address], [place], [address], 08/14/2024 10:22:50 08/18/19 25 08/16/2024 compl ete PFT w/ post [facility] hodil ator shanice metry * No observ ation record ed. [email or web address] Not Available 08/17 09:53:30 Result Notes None recorded. Problems Name Problem SNOMED Code Status Onset Date Resolution Date Notes Provider Name and Address Organization Details Recorded Time Chronic obstructive pulmonary disease 66753405 Active 2023 Janet Tristan NP [address], [place], [address], [place] - [facility] 4 12:57:16 Multiple nodules of lung 874296216 Active 2023 carol chen [place] - [facility] 5 09:26:52 Dyspnea 035139087 Active 2023 Janet Tristan NP [address], [place], [address], [place] - [facility] 4 15:30:53 Dependence on nocturnal oxygen therapy 3879085767954 8 Active 2023 Janet Tristan NP [address], [place], [address], [place] - [facility] 4 15:31:02 Heavy tobacco smoker 9952880623690 03 Active 2023 Janet Tristan NP [address], [place], [address], [place] - [facility] 4 15:32:05 Lymphadenop athy 89009945 Active 2023 Janet Tristan NP [address], [place], [address], [place] - [facility] 4 12:30:15 Squamous cell carcinoma of skin 729259131 Active 2024 Janet Tristan NP [address], [place], [address], [place] [facility] 5 20:24:12 Dyspnea on exertion 56013527 Active 2024 Janet Tristan NP [address], [place], [address], [place] [facility] [...] Name and Address Organization Details Recorded Time 32032 codeine medicatio n hives mild low 07/21/2023 2670 RxNorm tomas tuel null, [place] - [facility] 4 12:34:52 10040 aspirin medicatio n nausea mild low 07/21/2023 [...] Heart rate Respiratory rate Body temperature Systolic And Diastolic Provider Name and Address Organization Details Last Updated DateTime 5 160.02 cm 25.7 kg/m2 82373.8 9 g 99 % 99 % 90 /min 18 /min 99.5 [degF] 124/80 mm[Hg] tomas haq [facility] 5 10:42:55 Date Recorded Body height Body mass index (BMI) Body weight Oxygen saturation Oxygen saturation in Arterial blood by Pulse oximetry Heart rate Respiratory rate Body temperature Systolic And Diastolic Provider Name and Address Organization Details Last Updated DateTime 5 160.02 cm 24.3 kg/m2 68668.5 9 g 94 % 94 % 84 /min 18 /min 99.1 [degF] 140/88 mm[Hg] neno morin [facility] 5 14:19:42 Date Recorded Body height Body mass index (BMI) Body weight Oxygen saturation Oxygen saturation in Arterial blood by Pulse oximetry Heart rate Respiratory rate Body temperature Systolic And Diastolic Provider Name and Address Organization Details Last Updated DateTime 4 160.02 cm 27.6 kg/m2 47103.4 1 g 93 % 93 % 80 /min 18 /min 98.9 [degF] 122/68 mm[Hg] tomas haq [facility] 4 10:15:27 Date Recorded Body height Body mass index (BMI) Body weight Oxygen saturation Oxygen saturation in Arterial blood by Pulse oximetry Heart rate Respiratory rate Body temperature Systolic And Diastolic Provider Name and Address Organization Details Last Updated DateTime 4 160.02 cm 25.7 kg/m2 46894.8 9 g 90 % 90 % 84 /min 20 /min 97.7 [degF] 122/82 mm[Hg] cezar henderson [facility] 4 09:56:03 Date Recorded Body height Body mass index (BMI) Body weight Oxygen saturation Oxygen saturation in Arterial blood by Pulse oximetry Heart rate Respiratory rate Body temperature Systolic And Diastolic Provider Name and Address Organization Details Last Updated DateTime 4 160.02 cm 25.7 kg/m2 78318.8 9 g 92 % 92 % 86 /min 18 /min 97.5 [degF] 122/88 mm[Hg] cezar henderson [facility] 4 09:52:25 Social History Question Answer Notes LastModified by Organizat ion Details LastModified Time Tobacco Smoking Status Current Every Day Smoker tomas chen [facility] 07/21/2023 12:37:28 Do You Have An Advance Directive? No Information not available 07/21/2023 Is Your Home Air Conditioned? Yes Information not available 07/21/2023 Where Do You Live? SingleLevelHouse [email or web address] Information not available 10/11/2023 Do You Have A Medical Power Of Tip Banding Machine Operator? No Information not available 07/21/2023 What Was The Date Of Your Most Recent Tobacco Screening? 04/12/2024 Information not available 04/12/2024 What Is Your Current Pack Years? [email or web address] Information not available 07/21/2023 Do You Have Any Pets? No Information not available 07/21/2023 What Is Your Relationship Status? [email or web address] Information not available 10/11/2023 At What Age Did You Start Smoking Tobacco? 20 Information not available 07/21/2023 Are There Any Smokers In Your House? Yes Information not available 07/21/2023 How Much Tobacco Do You Smoke? 1 PPD 1 1/2 Packs A Day [email or web address] Information not available 10/11/2023 Has Tobacco Cessation [...] Organization Details LastModified Time Father Heart disease Not available 10/10 09:57:16 Mother Heart disease [email or web address] Not available 10/10 09:57:16 Brother Diabetes mellitus [email or web address] Not available 10/10 09:57:21 Medical History No medical history recorded. Gynecological HistoryNo gynecological history recorded. Obstetrics History GPAL:G 0 P 0 0 0 0 Past Encounters Encounter ID Performer Location Encounter Start Date Encounter Closed Date Diagnosis/Indication Diagnosis SNOMED-CT Code Diagnosis ICD10 Code Diagnosis Note [id number] Janet Tristan NP [address] [place] [id number] 07/21/2023 11:58:57 07/21/2023 13:13:58 Chronic obstructive pulmonary disease 93240373 J44.9 Multiple n odules of lung 496245994 R91.8 Dependence on nocturnal oxygen therapy 2068907008 9108 Z99.81 Dyspnea 379076781 R06.00 Heavy tobacco smoker 321 4731568 55720 Z72.0 [id number] Janet Tristan NP [facility] [address] [place] [address] [address] [place] [address] 08/18/2023 10:09:33 08/18/2023 12:39:34 Chronic obstructive pulmonary disease 03729907 J44.9 Multiple n odules of lung 485532387 R91.8 Dependence on nocturnal oxygen therapy 6793966882 9108 Z99.81 Dyspnea 071189303 R06.00 Heavy tobacco smoker 944 5268070 79838 Z72.0 Lymphadenopathy 10748387 R59.0 [id number] Janet Tristan NP [address] [place] [id number] 10/11/2023 09:43:47 10/11/2023 10:48:51 Chronic obstructive pulmonary disease 76247468 J44.9 Multiple n odules of lung 240090625 R91.8 Dependence on nocturnal oxygen therapy 4917901638 9108 Z99.81 Dyspnea 840535088 R06.00 Heavy tobacco smoker 138 7119942 40047 Z72.0 Lymphadenopathy 46948491 R59.0 [id number] Juancho Fallon [address] [place] [id number] 12/13/2023 09:45:33 12/13/2023 10:50:20 Chronic obstructive pulmonary disease 24842341 J44.9 Multiple n odules of lung 781012498 R91.8 Dependence on nocturnal oxygen therapy 3019941170 9108 Z99.81 Dyspnea 052407123 R06.00 Heavy tobacco smoker 717 9609299 68779 Z72.0 Lymphadenopathy 28570210 R59.0 [id number] Juancho Fallon DO [address] [place] [id number] 04/12/2024 10:09:09 04/12/2024 11:53:18 Chronic obstructive pulmonary disease 16998654 J44.9 Multiple n odules of lung 170721300 R91.8 Dependence on nocturnal oxygen therapy 0105137893 9108 Z99.81 Dyspnea 765335285 R06.00 Heavy tobacco smoker 988 4977817 24405 Z72.0 Lymphadenopathy 13165290 R59.0 [id number] Juancho Fallon [address] [place] [id number] 08/13/2024 14:02:15 08/13/2024 14:42:40 Chronic obstructive pulmonary disease 37156432 J44.9 Multiple n odules of lung 650015693 R91.8 Dependence on nocturnal oxygen therapy 8545700277 9108 Z99.81 Dyspnea 359658671 R06.00 Heavy tobacco smoker 434 3515229 86102 Z72.0 Lymphadenopathy 15749745 R59.0 Squamous c ell carcinoma of skin 862678845 C44.92 Health Concerns Section Related Observation LastModified by Organization Detai ls LastModified Time None Recorded Concern Status LastModified by Organization Details LastModified Time None Recorded Advance Directives Directive N: Payers Insurance Date Sequence Insurance Name Policy Number Policy Sharma Covered Member ID Sharma Member ID Guarantor Name 09/18/2024 2 MEDICAID-[facility] HEALTH CHOICES - FFS/TRADITIONA L Nori Montoya [id number] Nori Montoya 08/13/2024 1 [place] MED[place]UE ADVANTAGE (MEDICARE REPLACEMENT HMO) [id number] Nori Montoya [id number] Nori Montoya 08/13/2024 3 [place] Nori Montoya [id number] Nori Montoya 09/18/2024 1 [employer] (MEDICARE REPLACEMENT/AD VANTAGE - PPO) [id number] Nori Montoya [id number] Nori Montoya Notes Date Note Type Note [...] Tristan NP [address], [place], [address], [facility] 08/18/2023 12:32:23 10/11/2023 [...] an appointment with Dr. Pacheco (Oncology) at [facility] for an enlarged lymph node to [...] Tristan NP [address], [place], [address], [facility] [employer] [facility] 10/11/2023 11:42:55 12/13/2023 text/html This 68 year-old female returns to the office for the ongoing management of COPD and medication follow up. Since last visit patient had a biopsy of right neck mass, PET/CT and is awaiting a date for a colonoscopy. Patient states she is unsure of results. She is being followed by Dr. Pacheco (Oncology) at [facility]. Patient continues Trelegy 100 mcg 1 [...] Tristan NP [address], [place], [address], [employer] 12/13/2023 11:42:51 04/12/2024 [...] Tristan NP [address], [place], [address], [facility] 04/12/2024 11:35:03 08/13/2024 text/html This 69 year-old female returns to the office for the ongoing management of COPD. Patient continues to follow with Dr. Pacheco (Oncology) at [facility] for squamous cell carcinoma to right [...] Tristan NP [address], [place], [address], [facility] 08/13/2024 20:26:16 OBGyn Episode No OBEpisode recorded.
--- OUTSIDE RECORDS SUMMARY | 2024-10-30 08:47 | XMS_ITS | Data Portability ---
Author Organization [facility] Address [address] [place] [address] Care Team Providers Care Airport Attendant Name Role Phone SOPHIA FOY Primary Care Provider [phone] Assessment Encounter Date Assessment Date Assessment LastModified by Organization Details LastModified Time 03/02/2024 03/02/2024 Medicare Preventive Services Check List reviewed and printed for patient. [email or web address] Not available 03/02/2024 10:20:57 Plan of Treatment Reminders Order Date Submit Date Provider Last Modified By Organization Details Last Modified Time Details Appointments Establish ed Patient 20 2024 10:20A M Sophia Foy APRN Not available Not available Not available Lab CMP, serum or plasma 2024 025 WYLIE [facility], [address], [place], [place], [address], 09/01/2024 04:06:36 CBC w/ auto diff 2024 025 WYLIE [facility], [address], [place], [place], [address], 09/01/2024 04:06:35 urinalysi s, dipstick 2024 025 [facility], [address] [facility], [place], [address], 08/30/2024 14:12:44 culture, urine 2024 025 WYLIE [facility], [address], [place], [place], [address], 09/01/2024 04:06:37 amylase + lipase, serum 2024 [facility], [address], [place], [place], [address], 09/01/2024 04:06:36 Referral None recorded. Procedures None recorded. Surgeries None recorded. Imaging None recorded. Medication Orders buspirone 15 mg tablet 2024 [facility], [address] [place] [address], [place], [address], 10/25/2024 10:50:00 sertralin e 100 mg tablet [address], [address], 10/25/2024 10:49:57 cyclobenz aprine 5 mg tablet 2024 [facility], [address] [place] [address], [place], [address], 10/25/2024 10:49:59 furosemid e 40 mg tablet [address], [place], [address], 10/25/2024 10:50:02 pantopraz ole 40 mg tablet,de layed release [address], [place], [address], 10/25/2024 10:50:04 vitamin E (dl, acetate) 450 mg (1,000 unit) capsule [address], [address], 10/25/2024 10:49:57 atorvasta tin 40 mg tablet [address], [address], 10/25/2024 10:49:58 ipratropi um bromide 0.02 % solution for inhalatio n [address], [address], 10/25/2024 10:49:58 albuterol sulfate 2.5 mg/3 mL (0.083 %) solution for nebulizat ion [address], [address], 10/25/2024 10:50:[address] 10 mg tablet [address], [address], 10/25/2024 10:50:03 Linzess 145 mcg capsule [address], [address], 10/25/2024 10:50:01 cholecalc iferol (vitamin D3) 1,250 mcg (50,000 unit) capsule [address], [address], 10/25/2024 10:50:03 gabapenti n 600 mg tablet [address], [address], 10/25/2024 10:50:12 amoxicill in 500 mg tablet [address], [address], 09/16/2024 05:01:05 buspirone 15 mg tablet [address], [address], 06/08/2024 13:24:46 sertralin e 100 mg tablet [address], [address], 06/08/2024 13:24:45 cyclobenz aprine 5 mg tablet [address], [address], 06/08/2024 13:24:42 furosemid e 40 mg tablet [address], [address], 06/08/2024 13:24:41 pantopraz ole 40 mg tablet,de layed release [address], [address], 06/08/2024 13:24:44 atorvasta tin 40 mg tablet [address], [address], 06/08/2024 13:24:44 fluticaso ne propionat e 50 mcg/actua tion nasal spray,harrison pension 2024 025 [facility], [address] [place] [address], [place], [address], 06/08/2024 13:24:45 ipratropi um bromide 0.02 % solution for inhalatio n [address], [place], [address], 06/08/2024 13:24:[address] 10 mg tablet [address], [place], [address], 06/08/2024 13:24:43 Linzess 145 mcg capsule [address], [address], 06/08/2024 13:24:43 cholecalc iferol (vitamin D3) 1,250 mcg (50,000 unit) capsule [address], [place], [address], 06/08/2024 13:24:41 gabapenti n 600 mg tablet [address], [address], 06/08/2024 13:24:47 gabapenti n 600 mg tablet [address], [address], 03/02/2024 11:03:38 buspirone 15 mg tablet [address], [address], 02/16/2024 10:54:01 sertralin e 100 mg tablet [address], [address], 02/16/2024 10:54:01 cyclobenz aprine 5 mg tablet [address], [address], 02/16/2024 10:54:00 Lasix 40 mg tablet [address], [address], 02/16/2024 10:54:03 Lasix 40 mg tablet [address], [address], 02/16/2024 10:54:03 pantopraz ole 40 mg tablet,de layed release [address], [address], 02/16/2024 10:54:02 atorvasta tin 40 mg tablet [address], [address], 02/16/2024 10:53:59 fluticaso ne propionat e 50 mcg/actua tion nasal spray,harrison pension [address], [address], 02/16/2024 10:53:58 ipratropi um bromide 0.02 % solution for inhalatio n [address], [address], 02/16/2024 10:53:[address] 10 mg tablet [address], [address], 02/16/2024 10:54:02 Linzess 145 mcg capsule [address], [address], 02/16/2024 10:53:58 cholecalc iferol (vitamin D3) 1,250 mcg (50,000 unit) capsule [address], [address], 02/16/2024 10:54:00 gabapenti n 600 mg tablet [address], [address], 02/16/2024 10:54:04 Patient TargetsNo targets recorded. Patient Instructions Encounter Date Encounter Id Patient Instructions Last Modified By Organization Details Last Modified Time 03/02/2024 [id number] advance directives: care instructions efryman Not available [...] Abnormal Flag Note LastModifiedBy Organization Detail LastModifiedTime 08/31/19 25 08/31/2024 CBC WITH DIFFE RENTI AL/PL ATELE T WBC 5.8 x10e3 /uL 3.4-10 .8 normal Not Available [facility] ([facility]) [address] [place], [address], 09/01/2024 04:06:35 08/31/19 25 08/31/2024 CBC WITH DIFFE RENTI AL/PL ATELE T RBC 4.86 x10e6 /uL 3.77-5 .28 normal Not Available [facility] ([facility]) [address] [place], [address], 09/01/2024 04:06:35 08/31/19 25 08/31/2024 CBC WITH DIFFE RENTI AL/PL ATELE T hemoglobin 16.1 g/dL 11.1-1 5.9 above high normal Not Available [facility] ([facility]) [address] [place], [address], 09/01/2024 04:06:35 08/31/19 25 08/31/2024 CBC WITH DIFFE RENTI AL/PL ATELE T hematocrit 48.2 % 34.0-4 6.6 above high normal Not Available [facility] ([facility]) [address] [place], [address], 09/01/2024 04:06:35 08/31/19 25 08/31/2024 CBC WITH DIFFE RENTI AL/PL ATELE T MCV 99 fL 79-97 above high normal Not Available [facility] ([facility]) [address] [place], [address], 09/01/2024 04:06:35 08/31/19 25 08/31/2024 CBC WITH DIFFE RENTI AL/PL ATELE T MCH 33.1 pg 26.6-3 3.0 above high normal Not Available [facility] ([facility]) [address] [facility], [address], 09/01/2024 04:06:35 08/31/19 25 08/31/2024 CBC WITH DIFFE RENTI AL/PL ATELE T MCHC 33.4 g/dL 31.5-3 5.7 normal Not Available [facility] ([facility]) [address] [facility], [place], [address], 09/01/2024 04:06:35 08/31/19 25 08/31/2024 CBC WITH DIFFE RENTI AL/PL ATELE T RDW 12.5 % 11.7-1 5.4 Not Available [facility] ([facility]) [address] [facility], [place], [address], 09/01/2024 04:06:35 08/31/19 25 08/31/2024 CBC WITH DIFFE RENTI AL/PL ATELE T platelets 229 x10e3 /uL 150-45 0 normal Not Available [facility] ([facility]) [address] [facility], [place], [address], 09/01/2024 04:06:35 08/31/19 25 08/31/2024 CBC WITH DIFFE RENTI AL/PL ATELE T neutrophils 55 % not estab. normal Not Available [facility] ([facility]) [address] [place], [address], 09/01/2024 04:06:35 08/31/19 25 08/31/2024 CBC WITH DIFFE RENTI AL/PL ATELE T lymphs 31 % not estab. normal Not Available [facility] ([facility]) [address] [place], [address], 09/01/2024 04:06:35 08/31/19 25 08/31/2024 CBC WITH DIFFE RENTI AL/PL ATELE T monocytes 11 % not estab. normal Not Available [facility] ([facility]) [address] [place], [address], 09/01/2024 04:06:35 08/31/19 25 08/31/2024 CBC WITH DIFFE RENTI AL/PL ATELE T eos 2 % not estab. normal Not Available [facility] ([facility]) [address] [place], [address], 09/01/2024 04:06:35 08/31/19 25 08/31/2024 CBC WITH DIFFE RENTI AL/PL ATELE T basos 1 % not estab. 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 0 normal Not Available [facility] ([facility]) [address] [place], [address], 09/01/2024 04:06:35 08/31/19 25 08/31/2024 CBC WITH DIFFE RENTI AL/PL ATELE T lymphs (absolute) 1.8 x10e3 /uL 0.7-3. 1 normal Not Available [facility] ([facility]) [address] [place], [address], 09/01/2024 04:06:35 08/31/19 25 08/31/2024 CBC WITH DIFFE RENTI AL/PL ATELE T monocytes(ab solute) 0.7 x10e3 /uL 0.1-0. 9 normal Not Available [facility] ([facility]) [address] [place], [address], 09/01/2024 04:06:35 08/31/19 25 08/31/2024 CBC WITH DIFFE RENTI AL/PL ATELE T eos (absolute) 0.1 x10e3 /uL 0.0-0. 4 normal Not Available [facility] ([facility]) [address] [facility], [place], [address], 09/01/2024 04:06:35 08/31/19 25 08/31/2024 CBC WITH DIFFE RENTI AL/PL ATELE T baso (absolute) 0.1 x10e3 /uL 0.0-0. 2 normal Not Available [facility] ([facility]) [address] [facility], [place], [address], 09/01/2024 04:06:35 08/31/19 25 08/31/2024 CBC WITH DIFFE RENTI AL/PL ATELE T immature granulocytes 0 % not estab. Not Available [facility] ([facility]) [address] [facility], [place], [address], 09/01/2024 04:06:35 08/31/19 25 08/31/2024 CBC WITH DIFFE RENTI AL/PL ATELE T immature grans (abs) 0.0 x10e3 /uL 0.0-0. 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 METAB OLIC PANEL (14) glucose 102 mg/dL 70-99 above high normal Not Available [facility] ([facility]) [address] [facility], [place], [address], 09/01/2024 04:06:36 08/31/19 25 08/31/2024 COMP. METAB OLIC PANEL (14) BUN 11 mg/dL 8-27 normal Not Available [facility] ([facility]) [address] [place], [address], 09/01/2024 04:06:36 08/31/19 25 08/31/2024 COMP. METAB OLIC PANEL (14) creatinine 0.85 mg/dL 0.57-1 .00 normal Not Available [facility] ([facility]) [address] [place], [address], 09/01/2024 04:06:36 08/31/19 25 08/31/2024 COMP. METAB OLIC PANEL (14) eGFR 75 mL/mi n/1.7 3 >59 normal Not Available [facility] ([facility]) [address] [place], [address], 09/01/2024 04:06:36 08/31/19 25 08/31/2024 COMP. METAB OLIC PANEL (14) BUN/creatini ne ratio 13 12-28 normal Not Available [facility] ([facility]) [address] [place], [address], 09/01/2024 04:06:36 08/31/19 25 08/31/2024 COMP. METAB OLIC PANEL (14) sodium 138 mmol/ L 134-14 4 normal Not Available [facility] ([facility]) [address] [place], [address], 09/01/2024 04:06:36 08/31/19 25 08/31/2024 COMP. METAB OLIC PANEL (14) potassium 3.5 mmol/ L 3.5-5. 2 normal Not Available [facility] ([facility]) [address] [facility] [place], [address], 09/01/2024 04:06:36 08/31/19 25 08/31/2024 COMP. METAB OLIC PANEL (14) chloride 98 mmol/ L 96-106 normal Not Available [facility] ([facility]) [address] [facility] [place], [address], 09/01/2024 04:06:36 08/31/19 25 08/31/2024 COMP. METAB OLIC PANEL (14) carbon dioxide, total 24 mmol/ L 20-29 normal Not Available [facility] ([facility]) [address] [facility] [place], [address], 09/01/2024 04:06:36 08/31/19 25 08/31/2024 COMP. METAB OLIC PANEL (14) calcium 9.6 mg/dL 8.7-10 .3 normal Not Available [facility] ([facility]) [address] [facility] [place], [address], 09/01/2024 04:06:36 08/31/19 25 08/31/2024 COMP. METAB OLIC PANEL (14) protein, total 7.2 g/dL 6.0-8. 5 normal Not Available [facility] ([facility]) [address] [facility] [place], [address], 09/01/2024 04:06:36 08/31/19 25 08/31/2024 COMP. METAB OLIC PANEL (14) albumin 4.5 g/dL 3.9-4. 9 normal Not Available [facility] ([facility]) [address] [facility] [place], [address], 09/01/2024 04:06:36 08/31/19 25 08/31/2024 COMP. METAB OLIC PANEL (14) globulin, total 2.7 g/dL 1.5-4. 5 Not Available [facility] ([facility]) [address] [facility] [place], [address], 09/01/2024 04:06:36 08/31/19 25 08/31/2024 COMP. METAB OLIC PANEL (14) bilirubin, total 0.4 mg/dL 0.0-1. 2 normal Not Available [facility] ([facility]) [address] [facility] [place], [address], 09/01/2024 04:06:36 08/31/19 25 08/31/2024 COMP. METAB OLIC PANEL (14) alkaline phosphatase 126 IU/L 44-121 above high normal Not Available [facility] ([facility]) [address] [facility] [place], [address], 09/01/2024 04:06:36 08/31/19 25 08/31/2024 COMP. METAB OLIC PANEL (14) AST (SGOT) 16 IU/L 0-40 normal Not Available [facility] ([facility]) [address] [facility] [place], [address], 09/01/2024 04:06:36 08/31/19 25 08/31/2024 COMP. METAB OLIC PANEL (14) ALT (SGPT) 10 IU/L 0-32 normal Not Available [facility] ([facility]) [address] [facility] [place], [address], 09/01/2024 04:06:36 08/31/19 25 08/31/2024 GUSTAVO+L IPASE amylase 78 U/L 31-110 normal Not Available [facility] ([facility]) [address] [facility] [place], [address], 09/01/2024 04:06:36 08/31/19 25 08/31/2024 GUSTAVO+L IPASE lipase 12 U/L 14-72 below low normal Not Available [facility] ([facility]) [address] [place], [address], 09/01/2024 04:06:36 08/31/19 25 09/01/2024 URINE CULTU RE, ROUTI NE urine culture, routine Final report Not Available [facility] ([facility]) [address] [facility], [place], [address], 09/01/2024 04:06:37 08/31/19 25 09/01/2024 URINE CULTU RE, ROUTI NE result 1 No growth Not Available [facility] ([facility]) [address] [facility], [place], [address], 09/01/2024 04:06:37 08/31/19 25 08/30/2024 urina lysis , dipst ick Leukocytes Negati ve Not Available [address], [address], 08/30/2024 11:05:09 08/31/19 25 08/30/2024 urina lysis , dipst ick Nitrite negati ve Not Available [address], [address], 08/30/2024 11:05:09 08/31/19 25 08/30/2024 urina lysis , dipst ick Urobilinogen .2 Not Available [facility] [address], [address], 08/30/2024 11:05:09 08/31/19 25 08/30/2024 urina lysis , dipst ick Protein Negati ve Not Available [address], [address], 08/30/2024 11:05:09 08/31/19 25 08/30/2024 urina lysis , dipst ick pH 6.0 Not Available [address], [address], 08/30/2024 11:05:09 08/31/19 25 08/30/2024 urina lysis , dipst ick Blood Negati ve Not Available [address], [address], 08/30/2024 11:05:09 08/31/19 25 08/30/2024 urina lysis , dipst ick Specific [place] 1.005 Not Available [address], [address], 08/30/2024 11:05:09 08/31/19 25 08/30/2024 urina lysis , dipst ick Ketone Negati ve Not Available [address], [address], 08/30/2024 11:05:09 08/31/19 25 08/30/2024 urina lysis , dipst ick Bilirubin Negati ve Not Available [address], [address], 08/30/2024 11:05:09 08/31/19 25 08/30/2024 urina lysis , dipst ick Glucose Negati ve Not Available [address], [address], 08/30/2024 11:05:09 08/31/19 25 08/30/2024 urina lysis , dipst ick Appearance Clear Not Available [address], [address], 08/30/2024 11:05:09 08/31/19 25 08/30/2024 urina lysis , dipst ick Color Yellow Not Available [address], [address], 08/30/2024 11:05:09 02/27/20 24 02/27/2024 XR, shoul myah, 2 or more view No observ ation record ed. [email or web address] [address], [place], [address], 03/01/2024 09:09:28 02/28/20 24 02/27/2024 elect julian noonangr am No observ ation record ed. [facility] [address], [place], [place], [address], 03/02/2024 10:38:30 04/10/20 24 04/10/2024 CT, neck, soft tissu e, w/ contr ast No observ ation record ed. [facility] [address], [place], [address], 04/12/2024 08:41:59 04/10/20 24 04/10/2024 CT, abdom en + pelvi s, w/ contr ast No observ ation record ed. [facility] [address], [place], [address], 04/12/2024 08:41:18 04/10/20 24 04/10/2024 CT, chest , w/ contr ast No observ ation record ed. [facility] [address], [place], [address], 04/12/2024 08:41:18 05/10/19 25 04/10/2024 CT, neck, soft tissu e, w/ contr ast No observ ation record ed. [place] [id number], [place], [address], 05/11/2024 10:29:12 05/10/19 25 04/10/2024 CT, abdom en + pelvi s, w/ contr ast No observ ation record ed. [facility] [address], [place], [address], 05/11/2024 10:29:12 05/10/19 25 04/10/2024 CT, chest , w/ contr ast No observ ation record ed. [place] [id number], [place], [address], 05/11/2024 10:29:12 05/16/19 25 04/10/2024 CT, abdom en + pelvi s, w/ contr ast No observ ation record ed. [place] [id number], [place], [address], 05/17/2024 08:43:32 07/10/19 25 07/09/2024 CT, angio gram, neck, w/ contr ast No observ ation record ed. [place] [id number], [place], [address], 07/09/2024 13:38:11 07/10/19 25 07/09/2024 CT, abdom en + pelvi s, w/ contr ast No observ ation record ed. [facility] [address], [place], [address], 07/09/2024 13:38:11 07/10/19 25 07/09/2024 CT, chest , w/ contr ast No observ ation record ed. [facility] [address], [place], [address], 07/09/2024 13:37:58 Result Notes None recorded. Problems Name Problem SNOMED Code Status Onset Date Resolution Date Notes Provider Name and Address Organization Details Recorded Time Chronic obstructiv e pulmonary disease 68319020 Active Hina Winston april [place] - [facility] 10:33:33 Gastroesop hageal reflux disease 971668241 Active Hina chen [place] - [facility] 3 10:33:45 Chronic depression 395895338 Active Hina [place] null, [place] - [facility] 3 10:43:05 Neuropathy 359693353 Active 2022 Sophia Foy, [employer] [address], [place], [address] , [place] - [facility] 3 11:06:01 Constipati on 03267213 Active 2022 Sophia Foy, [employer] [address], [place], [address] , [place] - [facility] 3 11:06:42 Hyperlipid emia 03771491 Active 2022 Sophia Foy, [employer] [address], [place], [address] , [place] - [facility] 3 11:00:02 Dependence on supplement al oxygen 937320007845 Active 2022 Sophia Foy, [employer] [address], [place], [address] , [place] - [facility] 3 11:04:33 Anxiety 09308332 Active 2023 Nhi Abhays null, [place] - [facility] 4 09:56:06 Metastatic squamous cell carcinoma 242245297 Active 2023 lymph nodes in neck Nhi [...] Date of Last Pap Smear completed Hina [facility] - [facility] 3 10:40:28 05/15 esophagogastroduodenoscopy completed Venkata Winston [facility] 3 10:40:00 03/28 oophorectomy completed Hina Winston [facility] 3 10:39:39 02/01 colonoscopy completed Hina Winston [facility] 3 10:39:10 Breast Biopsy completed Hina Winston [facility] 3 10:41:16 biopsy of mass in the neck completed Nhi Jim CT - [facility] 4 10:05:31 Imaging Results None recorded. Procedure Notes None recorded. Medical Equipment None Reported. Allergies Allergen ID Allergen Name Allergen Category Reaction Reaction Severity Criticality Documentation Date Start Date Code Code System Note Provider Name and Address Organization Details Recorded Time [id number] codeine medicatio n rash Not available [facility] 10/26/2022 2670 RxNorm Hina chen, [facility] 3 10:29:17 826591 aspirin medicatio n nausea Not available [facility] 10/26/2022 1191 RxNorm Hina chen, [facility] 3 10:29:32 11307 aspirin medicatio n Not available Not available Not available 01/16/20162014 1191 RxNorm React ion: nausa , vomit ing, diarr hea; Umang chen, [facility] 3 13:25:02 27847 Robaxin medicatio n Not available Not available Not available 01/16/20162014 71330 5 RxNorm React ion: nause a, vomit ing, diarr hea; Umang Mae null, [facility] 3 13:25:02 63286 codeine sulfate medicatio n hives Not available Not available 01/16/20162014 58596 RxNorm React ion: rash/ hives ; Umang chen, [facility] 3 13:25:02 Medications Name Sig Start Date Stop Date Status Note LastModified by Organization Details LastModified Time amoxicill in 500 mg capsule TAKE 1 CAPSULE BY MOUTH TWICE DAILY FOR 10 DAYS 10/25 completed Not Available Not Available Not Available furosemid e 40 mg tablet TAKE ONE (1) TABLET EVERY DAY BY ORAL ROUTE NEEDED. 2024 active Not Available Not Available Not Avai lable atorvasta tin 40 mg tablet Take 1 tablet every day by oral route. 2024 active Not Available Not Available Not Avai lable potassium chloride ER 10 mEq capsule,e xtended release take 1 capsule (10 meq) by oral route once daily 12/16 completed rolando m chloride 10 mEq oral capsule, extended release; Recorded Status: Recorded on: 03/03/20 15 11:49AM; User: [email or web address] Not Available Not Available Not Available gabapenti n 600 mg tablet Take 1 tablet 3 times a day by oral route for 30 days. 2024 active Not Available Not Available Not Avai lable doxycycli ne hyclate 100 mg capsule TAKE [...] mL (0.083 %) solution for nebulizat ion INHALE THREE (3) ML THREE (3) TIMES A DAY BY NEBULIZA TION ROUTE. active Not Available Not Available No t Available azithromy angel 250 mg tablet TAKE 2 [...] Status: Recorded on: 03/03/20 15 11:49AM; User: [email or web address] manuel Not Available Not Available Not Available Aplisol [...] Not Available sertralin e 100 mg tablet Take 2 tablets every day by oral route. 2024 active Not Available Not Available Not Avai lable Ultram 50 mg tablet take 1 to 2 tabs by oral route every 6 hours as needed for severe pain not to exceed 8 tablets per 24hrs 12/16 completed Ultram 50 mg oral tablet;R ecorded Status: Recorded on: 04/09/20 15 1:20PM;U ser: [email or web address] ;Indicat ion: Pain - (167809 00) Not Available Not Available Not Available [...] pantopraz ole 40 mg tablet,de layed release Take 1 tablet every day by oral route. 2024 active Not Available Not Available Not Avai lable simvastat in 20 mg tablet take 1 [...] Prescrib ed on: 08/21/19 16 12:02PM; User: [email or web address]; Est. Nguyen on: 09/20/19 16;Indic ation: Irritabl e Bowel Syndrome - (.5641 00);Phar Jonathan fied: 08/21/19 16 12:02PM Not Available Not Available Not Available montel[address] 10 mg tablet Take 1 tablet every day by oral route. 2024 active Not Available Not Available Not Avai lable ergocalci ferol (vitamin D2) 1,250 mcg (50,000 [...] bromide 0.02 % solution for inhalatio n INHALE TWO AND A HALF (2 & 1/2) ML EVERY SIX (6) HOURS BY INHALATI ON ROUTE FOR 30 DAYS. active Not Available Not Available No t Available Ventolin HFA 90 mcg/actua tion aerosol inhaler INHALE TWO (2) PUFFS EVERY FOUR (4) HOURS BY INHALATI ON ROUTE DIRECTED active Not Available Not Available No t Available buspirone 15 mg tablet Take 1 tablet 3 times a day by oral route for 30 days. 2024 active Not Available Not Available Not Avai lable hydroxyzi ne pamoate 25 mg capsule TAKE 1 CAPSULE BY MOUTH THREE TIMES A DAY, NEEDED 10/26 completed Not Available Not Available Not Available cyclobenz aprine 5 mg tablet Take 1 tablet 3 times a day by oral route for 30 days. 2024 active Not Available Not Available Not Avai lable Spiriva with [employer] r 18 mcg and inhalatio n capsules INHALE ONE (1) CAPSULE EVERY DAY BY INHALATI ON ROUTE FOR 30 DAYS. 02/15 completed Not Available Not Available Not Available Cymbalta 60 mg capsule,d elayed release take 1 capsule (60 mg) by oral route once daily 12/16 completed Cymbalta 60 mg oral capsule, delayed release( DR/EC);R ecorded Status: Recorded on: 03/03/20 11:49AM; User: andrusa [...] (vitamin D3) 1,250 mcg (50,000 unit) capsule Take 1 capsule every week by oral route. 2024 active Not Available Not Available Not Avai lable GaviLyte- G 236 gram-22.7 4 gram-6.74 gram-5.86 gram oral solution 10/25 completed Not Available Not Available Not Available Dulera 200 mcg-5 mcg/actua tion HFA aerosol inhaler 1 puff daily 02/24 completed Dulera 200-5 mcg/actu ation inhalati on HFA aerosol inhaler; Recorded Status: Recorded on: 03/03/20 15 11:49AM; User: andrusa Not Available Not Available Not Available vitamin E (dl, acetate) 450 mg (1,000 unit) capsule Take 1 capsule every day by oral route. 2024 active Not Available Not Available Not Avai lable Combivent Respimat 20 mcg-100 mcg/actua tion solution for inhalatio n INHALE ONE (1) PUFF FOUR (4) TIMES A DAY BY INHALATI ON ROUTE. 11/14 completed Not Available Not Available Not Available Linzess 145 mcg capsule Take 1 capsule every day by oral route. 2024 active Not Available Not Available Not Avai lable oxygen 3l at bedtime active Not Available Not Available No t Available Trelegy Ellipta 100 mcg-62.5 mcg-25 mcg powder for inhalatio n INHALE ONE (1) PUFF EVERY DAY BY INHALATI ON ROUTE FOR 30 DAYS. 08/30 completed Not Available Not Available Not Available Vandana Bucknerta 200 mcg-62.5 mcg-25 mcg powder for inhalatio n INHALE ONE (1) PUFF EVERY DAY active Not Available Not Available No t Available Vitals Date Recorded Body height Respiratory rate Body mass index (BMI) Body weight Heart rate Oxygen saturation Oxygen saturation in Arterial blood by Pulse oximetry Body temperature Systolic And Diastolic Provider Name and Address Organization Details Last Updated DateTime 5 162.56 cm 18 /min 25.6 kg/m2 58715.2 6 g 92 /min 95 % 95 % 97.8 [degF] 118/74 mm[Hg] Nhi Stears [place] - [facility] 5 10:34:40 Date Recorded Body height Body mass index (BMI) Body weight Heart rate Oxygen saturation Oxygen saturation in Arterial blood by Pulse oximetry Respiratory rate Systolic And Diastolic Provider Name and Address Organization Details Last Updated DateTime 5 162.56 cm 23.2 kg/m2 12642.9 7 g 98 /min 95 % 95 % 22 /min 126/78 mm[Hg] Hina Winston [place] - [facility] 5 10:49:11 Date Recorded Body height Body mass index (BMI) Body weight Heart rate Oxygen saturation Oxygen saturation in Arterial blood by Pulse oximetry Respiratory rate Body temperature Systolic And Diastolic Provider Name and Address Organization Details Last Updated DateTime 5 162.56 cm 23.3 kg/m2 92990.5 6 g 80 /min 98 % 98 % 18 /min 81.2 [degF] 113/76 mm[Hg] Nhi Stears [place] - [facility] 5 09:55:15 Date Recorded Body height Body mass index (BMI) Body weight Respiratory rate Oxygen saturation Oxygen saturation in Arterial blood by Pulse oximetry Heart rate Body temperature Systolic And Diastolic Provider Name and Address Organization Details Last Updated DateTime 4 162.56 cm 25.6 kg/m2 47947.2 6 g 18 /min 95 % 95 % 84 /min 98.1 [degF] 128/76 mm[Hg] Nhi Stears [place] - [facility] 4 10:02:28 Date Recorded Body height Body mass index (BMI) Body weight Body temperature Heart rate Oxygen saturation Oxygen saturation in Arterial blood by Pulse oximetry Respiratory rate Systolic And Diastolic Provider Name and Address Organization Details Last Updated DateTime 4 162.56 cm 25.2 kg/m2 32812.0 8 g 97.9 [degF] 112 /min 94 % 94 % 18 /min 124/76 mm[Hg] Nhi Fernandez [place] - [facility] 4 10:31:40 Social History Question Answer Notes LastModified by Organizat ion Details LastModified Time Tobacco Smoking Status Current Every Day Smoker Hina Ponceler null, [place] - [facility] 10/26/2022 10:37:56 Do You Have An Advance Directive? No Information not available 10/26/2022 Are You Blind Or Do You Have Difficulty Seeing? No Wears Glasses, Few Years Since Last Eye DrPing Visit Distance And Near Information not available [...] Or The Highest Degree You Have Received? [id number] Information not available 12/16/2022 Have There Been Any Changes To Your Family Or Social Situation? No Information not available 10/26/2022 What Is The Fluoride Status Of Your Home? Fluoridated Information not available 10/26/2022 Have You Recently Or Are You Planning To Travel To An Area With Zika Virus? No Information not available 10/26/2022 Do You Have A Medical Power Of Chemical Compounder? No Information not available 10/26/2022 What Was [...] How Much Tobacco Do You Smoke? 2 PPD Information not available 10/25/2024 Has Tobacco Cessation Counseling Been Provided? Yes [...] anxious, or unable to sleep at night)? [id number] Information not available 11/25/2022 Do you have [...] [facility] 05/13/2023 11:42:50 Pneumococcal conjugate PCV20, polysaccharide [id number] conjugate, adjuvant, PF 024 completed Nhi Fernandez null, [place] - [facility] 05/13/2023 11:42:59 Influenza, high-dose, trivalent, PF 024 completed Sophia Foy APRN [address], [place], [address], [place] - [facility] 02/16/2024 10:53:57 zoster recombinant cancelled patient objection Marinaroney omi, BOTTOM TURNER [address], [place], [address], [place] - [facility] 03/02/2024 11:00:54 Tdap 024 cancelled patient objection Marinaroney Foy, BOTTOM TURNER [address], [place], [address], [place] [facility] 03/02/2024 11:00:54 Influenza, split virus, quadrivalent, preservative 015 completed Hina Tish null, [place] - [facility] 10/26/2022 10:28:57 Influenza, MDCK, quadrivalent, PF 017 completed Hina Tish [place] - [facility] 10/26/2022 10:28:57 Td(adult) unspecified formulation 013 completed Hina Tish [place] - [facility] 10/26/2022 10:28:57 Influenza, split virus, trivalent, preservative 013 completed Hina Tish [place] - [facility] 10/26/2022 10:28:57 Influenza, split virus, trivalent, PF 014 completed Hina Tish [place] - [facility] 10/26/2022 10:28:57 Influenza, split virus, quadrivalent, PF 022 completed Hina Tish [place] - [facility] 10/26/2022 10:28:57 Influenza, split virus, quadrivalent, PF 018 completed Hina Tish null, [place] - [facility] 10/26/2022 10:28:57 Influenza, split virus, quadrivalent, PF 021 completed Hina Tish null, [place] - [facility] 10/26/2022 10:28:57 Past Encounters Encounter ID Performer Location Encounter Start Date Encounter Closed Date Diagnosis/Indication Diagnosis SNOMED-CT Code Diagnosis ICD10 Code Diagnosis Note [id number] Sophia Foy APRN [address] [address] 10/26/2022 09:36:18 10/26/2022 11:07:14 Body mass index 25-29 - overweight 430585516 Z68.26 Overweight 749919254 E66 .3 Chronic depression 53178 0009 F32.A Chronic ob structive pulmonary disease 82632703 J44.9 Gastroesop hageal reflux disease 242691503 K21.9 Neuropathy 209853831 G62 .9 Hyperlipidemia 82241027 E78.5 Pain of hip region 80308 002 M25.559 Constipation 75163707 K5 9.00 Seasonal allergy 7482263 04 J30.2 Adult heal th examination 724409372 Z00.00 Screening for malignant neoplasm of breast 879950715 Z12.31 Exercises education, guidance, and counseling 210400677 Z71.82 Screening for malignant neoplasm of colon 388853038 Z12.11 pt refuses at this time but will think about it Cigarette smoker 6727620 7 F17.192 [id number] Sophia Foy[address] [address] 11/25/2022 09:45:17 11/25/2022 11:49:32 Neuropathy 540365937 G62.9 Pt compliant with plan of careJavier reviewed and appropriat emedicatio n compliance discussedL ast uds: 3Control substance agreement on file Long-term drug therapy 161711471 Z79.899 Chronic depression 30256 0009 F32.A Chronic ob structive pulmonary disease 35399871 J44.9 Gastroesop hageal reflux disease 822884123 K21.9 Hyperlipidemia 41663905 E78.5 Dependence on supplemental oxygen 7133448774 07 Z99.81 [id number] Sophia Foy [address] [address] 12/16/2022 08:57:52 12/16/2022 09:48:28 Adult health examination 806967791 Z00.00 Depression screening 171 815949 Z13.31 Examinatio n of blood pressure 396187632 Z01.30 Diet education 62978402 Z71.3 Counseling 136112861 Z71 .82 Exercise counseling . Patient encouraged to exercise 30 minutes 5 days a week. At increas ed risk for falls 625776576 Z91.81 STEADI FAST screening score of ____3_. Advance care planning 71 8424429 Z71.89 Finding of body mass index 763663732 E66.3 26.8 Spasm of back muscles 20 3471550 M62.279 [id number] Sophia Foy[address] [address] 02/24/2023 08:48:08 02/24/2023 09:36:33 Hyperlipidemia 58521070 E78.5 Neuropathy 233348511 G62 .9 Pt compliant with plan of careKasper reviewed and appropriat emedicatio n compliance discussedL ast uds:Control substance agreement on file Chronic depression 63198 0009 F32.A Chronic ob structive pulmonary disease 63744753 J44.9 Pain of hip region 04409 002 M25.559 Seasonal a llergic rhinitis 885280337 J30.2 Constipation 98104328 K5 9.00 Seasonal allergy 4269382 04 J30.2 Gastroesop hageal reflux disease 438787993 K21.9 Vitamin D deficiency 347 32213 E55.9 Influenza vaccine needed 0190409419 106 Z23 Long-term drug therapy 243032727 Z79.899 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 0945142 E56.0 [id number] Sophia Foy[address] [address] 05/13/2023 09:39:07 05/13/2023 10:56:59 Neuropathy 968790555 G62.9 Pt compliant with plan of careKasper reviewed and appropriat emedicatio n compliance discussedL ast uds:Control substance agreement on file Hyperlipidemia 97611316 E78.5 Chronic ob structive pulmonary disease 13118341 J44.9 Chronic depression 99154 0009 F32.A Gastroesop hageal reflux disease 855172210 K21.9 Hepatitis C screening 41 4655894 Z11.59 Vaccine de clined by patient 0576854527 02 Z28.21 Screening for malignant neoplasm of respiratory tract 665794897 Z12.2 Nicotine d ependence with current use 119203762 F17.210 Current tobacco user Former hea vy tobacco smoker 0953838687 03286 Z87.891 Former tobacco user Pain of hip region 47482 002 M25.559 Seasonal a llergic rhinitis 256986623 J30.2 Constipation 17658102 K5 9.00 Seasonal allergy 2276683 04 J30.2 Active or passive immunization 932045683 Z23 Vaccination needed 72434 49261 66069 Z23 Administra tion of pneumococcal vaccine 92317250 Z23 Nicotine dependence 5629 4008 Z87.630 [id number] Sophia Foy[address] [address] 07/25/2023 09:11:44 07/25/2023 09:42:51 Abnormal findings on diagnostic imaging of lung 164504366 R91.8 [id number] [facility] Narinder[address] [address] 08/16/2023 09:17:28 08/16/2023 10:16:19 Body mass index 25-29 - overweight 365635888 Z68.25 25.7 Overweight 373191575 E66 .3 Chronic ob structive pulmonary disease 78018745 J44.9 Gastroesop hageal reflux disease 711742395 K21.9 Hyperlipidemia 88255203 E78.5 Neuropathy 937303622 G62 .9 Pt compliant with plan of [facility] reviewed and appropriat emedicatio n compliance discussedL ast uds:08/16/23 Control substance agreement on file Dependence on supplemental oxygen 0459508977 07 Z99.81 Anxiety 42801996 F41.9 will check labs after resulted will adjust med Prediabetes 364498000 R7 3.03 Long-term current use of drug therapy 188607110 Z79.899 Pain of hip region 80721 002 M25.559 Seasonal a llergic rhinitis 104360227 J30.2 Constipation 30039494 K5 9.00 Seasonal allergy 9128163 04 J30.2 Chronic depression 57809 0009 F32.A Lymphadenopathy 96118918 R59.1 [id number] [facility] [address] [address] 09/09/2023 11:36:26 09/09/2023 12:03:22 Ultrasound scan abnormal 357899250 R93.89 Lymphadenopathy 17195818 R59.1 follow up with pulmonolog y [id number] Sophia Foy [address] [address] 09/20/2023 09:42:17 09/20/2023 12:03:55 Pharyngitis 909081718 J02.9 Patient strep negative. Acute maxi llary sinusitis 42843600 J01.00 Sent z-yesika to be delivered tomorrow and gave a Rocephin shot in office. Discussed if she gets any worse to come back. [id number] Sophia Foy [address] [address] 10/04/2023 09:43:11 10/04/2023 10:20:28 Tuberculosis screening 258247851 Z11.1 [id number] Sophia Foy [address] [address] 11/15/2023 09:33:34 11/15/2023 10:55:37 Hyperlipidemia 51507328 E78.5 Chronic depression 30051 0009 F32.A Vitamin D deficiency 347 59481 E55.9 Pain of hip region 81142 002 M25.559 Neuropathy 689563151 G62 .9 Pt compliant with plan of Janine reviewed and appropriat emedicatio n compliance discussedL ast uds:08/16/23 Control substance agreement on file Constipation 64971486 K5 9.00 Seasonal allergy 0805106 04 J30.2 Gastroesop hageal reflux disease 028676634 K21.9 Seasonal a llergic rhinitis 735914189 J30.2 Chronic ob structive pulmonary disease 23776463 J44.9 Anxiety 70259513 F41.9 will check labs after resulted will adjust med [id number] Sophia Foy [address] [address] 02/16/2024 09:53:24 02/16/2024 10:55:33 Hyperlipidemia 34993008 E78.5 Chronic depression 23415 0009 F32.A Vitamin D deficiency 347 54371 E55.9 Pain of hip region 15823 002 M25.559 Seasonal a llergic rhinitis 515323136 J30.2 Neuropathy 343572747 G62 .9 Pt compliant with plan of careKasper reviewed and appropriat emedicatio n compliance discussedL ast uds:08/16/23 Control substance agreement on filetrial of increase in gabapentin Chronic ob structive pulmonary disease 70853927 J44.9 Constipation 09759093 K5 9.00 Seasonal allergy 2223073 04 J30.2 Gastroesop hageal reflux disease 066789498 K21.9 Anxiety 16048464 F41.9 will check labs after resulted will adjust med Influenza vaccine needed 5078125945 106 Z23 Malignant lymphoma 84204 0007 C85.90 Metastatic squamous cell carcinoma to lymph node 0155650716 100 C80.1 follow up with oncologist [id number] Sophia Foy APRN [address] [address] 03/02/2024 10:10:39 03/02/2024 11:05:55 Adult health examination 700414653 Z00.00 Depression screening 171 004492 Z13.31 A depression screening was completed via a standardiz ed screening tool. 5 minutes were spent discussing depression screening results and risk factors. Examinatio n of blood pressure 067821721 Z01.30 Diet education 92375433 Z71.3 Counseling 400445320 Z71 .82 Exercise counseling . Patient encouraged to exercise 30 minutes 5 days a week. [facility] 599937266 Z91.81 STEADI FAST screening score of ___6__. Advance care planning 71 1381249 Z71.89 Body mass index 25-29 - overweight 310295394 Z68.25 25.2 Overweight 179370336 E66 .3 Vaccine de clined by patient 7350273368 02 Z28.21 Metastatic squamous cell carcinoma 571190159 C80.1 receiving treatment has 3 more treatments - goes every 3 weeks Neuropathy 011478928 G62 .9 Pt compliant with plan of careKasper reviewed and appropriat emedicatio n compliance discussedL ast uds:08/16/23 Control substance agreement on filesent 1 month extra due to weather and treatments [id number] Sophia Lópezomi [address] [address] 06/08/2024 10:23:57 06/08/2024 11:18:27 Hyperlipidemia 47546263 E78.5 Chronic depression 53336 0009 F32.A Vitamin D deficiency 347 85882 E55.9 Pain of hip region 45891 002 M25.559 Seasonal a llergic rhinitis 917028421 J30.2 Neuropathy 964475210 G62 .9 Pt compliant with plan of careKasper reviewed and appropriat emedicatio n compliance discussedL ast uds:08/16/23 - cancer ptControl substance agreement on file Chronic ob structive pulmonary disease 04413992 J44.9 Constipation 94475915 K5 9.00 Seasonal allergy 6202078 04 J30.2 Gastroesop hageal reflux disease 439246003 K21.9 Anxiety 09931670 F41.9 Metastatic squamous cell carcinoma 390514676 C80.1 receiving treatment has 3 more treatments - goes every 3 weeks [id number] Sophia Lópezingridclari [address] [address] 08/30/2024 10:35:41 08/30/2024 11:23:31 Anxiety 77376055 F41.9 Hyperlipidemia 57264435 E78.5 Metastatic squamous cell carcinoma 118534227 C80.1 Constipation 16679357 K5 9.00 Right flank pain 9716926 09 R10.9 labsif worsen or no improvemen t return or go to ed Acute righ t otitis media 808154313 H66.91 if worsen or no improvemen t return [id number] Sophia Lópezomi[address] [address] 10/25/2024 09:36:30 10/25/2024 10:47:09 Hyperlipidemia 75555884 E78.5 Anxiety 39630187 F41.9 follow up with psych Neuropathy 774882259 G62 .9 Pt compliant with plan of careKasper reviewed and appropriat emedicatio n compliance discussedL ast uds:08/16/23 - cancer ptControl substance agreement on file Chronic ob structive pulmonary disease 38356132 J44.9 Gastroesop hageal reflux disease 831462172 K21.9 Chronic depression 28135 0009 F32.A Vitamin D deficiency 347 61618 E55.9 Pain of hip region 00345 002 M25.559 Constipation 97711012 K5 9.00 Seasonal allergy 9765459 04 J30.2 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 9139535 E56.0 Metastatic squamous cell carcinoma 464504914 C80.1 follow up with oncology Health Concerns Section Related Observation LastModified by Organization Detai ls LastModified Time None Recorded Concern Status LastModified by Organization Details LastModified Time None Recorded Advance Directives Directive N: Payers Insurance Date Sequence Insurance Name Policy Number Policy Sharma Covered Member ID Sharma Member ID Guarantor Name 10/22/2024 [place] Nori Montoya [id number] Nori Montoya 11/26/2022 2 [place] Nori Montoya [id number] Nori Montoya 10/22/2024 2 [facility] - FFS/TRADITIONA L Nori Montoya [id number] Nori Montoya 06/08/2024 1 [place] (MEDICARE REPLACEMENT HMO) [id number] Nori Montoya [id number] Nori Montoya 06/13/2024 1 [place]MED[place]EMENT H[place] [id number] Nori Montoya [id number] Nori Montoya 10/22/2024 1 [employer] (MEDICARE REPLACEMENT/AD VANTAGE - PPO) [id number] Nori Montoya [id number] Nori Montoya Notes Date Note Type Note Provider Name and Address Organization Details Recorded Time 02/16/2024 text/html 69 year old maura messer who presents to the office today for a follow up on neuropathy, hip pain, hyperlipidemia, depression, anxietyhas concerns of leg pain, burning and throbbing of adamaris legs and feetwants flu shot Sophia Foy APRN [address], [place], [address], [place] [facility] 02/16/2024 10:56:03 03/02/2024 text/html [...] today for a medicare annual wellness Sophia FoyKAROL [address], [place], [address], [place] - [facility] 03/02/2024 11:13:39 06/08/2024 text/html 69 year old maura messer who presents to the office today for a follow up onneuropathy, gerd, hyperlipidemia, anxiety,needs refills on all medspt states neuropathy well controlled on medspt states she has 3 more chemo treatments Sophia LópezKAROL braga [address], [place], [address], [place] - [facility] 06/08/2024 13:25:50 08/30/2024 text/html 69 yr old female presents for a check up on chronic conditions. Has also been having right ear pain.pt states right abdominal pain that is intermittent. has ct less than a month ago and it was normal per pt Sophia LópezKAROL braga [address], [place], [address], [place] - [facility] 08/30/2024 11:32:10 10/25/2024 text/html 69 year old maura messer who presents to the office today for a follow up onneuropathy, hyperlipidemia, anxiety, gerd- needs refills on all medicationspt states she is just stressed sees [facility] and does not any med adjustments or new medspt states doing well on all meds. neuropathy well controlled on meds Marinaroney KAROL braga [address], [place], [address], [place] - [facility] 10/25/2024 10:51:09 OBGyn Episode No OBEpisode recorded.
--- OUTSIDE RECORDS SUMMARY | 2024-10-30 08:48 | XMS_ITS | Continuity of Care Document ---
[facility] Address [address] [place] [address] Care Team Providers Care Cage Clerk Name Role Phone SOPHIA BARCENAS Primary Care Provider [phone] Assessment No assessment recorded. Plan of Treatment Reminders Order Date Submit Date Provider Last Modified By Organization Details Last Modified Time Details Appointments Establish ed Patient 20 2024 10:20A M Sophia Barcenas APRN Not available Not available Not available Lab None recorded. Referral None recorded. Procedures None recorded. Surgeries None recorded. Imaging None recorded. Medication Orders buspirone 15 mg tablet [address], [address], 10/25/2024 10:50:00 sertralin e 100 mg tablet [address], [address], 10/25/2024 10:49:57 cyclobenz aprine 5 mg tablet [address], [address], 10/25/2024 10:49:59 furosemid e 40 mg tablet [address], [address], 10/25/2024 10:50:02 pantopraz ole 40 mg tablet,de layed release [address], [address], 10/25/2024 10:50:04 vitamin E (dl, acetate) 450 mg (1,000 unit) capsule [address], [address], 10/25/2024 10:49:57 atorvasta tin 40 mg tablet [address], [address], 10/25/2024 10:49:58 ipratropi um bromide 0.02 % solution for inhalatio n [address], [address], 10/25/2024 10:49:58 albuterol sulfate 2.5 mg/3 mL (0.083 %) solution for nebulizat ion [address], [address], 10/25/2024 10:50:[address] 10 mg tablet [address], [address], 10/25/2024 10:50:03 Linzess 145 mcg capsule [address], [address], 10/25/2024 10:50:01 cholecalc iferol (vitamin D3) 1,250 mcg (50,000 unit) capsule 2024 025 [facility] - [address], [place], [address], 10/25/2024 10:50:03 gabapenti n 600 mg tablet 2024 025 [facility] - [address], [place], [address], 10/25/2024 10:50:12 Patient TargetsNo targets recorded. Patient InstructionsNo instructions recorded. Reason for Referral None Reported. Problems Name Problem SNOMED Code Status Onset Date Resolution Date Notes Provider Name and Address Organization Details Recorded Time Chronic obstructiv e pulmonary disease 30918073 Active Hina chen, [place] - [facility] 10:33:33 Gastroesop hageal reflux disease 130358715 Active Hina chen, [place] - [facility] 3 10:33:45 Chronic depression 364511091 Active Hina chen, [place] - [facility] 3 10:43:05 Neuropathy 300818334 Active 2022 Sophia Barcenas APRN [address], [place], [address] , [place] - [facility] 3 11:06:01 Constipati on 80232288 Active 2022 Sophia Barcenas APRN [address], [place], [address] , [place] - [facility] 3 11:06:42 Hyperlipid emia 73666676 Active 2022 Sophia Barcenas APRN [address], [place], [address] , [place] - [facility] 3 11:00:02 Dependence on supplement al oxygen 268563717137 Active 2022 Sophia Barcenas APRN [address], [place], [address] , [place] - [facility] 3 11:04:33 Anxiety 97595625 Active 2023 Nhi Stears null, [place] - [facility] 4 09:56:06 Metastatic squamous cell carcinoma 217367376 Active 2023 lymph nodes in neck Nhi [...] 09:12:13 07/01 Date of Last Mammogram completed Nhioscar Blanks [place] - [facility] 3 14:57:29 02/28 Date of Last Pap Smear completed Hina [place] - [facility] 3 10:40:28 05/15 esophagogastroduodenoscopy completed Venkata nenohugo [place] - [facility] 3 10:40:00 03/28 oophorectomy completed Hina Tish [place] - [facility] 3 10:39:39 02/01 colonoscopy completed Hinaalvaro iWnston [place] - [facility] 3 10:39:10 Breast Biopsy completed Hina [place] - [facility] 3 10:41:16 biopsy of mass in the neck completed Nhihugo Blanks [place] - [facility] 4 10:05:31 Imaging Results None recorded. Procedure Notes None recorded. Medical Equipment None Reported. Allergies Allergen ID Allergen Name Allergen Category Reaction Reaction Severity Criticality Documentation Date Start Date Code Code System Note Provider Name and Address Organization Details Recorded Time 633093 codeine medicatio n rash Not available high 10/26/2022 2670 RxNorm Hina chen, [place] - [facility] 3 10:29:17 436582 aspirin medicatio n nausea Not available [facility] 10/26/2022 1191 RxNorm Hina [place] null, [place] - [facility] 3 10:29:32 97097 aspirin medicatio n Not available Not available Not available 01/16/20162014 1191 RxNorm React ion: nausa , vomit ing, diarr hea; Umang Mae null, [place] - [facility] 3 13:25:02 06782 Robaxin medicatio n Not available Not available Not available 01/16/20162014 44989 5 RxNorm React ion: nause a, vomit ing, diarr hea; Umang Mae null, [place] - [facility] 3 13:25:02 12868 codeine sulfate medicatio n hives Not available Not available 01/16/20162014 29779 RxNorm React ion: rash/ hives ; Umang Mae null, [place] - [facility] 3 13:25:02 Medications Name Sig Start Date [...] ed on: 08/21/19 16 12:02PM; User: [email or web address]; EstPing Nguyen on: 09/20/19 16;Indic ation: Irritabl e Bowel Syndrome - (.5641 00);Mell Castillo fied: 08/21/19 12:02PM Not Available Not [...] manuel Not Available Not Available Not Available methylpre [...] Status: Recorded on: 03/03/20 15 11:49AM; User: [email or web address] Not Available Not Available Not Available vitamin [...] Updated DateTime 5 162.56 cm 23.3 kg/m2 51251.5 6 g 80 /min 98 % 98 % 18 /min 81.2 [degF] 113/76 mm[Hg] Nhi Stears [place] - [facility] 09:55:15 Social History Question Answer Notes LastModified by [...] Or The Highest Degree You Have Received? [id number] Information not available 12/16/2022 Have There Been Any Changes To Your Family Or Social Situation? No Information not available 10/26/2022 What Is The Fluoride Status Of Your Home? Fluoridated Information not available 10/26/2022 Have You Recently Or Are You Planning To Travel To An Area With Zika Virus? No Information not available 10/26/2022 Do You Have A Medical Power Of Log Loader Helper? No Information not available 10/26/2022 What Was [...] anxious, or unable to sleep at night)? [id number] Information not available 11/25/2022 Do you have difficulty concentrating, remembering or making decisions? No Information no t available 10/26/2022 Family History Relationship Description Onset Age of this Age Resolved Age Notes LastModified by Organization Details LastModified Time Brother Diabetes mellitus cbrumaler Not available 2022 10:36:52 Father Heart disease [...] Influenza, high-dose, quadrivalent, PF 023 completed Hina chen, [facility] 02/24/2023 09:33:30 Tdap 024 cancelled patient objection Nhi Fernandez null, [facility] 05/13/2023 11:42:50 Pneumococcal conjugate PCV20, polysaccharide [id number] conjugate, adjuvant, PF 024 completed Nhi Fernandez null, [facility] 05/13/2023 11:42:59 Influenza, high-dose, trivalent, PF 024 completed Sophia Barcenas APRN [address], [place], [address], [place] - [facility] 02/16/2024 10:53:57 zoster recombinant 024 cancelled patient objection Sophia Barcenas APRN [address], [place], [address], [place] - [facility] 03/02/2024 11:00:54 Tdap 024 cancelled patient objection Sophia Barcenas APRN [address], [place], [address], [place] [facility] 03/02/2024 11:00:54 Influenza, split virus, quadrivalent, preservative 015 completed Hina chen, [place] - [facility] 10/26/2022 10:28:57 Influenza, MDCK, quadrivalent, PF 017 completed Hina Tish null, [place] - [facility] 10/26/2022 10:28:57 Td(adult) unspecified formulation 013 completed Hina Tish [place] [facility] 10/26/2022 10:28:57 Influenza, split virus, trivalent, preservative 013 completed Hina [place] [facility] 10/26/2022 10:28:57 Influenza, split virus, trivalent, PF 014 completed Hina [place] [facility] 10/26/2022 10:28:57 Influenza, split virus, quadrivalent, PF 022 completed Hina [place] [facility] 10/26/2022 10:28:57 Influenza, split virus, quadrivalent, PF 018 completed Hina [place] [facility] 10/26/2022 10:28:57 Influenza, split virus, quadrivalent, PF 021 completed Hina Tish [place] [facility] 10/26/2022 10:28:57 Past Encounters Encounter ID Performer Location Encounter Start Date Encounter Closed Date Diagnosis/Indication Diagnosis SNOMED-CT Code Diagnosis ICD10 Code Diagnosis Note [id number] Sophia Barcenas APRN [address] [address] 10/25/2024 09:36:30 10/25/2024 10:47:09 Hyperlipidemia 93725996 E78.5 Anxiety 61593790 F41.9 follow up with psych Neuropathy 110224830 G62 .9 Pt compliant with plan of careJavier reviewed and appropriat emedicatio n compliance discussedL ast uds:08/16/23 - cancer ptControl substance agreement on file Chronic ob structive pulmonary disease 48035035 J44.9 Gastroesop hageal reflux disease 572407396 K21.9 Chronic depression 79216 0009 F32.A Vitamin D deficiency 347 65227 E55.9 Pain of hip region 63278 002 M25.559 Constipation 45983912 K5 9.00 Seasonal allergy 9550845 04 J30.2 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 6724559 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.0 Metastatic squamous cell carcinoma 396839113 C80.1 follow up with oncology Health Concerns Section Related Observation LastModified by Organization Detai ls LastModified Time None Recorded Concern Status LastModified by Organization Details LastModified Time None Recorded Payers Encounter Date Sequence Insurance Name Policy Number Policy Sharma Covered Member ID Sharma Member ID Guarantor Name 10/25/2024 2 MEDICAID-[facility] - FFS/TRADITIO NAL Nori Montoya [id number] Nori Montoya 10/25/2024 1 [employer] (MEDICARE REPLACEMENT/ ADVANTAGE - PPO) [id number] Nori Montoya [id number] Nori Montoya Notes Date Note Type Note Provider Name and Address Organization Details Recorded Time 10/25/2024 text/html 69 year old maura messer who presents to the office today for a follow up onneuropathy, hyperlipidemia, anxiety, gerd- needs refills on all medicationspt states she is just stressed [facility] and does not any med adjustments or new medspt states doing well on all meds. neuropathy well controlled on meds Sophia Barcenas, SANITARIAN AIDE [address], [place], [address], [place] - [facility] 10/25/2024 10:51:09 OBGyn Episode No OBEpisode recorded.
--- NOTE | 2024-10-30 09:00 | CT_ITS ---
FINAL REPORT TECHNIQUE: Thin section axial CT images with coronal and sagittal reformats were performed through the neck. This study was performed with techniques to keep radiation doses as low as reasonably achievable (ALARA). Individualized dose reduction techniques using automated exposure control or adjustment of mA and/or kV according to the patient''s size were employed. CLINICAL HISTORY: lymphadenopathy COMPARISON: 04/10/2024 and CTA 07/09/2024 FINDINGS: Noncontrast exam is less sensitive for mass or adenopathy. Any future follow-up should be done with IV contrast, particularly if contrast is administered for other simultaneous exams performed in the same session. Salivary glands are unremarkable. Right submandibular lymph node measuring 11 mm on image 50 of series 3 is unchanged. Left upper jugular lymph node on image 49 measuring 10 mm is also unchanged. No obvious new enlarged lymph nodes. The larynx is unremarkable. Calcified mass left posterior thyroid measuring 13 mm is stable. There is a questionable hypodense mass posterior right thyroid measuring 9 mm which was not well seen on the previous exam. IMPRESSION: Stable borderline enlarged upper neck lymph nodes favored to be benign. Bilateral thyroid lesions are nonspecific. Reviewed, Interpreted and Dictated by Brendon Britt MD Transcribed by Ketty Garcia Authenticated and [facility]
[2024-10-30 09:02] LABS: Hematocrit 45.5 % (37.0-47.0); Hemoglobin 15.4 g/dL (12.2-16.2); Immature Granulocytes % 0 %; Mean Corpuscular HGB Conc 33.8 g/dL (31.8-35.4); Mean Corpuscular Hemoglobin 32.8 pg (27.0-31.2); Mean Corpuscular Volume 96.8 fl (81-99); Nucleated Red Blood Cells % 0 %; Platelet Count 229 K/mm3 (142-424); Red Blood Count 4.70 M/mm3 (4.20-5.40); Red Cell Distribution Width-SD 48.8 fL; White Blood Count 5.3 K/mm3 (4.8-10.8)
[2024-10-30 09:09] LABS: Albumin Level 4.7 g/dl (3.5-5.0); Chloride 99 mmol/L (98-107); Potassium 3.7 mmoL/L (3.5-5.1); Sodium 138 mmol/L (136-145)
[2024-10-30 09:12] LABS: Alanine Aminotransferase 17 U/L (12-78); Albumin/Globulin Ratio 1.4 (1.1-1.8); Alkaline Phosphatase 112 U/L (38-126); Anion Gap 10.7 mEq/L (5-15); Aspartate Amino Transferase 28 U/L (14-36); Bilirubin,Total 0.8 mg/dl (0.2-1.3); Blood Urea Nitrogen 13 mg/dl (7-17); Carbon Dioxide 32 mmol/L (22.0-30.0); Creatinine,Serum 0.70 mg/dl (0.52-1.04); Estimated Glomerular Filt Rate 83 ml/min (>60); GFR (African American) 101 ML/MIN (>60); Globulin 3.4 g/dL (1.3-3.2); Total Protein,Serum 8.1 g/dl (6.3-8.2)
[2024-10-30 09:13] LABS: Calcium 9.7 mg/dl (8.4-10.2); Glucose 101 mg/dl (74-100)
--- NOTE | 2024-10-30 09:30 | CT_ITS ---
FINAL REPORT TECHNIQUE: After the administration of intravenous contrast, axial images through the chest were performed by computed tomography.This study was performed with techniques to keep radiation doses as low as reasonably achievable, (ALARA). Individualized dose reduction techniques using automated exposure control or adjustment of mA and/or kV according to the patient''s size were employed. CLINICAL HISTORY: lymphadenopathy COMPARISON: 07/09/2024 FINDINGS: Right paratracheal adenopathy of the level of the ayan measures up to 18 mm and is unchanged. No new sites of adenopathy. Left breast mass measures up to 18 mm with associated calcification or biopsy marker clip, stable. No axillary adenopathy. The heart size is normal. There is no pericardial or pleural effusion. There is minimal nodular scarring in the posterior right lung apex on image 16 of series 4 which is stable since the previous exam. Small peripheral nodule measuring 3 mm in the lateral right upper lobe on image 22 is stable. There are changes of emphysema. IMPRESSION: Stable right upper lobe nodules favored to be benign. Stable left breast mass. Stable lower right paratracheal adenopathy. Reviewed, Interpreted and Dictated by Brendon Britt MD Transcribed by Ketty Garcia Authenticated and [facility]
--- NOTE | 2024-10-30 09:30 | CT_ITS ---
FINAL REPORT TECHNIQUE: IV contrast enhanced exam This study was performed with techniques to keep radiation doses as low as reasonably achievable, (ALARA). Individualized dose reduction techniques using automated exposure control or adjustment of mA and/or kV according to the patient''s size were employed. CLINICAL HISTORY: lymphadenopathy FINDINGS: Abdomen: The gallbladder is unremarkable. Spleen and pancreas are unremarkable. There is a somewhat irregular liver lesion which is hypodense on current exam, previously was more significantly enhance. Difference is likely due to timing of imaging. Lesion measures 16 x 10 mm and is stable. There are bilateral adrenal lesions. Right adrenal lesion measures 14 mm and is stable. Left adrenal lesion seen on coronal imaging is unchanged measuring 38 x 12 mm. There is no adenopathy or ascites. No bowel obstruction or fluid collection is seen. Pelvis: The appendix is normal. Uterus and ovaries are unremarkable. Pelvic bowel loops are unremarkable. No fluid collection or adenopathy is seen. IMPRESSION: Stable enhancing liver lesion, favor hemangioma over metastasis. Recommend 6-12-month follow-up. Stable bilateral adrenal lesions, left greater than right. Reviewed, Interpreted and Dictated by Brendon Britt MD Transcribed by Carolina Green Authenticated and [facility]
[2024-10-30] MEDS: SODIUM CHLORIDE 0.9% 10ML SYR (RAD ONLY) 10 ML IV (09:33)
[2024-10-30] MEDS: IOPAMIDOL-370 (76%);100ML BOTTLE 75 ML IV (09:33)
[2024-10-30 09:43] LABS: Thyroid Stimulating Hormone 2.70 uIU/mL (0.465-4.68)
--- OUTSIDE RECORDS SUMMARY | 2024-10-30 09:46 | XMS_ITS | CCD ---
Author Organization Unknown Care Team Providers Care Crew Manager Name Role Phone Unavailable Primary Care Provider Unavailabl e Unavailable Chronic Care Management Unavaila ble Summary Purpose DataExchange Insurance Providers Payer name Policy type / Coverage type Covered democrat ID Effective Begin Date Effective End Date [facility] [id number] Unknown Unknown Family History Family History data not found Medication Administered No Medication Administered data Reason For Visit No Reason For Visit data Medical Equipment No Medical Equipment data Advance Directives No Advance Directive data
--- OUTSIDE RECORDS SUMMARY | 2024-10-30 09:46 | XMS_ITS | CCD ---
Author Organization Unknown Care Team Providers Care Welding Estimator Name Role Phone Unavailable Primary Care Provider Unavailabl e Unavailable Chronic Care Management Unavaila ble Summary Purpose DataExchange Insurance Providers Payer name Policy type / Coverage type Covered democrat ID Effective Begin Date Effective End Date [facility] [id number] Unknown Unknown Family History Family History data not found Medication Administered No Medication Administered data Reason For Visit No Reason For Visit data Medical Equipment No Medical Equipment data Advance Directives No Advance Directive data
== END 2024-10-30 08:52 | disposition home or self-care (01) ==
LOC: RAD 08:41 → INF 08:44
PROVIDERS: PCP Nurse Practitioner Family; Visit Provider Internal Medicine Medical Oncology
DX: R59.1 Generalized enlarged lymph nodes (principal)
CPT/HCPCS: 36415; 70490; 71260; 74177; 80053; 82024; 82533; 84443; 85025; Q9967

== ENCOUNTER 2024-10-31 11:20 | Outpatient (CLI) | payer MEDICARE, MEDICAID, SELFPAY ==
--- OUTSIDE RECORDS SUMMARY | 2024-10-31 11:35 | XMS_ITS | Clinical Summary ---
Author Organization Healthcare Address [address] [place] [address] Care Team Providers Care Ice Skating Teacher Name Role Phone Jt Faye MD Primary Care Provider [phone] Family History Medical History Relation Name Comments [...] of Treatment Not on file Care Teams Ice Skating Teacher Relationship Specialty Start Date End Date Jt Faye MD [address] [place], [place] [id number] PCP - General 08/22/20
[2024-10-31] MEDS: SODIUM CHLORIDE 0.9% 10ML FLUSH SYRINGE 10 ML IV (11:41)
[2024-10-31 11:47] VITALS: BP 121/89; PULSE 63; RESP 20; TEMP 36.7; O2SAT 96
[2024-10-31] MEDS: PEMBROLIZUMAB 400 MG in 0.9 % SODIUM CHLORIDE 50 ML 132 MG IV (11:47)
[2024-10-31 12:15] VITALS: BP 119/80; PULSE 69; RESP 20; O2SAT 97
--- OUTSIDE RECORDS SUMMARY | 2024-10-31 12:31 | XMS_ITS | CCD ---
Author Organization Unknown Care Team Providers Care Housekeeping/Laundry Name Role Phone Unavailable Primary Care Provider Unavailabl e Unavailable Chronic Care Management Unavaila ble Summary Purpose DataExchange Insurance Providers Payer name Policy type / Coverage type Covered alliance party ID Effective Begin Date Effective End Date [facility] [id number] Unknown Unknown Family History Family History data not found Medication Administered No Medication Administered data Reason For Visit No Reason For Visit data Medical Equipment No Medical Equipment data Advance Directives No Advance Directive data
--- OUTSIDE RECORDS SUMMARY | 2024-10-31 12:31 | XMS_ITS | CCD ---
Author Organization Unknown Care Team Providers Care Boiler House Operator Name Role Phone Unavailable Primary Care Provider Unavailabl e Unavailable Chronic Care Management Unavaila ble Summary Purpose DataExchange Insurance Providers Payer name Policy type / Coverage type Covered democrat ID Effective Begin Date Effective End Date [facility] [id number] Unknown Unknown Family History Family History data not found Medication Administered No Medication Administered data Reason For Visit No Reason For Visit data Medical Equipment No Medical Equipment data Advance Directives No Advance Directive data
[2024-10-31 12:38] VITALS: BP 117/85; PULSE 84; RESP 18; O2SAT 97
== END 2024-10-31 12:38 | disposition home or self-care (01) ==
LOC: INF 11:25
PROVIDERS: PCP Nurse Practitioner Family; Visit Provider Internal Medicine Medical Oncology
DX: R59.1 Generalized enlarged lymph nodes (principal)
CPT/HCPCS: 96413; J9271

== ENCOUNTER 2024-12-12 09:57 | Outpatient (CLI) | payer MEDICARE, MEDICAID, SELFPAY ==
--- OUTSIDE RECORDS SUMMARY | 2024-12-12 10:02 | XMS_ITS | Clinical Summary ---
Author Organization Healthcare Address [address] [place] [address] Care Team Providers Care Livestock Dealer Name Role Phone Jt Faye MD Primary Care Provider [phone] Family History Medical History Relation Name Comments [...] of Treatment Not on file Care Teams Livestock Dealer Relationship Specialty Start Date End Date Jt Faye MD [address] [place], [place] [id number] PCP - General 08/22/20
[2024-12-12 10:21] LABS: Hematocrit 43.9 % (37.0-47.0); Hemoglobin 14.8 g/dL (12.2-16.2); Immature Granulocytes % 0.3 %; Mean Corpuscular HGB Conc 33.7 g/dL (31.8-35.4); Mean Corpuscular Hemoglobin 32.7 pg (27.0-31.2); Mean Corpuscular Volume 96.9 fl (81-99); Nucleated Red Blood Cells % 0 %; Platelet Count 214 K/mm3 (142-424); Red Blood Count 4.53 M/mm3 (4.20-5.40); Red Cell Distribution Width-SD 47.8 fL; White Blood Count 7.3 K/mm3 (4.8-10.8)
[2024-12-12 10:33] LABS: Albumin Level 4.5 g/dl (3.5-5.0); Chloride 107 mmol/L (98-107); Potassium 3.9 mmoL/L (3.5-5.1); Sodium 140 mmol/L (136-145)
[2024-12-12 10:36] LABS: Alanine Aminotransferase 16 U/L (12-78); Albumin/Globulin Ratio 1.5 (1.1-1.8); Alkaline Phosphatase 102 U/L (38-126); Anion Gap 9.9 mEq/L (5-15); Aspartate Amino Transferase 26 U/L (14-36); Bilirubin,Total 0.6 mg/dl (0.2-1.3); Blood Urea Nitrogen 13 mg/dl (7-17); Calcium 9.7 mg/dl (8.4-10.2); Carbon Dioxide 27 mmol/L (22.0-30.0); Creatinine,Serum 0.60 mg/dl (0.52-1.04); Estimated Glomerular Filt Rate 99 ml/min (>60); GFR (African American) 120 ML/MIN (>60); Globulin 3.1 g/dL (1.3-3.2); Glucose 94 mg/dl (74-100); Total Protein,Serum 7.6 g/dl (6.3-8.2)
[2024-12-12 11:07] LABS: Thyroid Stimulating Hormone 2.23 uIU/mL (0.465-4.68)
[2024-12-12 11:33] VITALS: BP 124/76; PULSE 74; RESP 18; O2SAT 96
[2024-12-12] MEDS: PEMBROLIZUMAB 400 MG in 0.9 % SODIUM CHLORIDE 50 ML 132 MG IV (11:33)
[2024-12-12] MEDS: 0.9 % SODIUM CHLORIDE 50 ML 100 ML IV (11:41)
[2024-12-12 12:20] VITALS: BP 120/85; PULSE 78; RESP 18; O2SAT 96
== END 2024-12-12 12:20 | disposition home or self-care (01) ==
PROVIDERS: PCP Nurse Practitioner Family; Visit Provider Internal Medicine Medical Oncology
DX: R59.1 Generalized enlarged lymph nodes (principal)
CPT/HCPCS: 80053; 82024; 82533; 84443; 85025; 96413; J9271

== ENCOUNTER 2025-01-16 08:49 | Outpatient (CLI) | payer MEDICARE, MEDICAID, SELFPAY ==
[2025-01-16 09:06] VITALS: BMI 22.1
[2025-01-16 09:15] LABS: Hematocrit 46.0 % (37.0-47.0); Hemoglobin 15.1 g/dL (12.2-16.2); Immature Granulocytes % 0.2 %; Mean Corpuscular HGB Conc 32.8 g/dL (31.8-35.4); Mean Corpuscular Hemoglobin 31.5 pg (27.0-31.2); Mean Corpuscular Volume 96.0 fl (81-99); Nucleated Red Blood Cells % 0 %; Platelet Count 275 K/mm3 (142-424); Red Blood Count 4.79 M/mm3 (4.20-5.40); Red Cell Distribution Width-SD 46.9 fL; White Blood Count 11.2 K/mm3 (4.8-10.8)
--- NOTE | 2025-01-16 09:30 | CT_ITS ---
FINAL REPORT TECHNIQUE: Thin section axial images were obtained from the thoracic inlet through the upper abdomen after intravenous contrast injection. Reconstruction images were obtained from the axial data. Exam was performed using dose reduction technique. CLINICAL HISTORY: lymphadenopathy COMPARISON: 10/30/2024 FINDINGS: There is no axillary or hilar lymphadenopathy. Right paratracheal lymphadenopathy measures 18 mm, was 17 mm. AP window lymph nodes are stable. There is no pleural or pericardial effusion. There are new bilateral reticular nodular opacities in the lower lungs most consistent with bronchopneumonia, aspiration is not excluded. There is abnormal soft tissue at the right apex measuring 21 mm, was 20 mm. Finding is best seen on series 4, image 6. No acute osseous abnormality. IMPRESSION: Stable lymphadenopathy and stable soft tissue at the right apex. New bilateral reticular nodular opacities most consistent with bronchopneumonia but aspiration is not excluded. Consider 3-month follow-up. Reviewed, Interpreted and Dictated by Genny Heredia MD Transcribed by Alicia Garg Authenticated and [facility]
--- NOTE | 2025-01-16 09:30 | CT_ITS ---
FINAL REPORT TECHNIQUE: Thin section axial images were obtained through the abdomen after intravenous contrast. Reconstruction images were obtained from the axial data. Exam was performed using dose reduction techniques. CLINICAL HISTORY: lymphadenopathy COMPARISON: 10/30/2024 FINDINGS: There is a stable lesion in the inferior right lobe of the liver with peripheral enhancement, unchanged from prior. The gallbladder is present. The spleen and pancreas are unremarkable. There is bilateral adrenal enlargement which is stable. There is no hydronephrosis or solid renal mass. Abdominal GI tract is without acute abnormality. There is no abdominal lymphadenopathy or ascites. The appendix is not identified but there are no secondary findings to suggest appendicitis. There is diverticulosis without evidence of diverticulitis. The uterus is unremarkable for age. There is no pelvic lymphadenopathy or ascites. No acute osseous abnormalities identified. IMPRESSION: No CT evidence of acute intra-abdominal or intrapelvic abnormality. Stable liver lesion and bilateral adrenal enlargement. Reviewed, Interpreted and Dictated by Genny Heredia MD Transcribed by Alicia Garg Authenticated and [facility]
[2025-01-16 10:13] LABS: Albumin Level 4.3 g/dl (3.5-5.0); Chloride 100 mmol/L (98-107); Potassium 4.2 mmoL/L (3.5-5.1); Sodium 141 mmol/L (136-145)
--- NOTE | 2025-01-16 10:15 | CT_ITS ---
FINAL REPORT TECHNIQUE: Thin section axial CT images with coronal and sagittal reformats were performed after the administration of IV contrast. This study was performed with techniques to keep radiation doses as low as reasonably achievable (ALARA). Individualized dose reduction techniques using automated exposure control or adjustment of mA and/or kV according to the patient''s size were employed. CLINICAL HISTORY: lymphadenopathy COMPARISON: 10/30/2024 FINDINGS: The nasopharynx, oropharynx, epiglottis, and larynx are unremarkable. Bilateral thyroid nodules are stable. The salivary glands are unremarkable. There are stable bilateral mildly prominent submandibular lymph nodes. No new lymph adenopathy is identified. There is no new mass or fluid collection. There are air-fluid levels in the left maxillary and right sphenoid sinuses which is new since prior consistent with acute sinusitis. Osseous structures are without acute abnormality. IMPRESSION: Stable mildly enlarged submandibular lymph nodes. New left maxillary and right sphenoid sinusitis. Reviewed, Interpreted and Dictated by Genny Heredia MD Transcribed by Alicia Garg Authenticated and [facility]
[2025-01-16 10:16] LABS: Alanine Aminotransferase 15 U/L (12-78); Albumin/Globulin Ratio 1.1 (1.1-1.8); Alkaline Phosphatase 135 U/L (38-126); Anion Gap 16.2 mEq/L (5-15); Aspartate Amino Transferase 20 U/L (14-36); Bilirubin,Total 0.5 mg/dl (0.2-1.3); Carbon Dioxide 29 mmol/L (22.0-30.0); Globulin 4.0 g/dL (1.3-3.2); Total Protein,Serum 8.3 g/dl (6.3-8.2)
[2025-01-16 10:17] LABS: Calcium 9.2 mg/dl (8.4-10.2); Glucose 86 mg/dl (74-100)
[2025-01-16] MEDS: SODIUM CHLORIDE 0.9% 10ML SYR (RAD ONLY) 10 ML IV (10:17)
[2025-01-16] MEDS: IOPAMIDOL-370 (76%);100ML BOTTLE 100 ML IV (10:17)
[2025-01-16 10:49] LABS: Thyroid Stimulating Hormone 1.90 uIU/mL (0.465-4.68)
[2025-01-16 11:58] LABS: Blood Urea Nitrogen 9 mg/dl (7-17); Creatinine Clearance Estimated 50 mL/min (50-200); Creatinine,Serum 0.60 mg/dl (0.52-1.04); Estimated Glomerular Filt Rate 99 ml/min (>60); GFR (African American) 120 ML/MIN (>60)
== END 2025-01-16 23:59 | disposition home or self-care (01) ==
LOC: INF 08:50
PROVIDERS: PCP Nurse Practitioner Family; Visit Provider Internal Medicine Medical Oncology
DX: R59.1 Generalized enlarged lymph nodes (principal)
CPT/HCPCS: 36415; 70491; 71260; 74177; 80053; 82024; 82533; 84443; 85025; Q9967

== ENCOUNTER 2025-01-23 10:55 | Outpatient (CLI) | payer MEDICARE, MEDICAID, SELFPAY ==
--- OUTSIDE RECORDS SUMMARY | 2025-01-23 10:59 | XMS_ITS | Clinical Summary ---
Author Organization Healthcare Address [address] [place] [address] Care Team Providers Care Business Applications Analyst Name Role Phone Jt Faye MD Primary [...] of Treatment Not on file Care Teams Business Applications Analyst Relationship Specialty Start Date End Date Jt Faye MD [address] [place], [place] [id number] PCP - General 08/22/20
[2025-01-23] MEDS: SODIUM CHLORIDE 0.9% 10ML FLUSH SYRINGE 10 ML IV (11:28)
[2025-01-23 11:33] VITALS: BP 122/79; PULSE 83; RESP 18; TEMP 36.4; O2SAT 98
[2025-01-23] MEDS: PEMBROLIZUMAB 400 MG in 0.9 % SODIUM CHLORIDE 50 ML 132 MG IV (11:33)
--- OUTSIDE RECORDS SUMMARY | 2025-01-23 11:58 | XMS_ITS | CCD ---
Author Organization Unknown Care Team Providers Care Medical Records Tech Name Role Phone Unavailable Primary Care Provider Unavailabl e Unavailable Chronic Care Management Unavaila ble Summary Purpose DataExchange Insurance Providers Payer name Policy type / Coverage type Covered alliance party ID Effective Begin Date Effective End Date [facility] [id number] Unknown Unknown Family History Family History data not found Medication Administered No Medication Administered data Reason For Visit No Reason For Visit data Medical Equipment No Medical Equipment data Advance Directives No Advance Directive data
--- OUTSIDE RECORDS SUMMARY | 2025-01-23 11:59 | XMS_ITS | CCD ---
Author Organization Unknown Care Team Providers Care Polymerization Engineer Name Role Phone Unavailable Primary Care Provider Unavailabl e Unavailable Chronic Care Management Unavaila ble Summary Purpose DataExchange Insurance Providers Payer name Policy type / Coverage type Covered democrat ID Effective Begin Date Effective End Date [facility] [id number] Unknown Unknown Family History Family History data not found Medication Administered No Medication Administered data Reason For Visit No Reason For Visit data Medical Equipment No Medical Equipment data Advance Directives No Advance Directive data
[2025-01-23 12:18] VITALS: BP 126/82; PULSE 80; RESP 18; O2SAT 98
== END 2025-01-23 23:59 | disposition home or self-care (01) ==
LOC: INF 10:57
PROVIDERS: PCP Nurse Practitioner Family; Visit Provider Internal Medicine Medical Oncology
DX: R59.1 Generalized enlarged lymph nodes (principal)
CPT/HCPCS: 96413; J9271

== ENCOUNTER 2025-03-13 10:08 | Outpatient (CLI) | payer MEDICARE, MEDICAID, SELFPAY ==
[2025-03-13 10:11] VITALS: BMI 22.1
--- OUTSIDE RECORDS SUMMARY | 2025-03-13 10:11 | XMS_ITS | Data Portability ---
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 Variances in spelling and vocabulary are possible [...] currently under care of Dr. Pacheco at [facility] for recent lymph node and PET/CT findings. 1 Continue Trelegy 100 mcg 1 puff daily; Rinse mouth after each use *Failed Symbicort and Spiriva 2. Continue Ventolin 90 mcg 2 puffs every 4 hours 3. F/U with Dr. Pacheco (Oncology) as scheduled 4. Smoking Cessation 5. Enroll in [facility] 6. Request PET/CT from [facility] 7. RTO in 4 months Portions of this note may be dictated using voice recognition software and or use of a medical cash poster. Variances in spelling and vocabulary are possible [...] 1 ppd x 40 years, now 1 1/2 ppd Plan *Patient currently under care of Dr. Pacheco (Oncology) at [facility]; PET/CT completed on Tuesday. She has results follow up in the AM 1 Stop Trelegy 100 mcg; RX Trelegy 200 mcg 1 puff daily; Rinse mouth after each use *Failed Symbicort and Spiriva 2. Continue Ventolin 90 mcg 2 puffs every 4 hours 3. F/U with Dr. Pacheco (Oncology) as scheduled 4. Smoking Cessation 5. Enrolled in [facility] 6. Request PET/CT from [facility] 7. RTO in 4 months, sooner if needed Portions of this note may be dictated using voice recognition software and or use of a medical cash poster. Variances in spelling and vocabulary are possible and unintentional. Not all errors are caught/corrected. Please notify the author if any discrepancies are noted or if the meaning of any statement is not clear. This is a summary discussion with the patient and in no way is intended to be a verbatum summation of everything discussed. We apologize for any inconvenience. Not available 04/12/2024 11:33:41 08/13/2024 08/13/2024 Imaging [...] under care of Dr. Pacheco (Oncology) at [facility] 1 Continue Trelegy 200 mcg 1 puff daily; Rinse mouth after each use (RX Renewed) *Failed Symbicort, Spiriva and Trelegy 100 mcg 2. Continue Ventolin 90 mcg 2 puffs every 4 hours (RX Renewed) 3. F/U with Dr. Pacheco (Oncology) as scheduled 4. Smoking Cessation 5. Enrolled in [facility] 6. Request PET/CT from [facility]-2nd request sent 7. PFT at next OV 8.RTO in 4 months, sooner if needed The patient underwent pulmonary function testing today to evaluate complaints of dyspnea. Results were discussed with the patient. Portions of this note may be dictated using voice recognition software and or use of a medical cash poster. Variances in spelling and vocabulary are possible and unintentional. Not all errors are caught/corrected. Please notify the author if any discrepancies are noted or if the meaning of any statement is not clear. This is a summary discussion with the patient and in no way is intended to be a verbatum summation of everything discussed. We apologize for any inconvenience. [email or web address] Not available 08/13/2024 20:23:37 12/14/2024 12/14/2024 Imaging Studies Reviewed *LDCT Chest (05/24/2023): stable [...] opacity inferiorly within the right hepatic lobe *Chest CT (07/09/2024): stable adrenal lesion indeterminate for adenoma or metastasis stable enhancing liver lesion which could represent atypical hemangioma or less likely metastasis Assessment 1. COPD *PFT (07/21/2023): mild restriction, +midflow obstruction, no change after LIA *PFT (04/12/2024): moderate obstruction, +midflow obstruction, no restriction, moderately reduced DLCO/VA, + gas trapping, no change after LIA *PFT (08/13/2024): moderate obstruction, +midflow obstruction, mild restriction, +LIA *PFT (12/14/2024): moderate obstruction, no restriction, no LIA response, + small airway obstruction, + gas trapping DLCO: WNL reduced mildly 2. 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 *MAK (07/25/2023): 33 3. Dyspnea 4. Nocturnal Oxygen Use 5. History of hyperlipidemia, GERD, neuropathy, chronic depression *managed by PCP 6. Current smoker: 2 ppd x 40 years, now 1 1/2 ppd Plan *Patient currently under care of Dr. Pacheco (Oncology) at [facility] 1 Continue Trelegy 200 mcg 1 puff daily; Rinse mouth after each use *Failed Symbicort, Spiriva and Trelegy 100 mcg 2. Continue Ventolin 90 mcg 2 puffs every 4 hours 3. F/U with Dr. Pacheco (Oncology) as scheduled 4. Smoking Cessation 5. Enrolled in [facility] 6. PFT at next OV 7.RTO in 6 months, sooner if needed The patient underwent pulmonary function testing today to evaluate complaints of dyspnea. Results were discussed with the patient. Portions of this note may be dictated using voice recognition software and or use of a medical cash poster. Variances in spelling and vocabulary are possible and unintentional. Not all errors are caught/corrected. Please notify the author if any discrepancies are noted or if the meaning of any statement is not clear. This is a summary discussion with the patient and in no way is intended to be a verbatum summation of everything discussed. We apologize for any inconvenience. Not available 12/15/2024 18:46:04 Plan of Treatment Reminders Order Date Submit Date Provider Last Modified By Organization Details Last Modified Time Details Appointments FOLLOW_UP 2025 10:20A Candida Tristan NP Not available Not available Not available Lab None recorded. Referral None recorded. Procedures None recorded. Surgeries None recorded. Imaging None recorded. Medication Orders Trelegy Ellipta 200 mcg-62.5 mcg-25 mcg powder for inhalatio n 2024 025 [facility] - [address], [address], 08/13/2024 14:44:53 albuterol sulfate HFA 90 mcg/actua tion aerosol inhaler 2024 025 OLE [facility] - [address], [address], 08/13/2024 15:00:37 Trelegy Ellipta 200 mcg-62.5 mcg-25 mcg powder for inhalatio n 2024 025 [facility] - [address], [address], 04/12/2024 11:27:26 Trelegy Ellipta 100 mcg-62.5 mcg-25 mcg powder for inhalatio n 2023 [email or web address], [address], 08/13/2024 14:22:40 Patient TargetsNo targets recorded. Patient Instructions Encounter Date Encounter Id Patient Instructions Last Modified By Organization Details Last Modified Time 10/11/2023 [id number] smoking cessatio n counseling, greater than 3 minutes up to 10 minutes* [email or web address] Not available 10/11/2023 10:11:49 12/13/2023 [id number] medical record request* - Please forward recent PET/CT scan Not available 12/20/2023 10:12:08 Smoking cessatio n [...] though CCM services will not involve a [id number] meeting with the provider. Not available 12/13/2023 11:39:33 04/12/[id number] medical record request* - Please forward recent PET/CT ordered by Dr. Pacheco Not available 04/19/2024 11:06:11 Smoking cessatio n was discussed with the patient for less than 10 minutes. The detrimental effects to the patient's health of continued smoking was explained. Methods to quit smoking were also discussed to include nicotine replacement therapy and pharmacologic treatment. Not available 04/12/2024 11:34:19 08/13/2024 [id number] medical record request* - please forward most recent PET/CT or Chest CT [email or web address] Not available 08/20/2024 10:27:42 Smoking cessatio n was discussed with the patient for less than 10 minutes. The detrimental effects to the patient's health of continued smoking was explained. Methods to quit smoking were also discussed to include nicotine replacement therapy and pharmacologic treatment. Not available 08/13/2024 20:23:49 12/14/2024 [id number] Smoking cessatio n was discussed with the patient for less than 10 minutes. The detrimental effects to the patient's health of continued smoking was explained. Methods to quit smoking were also discussed to include nicotine replacement therapy and pharmacologic treatment. Not available 12/15/2024 18:48:03 Reason for Referral None Reported. Results Created Date Observation Date Name Description Value Unit Range Abnormal Flag Note LastModifiedBy Organization Detail LastModifiedTime 09/20/19 24 05/24/2023 LDCT, chest , for lung cance r kimo [email or web address] No observ ation record ed. [email or web address] Not Available 2023 16:36:15 09/26/19 24 08/24/2023 US, neck, soft tissu e No observ ation record ed. [email or web address] [facility] (Imaging) [address] [place] [address] [place], [address], 09/26/2023 15:54:54 09/30/19 24 09/28/2023 CT, chest , w/o contr ast No observ ation record ed. BARCODE [facility] (Imaging) [address] [place] [address] [place], [address], 09/30/2023 10:07:40 12/13/19 24 10/21/2023 US, neck No observ ation record ed. [email or web address] Not Available 2023 16:40:57 04/12/19 25 04/10/2024 CT, chest , w/ contr ast No observ ation record ed. [email or web address] Not Available 2024 14:08:33 04/12/19 25 04/10/2024 CT, chest , w/ contr ast No observ ation record ed. [email or web address] Not Available 2024 14:09:11 04/12/19 25 04/10/2024 CT, chest , w/ contr ast No observ ation record ed. [email or web address] Not Available 2024 14:09:50 04/23/19 25 04/12/2024 compl ete PFT* No observ ation record ed. [email or web address] Not Available 2024 16:20:43 08/15/19 25 07/09/2024 CT, chest , w/ contr ast No observ ation record ed. [email or web address] [facility] (Med Record) [address], [place], [address], 08/14/2024 10:22:14 08/15/19 25 07/09/2024 CT, angio gram, head + neck, w/wo contr ast No observ ation record ed. [email or web address] [facility] (Med Record) [address], [place], [address], 08/14/2024 10:22:50 08/18/19 25 08/16/2024 compl ete PFT w/ post [facility] hodil ator shanice metry * No observ ation record ed. [email or web address] Not Available 08/17 09:53:30 12/18/19 25 12/14/2024 compl ete PFT* No observ ation record ed. [email or web address] [facility] [address] [place] [address], [place], [address], 12/17/2024 16:12:53 12/20/19 25 12/14/2024 compl ete PFT* No observ ation record ed. Not Available 2024 19:58:57 Result Notes None recorded. Problems Name Problem SNOMED Code Status Onset Date Resolution Date Notes Provider Name and Address Organization Details Recorded Time Chronic obstructive pulmonary disease 82404451 Active 2023 Janet Tristan NP [address], [facility] [place], [address] , [facility] 4 12:57:16 Multiple nodules of lung 034819162 Active 2023 carol del rio null, [place] - [facility] 5 09:26:52 Dyspnea 964885435 Active 2023 Janet Tristan NP [address], [place], [place], [address], [place] - [facility] 4 15:30:53 Dependence on nocturnal oxygen therapy 3435485431313 8 Active 2023 Janet Tristan NP [address], [place], [place], [address], [place] - [facility] 4 15:31:02 Heavy tobacco smoker 3458541514930 03 Active 2023 Janet Tristan NP [address], [place], [address], [place] [facility] 4 15:32:05 Lymphadenop athy 51862343 Active 2023 Janet Tristan NP [address], [place], [address], [place] [facility] 4 12:30:15 Squamous cell carcinoma of skin 251366229 Active 2024 Janet Tristan NP [address], [place], [address], [place] [facility] 5 20:24:12 Dyspnea on exertion 21648885 Active 2024 Janet Tristan NP [address], [place], [address], [place] [facility] [...] Name and Address Organization Details Recorded Time 57867 codeine medicatio n hives mild low 07/21/2023 2670 RxNorm tomas tuel null, [place] - [facility] 4 12:34:52 09895 aspirin medicatio n nausea mild low 07/21/2023 1191 [facility]Norm tomas tuel null, [place] - [facility] 4 12:35:24 Medications Name Sig Start Date Stop Date Status Note LastModified by Organization Details LastModified Time amoxicillin 500 mg capsule TAKE 1 CAPSULE BY MOUTH TWICE DAILY FOR 10 DAYS 12/14 completed Not Available Not Available Not Available furosemide 40 mg tablet TAKE ONE (1) TABLET BY MOUTH EVERY DAY NEEDED active Not Available Not Available No t Available atorvastati n 40 mg tablet TAKE 1 TABLET BY MOUTH [...] DAY BY ORAL ROUTE FOR 30 DAYS. 12/14 completed Not Available Not Available Not Available sertraline 100 mg tablet TAKE 2 TABLETS BY MOUTH EVERY DAY active Not [...] tablet,amanda yed release TAKE ONE (1) TABLET BY MOUTH EVERY DAY active Not Available Not Available No t Available dexamethaso ne 4 mg tablet TAKE ONE (1) TABLET (4 MG) ORALLY DAILY 12/14 completed Not Available Not Available Not Available montelukast 10 mg tablet TAKE ONE (1) TABLET BY MOUTH EVERY DAY active Not Available Not Available No t Available methylpredn isolone 4 mg tablets in a dose pack TAKE DIRECTED ON PACKAGE 12/14 completed Not Available Not Available Not Available fluticasone propionate 50 mcg/actuati on nasal spray,suspe nsion SPRAY ONE (1) SPRAY EVERY DAY BY INTRANASA L ROUTE. active Not Available Not Available No t Available ipratropium bromide 0.02 % solution for inhalation INHALE TWO AND A HALF (2 & 1/2) ML EVERY SIX (6) HOURS BY INHALATIO N ROUTE FOR 30 DAYS. active Not Available Not Available No t Available Ventolin HFA 90 mcg/actuati on aerosol inhaler INHALE TWO (2) PUFFS EVERY FOUR (4) HOURS BY INHALATIO N ROUTE DIRECTED active Not Available Not Available No t Available buspirone 15 mg tablet TAKE 1 TABLET BY MOUTH THREE (3) TIMES DAILY active Not Available Not Available No t Available cyclobenzap rine 5 mg tablet TAKE 1 TABLET BY MOUTH THREE (3) TIMES DAILY [...] D3) 1,250 mcg (50,000 unit) capsule TAKE ONE (1) CAPSULE BY MOUTH EVERY WEEK active Not Available Not Available No t [...] Not Available Linzess 145 mcg capsule TAKE 1 CAPSULE BY MOUTH EVERY DAY active Not Available Not Available No t Available Trelegy Ellipta 100 mcg-62.5 mcg-25 mcg powder for inhalation INHALE ONE (1) PUFF EVERY DAY BY INHALATIO N ROUTE FOR 30 DAYS. 08/13 completed Not Available Not Available Not Available Trelegy Ellipta 200 mcg-62.5 mcg-25 mcg powder for inhalation active Not Available Not Available N ot Available Vitals Date Recorded Body height Body mass index (BMI) Body weight Oxygen saturation Heart rate Respiratory rate Body temperature Systolic And Diastolic Provider Name and Address Organization Details Last Updated DateTime 5 160.02 cm 25.7 kg/m2 78914.8 9 g 99 % 90 /min 18 /min 99.5 [degF] 124/80 mm[Hg] tomas ELAINE - [facility] 5 10:42:55 Date Recorded Body height Body mass index (BMI) Body weight Oxygen saturation Heart rate Respiratory rate Body temperature Systolic And Diastolic Provider Name and Address Organization Details Last Updated DateTime 5 160.02 cm 24.3 kg/m2 39705.5 9 g 94 % 84 /min 18 /min 99.1 [degF] 140/88 mm[Hg] neno espinozaneil [facility] 5 14:19:42 Date Recorded Body height Body mass index (BMI) Body weight Oxygen saturation Heart rate Respiratory rate Body temperature Systolic And Diastolic Provider Name and Address Organization Details Last Updated DateTime 4 160.02 cm 25.7 kg/m2 84470.8 9 g 90 % 84 /min 20 /min 97.7 [degF] 122/82 mm[Hg] cezar henderson [facility] 4 09:56:03 Date Recorded Body height Body mass index (BMI) Body weight Oxygen saturation Heart rate Respiratory rate Body temperature Systolic And Diastolic Provider Name and Address Organization Details Last Updated DateTime 4 160.02 cm 25.7 kg/m2 08097.8 9 g 92 % 86 /min 18 /min 97.5 [degF] 122/88 mm[Hg] cezar henderson [facility] 4 09:52:25 Date Recorded Body height Body mass index (BMI) Body weight Body temperature Respiratory rate Heart rate Oxygen saturation Systolic And Diastolic Provider Name and Address Organization Details Last Updated DateTime 5 160.02 cm 23.3 kg/m2 06007.4 7 g 98.1 [degF] 20 /min 77 /min 94 % 122/80 mm[Hg] joanne hooper [facility] 5 09:50:53 Social History Question Answer Notes LastModified by Organizat ion Details LastModified Time Tobacco Smoking Status Current Every Day Smoker tomas chen [facility] 07/21/2023 12:37:28 Do You Have An Advance Directive? No Information not available 07/21/2023 Is Your Home Air Conditioned? Yes Information not available 07/21/2023 [facility] You Live? [facility] [email or web address] Information not available 10/11/2023 Do You Have A Medical Power Of Operations Executive? No Information not available 07/21/2023 What Was The Date Of Your Most Recent Tobacco Screening? 12/14/2024 [email or web address] Information not available 12/14/2024 What Is Your Current Pack Years? [email or web address] Information no t available 07/21/2023 Do You Have Any Pets? No Information not available 07/21/2023 What Is Your Relationship Status? [email or web address] Information not available 10/11/2023 At What Age Did You Start Smoking Tobacco? 20 Information not available 07/21/2023 Are There Any Smokers In Your House? Yes Information not available 07/21/2023 How Much Tobacco Do You Smoke? 2 PPD [email or web address] Information not available 12/14/2024 Has Tobacco Cessation Counseling Been Provided? Yes [...] Organization Details LastModified Time Father Heart disease [email or web address] Not available 10/10 09:57:16 Mother Heart disease Not available 10/10 09:57:16 Brother Diabetes mellitus Not available 10/10 09:57:21 Medical History No medical history recorded. Gynecological HistoryNo gynecological history recorded. Obstetrics History GPAL:G 0 P 0 0 0 0 Past Encounters Encounter ID Performer Location Encounter Start Date Encounter Closed Date Diagnosis/Indication Diagnosis SNOMED-CT Code Diagnosis ICD10 Code Diagnosis IMO Codes Diagnosis Note [id number] Janet Tristan NP [facility] [address] [place] [address] [address] W[address] [place] [address] 07/21/2023 11:58:57 07/21/2023 13:13:58 Chronic obstructive pulmonary disease 71654972 J44.9 Multiple n odules of lung 547202152 R91.8 Dependence on nocturnal oxygen therapy 0824432692 9108 Z99.81 Dyspnea 709611633 R06.00 Heavy tobacco smoker 506 5316064 07329 Z72.0 [id number] Janet Tristan NP [address] [place] [address] 08/18/2023 10:09:33 08/18/2023 12:39:34 Chronic obstructive pulmonary disease 34431534 J44.9 Multiple n odules of lung 724818456 R91.8 Dependence on nocturnal oxygen therapy 5134749871 9108 Z99.81 Dyspnea 634196649 R06.00 Heavy tobacco smoker 937 3997388 53038 Z72.0 Lymphadenopathy 10520549 R59.0 [id number] Janet Tristan NP [address] W[address] [place] [phone] 10/11/2023 09:43:47 10/11/2023 10:48:51 Chronic obstructive pulmonary disease 47581081 J44.9 Multiple n odules of lung 998325875 R91.8 Dependence on nocturnal oxygen therapy 1732178663 9108 Z99.81 Dyspnea 212041144 R06.00 Heavy tobacco smoker 973 7527632 07153 Z72.0 Lymphadenopathy 29333205 R59.0 [id number] Juancho Fallon [address] W[address]ER [address] [place] [address] 12/13/2023 09:45:33 12/13/2023 10:50:20 Chronic obstructive pulmonary disease 28323600 J44.9 Multiple n odules of lung 537720656 R91.8 Dependence on nocturnal oxygen therapy 8135293537 9108 Z99.81 Dyspnea 925884662 R06.00 Heavy tobacco smoker 507 6566700 80979 Z72.0 Lymphadenopathy 27396389 R59.0 [id number] Juancho Fallon [address] W[address] [place] [phone] 04/12/2024 10:09:09 04/12/2024 11:53:18 Chronic obstructive pulmonary disease 59736714 J44.9 Multiple n odules of lung 633938113 R91.8 Dependence on nocturnal oxygen therapy 4162664004 9108 Z99.81 Dyspnea 451642149 R06.00 Heavy tobacco smoker 157 9768770 17828 Z72.0 Lymphadenopathy 84655559 R59.0 [id number] Juancho Fallon [address] [place] [address] 08/13/2024 14:02:15 08/13/2024 14:42:40 Chronic obstructive pulmonary disease 73867718 J44.9 Multiple n odules of lung 478497457 R91.8 Dependence on nocturnal oxygen therapy 9316614235 9108 Z99.81 Dyspnea 980712407 R06.00 Heavy tobacco smoker 338 7031027 85430 Z72.0 Lymphadenopathy 28017695 R59.0 Squamous c ell carcinoma of skin 450100739 C44.92 [id number] Juancho Fallon [address] [place] [phone] 12/14/2024 09:25:31 12/14/2024 10:41:31 Chronic obstructive pulmonary disease 56168524 J44.9 Multiple n odules of lung 303205441 R91.8 Dependence on nocturnal oxygen therapy 6354866465 9108 Z99.81 Dyspnea 074744545 R06.00 Heavy tobacco smoker 042 2189180 37388 Z72.0 Lymphadenopathy 57475506 R59.0 Squamous c ell carcinoma of skin 159540546 C44.92 166266 Health Concerns Section Related Observation LastModified by Organization Detai ls LastModified Time None Recorded Concern Status LastModified by Organization Details LastModified Time None Recorded Advance Directives Directive N: Payers Insurance Date Sequence Insurance Name Policy Number Policy Sharma Covered Member ID Sharma Member ID Guarantor Name 12/11/2024 2 MEDICAID-[facility] CHO[facility] - FFS/TRADITIONA L Nori Montoya [id number] Nori Montoya 08/13/2024 1 [place] MED[place] ADVANTAGE (MEDICARE REPLACEMENT HMO) [id number] Nori Montoya [id number] Nori Montoya 08/13/2024 3 [place] Nori Montoya [id number] Nori Montoya 12/11/2024 1 [employer] (MEDICARE REPLACEMENT/AD VANTAGE - PPO) [id number] Nori Montoya [id number] Nori Montoya Notes Date Note Type Note Provider Name and Address Organization Details Recorded Time 10/11/2023 text/html ROS as noted in the HPI This is a 68 year-old female who presents to the office today to review the results of a recent Chest CT completed on 09/28/2023 and the ongoing management of COPD. Results and proposed treatment plan was discussed with the patient. Since last visit, patient states she found an enlarged lymph node and has had an appointment with Dr. Pacheco (Oncology) at [facility] for an enlarged lymph node to [...] Tristan NP [address], [place], [address], [facility] 10/11/2023 11:42:55 12/13/2023 text/html ROS as noted in the HPI This 68 year-old female returns to the office for the ongoing management of COPD and medication follow up. Since last visit patient had a biopsy of right neck mass, PET/CT and is awaiting a date for a colonoscopy. Patient states she is unsure of results. She is being followed by Dr. Pacheco (Oncology) at [facility]. Patient continues Trelegy 100 mcg 1 [...] Tristan NP [address], [place], [address], [facility] 12/13/2023 11:42:51 04/12/2024 text/html ROS as noted in the HPI This 69 year-old female returns to the [...] Tristan NP [address], [place], [address], [facility] 04/12/2024 11:35:03 08/13/2024 text/html ROS as noted in the HPI This 69 year-old female returns to the office for the ongoing management of COPD. Patient continues to follow with Dr. Pacheco (Oncology) at [facility] for squamous cell carcinoma to right [...] Tristan NP [address], [place], [address], [facility] 08/13/2024 20:26:16 12/14/2024 text/html ROS as noted in the HPI This 69 year-old female returns to the office for the ongoing management of COPD. Patient denies any significant medical events since her last visit. Patient continues to follow with Dr. Pacheco, Oncology at [facility] for history of squamous cell carcinoma to right cervical lymph nodes. Patient states her last CT was good. The patient reports a morning cough with clear mucus in the mornings. She reports improved shortness of breath with exertion. Denies any wheezing or nocturnal respiratory symptoms.She continues Trelegy 200 mcg daily. She uses Ventolin approximately twice per week. Patient is currently smoking 2 PPD. Denies any n/v/d/f/c. Janet Tristan NP [address], [place], [address], [facility] 12/15/2024 18:48:08 OBGyn Episode No OBEpisode recorded.
--- OUTSIDE RECORDS SUMMARY | 2025-03-13 10:11 | XMS_ITS | Continuity of Care Document ---
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 Pacheco (Oncology) at [facility] 1 Continue Trelegy 200 mcg 1 puff daily; Rinse mouth after each use *Failed Symbicort, Spiriva and Trelegy 100 mcg 2. Continue Ventolin 90 mcg 2 puffs every 4 hours 3. F/U with Dr. Pacheco (Oncology) as scheduled 4. Smoking Cessation 5. Enrolled in [facility] 6. PFT at next OV 7.RTO in 6 months, sooner if needed The patient underwent pulmonary function testing today to evaluate complaints of dyspnea. Results were discussed with the patient. Portions of this note may be dictated using voice recognition software and or use of a medical librarian. Variances in spelling and vocabulary are possible [...] Organization Details Last Modified Time Details Appointments FOLLOW _UP 026 10:20AM Janet Tristan NP Not available Not available Not available Lab None record ed. Referral None record ed. Procedures None record ed. Surgeries None record ed. Imaging None record ed. Medication Orders None record ed. Patient TargetsNo targets recorded. Patient Instructions Encounter Date Encounter Id Patient Instructions Last Modified By Organization Details Last Modified Time 12/14/2024 [id number] Smoking cessatio n was discussed with the [...] Abnormal Flag Note LastModifiedBy Organization Detail LastModifiedTime 12/18/1912/14/2024 compl ete PFT* No observ ation record ed. [email or web address] [facility] [address] [place] [address], [address], 12/17/2024 16:12:53 12/20/1912/14/2024 compl ete PFT* No observ ation record ed. Not Available 2024 19:58:57 Result Notes None recorded. Problems Name Problem SNOMED Code Status Onset Date Resolution Date Notes Provider Name and Address Organization Details Recorded Time Chronic obstructive pulmonary disease 44866491 Active 2023 Janet Tristan NP [address], [place], [address], [place] - [facility] 4 12:57:16 Multiple nodules of lung 194485019 Active 2023 carol del rio null, [place] - [facility] 5 09:26:52 Dyspnea 285353971 Active 2023 Janet Tristan NP [address], [place], [address], [place] - [facility] 4 15:30:53 Dependence on nocturnal oxygen therapy 6155336042606 8 Active 2023 Janet Tristan NP [address], [place], [address], [place] [facility] 4 15:31:02 Heavy tobacco smoker 4085601027408 03 Active 2023 Janet Tristan NP [address], [place], [address], [place] [facility] 4 15:32:05 Lymphadenop athy 40561895 Active 2023 Janet Tristan NP [address], [place], [address], [place] [facility] 4 12:30:15 Squamous cell carcinoma of skin 860758722 Active 2024 Janet Tristan NP [address], [place], [place], [address], [place] [facility] 5 20:24:12 Dyspnea on exertion 99689664 Active 2024 Janet Tristan NP [address], [place], [place], [address], [place] [facility] [...] Name and Address Organization Details Recorded Time 60106 codeine medicatio n hives mild low 07/21/2023 2670 RxNorm tomas tuel null, [place] - [facility] 4 12:34:52 30222 aspirin medicatio n nausea mild low 07/21/2023 [...] and Address Organization Details Last Updated DateTime 160.02 cm 23.3 kg/m2 07896.4 7 g 98.1 [degF] 20 /min 77 /min 94 % 122/80 mm[Hg] joanne hooper [place] - [employer] 09:50:53 Social History Question Answer Notes LastModified by Organizat ion Details LastModified Time Tobacco Smoking Status Current Every Day Smoker tomas chen [facility] 07/21/2023 12:37:28 Do You Have An Advance Directive? No Information not available 07/21/2023 Is Your Home Air Conditioned? Yes Information not available 07/21/2023 Where Do You Live? SingleLevelHouse [email or web address] Information not available 10/11/2023 Do You Have A Medical Power Of Clinical Science Liaison? No Information not available 07/21/2023 What Was The Date Of Your Most Recent Tobacco Screening? 12/14/2024 [email or web address] Information not available 12/14/2024 What Is Your Current Pack Years? [email or web address] Information no t available 07/21/2023 Do You Have Any Pets? No Information not available 07/21/2023 What Is Your Relationship Status? [email or web address] Information not available 10/11/2023 At What Age Did You Start Smoking Tobacco? 20 Information not available 07/21/2023 Are There Any Smokers In Your House? Yes Information not available 07/21/2023 How Much Tobacco Do You Smoke? 2 PPD [email or web address] Information not available 12/14/2024 Has Tobacco Cessation [...] Organization Details LastModified Time Father Heart disease [email or web address] Not available 10/10 09:57:16 Mother Heart disease [email or web address] Not available 10/10 09:57:16 Brother Diabetes mellitus [email or web address] Not available 10/10 09:57:21 Medical History No medical history recorded. Gynecological HistoryNo gynecological history recorded. Obstetrics History GPAL:G 0 P 0 0 0 0 Past Encounters Encounter ID Performer Location Encounter Start Date Encounter Closed Date Diagnosis/Indication Diagnosis SNOMED-CT Code Diagnosis ICD10 Code Diagnosis IMO Codes Diagnosis Note [id number] Juancho Fallon DO [place] [facility] [address] [place] [address] [address] [place] [address] 12/14/2024 09:25:31 12/14/2024 10:41:31 Chronic obstructive pulmonary disease 80070529 J44.9 Multiple n odules of lung 715448504 R91.8 Dependence on nocturnal oxygen therapy 8160842161 9108 Z99.81 Dyspnea 402798801 R06.00 Heavy tobacco smoker 885 9070861 13174 Z72.0 Lymphadenopathy 80323840 R59.0 Squamous c ell carcinoma of skin 807595427 C44.92 528456 Health Concerns Section Related Observation LastModified by Organization Detai ls LastModified Time None Recorded Concern Status LastModified by Organization Details LastModified Time None Recorded Payers Encounter Date Sequence Insurance Name Policy Number Policy Sharma Covered Member ID Sharma Member ID Guarantor Name 12/14/2024 2 MEDICAID-[facility] CHOICES - FFS/TRADITIO NAL Nori Montoya [id number] Nori Montoya 12/14/2024 1 [employer] (MEDICARE REPLACEMENT/ ADVANTAGE - PPO) [id number] Nori Montoya [id number] Nori Montoya Notes Date Note Type Note Provider Name and Address Organization Details Recorded Time 12/14/2024 text/html ROS as noted in the HPI This 69 year-old female returns to the office for the ongoing management of COPD. Patient denies any significant medical events since her last visit. Patient continues to follow with Dr. Pacheco, Oncology at [facility] for history of squamous cell carcinoma [...] Tristan NP [address], [place], [address], [facility] - [facility] 12/15/2024 18:48:08 OBGyn Episode No OBEpisode recorded.
[2025-03-13 10:34] LABS: Hematocrit 46.8 % (37.0-47.0); Hemoglobin 15.5 g/dL (12.2-16.2); Immature Granulocytes % 0.2 %; Mean Corpuscular HGB Conc 33.1 g/dL (31.8-35.4); Mean Corpuscular Hemoglobin 31.7 pg (27.0-31.2); Mean Corpuscular Volume 95.7 fl (81-99); Nucleated Red Blood Cells % 0 %; Platelet Count 225 K/mm3 (142-424); Red Blood Count 4.89 M/mm3 (4.20-5.40); Red Cell Distribution Width-SD 46.8 fL; White Blood Count 5.7 K/mm3 (4.8-10.8)
[2025-03-13 10:38] LABS: Chloride 106 mmol/L (98-107)
[2025-03-13 10:39] LABS: Albumin Level 4.6 g/dl (3.5-5.0); Potassium 4.1 mmoL/L (3.5-5.1); Sodium 143 mmol/L (136-145)
[2025-03-13 10:41] LABS: Alanine Aminotransferase 18 U/L (12-78); Anion Gap 15.1 mEq/L (5-15); Aspartate Amino Transferase 25 U/L (14-36); Blood Urea Nitrogen 11 mg/dl (7-17); Carbon Dioxide 26 mmol/L (22.0-30.0); Creatinine Clearance Estimated 49 mL/min (50-200); Creatinine,Serum 0.80 mg/dl (0.52-1.04); Estimated Glomerular Filt Rate 71 ml/min (>60); GFR (African American) 86 ML/MIN (>60)
[2025-03-13 10:42] LABS: Albumin/Globulin Ratio 1.3 (1.1-1.8); Alkaline Phosphatase 88 U/L (38-126); Bilirubin,Total 0.5 mg/dl (0.2-1.3); Calcium 9.4 mg/dl (8.4-10.2); Globulin 3.5 g/dL (1.3-3.2); Glucose 87 mg/dl (74-100); Total Protein,Serum 8.1 g/dl (6.3-8.2)
[2025-03-13 11:13] LABS: Thyroid Stimulating Hormone 1.98 uIU/mL (0.465-4.68)
[2025-03-13 11:50] VITALS: BP 130/82; PULSE 81; RESP 19; O2SAT 93
[2025-03-13] MEDS: PEMBROLIZUMAB 400 MG in 0.9 % SODIUM CHLORIDE 50 ML 132 MG IV (11:50)
[2025-03-13 12:28] VITALS: BP 117/63; PULSE 78; RESP 19; O2SAT 94
== END 2025-03-13 23:59 | disposition home or self-care (01) ==
PROVIDERS: PCP Nurse Practitioner Family; Visit Provider Internal Medicine Medical Oncology
DX: R59.1 Generalized enlarged lymph nodes (principal)
CPT/HCPCS: 80053; 82024; 82533; 84443; 85025; 96413; J9271